=== PATIENT | female | born 1960 | race Caucasian/White ===

== ENCOUNTER 2017-10-24 17:43 | Emergency (ER) | payer SELFPAY ==
--- NOTE | 2017-10-24 18:22 | EDPHYS ---
Physician Documentation [facility] Name: Maryjane Jameson Age: 57 yrs Sex: Female : 1960 Arrival Date: 10/24/2017 Time: 17:47 Bed 2 Private MD: ED Physician Petros Florence HPI: 10/24 19:13 This 57 yrs old Female presents to ER via EMS with complaints of Probable jr8 Seizure, Syncope. 19:13 The patient presents after having a single isolated seizure. Seizure onset: just prior jr8 to arrival. Context: the seizure(s) was witnessed, by family, occurred at home, occurred while the patient was moving furniture. EMS care: IV fluids. Current symptoms: Currently, the patient is not experiencing any symptoms, the patient feels back to baseline, no decreased level of consciousness, no confusion, no dysphasia, no headache, no paralysis, no visual changes. The patient has experienced similar episodes in the past, several times. The patient has not recently seen a physician. Patient stated that while helping son move objects started to not feel well. Stated that her hearing started to go out and heard echoing which she normally has just prior to seizure. Son stated that she was lowered to ground and had seizure that lasted about 30 seconds. Was postictal for a while. Patient now back to baseline. Stated that she does not want to have blood work or anything done. Just wants to go home and rest . Historical: - Allergies: 17:52 PENICILLINS; jl7 - Home Meds: 18:07 clonidine HCl 0.2 mg Oral tab 1 tab 2 times per day [Active]; amlodipine 10 mg tab 1 jl7 tab once daily [Active]; carvedilol 25 mg oral tab 1 tab 2 times per day [Active]; phenytoin sodium extended 100 mg oral cap 2 caps [Active]; ramipril 10 mg Oral cap 1 cap 2 times per day [Active]; atorvastatin 40 mg oral tab 1 tab once daily [Active]; clopidogrel 75 mg oral tab 1 tab once daily [Active]; levothyroxine 200 mcg tab 1 tab once daily [Active]; aspirin 325 mg oral tab [Active]; - PMHx: 17:52 CVA; Hemmorhagic; Diabetes - NIDDM; Hypertension; Seizures; jl7 - Immunization history:: Adult Immunizations up to date. - Social history:: Smoking status: Patient uses tobacco products, smokes one pack cigarettes per day. - Ebola Screening: : No symptoms or risks identified at this time. ROS: 19:13 Eyes: Negative for injury, pain, redness, and discharge, ENT: Negative for injury, jr8 pain, and discharge, Neck: Negative for injury, pain, and swelling, Cardiovascular: Negative for chest pain, palpitations, and edema, Respiratory: Negative for shortness of breath, cough, wheezing, and pleuritic chest pain, Abdomen/GI: Negative for abdominal pain, nausea, vomiting, diarrhea, and constipation, Back: Negative for injury and pain, MS/Extremity: Negative for injury and deformity, Skin: Negative for injury, rash, and discoloration. 19:13 Neuro: Positive for seizure activity. Exam: 19:13 Head/Face: Normocephalic, atraumatic. Eyes: Pupils equal round and reactive to light, jr8 extra-ocular motions intact. Lids and lashes normal. Conjunctiva and sclera are non-icteric and not injected. Cornea within normal limits. Periorbital areas with no swelling, redness, or edema. ENT: Nares patent. No nasal discharge, no septal abnormalities noted. Tympanic membranes are normal and external auditory canals are clear. Oropharynx with no redness, swelling, or masses, exudates, or evidence of obstruction, uvula midline. Mucous membranes moist. Neck: Trachea midline, no thyromegaly or masses palpated, and no cervical lymphadenopathy. Supple, full range of motion without nuchal rigidity, or vertebral point tenderness. No Meningismus. Chest/axilla: Normal chest wall appearance and motion. Nontender with no deformity. No lesions are appreciated. Cardiovascular: Regular rate and rhythm with a normal S1 and S2. No gallops, murmurs, or rubs. Normal PMI, no JVD. No pulse deficits. Respiratory: Lungs have equal breath sounds bilaterally, clear to auscultation and percussion. No rales, rhonchi or wheezes noted. No increased work of breathing, no retractions or nasal flaring. Abdomen/GI: Soft, non-tender, with normal bowel sounds. No distension or tympany. No guarding or rebound. No evidence of tenderness throughout. Back: No spinal tenderness. No costovertebral tenderness. Full range of motion. Skin: Warm, dry with normal turgor. Normal color with no rashes, no lesions, and no evidence of cellulitis. MS/ Extremity: Pulses equal, no cyanosis. Neurovascular intact. Full, normal range of motion. Neuro: Awake and alert, GCS 15, oriented to person, place, time, and situation. Cranial nerves II-XII grossly intact. Motor strength 5/5 in all extremities. Sensory grossly intact. Cerebellar exam normal. Normal gait. Vital Signs: 17:52 BP 168 / 83; Pulse 73; Resp 18 S; Pulse Ox 96% on R/A; Pain 0/10; jl7 18:00 Weight 54.43 kg (R); Height 5 ft. 5 in. (165.10 cm) (R); Pain 0/10; jl7 18:00 Body Mass Index 19.97 (54.43 kg, 165.10 cm) jl7 Dada Coma Score: 17:52 Eye Response: spontaneous(4). Verbal Response: oriented(5). Motor Response: obeys jl7 commands(6). Total: 15. MDM: 18:20 Patient medically screened. jr8 18:20 Data reviewed: vital signs, nurses notes, and as a result, I will discharge patient. jr8 Data interpreted: Pulse oximetry: on room air is 96 %. Interpretation: normal. Counseling: I had a detailed discussion with the patient and/or guardian regarding: the historical points, exam findings, and any diagnostic results supporting the discharge/admit diagnosis, the need for outpatient follow up, a family practitioner, a neurologist, to return to the emergency department if symptoms worsen or persist or if there are any questions or concerns that arise at home. 19:13 ED course: Patient hemodynamically stable and in no acute distress. Of sound mind with jr8 normal mental status. After examining patient, continues to want to go home and not to be further evaluated. Risks given to patient. She understands but wants to try and go home and rest since she has had this numerous times before. Patient has family that will be with her at all times. Will release her to sons care . Administered Medications: No medications were administered Disposition: 21:14 Co-signature as Attending Physician, Petros Florence MD. Disposition: 10/24/17 18:21 Discharged to Home. Impression: Epilepsy and recurrent seizures. - Condition is Stable. - Discharge Instructions: Seizure, Adult. - Medication Reconciliation Form, Thank You Letter, Antibiotic Education, Prescription Opioid Use form. - Follow up: Private Physician; When: 1 - 2 days; Reason: Recheck today's complaints, Continuance of care, Re-evaluation by your physician. - Problem is new. - Symptoms have improved. Signatures: Jas Aburto PA PA jr8 Tad Sutherland RN RN jl7 Petros Florence MD MD Corrections: (The following items were deleted from the chart) 18:32 18:21 10/24/2017 18:21 Discharged to Home. Impression: Epilepsy and recurrent seizures. jl7 Condition is Stable. Forms are Medication Reconciliation Form, Thank You Letter, Antibiotic Education, Prescription Opioid Use. Follow up: Private Physician; When: 1 - 2 days; Reason: Recheck today's complaints, Continuance of care, Re-evaluation by your physician. Problem is new. Symptoms have improved. jr8
--- NOTE | 2017-10-24 18:22 | ER ---
Nurse's Notes [facility] Name: Maryjane Jameson Age: 57 yrs Sex: Female : 1960 Arrival Date: 10/24/2017 Time: 17:47 Bed 2 Private MD: Diagnosis: Epilepsy and recurrent seizures Presentation: 10/24 17:48 Presenting complaint: EMS states: Pt had a seizure and syncopal episode, was postictal jl7 until about 10 minutes ago. Denies pain. Transition of care: patient was not received from another setting of care. Onset of symptoms was October 24, 2017. Risk Assessment: Do you want to hurt yourself or someone else? Patient reports no desire to harm self or others. Initial Sepsis Screen: Does the patient meet any 2 criteria? No. Patient's initial sepsis screen is negative. Does the patient have a suspected source of infection? No. Patient's initial sepsis screen is negative. Care prior to arrival: None. 17:48 Method Of Arrival: EMS: [facility] jl7 17:48 Acuity: RENETTA 3 jl7 Triage Assessment: 17:52 General: Appears in no apparent distress. uncomfortable, Behavior is calm, cooperative, jl7 appropriate for age. Pain: Denies pain. EENT: No signs and/or symptoms were reported regarding the EENT system. Neuro: Level of Consciousness is awake, alert, obeys commands, Oriented to person, place, time, situation. Cardiovascular: Patient's skin is warm and dry. Respiratory: Airway is patent Respiratory effort is even, unlabored. Derm: Skin is pink, warm \\T\\ dry. Historical: - Allergies: 17:52 PENICILLINS; jl7 - Home Meds: 18:07 clonidine HCl 0.2 mg Oral tab 1 tab 2 times per day [Active]; amlodipine 10 mg tab 1 jl7 tab once daily [Active]; carvedilol 25 mg oral tab 1 tab 2 times per day [Active]; phenytoin sodium extended 100 mg oral cap 2 caps [Active]; ramipril 10 mg Oral cap 1 cap 2 times per day [Active]; atorvastatin 40 mg oral tab 1 tab once daily [Active]; clopidogrel 75 mg oral tab 1 tab once daily [Active]; levothyroxine 200 mcg tab 1 tab once daily [Active]; aspirin 325 mg oral tab [Active]; - PMHx: 17:52 CVA; Hemmorhagic; Diabetes - NIDDM; Hypertension; Seizures; jl7 - Immunization history:: Adult Immunizations up to date. - Social history:: Smoking status: Patient uses tobacco products, smokes one pack cigarettes per day. - Ebola Screening: : No symptoms or risks identified at this time. Screenin:07 Abuse screen: Denies threats or abuse. Denies injuries from another. Nutritional jl7 screening: No deficits noted. Tuberculosis screening: No symptoms or risk factors identified. Fall Risk Fall in past 12 months (25 points). Secondary diagnosis (15 points) seizures, IV access (20 points). Total Patterson Fall Scale indicates High Risk Score (45 or more points). Fall prevention measures have been instituted. Side Rails Up X 2 Placed Close to Nursing Station Frequent Obs/Assessments Occuring Family Present and informed to notify staff if the need to leave the bedside As available patient and family educated on Fall Prevention Program and Strategies. Assessment: 18:00 General: See triage assessment. jl7 18:20 Reassessment: Provider at bedside, pt states "I'm fine, I feel great. I'm ready to go jl7 home please." Pt denies pain, dizziness, N/V/D. Vital Signs: 17:52 BP 168 / 83; Pulse 73; Resp 18 S; Pulse Ox 96% on R/A; Pain 0/10; jl7 18:00 Weight 54.43 kg (R); Height 5 ft. 5 in. (165.10 cm) (R); Pain 0/10; jl7 18:00 Body Mass Index 19.97 (54.43 kg, 165.10 cm) jl7 Dada Coma Score: 17:52 Eye Response: spontaneous(4). Verbal Response: oriented(5). Motor Response: obeys jl7 commands(6). Total: 15. ED Course: 17:47 Patient arrived in ED. jl7 17:50 Triage completed. jl7 17:52 Arm band placed on right wrist. jl7 17:59 Tad Sutherland, RN is Primary Nurse. jl7 18:00 Patient has correct armband on for positive identification. Bed in low position. Call jl7 light in reach. Side rails up X 1. Seizure precautions initiated. Pulse ox on. NIBP on. 18:07 Inserted saline lock: 18 gauge in right forearm, using aseptic technique. ,using jl7 aseptic technique. inserted by DAT [place] Blood collected. 18:15 Petros Florence MD is Attending Physician. 18:20 Jas Aburto PA is PHCP. jr8 18:31 No provider procedures requiring assistance completed. IV discontinued, intact, jl7 bleeding controlled, No redness/swelling at site. Pressure dressing applied. Administered Medications: No medications were administered Outcome: 18:21 Discharge ordered by . jr8 18:31 Discharged to home ambulatory, with family. jl7 18:31 Condition: stable 18:31 Discharge instructions given to patient, family, Instructed on discharge instructions, follow up and referral plans. Demonstrated understanding of instructions, follow-up care. 18:32 Patient left the ED. jl7 Signatures: Jas Aburto PA PA jrTad Hart RN RN jl7 Petros Florence MD MD Corrections: (The following items were deleted from the chart) 18:31 18:20 IV discontinued, intact, bleeding controlled, No redness/swelling at site. jl7 Pressure dressing applied, jl7 18:31 18:20 No provider procedures requiring assistance completed. jl7 jl7
== END 2017-10-24 18:32 | disposition home or self-care (01) ==
LOC: ER 17:43
DX: G40.802 Other epilepsy, not intractable, without status epilepticus (principal); I10 Essential (primary) hypertension; E11.9 Type 2 diabetes mellitus without complications; F17.210 Nicotine dependence, cigarettes, uncomplicated; Z88.0 Allergy status to penicillin; Z86.73 Personal history of transient ischemic attack (TIA), and cerebral infarction without residual deficits
CPT/HCPCS: 99284

== ENCOUNTER 2020-01-20 19:36 | Emergency (ER) | payer OTHER ==
--- OUTSIDE RECORDS SUMMARY | 2020-01-20 19:37 | XMS REPORT | Continuity of Care Document ---
:[address] [facility] t Address [address] [place] [address] Care Team Providers Name Role Phone Ally Jones Attending Clinician Unavailable Yoshi Jones Admitting Clinician Unavailable Problems This patient has no known problems. Allergies, Adverse Reactions, Alerts This patient has no known allergies or adverse reactions. Medications This patient has no known medications. Procedures This patient has no known procedures. Results Test Description Test Time Test Comments Results Result Comments Source Reference Lab Testing 2020-01-09 12:36:00 Test Item Value Reference Range Interpretation Comme nts Reference Lab Testing Not Detected NotDetected Negati ve (Not Detected) results (test code = KPVRL86V) do no t preclude infectionwith SARS-CoV-2 viru s, and should not be the sole bas is of apatient management deci mynor. Consider testing for oth erviruses if clinically mimi cated.The use of this assay as a n In vitro diagnostic unde r theFDA Emergency Use Authorizati on (EUA) is limited tolabor atories that are certified under the ClinicalLaborat ory Improvement Amendments of 1 988 (CLIA), 42 U.S.C.263a, to perform high complexity test s. Reason for Testing: Admission AwauspnewFfvixavsi0545-04-19 09:34:00 Test Item Value Reference Range Interpretation Comments Chemistry (test 133 mmol/L 136-145 L code = NA-T) Chemistry (test 3.6 mmol/L 3.5-5.1 N code = K-T) Chemistry (test 96 mmol/L 98-107 L code = CL) Chemistry (test 28 mmol/L 22-29 N code = CO2) Chemistry (test 13 mmol/L 10-20 N code = ANGP) Chemistry (test 6 mg/dL 9.8-20.1 L code = BUN) Chemistry (test 0.61 mg/dL 0.6-1.1 N code = CREATT) Chemistry (test Greater than 90 Referenc e Range for code = EGFRMDRD) Estimated G FR: Gre ater than 90 mL/min/ 1.73 m2NOTE:The MDRD equation has no t been validated for use with thenevaeh erly (over 70 years of age), women, patients with serious comorbi d condition or pe rsons with extremes o fbody size, muscle ma ss, or nutritional status. Chemistry (test 124 mg/dL 70-105 H code = GLU-T) Chemistry (test 8.9 mg/dL 7.8-10.44 N code = CA) Chemistry - [id number] 07:32:00 Test Item Value Reference Range Interpretation Comments Chemistry - Specials (test code 2.5692 uIU/mL 0.35-4.94 N = TSH3) [id number] 06:48:00 Test Item Value Reference Range Interpretation Comments Chemistry (test 130 mmol/L 136-145 L code = NA-T) Chemistry (test 3.4 mmol/L 3.5-5.1 L code = K-T) Chemistry (test 97 mmol/L 98-107 L code = CL) Chemistry (test 25 mmol/L 22-29 N code = CO2) Chemistry (test 11 mmol/L 10-20 N code = ANGP) Chemistry (test 7 mg/dL 9.8-20.1 L code = BUN) Chemistry (test 0.59 mg/dL 0.6-1.1 L code = CREATT) Chemistry (test Greater than 90 Referenc e Range for code = EGFRMDRD) Estimated G FR: Gre ater than 90 mL/min/ 1.73 m2NOTE:The MDRD equation has no t been validated for use with thenevaeh erly (over 70 years of age), women, patients with serious comorbi d condition or pe rsons with extremes o fbody size, muscle ma ss, or nutritional status. Chemistry (test 107 mg/dL 70-105 H code = GLU-T) Chemistry (test 8.5 mg/dL 7.8-10.44 N code = CA) Date of next dose: 01/09/2020Time of next dose: [id number] 06:48:00 Test Item Value Reference Range Interpretation Comments Chemistry (test code = 156 mg/dl < 200 Desired CHOL) Chemistry (test code = 111 mg/dL Less than 150 TRIG) Chemistry (test code = 57 mg/dL >60 Neg Risk Adult HDL levels in HDL) terms of risk f or Coronary Heart Disease > or Equal to 60 mg/dL N egative Risk < 40 mg/dL HIGH Risk Chemistry (test code = 77 mg/dL Level s in terms of LDL) risk for kuhn ry heart disease: Desirable: Less than 130 m g/dL Borderline H igh Risk: 130 - 15 9 mg/dL High Risk : Greater t oliveira 160 mg/dL Chemistry (test code = 2.7 Less than 4.5 Adul t levels in terms CRISK) of risk for Cor onary Heart Disease: Dangerous level : Greater than 8. 3 High: 5.6 - 8.3 Average: 3.7 - 5.6 Below average: 2.5 - 3.7 Prot ection probable: Less than 2.5 Date of next dose: 01/09/2020Time of next dose: [id number] 06:48:00 Test Item Value Reference Range Interpretation Comments Chemistry (test code 13.8 ug/mL 10.0-20.0 N Therape utic Range: = DIL) 10.0 - 20.0 mcg/mLToxic Ran ge: Greater than 30.0 mcg/mL Date of next dose: 01/09/2020Time of next dose: 6001Pbzhkyck3207-38-39 14:59:00 Test Item Value Reference Range Interpretation Comments Accuchek (test code = ACU) 159 mg/dL 70-110 H N otified Nurse Tjfvzquhd7924-04-62 13:19:00 Test Item Value Reference Range Interpretation Comments Chemistry (test 127 mmol/L 136-145 L code = NA-T) Chemistry (test 3.5 mmol/L 3.5-5.1 N code = K-T) Chemistry (test 97 mmol/L 98-107 L code = CL) Chemistry (test 21 mmol/L 22-29 L code = CO2) Chemistry (test 13 mmol/L 10-20 N code = ANGP) Chemistry (test 4 mg/dL 9.8-20.1 L code = BUN) Chemistry (test 0.50 mg/dL 0.6-1.1 L code = CREATT) Chemistry (test Greater than 90 Referenc e Range for code = EGFRMDRD) Estimated G FR: Gre ater than 90 mL/min/ 1.73 m2NOTE:The MDRD equation has no t been validated for use with theeld erly (over 70 years of age), women, patients with serious comorbi d condition or pe rsons with extremes o fbody size, muscle ma ss, or nutritional status. Chemistry (test 127 mg/dL 70-105 H code = GLU-T) Chemistry (test 7.7 mg/dL 7.8-10.44 L code = CA) Chemistry (test 0.4 mg/dL 0.2-1.2 N code = TBILI-T) Chemistry (test 5.9 g/dL 6.0-8.3 L code = TP) Chemistry (test 3.7 g/dL 3.5-5.0 N code = ALB) Chemistry (test 2.2 g/dL 2.4-3.5 L code = GLOB) Chemistry (test 1.7 g/dL 1.2-2.2 N code = AG) Chemistry (test 52 U/L 40-110 N code = ALP) Chemistry (test 15 U/L 5-34 N code = AST) Chemistry (test 17 U/L 8-55 N code = ALT) [id number] 12:50:00 Test Item Value Reference Range Interpretation Comments Hematology (test code = WBCT) 11.0 thou/uL 4.8-10.8 H Hematology (test code = RBCT) 3.74 mill/uL 4.20-5.40 L Hematology (test code = HGBT) 12.2 g/dL 12.0-16.0 N Hematology (test code = HCTT) 36.7 % 36.0-47.0 N Hematology (test code = MCV) 98.0 fL 78.0-98.0 N Hematology (test code = MCH) 32.6 pg 27.0-31.0 H Hematology (test code = MCHC) 33.3 g/dL 32.0-36.0 N Hematology (test code = RDW) 11.2 % 11.5-14.5 L Hematology (test code = PLTT) 214 thou/uL 130-400 N Hematology (test code = MPV) 7.3 fL 7.4-10.4 L Hematology (test code = %NEUT) 73.3 % 42.0-75.0 N Hematology (test code = %LYMPH) 18.5 % 21.0-51.0 L Hematology (test code = %MONO) 6.6 % 0.0-10.0 N Hematology (test code = %EOS) 1.4 % 0.0-10.0 N Hematology (test code = %BASO) 0.3 % 0.0-1.0 N Hematology (test code = NEUT#) 8.1 thou/uL 1.40-6.50 H Hematology (test code = LYMPH#) 2.0 thou/uL 1.20-3.40 N Hematology (test code = MONO#) 0.7 thou/uL 0.11-0.59 H Hematology (test code = EOS#) 0.1 thou/uL 0.0-0.7 N Hematology (test code = BASO#) 0.0 thou/uL 0.0-0.2 N [id number] 12:42:00 Test Item Value Reference Range Interpretation Comments Urinalysis (test code = Colorless Yellow UACLR) Urinalysis (test code = Clear Clear UACLY) Urinalysis (test code = SPGR) 1.003 1.002-1.036 N Urinalysis (test code = GIN) 7.0 5.0-9.0 N Urinalysis (test code = Negative Radha/uL Negative UALEU) Urinalysis (test code = Negative Negative UANIT) Urinalysis (test code = Negative mg/dL Neg-Trace PROUADIP) Urinalysis (test code = Normal mg/dL Negative GLUCU) Urinalysis (test code = KETU) Negative mg/dL Negative Urinalysis (test code = Normal mg/dL Less than 2 UAUROB) Urinalysis (test code = Negative Negative UABIL) Urinalysis (test code = Negative Negative UABLD) Urine Source: Urine Clean CatchMRI Brain [facility] Pt Name: EDUARDA GARCIA Rösler [employer] Phys: ALLY JONES MD KARLA Arias [phone] : 1960 Age: 59 SEX:F [phone] Exam Date: 01/09/20 Status: ADM IN Acct: [id number] Loc: 2SE Pt Unit #: [id number] Report #: [id number] CC: ALLY JONES MD MRI REPORT Order # Category/Exam [id number] MRI/MRI Brain W WO Con ([id number]): . Results MRI BRAIN WITH AND WITHOUT CONTRAST: INDICATION: Question CVA. Leg weakness. COMPARISON: Correlation is made to CT brain 01/08/2020. Comparison is made to a prior MRI of brain dated 2009. FINDINGS: Ventricles have normal size. There is ex vacuo dilatation of the posterior horn of the right ventricle as noted on CT. There is a focal area of encephalomalacia and surrounding gliosis. This is at the site of a previously described parenchymal hematoma in 2010.Postoperative changes in the left middle cranial fossa and left frontal bone with aneurysmal clip producing MRI artifact as is noted on CT. No gliosis or edema seen at this site on MRI. There is no evidence of restricted diffusion. No evidence of acute infarct or mass. Evidence of old lacunar infarct in the brainstem is seen at the level of the asha with focal volumeloss. There is susceptibility artifact in the asha to the left of midline indicating old microhemorrhage. No abnormal enhancement identified. Mild chronic ischemic white matter changes on FLAIR sequence. IMPRESSION: There are chronic changes in the brain as described above. There is no evidence of acute infarct or other acute process. POS: AH Reported By: Derrick Mendoza MD Electronically Signed Date/Time: 01/09/20 1443 Technologist: AMI Dictated Date/Time: 01/09/20 0908 Transcribed Date/Time: 01/09/20 [id number] [facility] Name: EDUARDA GARCIA Rösler [employer] Phys: Brooke Ludin KARLA Mejia [phone] : 1960 Age: 59 SEX:F [phone] Exam Date: 01/08/20 Status: ADM IN Acct: [id number] Loc: 2SE Pt Unit #: [id number] Report #: [id number] CC: ALLY JONES MD, Chance DO ULTRASOUND REPORT Order # Category/Exam [id number] ULT/US Carotid Doppler STANDARD ([id number]): . Results BILATERAL CAROTID DUPLEX ULTRASOUND: HISTORY: CVA. Left facial droop and slurred speech. TECHNIQUE: Grayscale, color-flow and spectral Doppler ultrasound imaging of the extracranial carotid artery systems was performed bilaterally. FINDINGS: Calcified atherosclerotic plaque is seen within the bilateral common carotid arteries as well as involving the proximal internal carotid arteries. There is no hemodynamically significant stenosis in the bilateral internal carotid arteries according to the peak systolic velocities and the ICA/CCA ratios. The peak systolic velocity in the right ICA measures 62.8 cm/s. The peak systolic velocity in the left ICA measures 72.4 cm/s. The right ICA/CCA ratio is 1.05, and the left ICA/CCA ratio is 1.11. Vertebral arteries: Antegrade flow is demonstrated in the vertebral arteries bilaterally. Velocity measurements are not significantly changed when compared to a study in 2013. IMPRESSION: No hemodynamically significant stenosis in the bilateral internal carotid arteries. Reported By: Fermin Moore MD Electronically Signed Date/Time:01/09/20 0750 Technologist: TRICIA Dictated Date/Time: 01/09/20 0747 Transcribed Date/Time:CT Brain WO [facility] Pt Name: EDUARDA GARCIA [employer] Phys: [place] [address] : 1960 Age: 59 SEX:F [phone] Exam Date: 01/08/20 Status: REG ER Acct: [id number] Loc: ERS Pt Unit #: [id number] Report #: [id number] CC: ED TEMP PROVIDER Ludin Cox DO CAT SCAN REPORT Order # Category/Exam [id number] CT/CT Brain WO Con ([id number]): . Results CT BRAIN WITHOUT CONTRAST HISTORY: Level 1 stroke. Weakness in the legs Comparison 05/22/2013 FINDINGS: Changes of encephalomalacia and reduces in the right frontoparietal lobe with associated ex vacuo dilatation of the occipital horn of the right lateral ventricle are stable. 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 Old infarction in the asha is redemonstrated. 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 No evidence of acute infarct, hemorrhage,midline shift or abnormal extra-axial fluid collections is noted. Ventricular size is stable and thebasilar cisterns are patent. IMPRESSION: No CT evidence of acute intracranial process. Discussed over the telephone with ER physician Dr. Ludin Cox at 12:53 PM Reported By: Mahesh Mcdonald MD Electronically Signed Date/Time: 01/08/20 1257 Technologist: KAELYN Dictated Date/Time: 01/08/20 1251 Transcribed Date/Time:CTA Angio Head [facility] Pt Name: EDUARDA GARCIA [employer] Phys: [place] [address] : 1960 Age: 59 SEX:F [phone] Exam Date: 01/08/20 Status: REG ER Acct: [id number] Loc: ERS Pt Unit #: [id number] Report #: [id number] CC: ED TEMP PROVIDER Ludin Cox DO CAT SCAN REPORT Order # Category/Exam [id number] CT/CTA Angio Head WWO Con ([id number]): . CT/CTA Angio Neck W Con ([id number]): . Results CTA HEAD: CTA NECK: 01/08/20 Multiple axial tomograms obtained through the head and neck with IV enhancement following an angio protocol with multiplanar reconstruction and 3D postprocessing.INDICATIONS: Stroke protocol. Left sided weakness. COMPARISON: Comparison made toa CTA head from 12/04/13. 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 The intracranial internal carotid arteries are patent and symmetric. Anterior cerebral arteries are patent and symmetric. Both middle cerebral arteries are patent. There is loss of detail at the genu of the left middle cerebral and the distal M1 segment in the left middle cerebral due to the postoperative change. The findings at this site appears stable from 2014. There are reduced left M2 and M3 segments when compared to the right but this is stable and appears to be on the basis of aneurysmal clipping which probably occluded proximal M2 branches. The right M1, M2 and M3 branches are unremarkable. The basilar artery is patent. The posterior cerebral arteries are patent and symmetric. IMPRESSION: Postoperative changes in the left middle cranial fossa with some narrowing of the distal left M1 segment and decreased left M2 segments are again noted. These findings are stable when compared to the CTA study of 12/04/13. CTA head otherwise unremarkable. CTA NECK: Origin of the arch vessels is not completely imaged. The common carotid arteries appear patent and symmetric with mild atherosclerotic change. Mild atherosclerotic change seen in both bulbs and proximal ICAs; however, there is no evidence of stenosis identified in either extracranial internal carotid artery. The vertebral arteries are patent and symmetric. The soft tissues are unremarkable. Chronic lung parenchymal changes are noted on images through the apices. IMPRESSION: Mild atherosclerotic changes seen in the carotid bulbs with no evidence ofstenosis. Reported By: Derrick Mendoza MD Electronically Signed Date/Time: 01/08/20 1547 Technologist: KAELYN Dictated Date/Time: 01/08/20 1329 Transcribed Date/Time: 01/08/20 9977
--- OUTSIDE RECORDS SUMMARY | 2020-01-20 19:37 | XMS REPORT | Continuity of Care Document ---
:1960 Author Organization [facility] Address [address] [place] [address] [address] Phone Care Team Providers Name Role Phone Donovan Moseley Primary Care Provider Yoshi Moseley Admit Provider Yoshi Moseley Attending Provider [facility] Provider Landon Da Silva Other Provider Allergies, Adverse Reactions, Alerts Allergen Type Severity Reaction Last Verified Status Updated Penicillins Allergy Yes Active Medications No medication information available. Problems No problem information available. Procedures Procedure Date Performed Status EKG 12 Lead in Emergency Room January 08, [address] Brain WO Con January 08, 2020 completed CTA Angio Head W WO Con January 08, 2020 completed CTA Angio Neck W WO Con January 08, 2020 completed US Carotid Doppler STANDARD January 08, 2020 active Relevant Diagnostic Tests and/or Laboratory Data Laboratory Results Test Date/Time Result Interpretation Reference Result Perfo rming Range Comment Site Bedside Glucose December 159 mg/dL 70-110 Notified *[facility] - ER Services, [address] 2019 [place] [address] 12:22pm Sodium Level December 127 mmol/L 136-145 [facility] Lab, [address] 2019 [place] [address] 12:39pm Potassium Level December 3.5 mmol/L 3.5-5.1 [facility] Lab, [address] 2019 [place] [id number] 12:39pm Chloride Level December 97 mmol/L 98-107 [facility] Lab, [address] 2019 [place] [address] 12:39pm Carbon Dioxide Anne 21 mmol/L 22-29 [facility], [address] Level 2019 [facility] [address] 12:39pm Anion Gap December 13 mmol/L 10-20 [facility] Lab, [address] 2019 [facility] [address] 12:39pm Blood Urea December 4 mg/dL 9.8-20.1 [facility], [address] Nitrogen 2019 [facility] [address] 12:39pm Creatinine December 0.50 mg/dL 0.6-1.1 [facility] Lab, [address] 2019 [facility] [address] 12:39pm Estimated GFR December Greater Reference [facility] Lab, [address] (MDRD) 2019 than 90 Range for [place] [id number] 12:39pm Estimated GFR: Greater than 90 mL/min/1.73 m2 NOTE:The MDRD equation has not been validated for use with theelderly (over 70 years of age), women, patientswith serious comorbid condition or persons with extremes ofbody size, muscle mass, or nutritional status. Glucose Level December 127 mg/dL 70-105 [facility] Lab, [address] 2019 [facility] [address] 12:39pm Calcium Level December 7.7 mg/dL 7.8-10.44 [facility] Lab, [address] 2019 [facility] [address] 12:39pm Total Bilirubin December 0.4 mg/dL 0.2-1.2 [facility] Lab, [address] 2019 [facility] [address] 12:39pm Serum Total December 5.9 g/dL 6.0-8.3 [facility] Lab, [address] Protein 2019 [facility] [address] 12:39pm Albumin December 3.7 g/dL 3.5-5.0 [facility] Lab, [address] 2019 [facility] [address] 12:39pm Globulin December 2.2 g/dL 2.4-3.5 [facility] StJo ph [facility], [address] 2019 [place] [address] 12:39pm Albumin/Globulin December 1.7 g/dL 1.2-2.2 [facility], [address] Ratio 2019 [place] [address] 12:39pm Alkaline December 52 U/L 40-110 [facility], [address] Phosphatase 2019 [place] [address] 12:39pm Aspartate Amino December 15 U/L 5-34 [facility], [address] Transf (AST/SGOT) 2019 [place] [address] 12:39pm Alanine December 17 U/L 8-55 [facility], [address] Aminotransferase 2019 [place] [address] (ALT/SGPT) 12:39pm White Blood Count December 11.0 4.8-10.8 [facility], [address] 2019 thou/[place] [address] 12:39pm Red Blood Count December 3.74 4.20-5.40 [facility], [address] 2019 mill/[place] [address] 12:39pm Hemoglobin December 12.2 g/dL 12.0-16.0 [facility], [address] 2019 [place] [address] 12:39pm Hematocrit December 36.7 % 36.0-47.0 [facility], [address] 2019 [place] [address] 12:39pm Mean Corpuscular Anne 98.0 fL 78.0-98.0 [facility], [address] Volume 2019 [place] [address] 12:39pm Mean Corpuscular Anne 32.6 pg 27.0-31.0 [facility], [address] Hemoglobin 2019 [place] [address] 12:39pm Mean Corpuscular Anne 33.3 g/dL 32.0-36.0 [facility] Lab, [address] Hemoglobin 2019 [facility] [address] Concent 12:39pm Red Cell Anne 11.2 % 11.5-14.5 [facility] Lab, [address] Distribution 2019 [facility] [address] Width 12:39pm Platelet Count December 214 130-400 [facility] Lab, [address] 2019 [facility] [address] 12:39pm Mean Platelet December 7.3 fL 7.4-10.4 [facility] Lab, [address] Volume 2019 [facility] [address] 12:39pm Neutrophils % Anne 73.3 % 42.0-75.0 [facility] Lab, [address] 2019 [facility] [address] 12:39pm Lymphocytes % Anne 18.5 % 21.0-51.0 [facility] Lab, [address] 2019 [facility] [address] 12:39pm Monocytes % Anne 6.6 % 0.0-10.0 [facility] Lab, [address] 2019 [facility] [address] 12:39pm Eosinophils % Anne 1.4 % 0.0-10.0 [facility], [address] 2019 [facility] [address] 12:39pm Basophils % Anne 0.3 % 0.0-1.0 [facility] Lab, [address] 2019 [facility] [address] 12:39pm Neutrophils # Anne 8.1 1.40-6.50 [facility] Lab, [address] 2019 [facility] [address] 12:39pm Lymphocytes # Anne 2.0 1.20-3.40 [facility], [address] 2019 [facility] [address] 12:39pm Monocytes # Anne 0.7 0.11-0.59 [facility] Lab, [address] 2019/ [place] [address] 12:39pm Eosinophils # Anne 0.1 0.0-[address] [facility], [address] 2019 [facility] [place] [address] 12:39pm Basophils # Anne 0.0 0.0-0.2 [facility], [address] 2019 [facility] [place] [address] 12:39pm Urine Color December Colorless Yellow [facility] StJo seph [facility], [address] 2019 [place] [address] 12:15pm Urine Clarity December Clear Clear [facility], [address] 2019 [place] [address] 12:15pm Urine Specific Anne 1.003 1.002-1.03 [facility] StJoseph [facility], [address] [place] 2019 6 [place] [address] 12:15pm Urine pH December 7.0 5.0-9.0 [facility], [address] 2019 [place] [address] 12:15pm Urine Leukocyte December Negative Negative [facility] StJoseph [facility], [address] Esterase 2019 [place] [address] 12:15pm Urine Nitrite December Negative Negative [facility], [address] 2019 [place] [address] 12:15pm Urine Protein December Negative Neg-Trace [facility], [address] 2019 [place] [address] 12:15pm Urine Glucose December Normal Negative [facility] Lab, [address] (UA) 2019 [place] [address] 12:15pm Urine Ketones December Negative Negative [facility], [address] 2019 [place] [address] 12:15pm Urine Anne Normal Less than [facility] StJose ph [facility] Lab, [address] Urobilinogen 2019 2 [place] [address] 12:15pm Urine Bilirubin December Negative Negative [facility], [address] [place] [address] 12:15pm Urine Blood December Negative Negative [facility], [address] 2019 [place] [address] 12:15pm Health Concerns Health Concerns may be documented in an alternate section. Chief Complaint and Reason for Visit Chief Complaint STROKE LIKE SYMPTOMS. Encounters Encounter Location(s) Arrival/Admit Date Discharge/Depart Date Provider(s) Admitted El Brazil January 07, [facility] 2:15pm , Ctr-2[facility] Assessments No Assessments Information Available Functional Status No Functional Status information available Goals Goals may be documented in an alternate section. Immunizations No Immunization Information Available Mental Status No Mental Status Information Available Medical Equipment No Medical Equipment Information available Insurance Providers Payer Policy Id Coverage Id Subscriber's Subscriber Effective Expi ration Name Id Date Date MEDICAID [id number] EDUARDA VARGAS December [facility] 2019 30, 2 020 MEDICARE [id number] EDUARDA VARGAS [id number] April [facility] 2000 Social History Assigned Sex Female Vital Signs No vital signs result information available.
--- OUTSIDE RECORDS SUMMARY | 2020-01-20 19:38 | XMS REPORT | Continuity of Care Document ---
:[address] [facility] Address [address] [place] [address] Phone Care Team Providers Name Role Phone Yoshi Moseley Primary Care Provider Carlos Barragan Emergency Provider Allergies, Adverse Reactions, Alerts Allergen Type Severity Reaction Last Updated Verified Status Penicillins Allergy March Yes Active 2012 10:38pm Medications Medication Status Dose Units Route Sig Qty Days Start End Instruct ions Date Date Carvedilol Active 25 MG PO Twice March Daily 2012 3:17am Clonidine Hcl Discontinu 0.1 MG PO Twice March deangelo ed Daily 2012 3:17am 9:00am Levothyroxine Discontinu 112 MCG PO Daily March deangelo Sodium ed , (Synthroid) 2012 2013 112 MCG Tab 3:17am 9:06am Nifedipine Discontinu 30 MG PO Twice March (Procardia) 10 ed Daily , MG Capsule 2012 2013 3:17am 9:05am Pravastatin Discontinu 40 MG PO Bedtim March ry Sodium ed e , (Pravachol) 40 2012 2014 MG Tab 3:17am 10:21am Valsartan/Hydr Discontinu 1 TABLET PO Daily March ary ochlorothiazid ed , (Diovan Hct) 2012 2013 160 MG/25 MG 3:17am 4:32pm Tablet Aspirin-Dipyri Discontinu 1 CAP PO Twice April deangelo damole ed Daily , (Aggrenox) 2013 CAP Cap 9:00am 4:37pm Amlodipine Active 10 MG PO Twice April Besylate Daily 2013 9:00am Aspirin Discontinu 325 MG PO Daily April (Ecotrin) 325 ed , , MG Tab 2013 2013 9:00am 8:53pm Atorvastatin Discontinu 40 MG PO Bedtim April ry Calcium ed e , (Lipitor) 40 2013 2014 MG Tab 9:00am 4:36pm Clonidine Hcl Active 0.2 MG PO Twice Gudelia Daily 2013 9:00am Phenytoin Active 300 MG PO Twice Gudelia Sodium Daily Extended 2013 (Dilantin) 100 9:00am MG Cap Pregabalin Active 75 MG PO Bedtim April (Lyrica) 75 MG e Cap 2013 9:00am Ramipril Active 5 MG PO Twice April (Altace) 5 MG Daily Cap 2013 9:00am Levothyroxine Active 137 MCG PO Daily April Sodium , (Levoxyl) 137 2014 MCG Tablet 10:23am Apixaban Discontinu 5 MG PO Twice April (Eliquis) 5 MG ed Daily , Tablet 2013 2013 4:31pm 8:53pm Alprazolam Active 0.5 MG PO Daily April (Xanax) 0.5 MG , Tab 2013 4:38pm Esomeprazole Active 40 MG PO Daily April Magnesium , (Nexium) 40 MG 2013 Capsule. 10:29am Aspirin-Dipyri Active 1 CAP PO Twice April damole Daily , (Aggrenox) 1 2013 CAP Cap 10:31am Atorvastatin Active 40 MG PO Bedtim April Calcium e , (Lipitor) 40 2014 MG Tab 10:31am Valsartan/Hydr Discontinu 1 EACH PO Daily April deangelo ochlorothiazid ed , , e (Diovan Hct 2013 2013 160-25 Mg 10:31am 8:53pm Tablet) 1 EACH Tablet Aspirin Active 81 MG PO Daily April Chewable 2013 8:53pm Problems No problem information available. Procedures Procedure Date Performed Status EKG 12 Lead in Emergency Room January 10, 2020 5:18am ac tive Relevant Diagnostic Tests and/or Laboratory Data No known relevant diagnostic tests and/or laboratory data. Health Concerns Health Concerns may be documented in an alternate section. Advance Directives Advance Directive Response Recorded Date/Time Advance Directives No May 22, 2013 4 :40pm Encounters Encounter Location(s) Arrival/Admit Date Discharge/Depart Date Provider(s) Departed [place] January 09, January 10, 2020 [facility] 2019 4:59am 7:10am Ctr-EMERGENCY SERVICES Assessments No Assessments Information Available Family History Relationship Condition Age at Onset Recorded Date/Ti me Unknown Family History? Cardiac Unknown May 22, 2013 Disorders, 4:40pm Hypertension, Respiratory Disorders, Diabetes, Cancer Functional Status No Functional Status information available Goals Goals may be documented in an alternate section. Immunizations No Immunization Information Available Mental Status No Mental Status Information Available Medical Equipment No Medical Equipment Information available Insurance Providers Payer Policy Id Coverage Id Subscriber's Subscriber Effective Expi ration Name Id Date Date MEDICARE [id number] EDUARDA VARGAS [id number] December [id number] [place] [id number] EDUARDA VARGAS January [facility] 2013 31st, 201 4 Social History Observation Status Observation Response Date of Response Smoking Status Current every day smoker April 24, 2013 3:23am Assigned Sex Female Vital Signs No vital signs result information available.
[2020-01-20 20:51] LABS: Absolute Lymphocytes (CBC) 2.3 K/uL (0.7-4.9); Basophils % 0.4 % (0-1.3); Hematocrit 37.5 % (36.0-45.0); Lymphocytes % 36.4 % (15.3-44.8); MPV 7.8 fL (7.6-11.3); RBC Red Blood Cell Count 4.03 M/uL (3.86-4.86)
[2020-01-20] MEDS ORDERED: LABETALOL 20 MG/4ML SYRINGE IV ONE (21:07)
[2020-01-20 21:10] LABS: ALT/SGPT 28 U/L (12-78); AST/SGOT 20 U/L (15-37); Albumin 4.1 g/dL (3.4-5.0); Alkaline Phosphatase 69 U/L (45-117); BUN Blood Urea Nitrogen 3 mg/dL (7-18); Bicarbonate 28 mmol/L (21-32); Bilirubin Direct 0.1 mg/dL (0-0.2); Bilirubin Total 0.3 mg/dL (0.2-1.0); Glucose Level 110 mg/dL (74-106); NT PRO-BNP 206 pg/mL (<125); Potassium 3.7 mmol/L (3.5-5.1); Protein, Total 7.6 g/dL (6.4-8.2); Sodium Level 132 mmol/L (136-145); Troponin (Emerg Dept Use Only) 0.02 ng/mL (0.0-0.045)
[2020-01-20 21:25] LABS: Protime INR 0.98
[2020-01-20 21:34] LABS: Urine Blood NEGATIVE (NEG); Urine Glucose NEGATIVE (NEG); Urine Protein NEGATIVE (NEG); Urine Specific Gravity 1.015 (1.005-1.030)
--- NOTE | 2020-01-20 22:30 | ER ---
Nurse's Notes [facility] Name: Maryjane Jameson Age: 59 yrs Sex: Female : 1960 Arrival Date: 01/20/2020 Time: 19:37 Bed 3 Private MD: Diagnosis: Uncontrolled hypertension Presentation: 01/19 19:44 Chief complaint: Patient states: BP higher than usual for 3 days. Takes extra clonidine ll1 at times BP 197/97 at home today. Denies DENT or CP. States she had TIA 2 weeks ago. Urinating more than usual for 3 days, takes a while to empty her bladder fully. + dizzy. Coronavirus screen: Client denies travel out of the [place] in the last 14 days. At this time, the client does not indicate any symptoms associated with coronavirus-19. The client reports previous COVID testing was negative. Ebola Screen: Patient denies travel to an Ebola-affected area in the 21 days before illness onset. Initial Sepsis Screen: Does the patient meet any 2 criteria? No. Patient's initial sepsis screen is negative. Risk Assessment: Do you want to hurt yourself or someone else? Patient reports no desire to harm self or others. Onset of symptoms was January 18, 2020. 19:44 Method Of Arrival: Wheelchair ll1 19:44 Acuity: RENETTA 2 ll1 22:41 Initial Sepsis Screen: Does the patient have a suspected source of infection? No. rv Patient's initial sepsis screen is negative. Historical: - Allergies: 19:43 PENICILLINS; ll1 - PMHx: 19:43 CVA; Hemmorhagic; Diabetes - NIDDM; Hypertension; Seizures; ll1 - PSHx: 19:43 aneurysm cliip-2010; ll1 - Immunization history:: Flu vaccine is up to date. - Social history:: Smoking status: Patient reports the use of cigarette tobacco products, smokes one-half pack cigarettes per day. Screenin:40 Abuse screen: Denies threats or abuse. Denies injuries from another. Nutritional lp1 screening: No deficits noted. Tuberculosis screening: No symptoms or risk factors identified. Fall Risk Total Patterson Fall Scale indicates High Risk Score (45 or more points). Fall prevention measures have been instituted. Side Rails Up X 2 Family Present and informed to notify staff if the need to leave the bedside As available patient and family educated on Fall Prevention Program and Strategies. Assessment: 20:00 General: Appears uncomfortable, Behavior is calm, cooperative. rv 20:00 Pain: Denies pain. Neuro: Level of Consciousness is awake, alert, obeys commands, rv Oriented to person, place, time, situation. Cardiovascular: Patient's skin is warm and dry. Rhythm is sinus rhythm. Respiratory: Airway is patent Respiratory effort is even, unlabored. Derm: Skin is intact. 22:00 Reassessment: BLOOD PRESSURE IS DECREASING AFTER TWO DOSES OF LABETALOL IV. PATIENT rv STATED THAT SHE IS STARTING TO FEEL BETTER. General: Appears comfortable, Behavior is calm, cooperative. Pain: Complains of pain in HEAD. Neuro: Level of Consciousness is awake, alert, obeys commands, Oriented to person, place, time, situation. Cardiovascular: Patient's skin is warm and dry. Rhythm is sinus rhythm. Respiratory: Airway is patent Respiratory effort is even, unlabored. Derm: Skin is intact. Vital Signs: 19:44 BP 192 / 86; Pulse 72; Resp 17; Temp 98.6; Pulse Ox 99% ; Pain 0/10; ll1 20:00 BP 171 / 83; Pulse 67; Resp 16; Pulse Ox 97% on R/A; lp1 20:45 BP 187 / 87; Pulse 73; Resp 17; Pulse Ox 97% on R/A; lp1 21:11 BP 193 / 95; Pulse 73; Resp 17; Pulse Ox 96% on R/A; Pain 0/10; lp1 21:30 BP 183 / 80; Pulse 64; Resp 14; Pulse Ox 96% on R/A; lp1 21:40 BP 151 / 97; Pulse 69; Resp 15; Pulse Ox 98% on R/A; rv 22:00 BP 153 / 74; Pulse 71; Resp 16; Pulse Ox 96% on R/A; rv ED Course: 19:37 Patient arrived in ED. cl3 19:47 Triage completed. ll1 19:47 Arm band placed on Patient placed in an exam room, on a stretcher. ll1 20:15 Patient has correct armband on for positive identification. Bed in low position. Call lp1 light in reach. traffic monitor specialist on. Pulse ox on. NIBP on. 20:27 Ezra Jennings RN is Primary Nurse. rv 20:31 Inserted saline lock: 20 gauge in right antecubital area, using aseptic technique. lp1 Blood collected. By TERESA Mar tech. 20:44 Nick Byrd MD is Attending Physician. pkl 21:11 Margaret Deleon, RN is Primary Nurse. lp1 22:29 Vahid Menard MD is Referral Physician. pkl 22:40 Ezra Jennings, DAT is Primary Nurse. rv 22:41 No provider procedures requiring assistance completed. IV discontinued, intact, rv bleeding controlled, No redness/swelling at site. Pressure dressing applied. Administered Medications: 21:00 Drug: Labetalol 10 mg Route: IVP; Infused Over: 2 mins; Site: right antecubital; lp1 21:40 Follow up: Response: No change in condition lp1 21:45 Drug: Labetalol 10 mg Route: IVP; Infused Over: 2 mins; Site: right antecubital; rv 22:06 Follow up: Response: Blood pressure is lowered rv Outcome: 22:30 Discharge ordered by . pkl 22:41 Discharged to home ambulatory, with family. rv 22:41 Condition: improved 22:41 Discharge instructions given to patient, Instructed on discharge instructions, follow up and referral plans. Demonstrated understanding of instructions, follow-up care. 22:41 Patient left the ED. rv Signatures: Nick Byrd MD MD pkl Margaret Deleon, RN RN lp1 Ezra Jennings, RN RN Chucky Manuel cl3 Jaylen Webb RN RN ll1 Corrections: (The following items were deleted from the chart) 19:48 19:44 Chief complaint: Patient states: BP higher than usual for 3 days. Takes extra ll1 clonidine at times BP 197/97 at home today. Denies DENT or CP. States she had TIA 2 weeks ago. ll1 19:54 19:44 Acuity: RENETTA 3 ll1 ll1
--- NOTE | 2020-01-20 22:31 | EDPHYS ---
Physician Documentation [facility] Name: Maryjane Jameson Age: 59 yrs Sex: Female : 1960 Arrival Date: 01/20/2020 Time: 19:37 Bed 3 Private MD: ED Physician Nick Byrd HPI: 01/19 20:54 This 59 yrs old Female presents to ER via Wheelchair with complaints of High pkl Blood Pressure. 20:54 Onset: The symptoms/episode began/occurred 3 day(s) ago. Associated signs and symptoms: pkl The patient has no apparent associated signs or symptoms. Historical: - Allergies: 19:43 PENICILLINS; ll1 - PMHx: 19:43 CVA; Hemmorhagic; Diabetes - NIDDM; Hypertension; Seizures; ll1 - PSHx: 19:43 aneurysm cliip-2010; ll1 - Immunization history:: Flu vaccine is up to date. - Social history:: Smoking status: Patient reports the use of cigarette tobacco products, smokes one-half pack cigarettes per day. ROS: 20:54 Eyes: Negative for injury, pain, redness, and discharge, ENT: Negative for injury, pkl pain, and discharge, Neck: Negative for injury, pain, and swelling, Cardiovascular: Negative for chest pain, palpitations, and edema, Respiratory: Negative for shortness of breath, cough, wheezing, and pleuritic chest pain, Abdomen/GI: Negative for abdominal pain, nausea, vomiting, diarrhea, and constipation, Back: Negative for injury and pain, : Negative for injury, bleeding, discharge, and swelling, MS/Extremity: Negative for injury and deformity, Skin: Negative for injury, rash, and discoloration, Neuro: Negative for headache, weakness, numbness, tingling, and seizure. Exam: 20:54 Head/Face: Normocephalic, atraumatic. Eyes: Pupils equal round and reactive to light, pkl extra-ocular motions intact. Lids and lashes normal. Conjunctiva and sclera are non-icteric and not injected. Cornea within normal limits. Periorbital areas with no swelling, redness, or edema. ENT: Nares patent. No nasal discharge, no septal abnormalities noted. Tympanic membranes are normal and external auditory canals are clear. Oropharynx with no redness, swelling, or masses, exudates, or evidence of obstruction, uvula midline. Mucous membranes moist. Neck: Trachea midline, no thyromegaly or masses palpated, and no cervical lymphadenopathy. Supple, full range of motion without nuchal rigidity, or vertebral point tenderness. No Meningismus. Chest/axilla: Normal chest wall appearance and motion. Nontender with no deformity. No lesions are appreciated. Cardiovascular: Regular rate and rhythm with a normal S1 and S2. No gallops, murmurs, or rubs. Normal PMI, no JVD. No pulse deficits. Respiratory: Lungs have equal breath sounds bilaterally, clear to auscultation and percussion. No rales, rhonchi or wheezes noted. No increased work of breathing, no retractions or nasal flaring. Abdomen/GI: Soft, non-tender, with normal bowel sounds. No distension or tympany. No guarding or rebound. No evidence of tenderness throughout. Back: No spinal tenderness. No costovertebral tenderness. Full range of motion. Skin: Warm, dry with normal turgor. Normal color with no rashes, no lesions, and no evidence of cellulitis. MS/ Extremity: Pulses equal, no cyanosis. Neurovascular intact. Full, normal range of motion. Neuro: Awake and alert, GCS 15, oriented to person, place, time, and situation. Cranial nerves II-XII grossly intact. Motor strength 5/5 in all extremities. Sensory grossly intact. Cerebellar exam normal. Normal gait. Vital Signs: 19:44 BP 192 / 86; Pulse 72; Resp 17; Temp 98.6; Pulse Ox 99% ; Pain 0/10; ll1 20:00 BP 171 / 83; Pulse 67; Resp 16; Pulse Ox 97% on R/A; lp1 20:45 BP 187 / 87; Pulse 73; Resp 17; Pulse Ox 97% on R/A; lp1 21:11 BP 193 / 95; Pulse 73; Resp 17; Pulse Ox 96% on R/A; Pain 0/10; lp1 21:30 BP 183 / 80; Pulse 64; Resp 14; Pulse Ox 96% on R/A; lp1 21:40 BP 151 / 97; Pulse 69; Resp 15; Pulse Ox 98% on R/A; rv 22:00 BP 153 / 74; Pulse 71; Resp 16; Pulse Ox 96% on R/A; rv MDM: 20:44 Patient medically screened. pkl 22:27 Data reviewed: vital signs, nurses notes, lab test result(s), EKG, radiologic studies, pkl plain films. ED course: Discussed lab. EKG and X' rays results with patient. Advised to follow up with [facility] in 2 to 3 days. Patient understood instructions. 01/19 20:17 Order name: Basic Metabolic Panel 01/19 20:17 Order name: CBC with Diff 01/19 20:17 Order name: LFT's 01/19 20:17 Order name: Magnesium 01/19 20:17 Order name: NT PRO-BNP 01/19 20:17 Order name: PT-INR 01/19 20:17 Order name: Troponin (emerg Dept Use Only) 01/19 20:56 Order name: CBC with Automated Diff; Complete Time: 21:21 [facility] 01/19 21:10 Order name: Basic Metabolic Panel; Complete Time: 21:21 [facility] 01/19 21:10 Order name: Liver (Hepatic) Function; Complete Time: 21:21 [facility] 01/19 21:10 Order name: Troponin (Emerg Dept Use Only); Complete Time: 21:21 [facility] 01/19 21:10 Order name: NT PRO-BNP; Complete Time: 21:21 [facility] 01/19 21:10 Order name: Magnesium; Complete Time: 21:21 [facility] 01/19 21:30 Order name: Urine Dipstick--Ancillary (enter results) [facility] 01/19 20:17 Order name: XRAY Chest (1 view) 01/19 20:17 Order name: EKG; Complete Time: 20:17 01/19 20:17 Order name: Cardiac monitoring; Complete Time: 20:32 01/19 20:17 Order name: EKG - Nurse/Tech; Complete Time: 20:32 01/19 20:17 Order name: IV Saline Lock; Complete Time: 20:32 01/19 20:17 Order name: Labs collected and sent; Complete Time: 20:32 01/19 20:17 Order name: O2 Per Protocol; Complete Time: 20:32 01/19 20:17 Order name: O2 Sat Monitoring; Complete Time: 20:32 01/19 21:32 Order name: Protime (+INR); Complete Time: 22:23 EDMS 01/19 21:34 Order name: Urine Dipstick-Ancillary; Complete Time: 22:23 EDMS Administered Medications: 21:00 Drug: Labetalol 10 mg Route: IVP; Infused Over: 2 mins; Site: right antecubital; lp1 21:40 Follow up: Response: No change in condition lp1 21:45 Drug: Labetalol 10 mg Route: IVP; Infused Over: 2 mins; Site: right antecubital; rv 22:06 Follow up: Response: Blood pressure is lowered rv Disposition: 01/20/20 22:30 Discharged to Home. Impression: Uncontrolled hypertension. - Condition is Stable. - Medication Reconciliation Form, Thank You Letter, Antibiotic Education, Prescription Opioid Use form. - Follow up: Vahid Menard MD; When: 2 - 3 days; Reason: Re-evaluation by your physician. Signatures: Dispatcher [employer] EDCA Nick Byrd MD MD pkl Trupti Kang RN RN bb Margaret Deleon RN RN lp1 Ezra Jennings RN RN rv Jaylen Webb RN RN ll1 Corrections: (The following items were deleted from the chart) 22:41 22:30 01/20/2020 22:30 Discharged to Home. Impression: Uncontrolled hypertension. rv Condition is Stable. Forms are Medication Reconciliation Form, Thank You Letter, Antibiotic Education, Prescription Opioid Use. Follow up: Vahid Menard; When: 2 - 3 days; Reason: Re-evaluation by your physician. [email or web address]
[2020-01-20 22:54] VITALS: TEMP 98.6
[2020-01-20 23:02] VITALS: BP 153/74; O2SAT 96
--- NOTE | 2020-01-21 07:27 | RAD REPORT ---
EXAM DESCRIPTION: RAD - Chest Single View - 01/20/2020 8:42 pm CLINICAL HISTORY: PAIN, hypertension COMPARISON: None TECHNIQUE: AP portable chest image was obtained 01/20/2020 8:42 pm . FINDINGS: No focal mass or consolidation. COPD changes are present with flattening of the diaphragm and scattered fibrotic change. No significant failure or volume overload. Heart and vasculature are normal. No measurable pleural effusion and no pneumothorax. No acute bony abnormality seen. No acute aortic findings suspected. IMPRESSION: COPD findings with no failure, infiltrate or mass identifiable.
== END 2020-01-20 22:41 | disposition home or self-care (01) ==
LOC: ER 19:36
DX: I10 Essential (primary) hypertension (principal); F17.210 Nicotine dependence, cigarettes, uncomplicated; Z86.73 Personal history of transient ischemic attack (TIA), and cerebral infarction without residual deficits; Z88.0 Allergy status to penicillin
CPT/HCPCS: 36415; 71045; 80048; 80076; 81003; 83735; 83880; 84484; 85025; 85610; 93005; 96374; 99284

== ENCOUNTER 2020-04-16 17:52 | Observation (INO) | payer OTHER ==
--- OUTSIDE RECORDS SUMMARY | 2020-04-16 17:54 | XMS REPORT | Continuity of Care Document ---
:[address] [facility] Address [address] [place] [address] Phone Care Team Providers Name Role Phone Ally Jones Primary Care Provider Yoshi Jones Admit Provider Yoshi Jones Attending Provider [facility] Emergency Provider Landon Da Silva Other Provider Yovany Emergency Provider Мария Warner Other Provider Mariah Raymond Other Provider Alddevang Other Provider Som Other Provider Kiara Sultana Other Provider Mariah Ly Other Provider Devonte Other Provider Bulhof Other Provider Brockway Other Provider Burdayanara Other Provider Carlos Dial Other Provider Coujon Other Provider Christa Other Provider Daftarirobbie Other Provider Enma Other Provider Sabrina Whelan Other Provider Penny Garcia Other Provider Matthew Other Provider Annalisa Oconnor Other Provider Gera Edgar Other Provider Keya Other Provider Gaby Other Provider Libertad Koo Other Provider Sepideh Other Provider Maged Other Provider Мария Gomez Other Provider Sergio Bustos Other Provider Mendez Trivedi Other Provider Desean Other Provider Terry Cornelius Other Provider Paramjit Patton Other Provider Libertad Colon Other Provider Мария Baeza Other Provider Nipps Other Provider Ntaimo Other Provider Yoshi Hook Other Provider Unavailable Penny Torres Other Provider Beavers Other Provider Aki Oscar Other Provider Pohlcha Other Provider Queenie Other Provider Roberto Moran Other Provider Tasha Other Provider Ray Other Provider Ave Stark Other Provider Penny Rodriguez Other Provider Carlos Hines Other Provider Ave Melendez Other Provider Cammie Downingn Other Provider Nani, Mackenzie Other Provider Yoshi Mondragon Other Provider Mohinder Other Provider Tammi Other Provider Мария Garcia Other Provider Varisa Other Provider Vitek Other Provider Jose Tai Other Provider Casie Other Provider Juliette Other Provider Jia Montiel Other Provider Libertad Peterson Other Provider Nicholas Other Provider Allergies, Adverse Reactions, Alerts Allergen Type Severity Reaction Last Updated Verified Status Penicillins Allergy December Active 2019 4:51pm Medications Medication Status Dose Units Route Sig Qty Days Start End Instruct ions Date Date Alendronate Active 70 MG PO Every Septembe Sodium Week r 15, (Fosamax) 70 2020 MG Tab 4:58pm Alprazolam Active 0.5 MG PO As Septembe (Xanax) 0.5 MG Needed r 15, Tab 2019 4:58pm Amlodipine Active 10 MG PO Twice Septembe (Norvasc) 10 Daily r 15th, MG Tab 2019 4:58pm Carvedilol Active 12.5 MG PO Twice Septembe Daily r 2019 4:58pm Clonidine Discontinu 0.2 MG PO Twice Septembe Septemb (Catapres) 0.2 ed Daily r 15, er MG Tab 2019, 4:58pm 2019 5:34pm Clopidogrel Active 75 MG PO Daily Septembe Bisulfate r 15, (Clopidogrel) 2019 75 Tablet 4:58pm Ergocalciferol Active 72563 UNIT PO Every Septembe (Vitamin D2) Week r , (Vitamin D2) 2019 50,000 UNIT 4:58pm Capsule Levothyroxine Active 125 MCG PO Every Septembe Sodium Mornin r 15th, (Levoxyl) 125 g 2020 MCG Tablet 4:58pm Ramipril Discontinu 10 MG PO Daily Septembe Septemb ed r 15th, er 2019 16, 4:58pm 2019 5:34pm Aspirin Active 325 MG PO Bedtim e (Ecotrin e r 15th, Regular 2020 Strength) 325 5:04pm MG Tab Atorvastatin Active 40 MG PO Daily Septembe Calcium r 15th, (Lipitor) 40 2020 MG Tablet 5:04pm Phenytoin Active 100 MG PO Twice Septembe Sodium Daily r 15th, Extended 2019 (Dilantin) 100 5:04pm MG Cap Clonidine Active 0.3 MG PO Three Septembe (Catapres) 0.3 Times r 16, MG Tab Daily 2019 5:33pm Ramipril Active 10 MG PO Twice Septembe (Altace) 5 MG Daily r 16, Cap 2019 5:33pm Hydralazine Active 50 MG PO Three January Hcl Times , Daily 2019 3:50am Problems Active Problems Medical Problem Onset Date Status TIA (transient ischemic attack) Active Procedures Procedure Date Performed Status CT Brain WO Con February 01, 2020 10:13pm completed XR Chest 1 View Portable February 01, 2020 10:13pm completed EKG 12 Lead in Emergency Room February 01, 2020 11:44pm acti ve CR Pharm Cardiolite Stress February 02, 2020 9:22am complet ed XR Chest Pa & Lat STANDARD February 02, 2020 10:02am comple mathieu NM Cardiac Stress W EF & WF February 03, 2020 12:00am compl eted MRI Thoracic Spine WO Con February 04, 2020 7:57am active MRI Brain W WO Con February 04, 2020 7:58am active MRA Angio Abd W WO Con February 04, 2020 12:00am active EKG 12 Lead in Emergency Room January 08, 2020 12:27pm c ompleted CT Brain WO Con January 08, 2020 12:00am completed CTA Angio Head W WO Con January 08, 2020 12:00am complet ed CTA Angio Neck W WO Con January 08, 2020 12:00am complet ed US Carotid Doppler STANDARD January 08, 2020 11:45pm com pleted MRI Brain W WO Con January 09, 2020 7:48am completed Relevant Diagnostic Tests and/or Laboratory Data Laboratory Results Test Date/Time Result Interpretation Reference Result Comment Performing Range Site Bedside December 159 mg/dL 70-110 Notified Nurse *[facility], [address] Glucose 2019 [facility] [address] 12:22pm Sodium Level January 133 mmol/L 136-145 [facility], [address] 2019 [facility] [address] 4:27am Sodium Level December 133 mmol/L 136-145 [facility], [address] 2019 [facility] [address] 8:45am Potassium October 3.5 mmol/L 3.5-5.[address] [facility], [address] Level 2019 [facility] [address] 4:27am Potassium December 3.6 mmol/L 3.5-5.[address] [facility], [address] Level 2019 [facility] [address] 8:45am Chloride December 96 mmol/L 98-107 [facility], [address] Level 2019 [facility] [address] 8:45am Chloride January 96 mmol/L 98-107 [facility], [address] Level 2019 [facility] [address] 4:27am Carbon December 28 mmol/L 22-29 [facility], [address] Dioxide 2019 [facility] [address] Level 8:45am Carbon January 29 mmol/L 22-29 [facility], [address] Dioxide 2019 [facility] [address] Level 4:27am Anion Gap January 12 mmol/L 10-20 [facility], [address] 2019 [facility] [address] 4:27am Anion Gap December 13 mmol/L 10-20 [facility], [address] 2019 [facility] [address] 8:45am Blood Urea January 9 mg/dL 9.8-20.[address] [facility], [address] Nitrogen 2019 [place] [address] 4:27am Blood Urea December 6 mg/dL 9.8-20.1 [facility], [address] Nitrogen 2019 [place] [address] 8:45am Creatinine January 0.63 mg/dL 0.6-1.1 [facility], [address] [facility] [address] 4:27am Creatinine December 0.61 mg/dL 0.6-1.1 [facility], [address] [facility] [address] 8:45am Estimated December Greater Reference Range [facility], [address] GFR (MDRD) 2019 than 90 [place] [address] 8:45am GFR: Greater than 90 mL/min/1.73 m2 NOTE:The MDRD equation has not been validated for use with [facility] (over 70 years of age), women, patientswith serious comorbid condition or persons with extremes ofbody size, muscle mass, or nutritional status. Estimated January Greater Reference Range [facility], [address] GFR (MDRD) 2019 than 90 [place] [address] 4:27am GFR: Greater than 90 mL/min/1.73 m2 NOTE:The MDRD equation has not been validated for use with [facility] (over 70 years of age), women, patientswith serious comorbid condition or persons with extremes ofbody size, muscle mass, or nutritional status. Glucose January 117 mg/dL 70-105 [facility], [address] Level 2019 [facility] [address] 4:27am Glucose December 124 mg/dL 70-[address] [facility] [address] [facility], [address] Level 2019 [facility] [address] 8:45am Calcium January 8.6 mg/dL 7.8-10.44 [facility], [address] Level [address] [facility] [address] 4:27am Calcium December 8.9 mg/dL 7.8-10.44 [facility]Jose [facility], [address] Level [address] [facility] [address] 8:45am Total Anne 0.4 mg/dL 0.2-1.2 [facility]Jose [facility], [address] Bilirubin [address] [facility] [address] 12:39pm Total October 0.2 mg/dL 0.2-1.2 [facility], [address] Bilirubin [address] [facility] [address] 9:57pm Serum Total Anne 5.9 g/dL 6.0-8.3 [facility], [address] Protein 2019 [facility] [address] 12:39pm Serum Total October 7.0 g/dL 6.0-8.3 [facility], [address] Protein 2019 [facility] 7 [address] 9:57pm Albumin Anne 3.7 g/dL 3.5-5.0 [facility], [address] [facility] [address] 12:39pm Albumin October 4.3 g/dL 3.5-5.[address], [address] [facility] [address] 9:57pm Globulin Anne 2.2 g/dL 2.4-3.5 [facility]Jose [facility], [address] [facility] [address] 12:39pm Globulin October 2.7 g/dL 2.4-3.5 [facility], [address] [facility] 7 [address] 9:57pm Albumin/Glob Anne 1.7 g/dL 1.2-2.2 [facility], [address] Ratio 2019 [place] [address] 12:39pm Albumin/Glob October 1.6 g/dL 1.2-2.2 [facility], [address] Ratio 2019 [facility] [address] 9:57pm Cholesterol January 138 mg/dl <199 [facility], [address] Level 2019 [place] [address] 4:27am Cholesterol December 156 mg/dl <199 [facility], [address] Level 2019 [place] [address] 3:30am Alkaline January 75 U/L 40-110 [facility], [address] Phosphatase 2019 [facility] [address] 9:57pm Alkaline December 52 U/L 40-110 [facility], [address] Phosphatase 2019 [facility] [place] [address] 12:39pm Aspartate January 21 U/L 5-34 [facility], [address] Amino Transf 2019 [facility] x [address] (AST/SGOT) 9:57pm Aspartate December 15 U/L 5-34 [facility], [address] Amino Transf 2019 [place] [address] (AST/SGOT) 12:39pm Creatine January 1.6 ng/mL 0-6.6 [facility], [address] Kinase MB 2019 [place] [address] 9:57pm Troponin I January 0.128 <0.028 [facility], [address] 2019 ng/mL [facility] [address] 4:40am Reference Range 0.00 - 0.028 ng/mL Negative 0.029 - 0.29 ng/mL Indeterminate Greater or Equal to 0.3 ng/mL Strongly suggests [place] Alanine December 17 U/L 55 [facility], [address] Aminotransfe 2019 [place] [address] rase 12:39pm (ALT/SGPT) Alanine January 24 U/L [facility], [address] Aminotransfe 2019 [place] [address] rase 9:57pm (ALT/SGPT) Triglyceride January 60 mg/dL Less than [facility] Lab, [address] Level 2019 [address] [place] [address] 4:27am Triglyceride December 111 mg/dL Less than [facility] Lab, [address] Level 2019 [address] [place] [address] 3:30am HDL January 63 mg/dL Adult HDL [facility], [address] Cholesterol 2019 [place] [address] 4:27am of risk for Coronary Heart Disease > or Equal to 60 mg/dL Negative Risk < 40 mg/dL HIGH Risk HDL December 57 mg/dL Adult HDL [facility], [address] Cholesterol 2019 [place] [address] 3:30am of risk for Coronary Heart Disease > or Equal to 60 mg/dL Negative Risk < 40 mg/dL HIGH Risk LDL December 77 mg/dL Levels in terms [facility] Lab, [address] Cholesterol, 2019 [place] [address] Calculated 3:30am coronary heart disease: Desirable: Less than 130 mg/dL Borderline High Risk: 130 - 159 mg/dL High Risk: Greater than 160 mg/dL LDL January 63 mg/dL Levels in terms [facility], [address] Cholesterol, [place] [address] Calculated 4:27am coronary heart disease: Desirable: Less than 130 mg/dL Borderline High Risk: 130 - 159 mg/dL High Risk: Greater than 160 mg/dL Coronary January 2.2 Less than Adult levels in [facility] Lab, [address] Heart 2019 4.5 [place] [address] Disease Risk 4:27am for Coronary Ratio Heart Disease: Dangerous level: Greater than 8.3 High: 5.6 - 8.3 Average: 3.7 - 5.6 Below average: 2.5 - 3.7 Protection probable: Less than 2.5 Coronary Anne 2.7 Less than Adult [facility], [address] Heart 2019 4.5 [place] [address] Disease Risk 3:30am for Coronary Ratio Heart Disease: Dangerous level: Greater than 8.3 High: 5.6 - 8.3 Average: 3.7 - 5.6 Below average: 2.5 - 3.7 Protection probable: Less than 2.5 Phenytoin December 13.8 ug/mL 10.0-20.0 [facility], [address] (Pancho) 2019 Range: 10.0 [place] [address] Level 3:30am 20.0 mcg/mLToxic Range: Greater than 30.0 mcg/mL Phenytoin January 17.3 ug/mL 10.0-20.0 [facility], [address] (Pancho) 2019 Range: 10.0 [place] [address] Level 4:36am 20.0 mcg/mLToxic Range: Greater than 30.0 mcg/mL TSH 26 December 2.5692 0.35-4.94 [facility] StJose ph [facility], [address] Generation 2019 uIU/[place] [address] 3:30am TSH 25 January 2.2521 0.35-4.[address], [address] Generation 2019 uIU/[place] [address] 4:27am B-Type January 27.3 pg/mL 0-100 [facility], [address] Natriuretic 2019 [place] x [address] Peptide 4:27am White Blood Anne 11.0 4.8-10.8 [facility] StJo seph [facility], [address] Count 2019 thou/[place] [address] 12:39pm White Blood October 10.7 4.8-10.8 [facility], [address] Count 2019 thou/[place] [address] 4:27am Red Blood Anne 3.74 4.20-5.40 [facility], [address] Count 2019 mill/[place] [address] 12:39pm Red Blood October 3.95 4.20-5.[address] [facility], [address] Count 2019 mill/[place] [address] 4:27am Hemoglobin December 12.2 g/dL 12.0-16.0 [facility], [address] 2019 [place] [address] 12:39pm Hemoglobin January 13.1 g/dL 12.0-16.0 [facility] StJos [facility], [address] 2019 [place] [address] 4:27am Hematocrit December 36.7 % 36.0-47.0 [facility], [address] 2019 [place] [address] 12:39pm Hematocrit January 38.9 % 36.0-47.0 [facility], [address] 2019 [place] [address] 4:27am Mean December 98.0 fL 78.0-98.0 [facility], [address] Corpuscular 2019 [facility] [place] [address] Volume 12:39pm Mean January 98.5 fL 78.0-98.0 [facility]Jose [facility], [address] Corpuscular 2019 [facility] x [address] Volume 4:27am Mean December 32.6 pg 27.0-31.0 [facility] StJose ph [facility], [address] Corpuscular 2019 [facility] x [address] Hemoglobin 12:39pm Mean January 33.2 pg 27.0-31.0 [facility] StJose [facility], [address] Corpuscular 2019 [facility] x [address] Hemoglobin 4:27am Mean October 33.7 g/dL 32.0-36.0 [facility] StJose [facility], [address] Corpuscular 2019 [facility] x [address] Hemoglobin 4:27am Concent Mean December 33.3 g/dL 32.0-36.0 [facility], [address] Corpuscular 2019 [place] [address] Hemoglobin 12:39pm Concent Red Cell January 11.7 % 11.5-14.5 [facility], [address] Distribution 2019 [place] [address] Width 4:27am Red Cell December 11.2 % 11.5-14.5 [facility], [address] Distribution 2019 [place] [address] Width 12:39pm Platelet January 220 130-400 [facility], [address] Count 2019ou/[place] [address] 4:27am Platelet December 214 130-400 [facility], [address] Count 2019 ou/[place] [address] 12:39pm Mean October 7.6 fL 7.4-10.4 [facility] Stse [facility], [address] Platelet 2019 [place] [address] Volume 4:27am Mean Anne 7.3 fL 7.4-10.4 [facility]Jose [facility], [address] Platelet 2019 [place] [address] Volume 12:39pm Neutrophils December 73.3 % 42.0-75.0 [facility], [address] % 2019 [place] [address] 12:39pm Neutrophils January 65.6 % 42.0-75.0 [facility], [address] % 2019 [place] [address] 4:27am Lymphocytes October 19.7 % 21.0-51.0 [facility], [address] % 2019 [place] [address] 4:27am Lymphocytes Anne 18.5 % 21.0-51.0 [facility], [address] % 2019 [place] [address] 12:39pm Monocytes % Anne 6.6 % 0.0-10.0 [facility], [address] 2019 [place] [address] 12:39pm Monocytes % October 13.5 % 0.0-10.0 [facility], [address] [facility] [address] 4:27am Eosinophils October 0.7 % 0.0-10.0 [facility], [address] % 2019 [place] [address] 4:27am Eosinophils Anne 1.4 % 0.0-10.0 [facility], [address] % 2019 [place] [address] 12:39pm Basophils % Anne 0.3 % 0.0-1.0 [facility], [address] 2019 [place] [address] 12:39pm Basophils % October 0.5 % 0.0-1.0 [facility], [address] [place] [address] 4:27am Neutrophils December 8.1 1.40-6.50 [facility], [address] # [id number] [facility] [place] [address] 12:39pm Neutrophils January 7.0 1.40-6.50 [facility], [address] # [id number] [facility] [place] [address] 4:27am Lymphocytes January 2.1 1.20-3.40 [facility], [address] # [id number] ou/[facility] [place] [address] 4:27am Lymphocytes Anne 2.0 1.20-3.40 [facility], [address] # 2019 [facility] [place] [address] 12:39pm Monocytes # January 1.4 0.11-0.59 [facility], [address] 2019 [facility] [place] [address] 4:27am Monocytes # December 0.7 0.11-0.59 [facility], [address] 2019 [place] [address] 12:39pm Eosinophils October 0.1 0.0-0.7 [facility], [address] # 2019 [place] [address] 4:27am Eosinophils Anne 0.1 0.0-0.7 [facility], [address] # 2019 [place] [address] 12:39pm Basophils # October 0.0 0.0-0.2 [facility], [address] 2019 [place] [address] 4:27am Basophils # Anne 0.0 0.0-0.2 [facility], [address] 2019 [facility] [address] 12:39pm Prothrombin January 13.1 sec 12.0-14.7 [facility], [address] Time 2019 [place] [address] 9:57pm INR January 1.0 [facility], [address] Internationa 2019 ATTENTION: [place] [address] l Normalized 9:57pm READ Ratio CAREFULLY-- Th e recommended therapeutic ranges for oral anticoagulanttr eatments are: ---- Low Intensity: 1.5 - 2.0 Moderate Intensity: 2.0 - 3.0 High Intensity (1): 2.5 - 3.5 High Intensity (2): 3.0 - 4.0 CRITICAL: > 4.0 Activated January 33.8 sec 22.9-36.1 [facility], [address] Partial 2019 [place] [address] Thromboplast 9:57pm Time Urine Color December Colorless Yellow [facility], [address] 2019 [place] [address] 12:15pm Urine Color January Colorless Yellow [facility], [address] 2019 [place] [address] 10:55pm Urine October Clear Clear [facility], [address] Clarity 2019 [place] [address] 10:55pm Urine December Clear Clear [facility], [address] Clarity 2019 [place] [address] 12:15pm Urine Anne 1.003 1.002-1.036 [facility], [address] Specific 2019 [place] [address] [place] 12:15pm Urine October 1.004 1.002-1.036 [facility], [address] Specific 2019 [place] [address] [place] 10:55pm Urine pH December 7.0 5.0-9.0 [facility], [address] 2019 [place] [address] 12:15pm Urine pH January 7.5 5.0-9.0 [facility], [address] 2019 [place] [address] 10:55pm Urine December Negative Negative [facility], [address] Leukocyte 2019 Radha/[place] [address] Esterase 12:15pm Urine January 75 Radha/uL Negative [facility], [address] Leukocyte 2019 [place] [address] Esterase 10:55pm Urine January Negative Negative [facility], [address] Nitrite 2019 [place] [address] 10:55pm Urine December Negative Negative [facility], [address] Nitrite 2019 [place] [address] 12:15pm Urine January Negative Neg-Trace [facility], [address] Protein 2019 mg/dL [place] [address] 10:55pm Urine December Negative Neg-Trace [facility], [address] Protein 2019 mg/[place] [address] 12:15pm Urine January Normal Negative [facility], [address] Glucose (UA) 2019 mg/[place] [address] 10:55pm Urine December Normal Negative [facility], [address] Glucose (UA) 2019 mg/[place] [address] 12:15pm Urine January Negative Negative [facility], [address] Ketones 2019 mg/[place] [id number] 10:55pm Urine December Negative Negative [facility], [address] Ketones 2019 mg/[place] [id number] 12:15pm Urine December Normal Less than 2 [facility], [address] Urobilinogen 2019 mg/[place] [address] 12:15pm Urine January Normal Less than 2 [facility], [address] Urobilinogen 2019 mg[place] [address] 10:55pm Urine December Negative Negative [facility], [address] Bilirubin 2019 [place] [id number] 12:15pm Urine January Negative Negative [facility], [address] Bilirubin 2019 [place] [address] 10:55pm Urine Blood January Negative Negative [facility], [address] 2019 [place] [address] 10:55pm Urine Blood December Negative Negative [facility], [address] 2019 [place] [address] 12:15pm Urine RBC January 0-3 HPF [facility], [address] 2019 [place] [address] 10:55pm Urine WBC January 0-3 HPF [facility], [address] 2019 [place] [address] 10:55pm Urine January 0-3 HPF [facility], [address] Squamous 2019 [place] [address] Epithelial 10:55pm Cells Urine January Rare-Few None Seen [facility], [address] Bacteria 2019 HPF [place] [address] 10:55pm Coronavirus January Not NotDetected Negative (Not [facility], [address] (COVID-19)(P 2019 Detected Detected) [place] [id number] CR) 2:04am results do not preclude infection with SARS-CoV-2 virus, and should not be the sole basis of a patient management decision. Consider testing for other viruses if clinically indicated.The use of this assay as an In vitro diagnostic under the [facility] Emergency Use Authorization (EUA) is limited to laboratories that are certified under the Clinical Laboratory Improvement Amendments of 1988 (CLIA), 42 U.S.C. 263a, to perform high complexity tests. Coronavirus December Not NotDetected Negative (Not [facility], [address] (COVID-19)(P 2019 Detected Detected) [place] [address] CR) 3:50pm results do not preclude infection with SARS-CoV-2 virus, and should not be the sole basis of a patient management decision. Consider testing for other viruses if clinically indicated.The use of this assay as an In vitro diagnostic under the FDA Emergency Use Authorization (EUA) is limited to laboratories that are certified under the Clinical Laboratory Improvement Amendments of 1988 (CLIA), 42 U.S.C. 263a, to perform high complexity tests. Health Concerns Health Concerns may be documented in an alternate section. Chief Complaint and Reason for Visit Chief Complaint STROKE LIKE SYMPTOMS. bilateral leg weakness, para esthesias, elevated tr Reason for Visit Transient ischemic attack Encounters Encounter Location(s) Arrival/Admit Date Discharge/Depart Date Provider(s) Discharged [place] January 07, January 09, 2020 DEWAYNE JONES [facility] 2019 2:15pm 6:08pm , MD Ctr-[facility] STRO[facility] February 02, 2020 ALLY JONES [facility] 10:11am MD [facility] STROKE UN[facility] Recent Diagnosis Onset Date Transient ischemic attack Assessments Diagnosis Onset Date Resolution Status Transient ischemic acute attack Family History Relationship Condition Age at Onset Recorded Date/Ti me Father Family Myocardial Unknown February 02, 2020 Infarction? Yes 2:50am Family Myocardial Unknown December Infarction? Yes 4:47pm Mother Family Diabetes? Yes Unknown January 2:50am Family Diabetes? Yes Unknown December 242019 4:47pm Functional Status Observation Response Date Recorded Activity Ability Standby Assistance February 04, 2020 8 :45am Goals Acute Goals AFTER HOSPITAL CARE PLAN and EDUCATION TRANSIENT ISCHEMIC ATTACK (TIA) You have experienced a Transient Ischemi c attack or TIA which is a temporary stroke caused by a clot or blockage in the brain. The clot may dissolve on its own or get dislodged so that is stops causing the symptoms. A TIA can be an ea rly warning that a stroke is coming. It causes no lasting damage. But the effects of a stroke, if it happens, can be very serious and lasting. If you think you are having symptoms of a TIA or stro ke even if they don t last get medical help right away. Risk Factors for Stroke and TIA *Modifiable risk factors: [ ] High blood pressure: The most impor tant risk factor for stroke. This can be controlled with medications, a healthier diet and mainta ining proper body weight. Your Blood Pressure: [ ] Heart disease: Persons with heart di sease are twice as likely to suffer a stroke than people with normal hearts. [ ] Cigarette smoking: Stopping smoking reduces the risk of stroke, even in long-time smokers. [ ] High red blood count: Increased red blood cells thicken the blood and make clots more likely. "Blood thinners" may be a necessary denny tment. [ ] Transient Ischemic Attacks (TIAs): T hese are strong predictors of stroke. [ ] High blood cholesterol: Your LDL: [ ] Diabetes: Your Blood Sugar: [ ] Drug/Alcohol abuse [ ] Physical Inactivity [ ] Obesity [ ] Oral contraceptive use [ ] High levels of stress *Non-Modifiable risk factors: Age: Older people are at greater risk th an younger people. Gender: Men are at greater risk than wom en. Race: -Americans have a much grea ter risk of and disability. Prior Stroke Family History Take your Medications as Prescribed! Follow Up: It is critical that you follo w up with your physician after discharge. Talk to them about risk factors, medications, diet an d exercise. If you must cancel your appointment, it is very important to reschedule. Warning Signs of Stroke: -Sudden weakness/paralysis or numbness/d ecreased sensation of the face, arm or leg on one side of the body. -Sudden dimness or loss of vision, parti cularly in one eye. -Loss of speech, or trouble talking or u nderstanding speech. -Impaired judgment and thought processes . -Impaired swallowing. -Sudden severe headaches with no apparen t cause, often described as "the worst headache I've ever had." -Unexplained dizziness, unsteadiness or sudden falls, especially along with any of the previous symptoms. Any one of these signs could mean a stro ke, so act F.A.S.T.: F stands for Face (Look for uneven smile). A stands for Arm (Check if one arm is weak). S stands for Speech (Listen for slurred speech). T stands for Time (Call 911 right away). Stroke is an emergency!! If you experience any of these symptoms, call 911 immediately. Treatment is more effective if started early on. Every minute counts!! TIME IS BRAIN! Immunizations Immunization Event Date Not Given Dose [employer] Manager Lot Vac cine Reason Number Number Informatio n Statement (VIS) Deta il Influenza Virus January [id number] 2019 Pneumococcal January [id number] 2019 Mental Status Observation Response Date Recorded Memory Description Intact February 04, 2020 1 2:30pm Medical Equipment No Medical Equipment Information available Insurance Providers Payer Policy Id Coverage Id Subscriber's Subscriber Effective Expi ration Name Id Date Date MEDICAID [id number] EDUARDA VARGAS [id number] December er TRADITIONAL JOSE 2019 30, 2 020 MEDICARE [id number] EDUARDA VARGAS [id number] AprilE 2000 Plan of Treatment Future Tests Future scheduled test information is unavailable Pending Tests Pending diagnostic test information is unavailable Future Visits Future appointment information is unavailable Referrals to Other Providers Reason for Referral Start Provider Provider Contact Provider Address Referral Date Information Tuesday01/11/20 Ally Belle Pradip Work Phone: [phone] at 1130am [place] [phone] Future Procedures Future procedure information is unavailable Future Medications Future medication information is unavailable Patient Instructions Transient Ischemic Attack, [id number] Social History Observation Status Observation Response Date of Response Smoking Status Current every day smoker January 08, 2020 5:17pm Smoking Status Current every day smoker January 08, 2020 5:17pm Assigned Sex Female Vital Signs Vital Reading Result Reference Range Collection Date/ Time Height 165.1 cm January 09, 2020 12:38pm Weight 45.90 kg January 09, 2020 12:38pm Body Temperature 96.9 [degF] 97.6-99.6 January 09, 2020 3:40pm Heart Rate 66 /min 60-100 January 09, 2020 3:40pm Respiratory rate 18 /min -January 09, 2020 3:40pm Oxygen saturation by 98 % 95-100 December 242019 Pulse oximetry 3:40pm BP Systolic 122 mm[Hg] 90-140 January 09, 2020 3:40pm BP Diastolic 64 mm[Hg] 60-90 January 09, 2020 3:40pm BMI (Body Mass Index) 16.8 kg/m2 January 09, 2020 12:38pm Height 165.1 cm February 03 2:13pm Weight 45.85 kg February 03 2:13pm Body Temperature 98.1 [degF] 97.6-99.6 February 03 020 12:00pm Heart Rate 85 /min 60-100 February 03 12:00pm Respiratory rate 20 /min -February 03 020 12:00pm Oxygen saturation by 94 % 95-100 January Pulse oximetry 12:00pm BP Systolic 178 mm[Hg] 90-140 February 03 12:00pm BP Diastolic 104 mm[Hg] 60-90 February 03 12:00pm BMI (Body Mass Index) 16.8 kg/m2 February [id number] 2:13pm
--- OUTSIDE RECORDS SUMMARY | 2020-04-16 17:54 | XMS REPORT | Continuity of Care Document ---
:1960 Author Organization [facility] t Address [address] [place] [address] Care Team Providers Name Role Phone Ally [...] Results Result Comments Source Reference Lab Testing 2020-02-09 15:39:00 Test Item Value Reference Range Interpretation Comme nts Reference Lab Testing (test 36 ng/mL . Reference Range:All Ages: Target levels 30 code = VITDH) - 100 Reference Lab Testing (test 32 ng/mL . This test was developed and its performance code = VITD2) characteristic sdetermined by [facility]. It has not been cl eared or approvedby the Food and Drug Admini stration. Reference Lab Testing (test 3.7 ng/mL . This test was developed and its performance code = VITD3) characteristic sdetermined by [facility]. It has not been cl eared or approvedby the Food and Drug Admini stration.Performed at: [facility] [place] [id number] Director: Heladio Bunch MD, P mariusz: [phone] Uobnoqeop0029-87-87 05:21:00 Test Item Value Reference Range Interpretation Comments Chemistry (test 132 mmol/L 136-145 L code = NA-T) Chemistry (test 3.7 mmol/L 3.5-5.1 N code = K-T) Chemistry (test 97 mmol/L 98-107 L code = CL) Chemistry (test 28 mmol/L 22-29 N code = CO2) Chemistry (test 11 mmol/L 10-20 N code = ANGP) Chemistry (test 8 mg/dL 9.8-20.1 L code = BUN) Chemistry (test 0.56 mg/dL 0.6-1.1 L code = CREATT) Chemistry [...] ma ss, or nutritional status. Chemistry (test 76 mg/dL 70-105 N code = GLU-T) Chemistry (test 8.1 mg/dL 7.8-10.44 N code = CA) Zoccyxelsm7166-83-42 04:55:00 Test Item Value Reference Range Interpretation Comments Hematology (test code = WBCT) 10.0 thou/uL 4.8-10.8 N Hematology (test code = RBCT) 3.75 mill/uL 4.20-5.40 L Hematology (test code = HGBT) 12.0 g/dL 12.0-16.0 N Hematology (test code = HCTT) 37.1 % 36.0-47.0 N Hematology (test code = MCV) 98.8 fL 78.0-98.0 H Hematology (test code = MCH) 31.9 pg 27.0-31.0 H Hematology (test code = MCHC) 32.3 g/dL 32.0-36.0 N Hematology (test code = RDW) 11.4 % 11.5-14.5 L Hematology (test code = PLTT) 190 thou/uL 130-400 N Hematology (test code = MPV) 7.7 fL 7.4-10.4 N Hematology (test code = %NEUT) 66.1 % 42.0-75.0 N Hematology (test code = %LYMPH) 21.3 % 21.0-51.0 N Hematology (test code = %MONO) 11.2 % 0.0-10.0 H Hematology (test code = %EOS) 0.9 % 0.0-10.0 N Hematology (test code = %BASO) 0.5 % 0.0-1.0 N Hematology (test code = NEUT#) 6.6 thou/uL 1.40-6.50 H Hematology (test code = LYMPH#) 2.1 thou/uL 1.20-3.40 N Hematology (test code = MONO#) 1.1 thou/uL 0.11-0.59 H Hematology (test code = EOS#) 0.1 thou/uL 0.0-0.7 N Hematology (test code = BASO#) 0.0 thou/uL 0.0-0.2 N Smezxqtac6139-36-14 05:12:00 Test Item Value Reference Range Interpretation Comments Chemistry (test code 17.3 ug/mL 10.0-20.0 N Therape utic Range: = DIL) 10.0 - 20.0 mcg/mLToxic Ran ge: Greater than 30.0 mcg/mL Date of next dose: 02/04/2020Time of next dose: 09Chemistry - Specials 2020-02-03 05:38:00 Test Item Value Reference Range Interpretation Comments Chemistry - Specials (test code 2.2521 uIU/mL 0.35-4.94 N = TSH3) Chemistry - BNP, HgbA1c, FOIb4466-71-79 05:24:00 Test Item Value Reference Range Interpretation Comments Chemistry - BNP, HgbA1c, PTHi 27.3 pg/mL 0-100 N (test code = BNP) Xeqaruxon5550-15-94 05:24:00 Test Item Value Reference Range Interpretation Comments Chemistry (test 133 mmol/L 136-145 L code = NA-T) Chemistry (test 3.5 mmol/L 3.5-5.1 N code = K-T) Chemistry (test 96 mmol/L 98-107 L code = CL) Chemistry (test 29 mmol/L 22-29 N code = CO2) Chemistry (test 12 mmol/L 10-20 N code = ANGP) Chemistry (test 9 mg/dL 9.8-20.1 L code = BUN) Chemistry (test 0.63 mg/dL 0.6-1.1 N code = CREATT) Chemistry [...] ma ss, or nutritional status. Chemistry (test 117 mg/dL 70-105 H code = GLU-T) Chemistry (test 8.6 mg/dL 7.8-10.44 N code = CA) Vqsjulgva7213-95-55 05:24:00 Test Item Value Reference Range Interpretation Comments Chemistry (test code = 138 mg/dl < 200 Desired CHOL) Chemistry (test code = 60 mg/dL Less than 150 TRIG) Chemistry (test code = 63 mg/dL >60 Neg Risk Adult HDL levels in HDL) terms of risk f or Coronary Heart Disease > or Equal to 60 mg/dL N egative Risk < 40 mg/dL HIGH Risk Chemistry (test code = 63 mg/dL Level s in terms of LDL) risk for kuhn ry heart disease: Desirable: Less than 130 m g/dL Borderline H igh Risk: 130 - 15 9 mg/dL High Risk : Greater t oliveira 160 mg/dL Chemistry (test code = 2.2 Less than 4.5 Adul t levels in terms CRISK) of risk for Cor onary Heart Disease: Dangerous level : Greater than 8. 3 High: 5.6 - 8.3 Average: 3.7 - 5.6 Below average: 2.5 - 3.7 Prot ection probable: Less than 2.5 Mkldcyiqm4943-24-17 05:16:00 Test Item Value Reference Range Interpretation Comments Chemistry (test code 24.4 ug/mL 10.0-20.0 H Therape utic Range: = DIL) 10.0 - 20.0 mcg/mLToxic Ran ge: Greater than 30.0 mcg/mL Date of next dose: 02/03/2020Time of next dose: 9256Xbzjprrvdc4416-89-34 05:05:00 Test Item Value Reference Range Interpretation Comments Hematology (test code = WBCT) 10.7 thou/uL 4.8-10.8 N Hematology (test code = RBCT) 3.95 mill/uL 4.20-5.40 L Hematology (test code = HGBT) 13.1 g/dL 12.0-16.0 N Hematology (test code = HCTT) 38.9 % 36.0-47.0 N Hematology (test code = MCV) 98.5 fL 78.0-98.0 H Hematology (test code = MCH) 33.2 pg 27.0-31.0 H Hematology (test code = MCHC) 33.7 g/dL 32.0-36.0 N Hematology (test code = RDW) 11.7 % 11.5-14.5 N Hematology (test code = PLTT) 220 thou/uL 130-400 N Hematology (test code = MPV) 7.6 fL 7.4-10.4 N Hematology (test code = %NEUT) 65.6 % 42.0-75.0 N Hematology (test code = %LYMPH) 19.7 % 21.0-51.0 L Hematology (test code = %MONO) 13.5 % 0.0-10.0 H Hematology (test code = %EOS) 0.7 % 0.0-10.0 N Hematology (test code = %BASO) 0.5 % 0.0-1.0 N Hematology (test code = NEUT#) 7.0 thou/uL 1.40-6.50 H Hematology (test code = LYMPH#) 2.1 thou/uL 1.20-3.40 N Hematology (test code = MONO#) 1.4 thou/uL 0.11-0.59 H Hematology (test code = EOS#) 0.1 thou/uL 0.0-0.7 N Hematology (test code = BASO#) 0.0 thou/uL 0.0-0.2 N Reference Lab Nbooeqe7984-94-87 15:26:00 Test Item Value Reference Range Interpretation Comments Reference Lab Not Detected NotDetected Negative (Not Detected) Testing (test results do not preclude code = EPVRO38P) infectionwi th SARS-CoV-2 virus, and shou ld not be the sole basis of apatient manage ment decision. Consi alberto testing for oth erviruses if clinically indicated.The u se of this assay as an In vitro diagnostic unde r theFDA Emergency Use Authorization ( EUA) is limited tolabor atories that are certif ied under the ClinicalLab oratory Improvement Carolyn ndments of 1988 (CLIA), 42 U.S.C.263a, to perform high complexity tests. Reason for Testing: Admission KyweiuymgTqkvpolrm4536-70-10 05:40:00 Test Item Value Reference Range Interpretation Comments Chemistry (test 0.128 ng/mL < 0.028 H code = TROPI-T) Reference Ra nge 0.0 0 - 0.028 ng/mL Negative 0.0 29 - 0.29 ng/mL Indeterminate Greater or Equal to 0.3 ng/mL Strongly sugge sts [place] Stzkdleic2230-30-25 02:27:00 Test Item Value Reference Range Interpretation Comments Chemistry (test 0.124 ng/mL < 0.028 H code = TROPI-T) Reference Ra nge 0.0 0 - 0.028 ng/mL Negative 0.0 29 - 0.29 ng/mL Indeterminate Greater or Equal to 0.3 ng/mL Strongly sugge sts [place] Ekhkjvwjtb3041-76-11 23:05:00 Test Item Value Reference Range Interpretation Comments Urinalysis (test code = UACLR) Colorless Yellow Urinalysis (test code = UACLY) Clear Clear Urinalysis (test code = SPGR) 1.004 1.002-1.036 N Urinalysis (test code = GIN) 7.5 5.0-9.0 N Urinalysis (test code = UALEU) 75 Radha/uL Negative A Urinalysis (test code = UANIT) Negative Negative Urinalysis (test code = Negative mg/dL Neg-Trace PROUADIP) Urinalysis (test code = GLUCU) Normal mg/dL Negative Urinalysis (test code = KETU) Negative mg/dL Negative Urinalysis (test code = Normal mg/dL Less than 2 UAUROB) Urinalysis (test code = UABIL) Negative Negative Urinalysis (test code = UABLD) Negative Negative Urinalysis (test code = UARBC) 0-3 HPF 0-3 Urinalysis (test code = UAWBC) 0-3 HPF 0-3 Urinalysis (test code = 0-3 HPF 0-3 UASQUAM) Urinalysis (test code = UABAC) Rare-Few HPF None Seen Urine Source: Urine SdwfkwXmjgjoddh6391-72-32 23:04:00 Test Item Value Reference Range Interpretation Comments Chemistry (test 0.125 ng/mL < 0.028 H code = TROPI-R) Reference Ra nge 0.0 0 - 0.028 ng/mL Negative 0.0 29 - 0.29 ng/mL Indeterminate Greater or Equal to 0.3 ng/mL Strongly sugge [facility] Chemistry (test 0.125 ng/mL < 0.028 H code = TROPI-R) Reference Ra nge 0.0 0 - 0.028 ng/mL Negative 0.0 29 - 0.29 ng/mL Indeterminate Greater or Equal to 0.3 ng/mL Strongly sugge [facility] [place] Kcojteuwe6445-39-72 23:04:00 Test Item Value Reference Range Interpretation Comments Chemistry (test code = CKMBM-T) 1.6 ng/mL 0-6.6 N Dzbflchky7253-99-11 22:31:00 Test Item Value Reference Range Interpretation Comments Chemistry (test code 133 mmol/L 136-145 L = NA-T) Chemistry (test code 4.0 mmol/L 3.5-5.1 N = K-T) Chemistry (test code 94 mmol/L 98-107 L = CL) Chemistry (test code 28 mmol/L 22-29 N = CO2) Chemistry (test code 15 mmol/L 10-20 N = ANGP) Chemistry (test code 8 mg/dL 9.8-20.1 L = BUN) Chemistry (test code 0.67 mg/dL 0.6-1.1 N = CREATT) Chemistry (test code 90 Referen ce Range for = EGFRMDRD) Estimated GFR: Great er than 90 mL/min/1.73 m2NOTE:The MDRD equation has no t been validated for u se with theelderly (ove r 70 years of age), women, patientswith se rious comorbid condit ion or persons with ex tremes ofbody size, mu scle mass, or nutrit ional status. Chemistry (test code 117 mg/dL 70-105 H = GLU-T) Chemistry (test code 9.1 mg/dL 7.8-10.44 N = CA) Chemistry (test code 0.2 mg/dL 0.2-1.2 N = TBILI-T) Chemistry (test code 7.0 g/dL 6.0-8.3 N = TP) Chemistry (test code 4.3 g/dL 3.5-5.0 N = ALB) Chemistry (test code 2.7 g/dL 2.4-3.5 N = GLOB) Chemistry (test code 1.6 g/dL 1.2-2.2 N = AG) Chemistry (test code 75 U/L 40-110 N = ALP) Chemistry (test code 21 U/L 5-34 N = AST) Chemistry (test code 24 U/L 8-55 N = ALT) Hzswyyenpzt6649-94-62 22:30:00 Test Item Value Reference Range Interpretation Comments Coagulation (test 13.1 sec 12.0-14.7 N code = PT-T) Coagulation (test 1.0 ATTENTION: code = INR) READ CAREFULLY-- The recommended the rapeutic ranges for oral anticoagulanttr eatments are: ------ Low Intensity: 1.5 - 2.0 Moderate In tensity: 2.0 - 3.0 High Intensity (1): 2.5 - 3.5 High In tensity (2): 3.0 - 4. 0 CRITICAL: > 4.0 Coagulation (test 33.8 sec 22.9-36.1 N code = PTT) Anticoagulant? NONEMedical Necessity: SUSPECT UBGJPHIBRUHNLvrdgmcmwr9764-03-62 22:08:00 Test Item Value Reference Range Interpretation Comments Hematology (test code = WBCT) 16.3 thou/uL 4.8-10.8 H Hematology (test code = RBCT) 4.24 mill/uL 4.20-5.40 N Hematology (test code = HGBT) 14.1 g/dL 12.0-16.0 N Hematology (test code = HCTT) 41.6 % 36.0-47.0 N Hematology (test code = MCV) 98.2 fL 78.0-98.0 H Hematology (test code = MCH) 33.4 pg 27.0-31.0 H Hematology (test code = MCHC) 34.0 g/dL 32.0-36.0 N Hematology (test code = RDW) 11.6 % 11.5-14.5 N Hematology (test code = PLTT) 266 thou/uL 130-400 N Hematology (test code = MPV) 6.8 fL 7.4-10.4 L Hematology (test code = %NEUT) 64.7 % 42.0-75.0 N Hematology (test code = %LYMPH) 23.8 % 21.0-51.0 N Hematology (test code = %MONO) 9.5 % 0.0-10.0 N Hematology (test code = %EOS) 1.4 % 0.0-10.0 N Hematology (test code = %BASO) 0.6 % 0.0-1.0 N Hematology (test code = NEUT#) 10.5 thou/uL 1.40-6.50 H Hematology (test code = LYMPH#) 3.9 thou/uL 1.20-3.40 H Hematology (test code = MONO#) 1.6 thou/uL 0.11-0.59 H Hematology (test code = EOS#) 0.2 thou/uL 0.0-0.7 N Hematology (test code = BASO#) 0.1 thou/uL 0.0-0.2 N Reference Lab Mldghru8742-46-40 12:36:00 Test Item Value Reference Range Interpretation Comments Reference Lab Not Detected NotDetected Negative (Not Detected) Testing (test results do not preclude code = MGROT93U) infectionwi th SARS-CoV-2 virus, and shou ld not be the sole basis of apatient manage ment decision. Consi alberto testing for oth erviruses if clinically indicated.The u se of this assay as an In vitro diagnostic unde r theFDA Emergency Use Authorization ( EUA) is limited tolabor atories that are certif ied under the ClinicalLab oratory Improvement Carolyn ndments of 1988 (CLIA), 42 U.S.C.263a, to perform high complexity tests. Reason for Testing: Admission GnwueglzbUlhdleggm1108-57-97 09:34:00 Test Item Value Reference Range Interpretation [...] 7.8-10.44 N code = CA) Chemistry - Mcnvuqno8710-25-66 07:32:00 Test Item Value Reference Range Interpretation Comments Chemistry - Specials (test code 2.5692 uIU/mL 0.35-4.94 N = TSH3) Lelwjqwrd4690-40-27 06:48:00 Test Item Value Reference Range Interpretation [...] of next dose: 01/09/2020Time of next dose: 1655Ohpvrykfn6810-89-31 06:48:00 Test Item Value Reference Range Interpretation [...] of next dose: 01/09/2020Time of next dose: 3281Qrfhnexym1386-46-09 06:48:00 Test Item Value Reference Range Interpretation Comments Chemistry (test code 13.8 ug/mL 10.0-20.0 N Therape utic Range: = DIL) 10.0 - 20.0 mcg/mLToxic Ran ge: Greater than 30.0 mcg/mL Date of next dose: 01/09/2020Time of next dose: 5350Copnqtjt6673-27-33 14:59:00 Test Item Value Reference Range Interpretation Comments Accuchek (test code = ACU) 159 mg/dL 70-110 H N otified Nurse Wvnnfuuqc1125-86-15 13:19:00 Test Item Value Reference Range Interpretation [...] 17 U/L 8-55 N code = ALT) Ilkyyswscg3159-95-41 12:50:00 Test Item Value Reference Range Interpretation [...] code = BASO#) 0.0 thou/uL 0.0-0.2 N Eozlhkkwvu4265-03-30 12:42:00 Test Item Value Reference Range Interpretation [...] Urine Source: Urine Clean CatchMRI Brain W WO [facility] Pt Name: EDUARDA GARCIA Equigerminal Phys: [place] [address] : 1960 Age: 59 SEX:F [phone] Exam Date: 02/04/20 Status: ADM IN Acct: [id number] Loc: 2SE Pt Unit #: [id number] Report #: [id number] CC: ALLY JONES MD MRI REPORT Order # Category/Exam [id number] MRI/MRI Brain W WO Con ([id number]): . Results MRI OF BRAIN WITH AND WITHOUT CONTRAST: INDICATION: Question stroke. Lower extremity weakness. COMPARISON: Comparison is made to recent MRI of brain from 01/09/2020.FINDINGS: Area of encephalomalacia and volume loss in the right parietal lobe with surrounding gli osis again seen as previously described. 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 There is no evidence of restricted diffusion. No evidence of acute infarct or mass. No abnormal enhancement. No interval change. IMPRESSION: No acute infarct. Stable MRI brain findings when compared to the recent exam of 01/09/2020. POS: OFF Reported By: Derrick Mendoza MD Electronically Signed Date/Time: 02/04/20 1642 Technologist: [email or web address] Dictated Date/Time: 02/04/20 1522 Transcribed D ate/Time: 02/04/20 1544MRI Thoracic Spine WO [facility] Pt Name: EDUARDA GARCIA Equigerminal Phys: [place] [address] : 1960 Age: 59 SEX:F [phone] Exam Date: 02/04/20 Status: ADM IN Acct: [id number] Loc: 2SE Pt Unit #: [id number] Report #: [id number] CC: ALLY JONES MD MRI REPORT Order # Category/Exam [id number] MRI/MRI Thoracic Spine WO Con ([id number]):. Results MRI THORACIC SPINE WITHOUT CONTRAST: INDICATION: Bilateral lower extremity numbness. FINDINGS: Thoracic vertebrae maintain height and alignment. The tqv8kyfbpk body signal is normal. Mild disk bulge at T3-T4 mildly flattens the thecal sac but does not impinge on the cord. Minimal disk bulge at T4-5. There is no evidence of disk protrusion. No central canal stenosis. Review of the cord reveals evidence of a syrinx in the lower cervical cord whichis incompletely imaged. When comparison is made to an MRI of the cervical spine from 01/01/2014, the syrinx in the lower cervical cord was present at that time and the visualized portion of this syrinx appears similar to that syrinx seen at the C7-T1 level. There is also a syrinx seen in the mid thoracic cord at T5-T6 level which measures approximately 2 cm length craniocaudal. The syrinx diameter is approximately 3 mm. Another small syrinx in the mid cord at T7-T8 disk space which extends inferiorly to the T9-T11 disk space. There is no central canal or foraminal stenosis identified. IMPRESSION: 1. 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 2. The cervical cord wasevaluated with pre- and post-contrast imaging in 2014 and no abnormal enhancement was present. Recommend repeat MRI of cervical spine to confirm stability of the cervical cord syrinx noted previously. Consider further evaluation of thoracic cord with MRI thoracic spine with contrast to rule out intrinsic cord lesion. POS: OFF Reported By: Derrick Mendoza MD Electronically Signed Date/Time: 02/04/20 1642 Technologist: [email or web address] Dictated Date/Time: 02/04/20 1516 Transcribed Date/Time: 02/04/20 1530MRA Angio Abd W WO [facility] Pt Name: EDUARDA GARCIA Equigerminal Phys: [place] [address] : 1960 Age: 59 SEX:F [phone] Exam Date: 02/04/20 Status: ADM IN Acct: [id number] Loc: 2SE Pt Unit #: [id number] Report #: [id number] CC: ALLY JONES MD MRI REPORT Order # Category/Exam [id number] MRI/MRA Angio Abd W WO Con ([id number]): . Results MR ANGIO OF ABDOMEN WITH AND WITHOUT IV CONTRAST: Date: 02/04/2020 HISTORY: Renovascular hypertension. FINDINGS: There is atherosclerotic irregularity of the abdominal aorta and iliac arteries without evidence ofaneurysmal dilatation of the abdominal aorta. There is good flow in the right and left renal arteries without significant stenosis. A single renal artery is seen on either side. IMPRESSION: No evidence of significant renal artery stenosis. POS: MZA Reported By: Mahesh Mcdonald MD Electronically Signed Date/Time: 02/04/20 1610 Technologist: [email or web address] Dictated Date/Time: 02/04/20 1528 Transcribed Date/Time: 02/04/20 1545NM Cardiac Stress W EF WF [facility] Pt Name: EDUARDA GARCIA Equigerminal Phys: [place] [address] : 1960 Age: 59 SEX:F [phone] Exam Date: 02/03/20 Status: ADM IN Acct: [id number] Loc: 2SE Pt Unit #: [id number] Report #: [id number] CC: ALLY JONES MD NUCLEAR MEDICINE REPORT Order # Category/Exam [id number] NM/NM Cardiac Stress W EF WF ([id number]): . Results NUCLEAR MEDICINE CARDIAC MYOCARDIAL PERFUSION SPECT EJECTION FRACTIONSTUDY WALL MOTION CINE: DATE: 02/03/2020 HISTORY: 59 year old female smoker with hypertension and dyslipidemia presents with elevated troponin TECHNIQUE: Number of days: 1 Reststudy: Technetium 99m- sestamibi (Cardiolite) dose: 10.1 mCi Pharmacologic stress: Lexiscan dose: 0.4 mg Stress study: Technetium 99m-sestamibi (Cardiolite) dose: 28.5 mCi FINDINGS: CARDIAC (MYOCARDIAL PERFUSION) SPECT There are no reversible myocardial perfusion defects. EJECTION FRACTION STUDY Left ventricular EF = 86 % WALL MOTION CINE Normal IMPRESSION: No evidence of reversible ischemia. Reported By: Gordon Hawkins MD Electronically Signed Date/Time: 02/03/20 1312 Technologist: Dictated Date/Time: 02/03/20 1307 T ranscribed Date/Time:XR [facility] Name: EDUARDA GARCIA Equigerminal Phys: [place] [address] : 1960 Age: 59 SEX:F [phone] Exam Date: 02/02/20 Status: ADM IN Acct: [id number] Loc: 2SE Pt Unit #: [id number] Report #: [id number] CC: ALLY JONES MD IMAGING SERVICES REPORT Order # Category/Exam [id number] RAD/XR Chest Pa Lat STANDARD ([id number]): . Results RADIOGRAPH CHEST 2 VIEW: DATE: 02/02/2020 HISTORY: 59-year-old female with stroke. Concern for aspiration. FINDINGS: There is hyperinflation of the lungs, and hyperlucency of the upper lobes, consistent with COPD. There is no evidence of airspace density, pulmonary edema, cardiomegaly, pleural effusion, or pneumothorax. IMPRESSION: 1) No acute cardiopulmonary findings. 2) centrilobular emphysema. Reported By: Gordon Hawkins ElectronicallySigned: 02/02/2020 11:53 AM Reported By: Gordon Hawkins MD Electronically Signed Date/Time: 02/02/201152 Technologist: Dictated Date/Time: 02/02/201150 Transcribed Date/Time:[facility]: EDUARDA GARCIA Equigerminal Phys: [place] [address] :1960 Age: 59 SEX:F [phone] Exam Date: 02/01/20 Status: REG ER Acct: [id number] Loc: ERS Pt Unit #: [id number] Report #: [id number] CC: HUGO SERRA MD CAT SCAN REPORT Order # Category/Exam [id number] CT/CT Brain WO Con ([id number]): . Results CT Brain WO Con History: Leg weakness Comparison: CT brain January 08, 2020. 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 Large focus of right p old leftcaudate head infarct. Old right parietal/occipital encephalomalacia. Left frontal craniotomy change with vascular clip. No acute hemorrhage or territorial infarction. No midline shift or mass effect. Impression: Chronic findings. No acute intracranial abnormality. No significant change from last month. Reported By: ALLY MORRISSEY Electronically Signed Date/Time: 02/01/202235 Technologist: CHING Dictated Date/Time: 02/01/202230 Transcribed Date/Time:XR [facility] Name: EDUARDA GARCIA Equigerminal Phys: [place] [address] :1960 Age: 59 SEX:F [phone] Exam Date: 02/01/20 Status: REG ER Acct: [id number] Loc: ERS Pt Unit #: [id number] Report #: [id number] CC: HUGO SERRA MDIMAGING SERVICES REPORT Order # Category/Exam [id number] RAD/XR Chest 1 View Portable ([id number]): . Results XR Chest 1 View Portable History: Weakness Comparison: Radiograph 2014 Findings: Background lung hyperinflation. Scarring both lung bases. Heart size upper limits ofnormal. No confluent airspace consolidation, pneumothorax or effusion. No acute osseous abnormality. Impression: Obstructive pulmonary disease otherwise no acute intrathoracic abnormality. Reported By: ALLY MORRISSEY Electronically Signed Date/Time: 02/01/202257 Technologist: UMAIR Dictated Date/Time: 02/01/202257 Transcribed Date/Time:MRI Brain W WO [facility] Pt Name: EDUARDA GARCIA Equigerminal Phys: [place] [address] : 1960 Age: 59 SEX:F [phone] Exam Date: 01/09/20 Status: ADM IN Acct: [id number] Loc: 2SE Pt Unit #: [id number] Report #: [id number] CC: ALLY JONES MD MRI REPORT Order # Category/Exam [id number] MRI/MRI Brain W WO Con ([id number]): . Results MRI BRAIN WITH AND WITHOUT [...] 0908 Transcribed Date/Time: 01/09/20 1016US Carotid Doppler [facility] Pt Name: EDUARDA GARCIA [employer] [place]: [place] [address] : 1960 Age: 59 SEX:F [phone] Exam Date: 01/08/20 Status: ADM IN Acct: [id number] Loc: 2SE Pt Unit #: [id number] Report #: [id number] CC: ALLY JONES MDLudin ULTRASOUND REPORT Order # Category/Exam [id number] ULT/US Carotid Doppler STANDARD ([id number]): . Results BILATERAL CAROTID DUPLEX ULTRASOUND: HISTORY: [...] Date/Time: 01/09/20 0747 Transcribed Date/Time:CT Brain WO [facility] Pt Name: EDUARDA GARCIA Equigerminal Phys: [place] [address] : 1960 Age: 59 SEX:F [phone] Exam Date: 01/08/20 Status: REG ER Acct: [id number] Loc: ERS Pt Unit #: [id number] Report #: [id number] CC: ED TEMP PROVIDER [place] DO CAT SCAN REPORT Order # Category/Exam [id number] CT/CT Brain WO Con ([id number]): . Results CT BRAIN WITHOUT CONTRAST HISTORY: [...] 01/08/20 1251 Transcribed Date/Time:CTA Angio Head W WO [facility] Pt Name: EDUARDA GARCIA Equigerminal Phys: [place] [address] : 1960 Age: 59 SEX:F [phone] Exam Date: 01/08/20 Status: REG ER Acct: [id number] Loc: ERS Pt Unit #: [id number] Report #: [id number] CC: ED TEMP PROVIDER Ludin Cox DO CAT SCAN REPORT Order # Category/Exam CT/CTA Angio Head WWO Con ([id number]): . CT/CTA Angio Neck W WO Con ([id number]): . Results CTA HEAD: CTA NECK: 01/08/20 [...] findings at this site appears stable from 2013. There are reduced left M2 and M3 [...] Derrick Mendoza MD Electronically Signed Date/Time: 01/08/20 1549 Technologist: [email or web address] Dictated Date/Time: 01/08/20 1329 Transcribed Date/Time: 01/08/20 4915
--- OUTSIDE RECORDS SUMMARY | 2020-04-16 17:56 | XMS REPORT | Continuity of Care Document ---
:[address] [facility] Address [address] [place] [address] Phone Care Team Providers Name Role Phone Donovan Jones Primary Care Provider Yoshi Jones Admit Provider Yoshi Jones Attending Provider [facility] Emergency Provider Landon Da Silva Other Provider Yovany Emergency Provider Мария Warner Other Provider Mariah Raymond Other Provider Alddevang Other Provider Som Other Provider Kiara Sultana Other Provider Mariah Ly Other Provider Devonte Other Provider Bulhof Other Provider [place] Other Provider Burdayanara Other Provider Carlos Dial Other Provider Coujon Other Provider Christa Other Provider Daftarirobbie Other Provider Enma Other Provider Sabrina Whelan Other Provider Penny Garcia Other Provider Matthew Other Provider Annalisa Oconnor Other Provider Grea Edgar Other Provider Keya Other Provider Gaby Other Provider Libertad Koo Other Provider Sepideh Other Provider Maged Other Provider Мария Gomez Other Provider Sergio Bustos Other Provider Mendez Trivedi Other Provider Desean Other Provider Terry Corneluis Other Provider Paramjit Patton Other Provider Libertad [...] Melendez Other Provider Cammie Downingn Other Provider NaniMackenzie Other Provider Yoshi Mondragon Other Provider Mohinder Other Provider Tammi Other Provider Мария Garcia Other Provider Varisa Other Provider Vitinna Other Provider Jose Tai Other Provider Casie [...] Septembe Septemb (Catapres) 0.2 ed Daily r 15th, er MG Tab 2019, 4:58pm 2019 5:34pm Clopidogrel Discontinu 75 MG PO Daily Septembe Octobe r Bisulfate ed r 15th, 14, (Clopidogrel) 2019 2019 75 Tablet 4:58pm 10:23am Ergocalciferol Active 52303 UNIT PO Every Septembe (Vitamin D2) Week r 15, (Vitamin D2) 2019 50,000 UNIT 4:58pm Capsule Levothyroxine Active 125 MCG PO Every Sodium Mornin r 15, (Levoxyl) 125 g 2020 MCG Tablet 4:58pm Ramipril Discontinu 10 MG PO Daily Sept Septemb ed r 15th, er 2020 16th, 4:58pm 2020 5:34pm Aspirin Active 325 MG PO Bedtim (Ecotrin e r 15, Regular 2020 Strength) 325 5:04pm MG Tab Atorvastatin Active 40 MG PO Daily Calcium r 15, (Lipitor) 40 2020 MG Tablet 5:04pm Phenytoin Active 100 MG PO Twice e Sodium Daily r 15, Extended 2019 (Dilantin) 100 5:04pm MG Cap Clonidine Active 0.3 MG PO Three (Catapres) 0.3 Times r 16, MG Tab Daily 2019 5:33pm Ramipril Active 10 MG PO Twice (Altace) 5 MG Daily r 16, Cap 2019 5:33pm Hydralazine Discontinu 50 MG PO Three January Hcl ed Times 10th, 14, Daily 2020 2019 3:50am 10:23am Aspirin-Dipyri Active 1 CAP PO Twice January damole Daily , (Aggrenox) 25 2019 MG/200 MG Cap 10:22am Alprazolam Active 0.5 MG PO Q4H January (Xanax) 0.5 MG , Tab 2019 10:22am Alprazolam Active 0.5 MG PO Twice January (Xanax) 0.5 MG Daily , Tab 2019 10:22am Aspirin Active 325 MG PO Daily January (Ecotrin 14, Regular 2020 Strength) 325 10:22am MG Tab Atorvastatin Active 40 MG PO Bedtim January Calcium e 14, (Lipitor) 40 2020 MG Tab 10:22am Carvedilol Active 25 MG PO Twice January (Coreg) 25 MG Daily , Tab 2019 10:22am Clonidine Active 0.3 MG PO Three January (Catapres) 0.3 Times 14, MG Tab Daily 2019 10:22am Nicotine Active 21 MG TOP Every January (Nicoderm Cq) 24 14, 21 MG Patch Hours 2019 10:22am Ramipril Active 10 MG PO Twice January (Altace) 5 MG Daily 2019 10:22am Acetaminophen Active 1 TAB PO Q4H January/ Codeine , (Acetaminophen 2019 /Codeine #3) 10:22am 300 MG/30 MG Tab Problems Active Problems Medical Problem Onset Date Status TIA (transient ischemic attack) Active Procedures Procedure Date Performed Status CT Brain WO Con February 01, 2020 10:13pm completed XR Chest 1 View Portable February 01, 2020 10:13pm completed EKG 12 Lead in Emergency Room February 01, 2020 11:44pm comp leted CR Pharm Cardiolite Stress February 02, 2020 9:22am complet ed XR Chest Pa & Lat STANDARD February 02, 2020 10:02am comple mathieu NM Cardiac Stress W EF & WF February 03, 2020 12:00am compl eted MRI Thoracic Spine WO Con February 04, 2020 7:57am complete d MRI Brain W WO Con February 04, 2020 7:58am completed MRA Angio Abd W WO Con February 04, 2020 12:00am completed EKG 12 Lead in Emergency Room January [...] Bedside December 159 mg/dL 70-110 Notified Nurse *[facility], [address] Glucose 2019 [place] [address] 12:22pm Sodium Level January 132 mmol/L 136-145 [facility], [address] 2019 [place] [address] 4:39am Sodium Level December 133 mmol/L 136-145 [facility], [address] 2019 [place] [address] 8:45am Potassium January 3.7 mmol/L 3.5-5.1 [facility], [address] Level 2019 [place] [address] 4:39am Potassium December 3.6 mmol/L 3.5-5.1 [facility], [address] Level 2019 [facility] [address] 8:45am Chloride January 97 mmol/L 98-107 [facility], [address] Level 2019 [facility] [address] 4:39am Chloride December 96 mmol/L 98-107 [facility], [address] Level 2019 [facility] [address] 8:45am Carbon January 28 mmol/L 22-29 [facility], [address] Dioxide 2019 [facility] [address] Level 4:39am Carbon Anne 28 mmol/L -29 [facility]Jose [facility] Lab, [address] Dioxide 2019 [facility] [address] Level 8:45am Anion Gap December 13 mmol/L 10-20 [facility] Lab, [address] 2019 [facility] [address] 8:45am Anion Gap January 11 mmol/L 10-20 [facility], [address] 2019 [facility] [address] 4:39am Blood Urea December 6 mg/dL 9.8-20.1 [facility] Lab, [address] Nitrogen 2019 [facility] [address] 8:45am Blood Urea January 8 mg/dL 9.8-20.1 [facility], [address] Nitrogen 2019 [facility] [address] 4:39am Creatinine December 0.61 mg/dL 0.6-1.1 [facility] StJo [facility] Lab, [address] 2019 [facility] [address] 8:45am Creatinine January 0.56 mg/dL 0.6-1.1 [facility]Jo [facility] Lab, [address] 2019 [facility] [address] 4:39am Estimated Anne Greater Reference Range [facility], [address] GFR (MDRD) 2019 than 90 [place] [address] 8:45am GFR: Greater than 90 mL/min/1.73 m2 NOTE:The MDRD equation has not been validated for use with thenevaeherpatricio (over 70 years of age), women, patientswith serious comorbid condition or persons with extremes ofbody size, muscle mass, or nutritional status. Estimated January Greater Reference Range [facility], [address] GFR (MDRD) 2019 than 90 [place] [address] 4:39am GFR: Greater than 90 mL/min/1.73 m2 NOTE:The MDRD equation has not been validated for use with thenevaeherpatricio (over 70 years of age), women, patientswith serious comorbid condition or persons with extremes ofbody size, muscle mass, or nutritional status. Glucose January 76 mg/dL 70-105 [facility]Jose [facility], [address] Level 2019 [facility] [address] 4:39am Glucose December 124 mg/dL 70-105 [facility], [address] Level 2019 [facility] [address] 8:45am Calcium December 8.9 mg/dL 7.8-10.44 [facility], [address] Level 2019 [facility] [address] 8:45am Calcium January 8.1 mg/dL 7.8-10.44 [facility], [address] Level 2019 [facility] [address] 4:39am Total Anne 0.4 mg/dL 0.2-1.2 [facility] StJose ph [facility] Lab, [address] Bilirubin 2019 [facility] [address] 12:39pm Total October 0.2 mg/dL 0.2-1.2 [facility]Jose [facility], [address] Bilirubin 2019 [facility] 7 [address] 9:57pm Serum Total Anne 5.9 g/dL 6.0-8.3 [facility] StJo seph [facility] Lab, [address] Protein 2019 [facility] [address] 12:39pm Serum Total October 7.0 g/dL 6.0-8.3 [facility]Jo seph [facility] Lab, [address] Protein 2019 [place] [address] 9:57pm Albumin October 4.3 g/dL 3.5-5.[address] [facility], [address] 2019 [place] [address] 9:57pm Albumin Anne 3.7 g/dL 3.5-5.0 [facility], [address] 2019 [place] [address] 12:39pm Globulin Anne 2.2 g/dL 2.4-3.[address] [facility], [address] 2019 [place] [address] 12:39pm Globulin October 2.7 g/dL 2.4-3.5 [facility], [address] 2019 [place] [address] 9:57pm Albumin/Glob Anne 1.7 g/dL 1.2-2.2 [facility], [address] Ratio 2019 [place] [address] 12:39pm Albumin/Glob October 1.6 g/dL 1.2-2.2 [facility], [address] Ratio 2019 [place] [address] 9:57pm Cholesterol December 156 mg/dl <199 [facility], [address] Level 2019 [place] [address] 3:30am Cholesterol January 138 mg/dl <199 [facility], [address] Level 2019 [place] [address] 4:27am Alkaline December 52 U/L 40-[address] [facility], [address] Phosphatase 2019 [place] [address] 12:39pm Alkaline October 75 U/L 40-[address] [facility], [address] Phosphatase 2019 [place] [address] 9:57pm Aspartate Anne 15 U/L 5-[address] [facility], [address] Amino Transf 2019 [place] [address] (AST/SGOT) 12:39pm Aspartate January 21 U/L 5-34 [facility] Lab, [address] Amino Transf 2019 [place] [address] (AST/SGOT) 9:57pm Creatine January 1.6 ng/mL 0-6.6 [facility] Lab, [address] Kinase MB 2019 [place] [address] 9:57pm Troponin I January 0.128 <0.028 [facility] Lab, [address] 2019 ng/[place] [address] 4:40am Reference Range 0.00 - 0.028 ng/mL Negative 0.029 - 0.29 ng/mL Indeterminate Greater or Equal to 0.3 ng/mL Strongly suggests [place] Alanine January 24 U/L - [facility] Lab, [address] Aminotransfe 2019 [facility] x [address] rase 9:57pm (ALT/SGPT) Alanine December 17 U/L [facility] Lab, [address] Aminotransfe 2019 [place] [address] rase 12:39pm (ALT/SGPT) Triglyceride January 60 mg/dL Less than [facility] Lab, [address] s Level 2019 150 [place] [address] 4:27am Triglyceride December 111 mg/dL Less than [facility] Lab, [address] s Level 2019 150 [place] [address] 3:30am HDL December 57 mg/dL Adult HDL [facility] Lab, [address] Cholesterol 2019 [place] [address] 3:30am of risk for Coronary Heart Disease > or Equal to 60 mg/dL Negative Risk < 40 mg/dL HIGH Risk HDL January 63 mg/dL Adult HDL [facility] Lab, [address] Cholesterol 2019 [place] [address] 4:27am of risk for Coronary Heart Disease > or Equal to 60 mg/dL Negative Risk < 40 mg/dL HIGH Risk LDL December 77 mg/dL Levels in terms [facility] Lab, [address] Cholesterol, 2019 [place] [address] Calculated 3:30am coronary heart disease: Desirable: Less than 130 mg/dL Borderline High Risk: 130 - 159 mg/dL High Risk: Greater than 160 mg/dL LDL January 63 mg/dL Levels in terms [facility] Lab, [address] Cholesterol, [place] [address] Calculated 4:27am coronary heart disease: Desirable: Less than 130 mg/dL Borderline High Risk: 130 - 159 mg/dL High Risk: Greater than 160 mg/dL Coronary January 2.2 Less than Adult levels in [facility] Lab, [address] Heart 2019 4.5 [place] [address] Disease Risk 4:27am for Coronary Ratio Heart Disease: Dangerous level: Greater than 8.3 High: 5.6 - 8.3 Average: 3.7 - 5.6 Below average: 2.5 - 3.7 Protection probable: Less than 2.5 Coronary December 2.7 Less than Adult levels in [facility] Lab, [address] Heart 2019 4.5 [place] [address] Disease Risk 3:30am for Coronary Ratio Heart Disease: Dangerous level: Greater than 8.3 High: 5.6 - 8.3 Average: 3.7 - 5.6 Below average: 2.5 - 3.7 Protection probable: Less than 2.5 Phenytoin January 17.3 ug/mL 10.0-20.0 Therapeutic [facility] Lab, [address] (Dilantin) 2019 Range: 10.0 [place] [address] Level 4:36am 20.0 mcg/mLToxic Range: Greater than 30.0 mcg/mL Phenytoin December 13.8 ug/mL 10.0-20.0 Therapeutic [facility] Lab, [address] (Daveantiyi) 2019 Range: 10.0 [place] [address] Level 3:30am 20.0 mcg/mLToxic Range: Greater than 30.0 mcg/mL TSH 26 December 2.5692 0.35-4.94 [facility] Lab, [address] Generation 2019 uIU/[place] [address] 3:30am TSH 25 January 2.2521 0.35-4.94 [facility] Lab, [address] Generation 2019 uIU/[place] [address] 4:27am B-Type January 27.3 pg/mL 0-100 [facility] Lab, [address] Natriuretic 2019 [place] [address] Peptide 4:27am White Blood December 11.0 4.8-10.8 [facility] Lab, [address] Count 2019 thou/[place] [address] 12:39pm White Blood January 10.0 4.8-10.8 [facility], [address] Count 2019 thou/[place] [address] 4:39am Red Blood January 3.75 4.20-5.40 [facility] Lab, [address] Count 2019 mill/[place] [address] 4:39am Red Blood December 3.74 4.20-5.40 [facility] Lab, [address] Count 2019 mill/[place] [address] 12:39pm Hemoglobin December 12.2 g/dL 12.0-16.0 [facility] Lab, [address] 2019 [place] [address] 12:39pm Hemoglobin January 12.0 g/dL 12.0-16.0 [facility] Lab, [address] 2019 [place] [address] 4:39am Hematocrit January 37.1 % 36.0-47.0 [facility] Lab, [address] 2019 [place] [address] 4:39am Hematocrit Anne 36.7 % 36.0-47.0 [facility] eph [facility] Lab, [address] 2019 [facility] [address] 12:39pm Mean January 98.8 fL 78.0-98.0 [facility], [address] Corpuscular 2019 [facility] x [address] Volume 4:39am Mean December 98.0 fL 78.0-98.0 [facility], [address] Corpuscular 2019 [facility] x [address] Volume 12:39pm Mean December 32.6 pg 27.0-31.0 [facility], [address] Corpuscular 2019 [facility] x [address] Hemoglobin 12:39pm Mean January 31.9 pg 27.0-31.0 [facility], [address] Corpuscular 2019 [facility] x [address] Hemoglobin 4:39am Mean January 32.3 g/dL 32.0-36.0 [facility], [address] Corpuscular 2019 [facility] x [address] Hemoglobin 4:39am Concent Mean December 33.3 g/dL 32.0-36.0 [facility], [address] Corpuscular 2019 [facility] x [address] Hemoglobin 12:39pm Concent Red Cell January 11.4 % 11.5-14.5 [facility], [address] Distribution 2019 [place] [address] Width 4:39am Red Cell December 11.2 % 11.5-14.5 [facility], [address] Distribution 2019 [place] [address] Width 12:39pm Platelet December 214 130-400 [facility], [address] Count 2019 thou/[place] [address] 12:39pm Platelet October 190 130-[address] [facility], [address] Count 2019 thou/[place] [address] 4:39am Mean Anne 7.3 fL 7.4-10.[address] [facility], [address] Platelet 2019 [place] [address] Volume 12:39pm Mean October 7.7 fL 7.4-10.[address] [facility], [address] Platelet 2019 [place] [address] Volume 4:39am Neutrophils October 66.1 % 42.0-75.[address] [facility], [address] % 2019 [place] [address] 4:39am Neutrophils Anne 73.3 % 42.0-75.[address] [facility], [address] % 2019 [place] [address] 12:39pm Lymphocytes October 21.3 % 21.0-51.[address] [facility], [address] % 2019 [place] [address] 4:39am Lymphocytes Anne 18.5 % 21.0-51.[address] [facility], [address] % 2019 [place] [address] 12:39pm Monocytes % Anne 6.6 % 0.0-10.[address] [facility], [address] 2019 [place] [address] 12:39pm Monocytes % October 11.2 % 0.0-10.[address] [facility], [address] 2019 [place] [address] 4:39am Eosinophils Anne 1.4 % 0.0-10.[address] [facility], [address] % 2019 [place] [address] 12:39pm Eosinophils October 0.9 % 0.0-10.[address] [facility], [address] % 2019 [place] [address] 4:39am Basophils % Anne 0.3 % 0.0-1.[address] [facility], [address] [address] [facility] [address] 12:39pm Basophils % October 0.5 % 0.0-1.0 [facility] Lab, [address] [address] [facility] [address] 4:39am Neutrophils October 6.6 1.40-6.50 [facility], [address] # 13, 2019 [facility] [address] 4:39am Neutrophils December 8.1 1.40-6.50 [facility] Lab, [address] # 15, 2019 [facility] [address] 12:39pm Lymphocytes Anne 2.0 1.20-3.40 [facility], [address] # 15, 2019 [facility] [address] 12:39pm Lymphocytes October 2.1 1.20-3.40 [facility] Lab, [address] # 13, 2019 [facility] [address] 4:39am Monocytes # December 0.7 0.11-0.59 [facility] Lab, [address] [address] [facility] [address] 12:39pm Monocytes # October 1.1 0.11-0.59 [facility] Lab, [address] [address] [facility] [address] 4:39am Eosinophils Anne 0.1 0.0-0.7 [facility] Lab, [address] 15, 2019 [facility] [address] 12:39pm Eosinophils October 0.1 0.0-0.7 [facility], [address] # 13, 2019 [facility] [address] 4:39am Basophils # December 0.0 0.0-0.2 [facility] Lab, [address] [address] [facility] [address] 12:39pm Basophils # January 0.0 0.0-0.2 [facility], [address] 2019 thou/uL [place] [address] 4:39am Prothrombin January 13.1 sec 12.0-14.[address] [facility], [address] 2019 [place] [address] 9:57pm INR January 1.[address] [facility], [address] Internationa 2019 ATTENTION: [place] [address] l Normalized 9:57pm READ Ratio CAREFULLY-- Th e recommended therapeutic ranges for oral anticoagulanttr eatments are: ---- Low Intensity: 1.5 - 2.0 Moderate Intensity: 2.0 - 3.0 High Intensity (1): 2.5 - 3.5 High Intensity (2): 3.0 - 4.0 CRITICAL: > 4.0 Activated January 33.8 sec 22.9-36.[address] [facility], [address] Partial 2019 [place] [address] Thromboplast 9:57pm Time Urine Color January Colorless Yellow [facility], [address] 2019 [place] [address] 10:55pm Urine Color December Colorless Yellow [facility], [address] 2019 [place] [address] 12:15pm Urine December Clear Clear [facility], [address] 2019 [place] [address] 12:15pm Urine January Clear Clear [facility], [address] 2019 [place] [address] 10:55pm Urine Anne 1.003 1.002-1.[address] [facility], [address] Specific 2019 [place] [address] [place] 12:15pm Urine January 1.004 1.002-1.[address] [facility], [address] Specific 2019 [place] [address] [place] 10:55pm Urine pH December 7.0 5.0-9.[address] [facility], [address] 2019 [place] [address] 12:15pm Urine pH January 7.5 5.0-9.[address] [facility], [address] 2019 [place] [address] 10:55pm Urine January 75 Radha/uL Negative [facility], [address] Leukocyte 2019 [place] [address] Esterase 10:55pm Urine December Negative Negative [facility], [address] Leukocyte 2019 Radha/[place] [address] Esterase 12:15pm Urine January Negative Negative [facility], [address] Nitrite 2019 [place] [address] 10:55pm Urine December Negative Negative [facility], [address] Nitrite 2019 [place] [address] 12:15pm Urine December Negative Neg-Trace [facility], [address] Protein 2019 mg/[place] [address] 12:15pm Urine January Negative Neg-Trace [facility], [address] Protein 2019 mg/dL [place] [address] 10:55pm Urine January Normal Negative [facility], [address] Glucose (UA) 2019 mg/[place] [address] 10:55pm Urine December Normal Negative [facility], [address] Glucose (UA) 2019 mg/[place] [address] 12:15pm Urine December Negative Negative [facility], [address] Ketones 2019 mg/[place] [address] 12:15pm Urine January Negative Negative [facility], [address] Ketones 2019 mg/dL [place] [address] 10:55pm Urine December Normal Less than [address] [facility] [facility] [address] Urobilinogen 2019 mg/[place] [id number] 12:15pm Urine January Normal Less than [address] [address] [facility], [address] Urobilinogen 2019 mg/[place] [id number] 10:55pm Urine January Negative Negative [facility], [address] Bilirubin 2019 [place] [id number] 10:55pm Urine December Negative Negative [facility], [address] Bilirubin 2019 [place] [id number] 12:15pm Urine Blood January Negative Negative [facility], [address] 2019 [place] [id number] 10:55pm Urine Blood December Negative Negative [facility], [address] 2019 [place] [id number] 12:15pm Urine RBC January 0-[address] [facility], [address] 2019 [place] [id number] 10:55pm Urine WBC January 0-[address] [facility], [address] 2019 [place] [address] 10:55pm Urine October 0-[address] [facility], [address] Squamous 2019 [place] [id number] Epithelial 10:55pm Cells Urine January Rare-Few None Seen [facility], [address] Bacteria 2019 HPF [place] [address] 10:55pm Coronavirus January Not NotDetected Negative (Not [facility], [address] (COVID-19)(P 2019 Detected Detected) [place] [id number] CR) 2:04am results do not preclude infection with SARS-CoV-2 virus, and should not be the sole basis of a patient management decision. Consider testing for other viruses if clinically indicated.The use of this assay as an In vitro diagnostic under the [facility] Emergency Use Authorization (EUA) is limited to laboratories that are certified under the Clinical Laboratory Improvement Amendments of 1988 (CLIA), 42 U.S.C. 263a, to perform high complexity tests. Coronavirus December Not NotDetected Negative (Not [place] [facility], [address] (COVID-19)(P 2019 Detected Detected) [facility] [address] CR) 3:50pm results do not preclude infection [...] Location(s) Arrival/Admit Date Discharge/Depart Date Provider(s) Discharged [place] January 07, January 09, [address] [facility] 2019 2:15pm 6:08pm MD [facility] Discharged [place] February 02, 2020 February 06, [address] [facility] 10:11am 10:55am MD [facility]ang-2[facility] STROKE UNIT Recent Diagnosis Onset [...] Date Recorded Activity Ability Standby Assistance February 05, 2020 8 :55pm Goals Acute Goals AFTER HOSPITAL CARE PLAN [...] on. Every minute counts!! TIME IS BRAIN! AFTER HOSPITAL CARE PLAN and EDUCATION TRANSIENT [...] Stroke and TIA *Modifiable risk factors: [ x] High blood pressure: The most impo rtant risk factor for stroke. This can be [...] thinners" may be a necessary denny tment. [x ] Transient Ischemic Attacks (TIAs): These are strong predictors of stroke. [ ] [...] Immunizations Immunization Event Date Not Given Dose Cdl [employer] Lot Vac cine Reason Number Number Informatio n Statement (VIS) Deta il Influenza Virus January [id number] 2019 Pneumococcal January [id number] 2019 Mental Status Observation Response Date Recorded Memory Description Intact February 05, 2020 8 :55pm Medical Equipment No Medical Equipment Information available Insurance Providers Payer Policy Id Coverage Id Subscriber's Subscriber Effective Expi ration Name Id Date Date MEDICAID [id number] EDUARDA VARGAS [id number] [facility] MEDICARE [id number] EDUARDA VARGAS [id number] AprilE 2000 Plan of Treatment Future Tests Future scheduled test information is unavailable Pending Tests Pending diagnostic test information is unavailable Future Visits Future appointment information is unavailable Referrals to Other Providers Reason for Referral Start Provider Provider Contact Provider Address Referral Date Information Tuesday01/11/20 Donovan Jones Work Phone: [phone] at 1130am [place] [phone] Future Procedures Future procedure information is unavailable Future Medications Future medication information is unavailable Patient Instructions Transient Ischemic Attack, [id number] Transient Ischemic Attack, Rwcr-mv-Mnen Earache, Adult Social History Observation Status Observation Response Date [...] 2:13pm Body Temperature 98.1 [degF] 97.6-99.6 February 05, 2 020 7:48am Heart Rate 77 /min 60-100 February 05 7:48am Respiratory rate 18 /min -February 05, 2 020 7:48am Oxygen saturation by 96 % 95-100 January Pulse oximetry 7:48am BP Systolic 197 mm[Hg] 90-140 February 05 7:48am BP Diastolic 88 mm[Hg] 60-90 February 05 7:48am BMI (Body Mass Index) 16.8 kg/m2 February [id number] 2:13pm
--- NOTE | 2020-04-16 18:51 | RAD REPORT ---
EXAM DESCRIPTION: CT - Head Brain Wo Cont - 04/16/2020 6:39 pm CLINICAL HISTORY: Numbness COMPARISON: None TECHNIQUE: Computed axial tomography of the head was obtained. IV contrast was not requested. All CT scans are performed using dose optimization technique as appropriate and may include automated exposure control or mA/KV adjustment according to patient size. 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 A 5 centimeter low-density area right parietal lobe. No hydrocephalus. No acute intracranial bleed. No extra-axial fluid collection. Fluid within the sinuses/ mastoids is not seen. 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 Aneurysm clip is present within the left cerebrum. No acute intracranial abnormality noted
[2020-04-16] MEDS ORDERED: ASPIRIN 81 MG CHEWABLE TABLET ONE ×2 (19:53→20:03)
[2020-04-16] MEDS ORDERED: FOLIC ACID 5 MG/ML VIAL ONE ×2 (19:53→20:04)
[2020-04-16 20:04] LABS: Protime INR 1.06
[2020-04-16] MEDS ORDERED: NA CHLORIDE 0.9% 100 ML ONE (20:04)
[2020-04-16 20:05] LABS: Basophils % 0.5 % (0-1.3); Hematocrit 36.2 % (36.0-45.0); Lymphocytes % 26.1 % (15.3-44.8); MPV 8.2 fL (7.6-11.3); RBC Red Blood Cell Count 3.78 M/uL (3.86-4.86)
[2020-04-16 20:13] LABS: ALT/SGPT 27 U/L (12-78); AST/SGOT 18 U/L (15-37); Alkaline Phosphatase 68 U/L (45-117); BUN Blood Urea Nitrogen 6 mg/dL (7-18); Bicarbonate 29 mmol/L (21-32); Bilirubin Direct < 0.1 mg/dL (0-0.2); Bilirubin Total 0.2 mg/dL (0.2-1.0); Glucose Level 131 mg/dL (74-106); Magnesium 2.3 mg/dL (1.8-2.4); NT PRO-BNP 124 pg/mL (<125); Potassium 3.8 mmol/L (3.5-5.1); Protein, Total 7.5 g/dL (6.4-8.2); Sodium Level 135 mmol/L (136-145); Troponin (Emerg Dept Use Only) < 0.02 ng/mL (0.0-0.045)
[2020-04-16 20:17] LABS: Urine Blood NEGATIVE (NEG); Urine Glucose NEGATIVE (NEG); Urine Protein NEGATIVE (NEG); Urine Specific Gravity 1.015 (1.005-1.030); Urine pH 5.5 (5.0-7.0)
--- NOTE | 2020-04-16 20:56 | RAD REPORT ---
EXAM DESCRIPTION: [place] Single View04/16/2020 7:40 pm CLINICAL HISTORY: Shortness of breath/weakness COMPARISON: December 2019 FINDINGS: The lungs appear clear of acute infiltrate. The heart is normal size IMPRESSION: No acute abnormalities displayed
--- NOTE | 2020-04-16 21:29 | RAD REPORT ---
EXAM DESCRIPTION: CTHead angio04/16/2020 9:12 pm CLINICAL HISTORY: Left leg numbness COMPARISON: None TECHNIQUE: CT angiogram of the head was obtained. 3D MIPS reconstruction performed. All CT scans are performed using dose optimization technique as appropriate and may include automated exposure control or mA/KV adjustment according to patient size. FINDINGS: An aneurysm clip has been placed into a branch of the left middle cerebral artery. Diminished vascularity involving a branch of the left middle cerebral artery is chronic. 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 An aneurysm is not seen. A significant stenosis is not noted. Mild atherosclerotic disease IMPRESSION: Aneurysm clip within a branch the left middle cerebral artery No acute abnormality is displayed
--- NOTE | 2020-04-16 21:34 | EDPHYS ---
Physician Documentation [facility] Name: Maryjane Jameson Age: 59 yrs Sex: Female : 1960 Arrival Date: 04/16/2020 Time: 17:55 Bed 3 Private MD: ED Physician Derrick Serna HPI: 04/16 19:00 This 59 yrs old Female presents to ER via Ambulatory with complaints of cp Numbness, Headache, S/S of Possible Stroke. 19:00 The patient's problem is reported as paresthesias, in left upper extremity, in left cp lower extremity, in left side of face, weakness, in the left upper extremity, in the left lower extremity, in the left side of face. Onset: The symptoms/episode began/occurred today, at 12:00. Duration: This was a single incident, resolved, but having tingling of lip. 19:00 Associated signs and symptoms: Pertinent positives: headache, Pertinent negatives: cp abdominal pain, chest pain. Patient's baseline: Neuro: alert and fully oriented, Motor: left-sided weakness, Ambulation: walks without assistance, Speech: normal, The patient has a previous history of CVA. Historical: - Allergies: 18:01 PENICILLINS; sv - PMHx: 18:01 CVA; Hemmorhagic; Hypertension; Seizures; sv - PSHx: 18:01 aneurysm cliip-2010; sv - Immunization history:: Adult Immunizations unknown. - Social history:: Smoking status: unknown. ROS: 19:05 Constitutional: Negative for body aches, chills, fever, poor PO intake. cp 19:05 Eyes: Negative for injury, pain, redness, and discharge. cp 19:05 ENT: Negative for ear pain, sore throat, difficulty swallowing, difficulty handling secretions. 19:05 Cardiovascular: Negative for chest pain, edema, palpitations. 19:05 Respiratory: Negative for cough, shortness of breath, wheezing. Exam: 19:05 Radiologist reports: no acute findings cp 19:05 Head/Face: Normocephalic, atraumatic. cp 19:05 Constitutional: The patient appears in no acute distress, alert, awake, non-diaphoretic, non-toxic, well developed, well nourished. 19:05 Eyes: Periorbital structures: appear normal, Pupils: equal, round, and reactive to light and accomodation, Extraocular movements: intact throughout, Conjunctiva: normal, no exudate, no injection, Sclera: no appreciated abnormality, Lids and lashes: appear normal, bilaterally. 19:05 ENT: External ear(s): are unremarkable, Nose: is normal, Mouth: Lips: moist, Oral mucosa: moist, Posterior pharynx: Airway: no evidence of obstruction, patent. 19:05 Neck: ROM/movement: is normal, is supple, without pain, no range of motions limitations. 19:05 Chest/axilla: Inspection: normal, Palpation: is normal, no crepitus, no tenderness. 19:05 Cardiovascular: Rate: normal, Rhythm: regular, Edema: is not appreciated, JVD: is not appreciated. 19:05 Respiratory: the patient does not display signs of respiratory distress, Respirations: normal, no use of accessory muscles, no retractions, labored breathing, is not present, Breath sounds: are clear throughout, no decreased breath sounds, no stridor, no wheezing. 19:05 Abdomen/GI: Inspection: abdomen appears normal, Palpation: abdomen is soft and non-tender, in all quadrants. 19:45 ECG was reviewed by the Attending Physician. cp Vital Signs: 18:01 BP 160 / 71; Pulse 76; Resp 16; Temp 97.7; Pulse Ox 99% ; Weight 46.72 kg; Height 5 ft. sv 10 in. (177.80 cm); 18:15 BP 144 / 81; Pulse 62; Resp 16; Temp 97.6; Pulse Ox 100% on R/A; vg1 20:24 BP 174 / 86; Pulse 66; Resp 16; Pulse Ox 100% on R/A; rv 18:01 Body Mass Index 14.78 (46.72 kg, 177.80 cm) sv NIH Stroke Scale Scores: 19:05 NIHSS Score: 0 cp 20:22 NIHSS Score: 0 rv MDM: 19:02 ED course: Patient is not a candidate for tpa as onset of symptoms occurred at 1200. cp 19:27 Patient medically screened. cp 20:21 Physician consultation: Ashu Modi MD was called at 20:22, was contacted at 20:22, cp regarding consult, patient's condition, would like further tests performed, CT head angiogram. 21:33 Data reviewed: vital signs, nurses notes, lab test result(s), EKG, radiologic studies, cp CT scan, plain films, and as a result, I will admit patient. 21:33 Test interpretation: by ED physician or midlevel provider: ECG. Counseling: I had a cp detailed discussion with the patient and/or guardian regarding: the historical points, exam findings, and any diagnostic results supporting the discharge/admit diagnosis, lab results, radiology results. Physician consultation: Oscar HURST was contacted at 20:30, regarding admission, to the telemetry unit. and will see patient in ED, shortly. 04/16 18:59 Order name: Basic Metabolic Panel; Complete Time: 20:16 cp 04/16 20:16 Interpretation: Normal except: NA 135; GLUC 131; BUN 6; CA 8.4. cp 04/16 18:59 Order name: CBC with Diff; Complete Time: 20:48 cp 04/16 18:59 Order name: LFT's; Complete Time: 20:16 cp 04/16 18:59 Order name: Magnesium; Complete Time: 20:16 cp 04/16 18:59 Order name: NT PRO-BNP; Complete Time: 20:16 cp 04/16 18:59 Order name: PT-INR; Complete Time: 20:48 cp 04/16 18:59 Order name: Troponin (emerg Dept Use Only); Complete Time: 20:16 cp 04/16 19:50 Order name: Urine Dipstick--Ancillary (enter results); Complete Time: 20:48 mw2 04/16 22:34 Order name: SARS-COV-2 RT PCR EDCA 04/17 05:01 Order name: CBC with Automated Diff EDCA 04/17 05:20 Order name: Basic Metabolic Panel EDCA 04/17 05:20 Order name: Lipid Profile EDCA 04/17 05:20 Order name: T4 Free EDCA 04/16 18:06 Order name: CT Head Brain wo Cont; Complete Time: 18:57 sv 04/16 18:59 Order name: XRAY Chest (1 view); Complete Time: 21:31 cp 04/16 18:59 Order name: EKG; Complete Time: 19:00 cp 04/16 18:59 Order name: Cardiac monitoring; Complete Time: 19:14 cp 04/16 18:59 Order name: EKG - Nurse/Tech; Complete Time: 19:58 cp 04/16 18:59 Order name: IV Saline Lock; Complete Time: 19:14 cp 04/16 18:59 Order name: Labs collected and sent; Complete Time: 19:14 cp 04/16 18:59 Order name: O2 Per Protocol; Complete Time: 19:15 cp 04/16 18:59 Order name: O2 Sat Monitoring; Complete Time: 19:15 cp 04/16 19:44 Order name: Swallow Screen; Complete Time: 19:47 la1 04/16 19:45 Order name: Misc. Order: Complete NIH score; Complete Time: 19:48 la1 04/16 20:21 Order name: CT Head Angio; Complete Time: 21:31 cp 04/17 05:20 Order name: Magnesium EDMS 04/17 05:20 Order name: Thyroid Stimulating Hormone EDMS EC:45 Rate is 51 beats/min. Rhythm is regular. MS interval is prolonged at 204 msec. QRS cp interval is normal. QT interval is normal. Interpreted by me. Reviewed by me. Administered Medications: 19:47 Drug: foLIC Acid 1 mg Route: IVPB; Site: right antecubital; rv 21:02 Follow up: Response: No adverse reaction; IV Status: Completed infusion mg2 19:48 Drug: Aspirin Chewable Tablet 324 mg Route: PO; rv 21:02 Follow up: Response: No adverse reaction mg2 Disposition: 04/17 07:58 Co-signature as Attending Physician, Derrick Serna MD I agree with the assessment and kdr plan of care. Disposition: 04/16/20 21:33 Hospitalization ordered by Aston Day for Observation. Preliminary diagnosis are Paresthesia of skin - Left arm and left leg and left side of face, Weakness - left arm and left leg. - Bed requested for Telemetry/MedSurg (observation). - Status is Observation. jl7 - Condition is Stable. - Problem is new. - Symptoms have improved. NIH Stroke Scale - NIH Stroke Score Date: 04/16/2020 Time: 19:05 Total Score = 0 1a. Level of Consciousness (LOC) - 0(Alert) 1b. Level of Consciousness (LOC) (Year \T\ Age) - 0(Both) 1c. LOC Commands (Open \T\ Closes Eyes/Planning Manager) - 0(Both) 2. Best Gaze (Lateral Gaze Paresis) - 0(Normal) 3. Visual Field Loss - 0(No visual loss) 4. Facial Palsy - 0(Normal) 5a. Left Arm: Motor (10-second hold) - 0(No drift) 5b. Right Arm: Motor (10-second hold) - 0(No drift) 6a. Left Leg: Motor (5-second hold - always test supine) - 0(No drift) 6b. Right Leg: Motor (5-second hold - always test supine) - 0(No drift) 7. Limb Ataxia (finger/nose \T\ heel/hurtado - test with eyes open) - 0(Absent) 8. Sensory Loss (pinprick arms/legs/face) - 0(Normal) 9. Best Language: Aphasia (description/naming/reading) - 0(No aphasia) 10. Dysarthria (speech clarity - read or repeat words) - 0(Normal) 11. Extinction and Inattention (visual/tactile/auditory/spatial/personal) - 0(No abnormality) Initials: cp NIH Stroke Scale - NIH Stroke Score Date: 04/16/2020 Time: 20:22 Total Score = 0 1a. Level of Consciousness (LOC) - 0(Alert) 1b. Level of Consciousness (LOC) (Year \T\ Age) - 0(Both) 1c. LOC Commands (Open \T\ Closes Eyes/Planning Manager) - 0(Both) 2. Best Gaze (Lateral Gaze Paresis) - 0(Normal) 3. Visual Field Loss - 0(No visual loss) 4. Facial Palsy - 0(Normal) 5a. Left Arm: Motor (10-second hold) - 0(No drift) 5b. Right Arm: Motor (10-second hold) - 0(No drift) 6a. Left Leg: Motor (5-second hold - always test supine) - 0(No drift) 6b. Right Leg: Motor (5-second hold - always test supine) - 0(No drift) 7. Limb Ataxia (finger/nose \T\ heel/hurtado - test with eyes open) - 0(Absent) 8. Sensory Loss (pinprick arms/legs/face) - 0(Normal) 9. Best Language: Aphasia (description/naming/reading) - 0(No aphasia) 10. Dysarthria (speech clarity - read or repeat words) - 0(Normal) 11. Extinction and Inattention (visual/tactile/auditory/spatial/personal) - 0(No abnormality) Initials: rv Signatures: Dispatcher [employer] EDCA Merna Medrano, RN Brianna Ann RN DAT dw Derrick Serna MD MD kdr Attema, Lee, TAXI DANCER-C TAXI DANCER-Cla1 Hunter Munguia, PA PA cp Tad Sutherland, RN RN jl7 Carlos Guerrero RN DAT ja1 Ezra Jennings RN RN rv Gardose, Michele RN mg2 Corrections: (The following items were deleted from the chart) 04/16 20:16 20:16 Normal except: NA 135; GLUC 131; BUN 6. cp cp 21:21 20:47 CORONAVIRUS+MR.LAB.BRZ ordered. EDCA EDCA 21:59 21:33 Hospitalization Ordered by Aston Day DO for Observation. Preliminary dw diagnosis is Transient cerebral ischemic attack, unspecified. Bed requested for Telemetry/MedSurg (observation). Status is Observation. Condition is Stable. Problem is new. Symptoms have improved. cp 04/17 01:05 04/16 21:59 04/16/2020 21:33 Hospitalization Ordered by Aston Day DO for cp Observation. Preliminary diagnosis is Transient cerebral ischemic attack, unspecified. Bed requested for [facility] ER HOLD. Status is Observation. Condition is Stable. Problem is new. Symptoms have improved. dw 04/17 07:11 01:05 04/16/2020 21:33 Hospitalization Ordered by Aston Day DO for ja1 Observation. Preliminary diagnosis is Paresthesia of skin - Left arm and left leg and left side of face; Weakness - left arm and left leg. Bed requested for [facility] ER HOLD. Status is Observation. Condition is Stable. Problem is new. Symptoms have improved. cp 07:52 07:11 04/16/2020 21:33 Hospitalization Ordered by Aston Day DO for jl7 Observation. Preliminary diagnosis is Paresthesia of skin - Left arm and left leg and left side of face; Weakness - left arm and left leg. Bed requested for Telemetry/MedSurg (observation). Status is Observation. Condition is Stable. Problem is new. Symptoms have improved. ja1
--- NOTE | 2020-04-16 21:34 | ER ---
Nurse's Notes [facility] Name: Maryjane Jameson Age: 59 yrs Sex: Female : 1960 Arrival Date: 04/16/2020 Time: 17:55 Bed 3 Private MD: Diagnosis: Paresthesia of skin-Left arm and left leg and left side of face;Weakness-left arm and left leg Presentation: 04/16 17:57 Chief complaint: Patient states: numbness to the left leg, face, arm, and tongue, sv frontal headache started around 1200. Had EMS come out and she refused to be brought to the ER. c/o SOB and increased urinary frequency. Coronavirus screen: Client denies travel out of the [place] in the last 14 days. At this time, the client does not indicate any symptoms associated with coronavirus-19. Ebola Screen: No symptoms or risks identified at this time. Risk Assessment: Do you want to hurt yourself or someone else? Patient reports no desire to harm self or others. Onset of symptoms was April 16, 2020 at 12:00. 17:57 Method Of Arrival: Ambulatory 17:57 Acuity: RENETTA 2 sv 18:01 Initial Sepsis Screen: Does the patient meet any 2 criteria? No. Patient's initial sv sepsis screen is negative. Does the patient have a suspected source of infection? No. Patient's initial sepsis screen is negative. Triage Assessment: 17:57 Headache History: The patient has had previous headaches. General: Appears in no sv apparent distress. uncomfortable, Behavior is calm, cooperative, appropriate for age. Neuro: Level of Consciousness is awake, alert, obeys commands, Oriented to person, place, time, situation, Moves all extremities. Full function Gait is steady, Speech is normal, Reports numbness in left zygomatic area, left cheek and left leg. Respiratory: Respiratory effort is even, unlabored. Derm: Skin is normal. 20:23 Pain: Pain Pain began suddenly, Also complains of no other associated symptoms. rv Historical: - Allergies: 18:01 PENICILLINS; sv - PMHx: 18:01 CVA; Hemmorhagic; Hypertension; Seizures; sv - PSHx: 18:01 aneurysm cliip-2010; sv - Immunization history:: Adult Immunizations unknown. - Social history:: Smoking status: unknown. Screenin:22 Abuse screen: Denies threats or abuse. Denies injuries from another. Nutritional rv screening: No deficits noted. Tuberculosis screening: No symptoms or risk factors identified. Fall Risk None identified. Assessment: 18:07 Reassessment: VO received from Elvia NG to input a CT head. sv 18:15 General: Appears in no apparent distress. comfortable, Behavior is calm, cooperative. vg1 Pain: Denies pain. Neuro: Level of Consciousness is awake, alert, obeys commands, Oriented to person, place, time, situation, Market Research Worker are equal bilaterally Moves all extremities. Speech is normal, Facial symmetry appears normal. Cardiovascular: Patient's skin is warm and dry. Respiratory: Airway is patent Respiratory effort is even, unlabored, Respiratory pattern is regular, symmetrical. GI: No signs and/or symptoms were reported involving the gastrointestinal system. : Reports urinary frequency, fowl smell during urination. Denies burning with urination. 18:15 EENT: No signs and/or symptoms were reported regarding the EENT system. Derm: Skin is vg1 intact, is healthy with good turgor. Musculoskeletal: Circulation, motion, and sensation intact. 20:22 General: Appears comfortable, Behavior is calm, cooperative. Pain: Denies pain. Neuro: rv Level of Consciousness is awake, alert, obeys commands, Oriented to person, place, time, situation, Market Research Worker are equal bilaterally Moves all extremities. Speech is normal, Facial symmetry appears normal. Cardiovascular: Patient's skin is warm and dry. Respiratory: Airway is patent Respiratory effort is even, unlabored, Respiratory pattern is regular, symmetrical. Vital Signs: 18:01 BP 160 / 71; Pulse 76; Resp 16; Temp 97.7; Pulse Ox 99% ; Weight 46.72 kg; Height 5 ft. sv 10 in. (177.80 cm); 18:15 BP 144 / 81; Pulse 62; Resp 16; Temp 97.6; Pulse Ox 100% on R/A; vg1 20:24 BP 174 / 86; Pulse 66; Resp 16; Pulse Ox 100% on R/A; rv 18:01 Body Mass Index 14.78 (46.72 kg, 177.80 cm) sv NIH Stroke Scale Scores: 19:05 NIHSS Score: 0 cp 20:22 NIHSS Score: 0 rv ED Course: 17:55 Patient arrived in ED. rg4 17:57 Arm band placed on. sv 18:00 Triage completed. sv 18:07 Abigail Morse, RN is Primary Nurse. vg1 18:39 CT Head Brain wo Cont In Process Unspecified. EDMS 18:50 Hutner Munguia PA is PHCP. cp 18:50 Derrick Serna MD is Attending Physician. cp 19:00 No provider procedures requiring assistance completed. rv 19:30 Inserted saline lock: 20 gauge in right forearm, using aseptic technique. Blood mg2 collected. 19:40 XRAY Chest (1 view) In Process Unspecified. EDMS 20:04 Primary Nurse role handed off by Abigail Morse, RN mw2 20:21 Ezra Jennings, DAT is Primary Nurse. rv 20:23 Patient has correct armband on for positive identification. Bed in low position. Call rv light in reach. Side rails up X 1. glass scullion on. Pulse ox on. NIBP on. 21:12 CT Head Angio In Process Unspecified. EDMS 21:33 Aston Day DO is Hospitalizing Provider. cp 23:59 IV is patent, with fluids infusing freely, Patient admitted, IV remains in place. rv Administered Medications: 19:47 Drug: foLIC Acid 1 mg Route: IVPB; Site: right antecubital; rv 21:02 Follow up: Response: No adverse reaction; IV Status: Completed infusion mg2 19:48 Drug: Aspirin Chewable Tablet 324 mg Route: PO; rv 21:02 Follow up: Response: No adverse reaction mg2 Outcome: 21:33 Decision to Hospitalize by Provider. cp 23:59 Admitted to ER Hold. Please see [facility] for further documentation. rv 23:59 Condition: good 23:59 Instructed on the need for admit. 04/17 07:52 Patient left the ED. jl7 NIH Stroke Scale - NIH Stroke Score Date: 04/16/2020 Time: 19:05 Total Score = 0 1a. Level of Consciousness (LOC) - 0(Alert) 1b. Level of Consciousness (LOC) (Year \T\ Age) - 0(Both) 1c. LOC Commands (Open \T\ Closes Eyes/Pharmacy Technologist) - 0(Both) 2. Best Gaze (Lateral Gaze Paresis) - 0(Normal) 3. Visual Field Loss - 0(No visual loss) 4. Facial Palsy - 0(Normal) 5a. Left Arm: Motor (10-second hold) - 0(No drift) 5b. Right Arm: Motor (10-second hold) - 0(No drift) 6a. Left Leg: Motor (5-second hold - always test supine) - 0(No drift) 6b. Right Leg: Motor (5-second hold - always test supine) - 0(No drift) 7. Limb Ataxia (finger/nose \T\ heel/hurtado - test with eyes open) - 0(Absent) 8. Sensory Loss (pinprick arms/legs/face) - 0(Normal) 9. Best Language: Aphasia (description/naming/reading) - 0(No aphasia) 10. Dysarthria (speech clarity - read or repeat words) - 0(Normal) 11. Extinction and Inattention (visual/tactile/auditory/spatial/personal) - 0(No abnormality) Initials: cp NIH Stroke Scale - NIH Stroke Score Date: 04/16/2020 Time: 20:22 Total Score = 0 1a. Level of Consciousness (LOC) - 0(Alert) 1b. Level of Consciousness (LOC) (Year \T\ Age) - 0(Both) 1c. LOC Commands (Open \T\ Closes Eyes/Pharmacy Technologist) - 0(Both) 2. Best Gaze (Lateral Gaze Paresis) - 0(Normal) 3. Visual Field Loss - 0(No visual loss) 4. Facial Palsy - 0(Normal) 5a. Left Arm: Motor (10-second hold) - 0(No drift) 5b. Right Arm: Motor (10-second hold) - 0(No drift) 6a. Left Leg: Motor (5-second hold - always test supine) - 0(No drift) 6b. Right Leg: Motor (5-second hold - always test supine) - 0(No drift) 7. Limb Ataxia (finger/nose \T\ heel/hurtado - test with eyes open) - 0(Absent) 8. Sensory Loss (pinprick arms/legs/face) - 0(Normal) 9. Best Language: Aphasia (description/naming/reading) - 0(No aphasia) 10. Dysarthria (speech clarity - read or repeat words) - 0(Normal) 11. Extinction and Inattention (visual/tactile/auditory/spatial/personal) - 0(No abnormality) Initials: rv Signatures: Dispatcher [employer] EDMS Marceal, Merna, RN RN sv Hunter Munguia PA PA cp Garcia, Rubi rg4 Tad Sutherland RN RN jl7 Leticia Cramer mw2 Tarik Ruiz, RN RN mg2 Ezra Jennings RN RN rv Abigail Morse, RN RN vg1 Corrections: (The following items were deleted from the chart) 04/16 18:03 17:57 Chief complaint: Patient states: numbness to the left leg, face, arm, and sv tongue started around 1200. Had EMS come out and she refused to be brought to the ER. c/o SOB and increased urinary frequency. sv 18:03 17:57 Acuity: RENETTA 3 sv sv 20:40 19:00 Inserted saline lock: 20 gauge am shift rv mg2
--- NOTE | 2020-04-16 22:54 | P.HP ---
Certification for Inpatient Patient admitted to: Observation With expected LOS: <2 Midnights Patient will require the following post-hospital care: None Practitioner: I am a practitioner with admitting privileges, knowledge of patient current condition, hospital course, and medical plan of care. Services: Services provided to patient in accordance with Admission requirements found in Title 42 Section 412.3 of the Code of Federal Regulations Patient History Date of Service: 04/16/20 Primary Care Provider: none Reason for admission: TIA History of Present Illness: 59-year-old female with history of hemorrhagic stroke, hypertension, seizure disorder presents emergency department for left-sided numbness. 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 Patient presented to the emergency department for evaluation, numbness has since resolved, workup in the emergency department reveals 5 cm low density area right parietal lobe suggestive of old infarction alkalosis and aneurysmal clip present in the left cerebrum CTA performed with no acute abnormality, chest x-ray unremarkable, labs unremarkable. Case was discussed with neurology who recommended observation admit and will see patient tomorrow. Patient with some mild homonymous hemianopia on exam but otherwise neurological intact. Sensation is equal bilaterally at this time. Garage Attendant equal and strong. 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 moist/pink Neck: Supple, 2+ carotid pulse no bruit, No LAD Respiratory: Clear to auscultation bilaterally, Normal air movement Cardiovascular: Regular rate/rhythm, Normal S1 S2 Gastrointestinal: Normal bowel sounds, No tenderness Musculoskeletal: No tenderness Integumentary: No rashes Neurological: Normal speech, Normal strength at 5/5 x4 extr, Normal tone, Normal affect, Other (Left-sided homonymous hemianopia) Lymphatics: No axilla or inguinal lymphadenopathy - Studies Laboratory Data (last 24 hrs) 04/16/20 19:40: PT 12.5, INR 1.06 04/16/20 19:40: WBC 7.7, Hgb 12.3, Hct 36.2, Plt Count 222 04/16/20 19:40: Sodium 135 L, Potassium 3.8, BUN 6 L, Creatinine 0.63, Glucose 131 H, Magnesium 2.3, Total Bilirubin 0.2, AST 18, ALT 27, Alkaline Phosphatase 68 Assessment and Plan - Plan Assessment TIA Hypertension Seizure disorder Plan TIA: Echocardiogram, carotid ultrasound, MRI ordered for morning. Neurology consult in place. Continue with aspirin, obtain and continue home medications. Neuro checks q. shift. Hypertension: Obtain and continue home medications. Seizure disorder: Continue phenytoin, obtain phenytoin level. Discharge Plan: Home Plan to discharge in: 24 Hours - Advance Directives Does patient have a Living Will: No Does patient have a Durable POA for Healthcare: No - Code Status/Comfort Care Code Status Assessed: Yes (Full code) Critical Care: No Time Spent Managing Pts Care (In Minutes): 55
[2020-04-16 23:54] VITALS: O2SAT 95; BMI 16.9
[2020-04-16] MEDS ORDERED: ACETAMINOPHEN 500 MG TAB PO PRN (23:56)
[2020-04-16] MEDS ORDERED: NA CHLORIDE 0.9% 1,000 ML IV SCH (23:56)
[2020-04-16] MEDS ORDERED: ONDANSETRON 4 MG/2 ML VIAL IV PRN (23:56)
[2020-04-17 04:59] LABS: Basophils % 0.6 % (0-1.3); Hematocrit 32.8 % (36.0-45.0); Lymphocytes % 36.2 % (15.3-44.8); MPV 8.5 fL (7.6-11.3)
[2020-04-17] MEDS ORDERED: NA CHLORIDE 0.9% 1,000 ML ONE (05:04)
[2020-04-17 05:17] LABS: Magnesium 2.4 mg/dL (1.8-2.4); Potassium 3.9 mmol/L (3.5-5.1)
[2020-04-17] MEDS ORDERED: POTASSIUM CL SA 10 MEQ TAB PO ONE (09:00)
[2020-04-17] MEDS ORDERED: ENOXAPARIN 40 MG/0.4 ML SQ SCH (09:00)
[2020-04-17] MEDS ORDERED: ASPIRIN EC 81 MG TAB PO SCH (09:00)
[2020-04-17] MEDS ORDERED: FOLIC ACID 1 MG TABLET PO SCH (09:00)
--- NOTE | 2020-04-17 11:26 | P.DS ---
Admission Date: 04/16/20 (Hospitalist) Discharge Date: 04/17/20 Primary Care Provider: none Disposition: ROUTINE DISCHARGE Discharge Condition: FAIR Reason for Admission: TIA Brief History of Present Illness: Patient is 59 years of age admitted with transient ischemic attack involving some weakness on the left side which resolved as currently ambulating doing well Hospital Course: Patient was admitted with transient hemiparesis that resolved the scan of the arteries did not show any evidence of significant stenosis patient also has a history of COPD quit smoking 2-1/2 months ago patient is a former resident of [place] according to the patient she had an extensive workup done there does not have a primary care physician here discuss with Neurology the liver will evaluate possible discharge today patient is hypothyroid increase levothyroxine to 2 tablets once a day follow up with primary care physician evidence of old infarction in an aneurysmal clip seen by neurology stable to be discharged Vital Signs/Physical Exam: Temp Pulse Resp BP Pulse Ox 97.7 F 75 15 151/82 H 96 04/17/20 08:15 04/17/20 08:15 04/17/20 08:15 04/17/20 08:15 04/17/20 08:15 General: Alert, In no apparent distress, Oriented x3 HEENT: Atraumatic Neck: Supple Respiratory: Clear to auscultation bilaterally Cardiovascular: No edema, Regular rate/rhythm Neurological: Normal gait, Normal speech, Normal strength at 5/5 x4 extr, Cranial nerves 3-12 intact Laboratory Data at Discharge: WBC 5.5 K/uL (4.3-10.9) D 04/17/20 04:32 Hgb 10.9 g/dL (12.0-15.0) L 04/17/20 04:32 Hct 32.8 % (36.0-45.0) L 04/17/20 04:32 Plt Count 205 K/uL (152-406) 04/17/20 04:32 PT 12.5 SECONDS (9.5-12.5) 04/16/20 19:40 INR 1.06 04/16/20 19:40 Sodium 139 mmol/L (136-145) 04/17/20 04:32 Potassium 3.9 mmol/L (3.5-5.1) 04/17/20 04:32 BUN 9 mg/dL (7-18) 04/17/20 04:32 Creatinine 0.70 mg/dL (0.55-1.3) 04/17/20 04:32 Glucose 120 mg/dL (74-106) H 04/17/20 04:32 Magnesium 2.4 mg/dL (1.8-2.4) 04/17/20 04:32 Total Bilirubin 0.2 mg/dL (0.2-1.0) 04/16/20 19:40 AST 18 U/L (15-37) 04/16/20 19:40 ALT 27 U/L (12-78) 04/16/20 19:40 Alkaline Phosphatase 68 U/L (45-117) 04/16/20 19:40 Triglycerides 39 mg/dL (<150) 04/17/20 04:32 Cholesterol 182 mg/dL (<200) 04/17/20 04:32 HDL Cholesterol 82 mg/dL (40-60) H 04/17/20 04:32 Cholesterol/HDL Ratio 2.22 04/17/20 04:32 Home Medications: Alendronate Sodium [Fosamax] 1 tab PO EVERY 7TH DAY 04/17/20 Alprazolam [Xanax] 1 tab PO DAILY PRN 04/17/20 Amlodipine [Norvasc*] 1 tab PO BID 04/17/20 Aspirin 1 tab PO DAILY 04/17/20 Atorvastatin Calcium 1 tab PO BEDTIME 04/17/20 Carvedilol [Coreg] 1 tab PO BID 04/17/20 Clonidine HCl [Catapres] 1 tab PO TID 04/17/20 Dipyridamole/Aspirin [Aggrenox 25 mg-200 mg Cap*] 1 tab PO BID 04/17/20 Ergocalciferol (Vitamin D2) [Vitamin D2] 1 tab PO EVERY 7TH DAY 04/17/20 Levothyroxine Sodium [Levothyroxine] 150 mcg PO 30 MIN BEFORE HS #30 capsule 04/17/20 PHENYTOIN ER Cap [Dilantin ER Cap*] 1 cap PO BID 04/17/20 Ramipril [Altace] 1 cap PO BID 04/17/20 New Medications: Levothyroxine Sodium [Levothyroxine] 150 mcg PO 30 MIN BEFORE HS #30 capsule Followup: Gopal Guerra MD [ACTIVE - CAN ADMIT] - NONE,NONE [Primary Care Provider] - Ashu Modi MD [ASSOCIATE-ACTIVE - CAN ADMIT] -
[2020-04-17 12:42] VITALS: BP 156/78; TEMP 99.3
--- NOTE | 2020-04-17 15:02 | CON ---
Reason For Consultation: Consultation called because of possible stroke versus transient ischemic at [facility]. History Of Present Illness: Ms. 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 Her stroke was hemorrhagic in 2009. She w as reportedly at baseline level of functioning when she developed additional left-sided symptoms of m ore weakness, this occurred yesterday and she came to [facility] in the emergency room, arriving at 1937 hours. Symptom onset was actually 3 days prior to her arrival in the emergency [facility] and was therefore out of any possible window for tPA or intra-arterial thrombolysis. Further, a CT angiogram was done after a CT scan showed no acute ischemic hemorrhagic change and the CT angiogram of the head showed an aneurysm clip in the left middle cerebral artery branch with diminished vascula rity involving the branch, which was identified as chronic. 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 Otherwise, the basal artery, carotid and other anterior cerebral a rtery, middle cerebral artery, and posterior cerebral arteries were otherwise normal and without aneu rysms. There was mild arthrosclerotic disease. She had no large vessel occlusion and at the time of her evaluation in the emergency room, her symptoms were mild in terms of her deficits, which was sen ran on the left. She was not felt to be a candidate for transfer to [place] for intra-arterial thro mbolysis. Her complete blood count with differential was essentially unremarkable except for hemoglo bin of 10.9 showing mild anemia. Coagulation panel was normal. However, her thyroid-stimulating hor cindy level was elevated at 16. Glucose is slightly elevated at 120. Liver function study was normal and electrolyte panel otherwise unremarkable. Urinalysis was negative. She has a chest x-ray showi ng no acute abnormalities. She was on aspirin along with Lipitor, folic acid, and that was continued along with deep vein thromb osis prophylaxis with Lovenox. Past Medical History: As indicated along with diabetes, non-insulin dependent, and seizures with hyp ertension. Past Surgical History: Aneurysm clip, 2010. Allergies: PENICILLIN. Social History: She smokes 1/2 pack cigarettes daily. Occasional alcohol use. No intravenous drug abuse. Family History: Noncontributory. Review of Systems: No recent fevers, chills, nausea, vomiting, arthralgias, myalgias, rash, headaches, weight change, or any psychiatric issues. Physical Examination: Vital Signs: Blood pressure 156/78, pulse 70, respiratory rate 16, temperature 99.3, oxygen saturati on 97%. General: Ms. Jameson is resting comfortably in bed. She is in no distress. HEENT: She is normocephalic, atraumatic. Sclerae anicteric. Oropharynx is moist and pink. Neck: Supple. Chest: Clear. Heart: Regular. Extremities: No edema, cyanosis, or clubbing. Neurologic: Alert, oriented to person, place, time, and situation. She has no expressive or recepti ve aphasias. She has a left homonymous hemianopsia. Mild numbness in the left upper and lower extre mity compared to the right side. Otherwise, intact in motor and sensory coordination and gait examin ation. Assessment: Ms. Jameson is a 59-year-old patient with significantly elevated TSH suggestive of possible hypothyroidism, which should be addressed per primary team. She also has history of hemorrhagic str okes and 2 seizures. She has been on Dilantin in the past for that and that should continue. She worrell s not had a recent seizure. CT scan of the head shows no acute ischemic or hemorrhagic change. Plan: 1.Continue with aspirin 81 mg, folic acid 1 mg, high-dose statin, and Lipitor 40 mg at bedtime. She had slightly low potassium and that should be recheck within a week to 2 weeks of discharge. 2.Plan as indicated with medications for stroke risk reduction. 3.Follow up in Dr. Modi's clinic in 1 month. 4.Address the elevated TSH with full workup for thyroid function panel. LEBRON/YESY Voice ID: [id number] Report ID: [id number]
[2020-04-17] MEDS ORDERED: ENSURE ENLIVE 237 ML CAN PO SCH (21:00)
[2020-04-17] MEDS ORDERED: ATORVASTATIN 40 MG TAB PO SCH (21:00)
--- NOTE | 2020-04-18 13:03 | ECHO ---
HEIGHT: 5 ft 5 in WEIGHT: 102 lb 0 oz DATE OF STUDY: 04/17/[address]: Oscar Harris NP 2-DIMENSIONAL: YES M.MODE: YES DOPPLER: YES COLOR FLOW: YES TDS: PORTABLE: DEFINITY: BUBBLE STUDY: DIAGNOSIS: TRANSIENT ISCHEMIC ATTACK CARDIAC HISTORY: CATHERIZATION: SURGERY: PROSTHETIC VALVE: PACEMAKER: MEASUREMENTS (cm) DIASTOLIC (NORMALS) SYSTOLIC (NORMALS) IVSd 1.0 (0.6-1.2) LA Diam 4.6 (1.9-4.0) LVEF 55-60% LVIDd 3.5 (3.5-5.7) LVIDs 2.0 (2.0-3.5) %FS 44% LVPWd 1.1 (0.6-1.2) Ao Diam 2.3 (2.0-3.7) 2 DIMENSIONAL ASSESSMENT: RIGHT ATRIUM: NORMAL LEFT ATRIUM: NORMAL RIGHT VENTRICLE: NORMAL LEFT VENTRICLE: NORMAL TRICUSPID VALVE: MILD TRICUSPID REGURGITATION MITRAL VALVE: MILD MITRAL REGURGITATION PULMONIC VALVE: NORMAL AORTIC VALVE: NORMAL PERICARDIAL EFFUSION: NONE AORTIC ROOT: NORMAL LEFT VENTRICULAR WALL MOTION: NORMAL DOPPLER/COLOR FLOW: SEE BELOW COMMENTS: NORMAL LEFT VENTRICULAR EJECTION FRACTION 55-60% WITH NORMAL WALL MOTION. MILD MITRAL REGURGITATION. MILD TRICUSPID REGURGITATION. TECHNOLOGIST: ZULEMA FARRIS
== END 2020-04-17 12:45 | disposition home or self-care (01) ==
LOC: ER 17:52 → ERHOLD 22:25 → 2ND 04-17 07:29
PROVIDERS: ADMIT Family Medicine; ATTEND Internal Medicine Sleep Medicine
DX: G45.9 Transient cerebral ischemic attack, unspecified (principal); J44.9 Chronic obstructive pulmonary disease, unspecified; Z87.891 Personal history of nicotine dependence; Z20.828 Contact with and (suspected) exposure to other viral communicable diseases; R94.31 Abnormal electrocardiogram [ECG] [EKG]; I69.354 Hemiplegia and hemiparesis following cerebral infarction affecting left non-dominant side; E03.9 Hypothyroidism, unspecified; I10 Essential (primary) hypertension; G40.909 Epilepsy, unspecified, not intractable, without status epilepticus; E11.9 Type 2 diabetes mellitus without complications
CPT/HCPCS: 96365; 93005; 93306; 85025 ×2; 80048 ×2; 36415; 83735 ×2; 85610; 80061; 80076; 84443; 81003; 84484; 84439; 83880; 70450; 70496; 71045; 97116; 97161; 99285; U0003; Q9967; J1650; J7030; G0378

== ENCOUNTER 2020-08-24 17:51 | Emergency (ER) | payer OTHER ==
--- OUTSIDE RECORDS SUMMARY | 2020-08-24 17:54 | XMS REPORT | Continuity of Care Document ---
:1960 Author Organization [facility] t Address [facility]3 Renny Baum [address] [place] [address] Care Team Providers Name Role Phone Ally [...] the Food and Drug Admini stration.Performed at: [facility] [address] [place] [id number] Director: Heladio Bunch MD, P mariusz: [id number] [id number] 05:21:00 Test Item Value Reference Range Interpretation [...] 8.1 mg/dL 7.8-10.44 N code = CA) Xqbeosaqet5647-68-63 04:55:00 Test Item Value Reference Range Interpretation [...] code = BASO#) 0.0 thou/uL 0.0-0.2 N Lbsiudkjt5732-70-65 05:12:00 Test Item Value Reference Range Interpretation Comments Chemistry (test code 17.3 ug/mL 10.0-20.0 N Therape utic Range: = DIL) 10.0 - 20.0 mcg/mLToxic Ran ge: Greater than 30.0 mcg/mL Date of next dose: 02/04/2020Time of next dose: 0900Chemistry - Specials 2020-02-03 05:38:00 Test Item Value Reference Range Interpretation Comments Chemistry - Specials (test code 2.2521 uIU/mL 0.35-4.94 N = TSH3) Chemistry - BNP, HgbA1c, AVCf9225-11-17 05:24:00 Test Item Value Reference Range Interpretation Comments Chemistry - BNP, HgbA1c, PTHi 27.3 pg/mL 0-100 N (test code = BNP) Eizpdzoij0663-81-30 05:24:00 Test Item Value Reference Range Interpretation [...] 8.6 mg/dL 7.8-10.44 N code = CA) Vtsvpyehb8065-86-94 05:24:00 Test Item Value Reference Range Interpretation [...] 3.7 Prot ection probable: Less than 2.5 Eettxtanb2313-99-46 05:16:00 Test Item Value Reference Range Interpretation Comments Chemistry (test code 24.4 ug/mL 10.0-20.0 H Therape utic Range: = DIL) 10.0 - 20.0 mcg/mLToxic Ran ge: Greater than 30.0 mcg/mL Date of next dose: 02/03/2020Time of next dose: 5456Suuvnsltjy8765-53-39 05:05:00 Test Item Value Reference Range Interpretation [...] BASO#) 0.0 thou/uL 0.0-0.2 N Reference Lab Cwakomm7152-94-12 15:26:00 Test Item Value Reference Range Interpretation Comments Reference Lab Not Detected NotDetected Negative (Not Detected) Testing (test results do not preclude code = ZELUK99A) infectionwi th SARS-CoV-2 virus, and shou ld [...] high complexity tests. Reason for Testing: Admission DpepvhscwWdsfhthrz7228-85-81 05:40:00 Test Item Value Reference Range Interpretation Comments Chemistry (test 0.128 ng/mL < 0.028 H code = TROPI-T) Reference Ra nge 0.0 0 - 0.028 ng/mL Negative 0.0 29 - 0.29 ng/mL Indeterminate Greater or Equal to 0.3 ng/mL Strongly sugge [facility] Jcueuwwpo3342-84-68 02:27:00 Test Item Value Reference Range Interpretation Comments Chemistry (test 0.124 ng/mL < 0.028 H code = TROPI-T) Reference Ra nge 0.0 0 - 0.028 ng/mL Negative 0.0 29 - 0.29 ng/mL Indeterminate Greater or Equal to 0.3 ng/mL Strongly sugge sts [place] Wisgphvkqy5105-43-37 23:05:00 Test Item Value Reference Range Interpretation [...] Rare-Few HPF None Seen Urine Source: Urine RxfnshAonflxybs2381-95-16 23:04:00 Test Item Value Reference Range Interpretation Comments Chemistry (test 0.125 ng/mL < 0.028 H code = TROPI-R) Reference Ra nge 0.0 0 - 0.028 ng/mL Negative 0.0 29 - 0.29 ng/mL Indeterminate Greater or Equal to 0.3 ng/mL Strongly sugge [facility] Chemistry (test 0.125 ng/mL < 0.028 H code = TROPI-R) Reference Ra nge 0.0 0 - 0.028 ng/mL Negative 0.0 29 - 0.29 ng/mL Indeterminate Greater or Equal to 0.3 ng/mL Strongly sugge [facility] [place] Phjewpmrd2723-79-78 23:04:00 Test Item Value Reference Range Interpretation Comments Chemistry (test code = CKMBM-T) 1.6 ng/mL 0-6.6 N Imyxnrjuj8957-08-55 22:31:00 Test Item Value Reference Range Interpretation [...] code 24 U/L 8-55 N = ALT) Kuhxirbkxhi7562-07-74 22:30:00 Test Item Value Reference Range Interpretation [...] code = PTT) Anticoagulant? NONEMedical Necessity: SUSPECT EHBDSVIUTRRIKofqlwkgkg3818-61-60 22:08:00 Test Item Value Reference Range Interpretation [...] BASO#) 0.1 thou/uL 0.0-0.2 N Reference Lab Njjphvj9337-02-20 12:36:00 Test Item Value Reference Range Interpretation Comments Reference Lab Not Detected NotDetected Negative (Not Detected) Testing (test results do not preclude code = DKJWA56J) infectionwi th SARS-CoV-2 virus, and shou ld [...] high complexity tests. Reason for Testing: Admission AhtwblzcvQsvodnztf9621-58-26 09:34:00 Test Item Value Reference Range Interpretation [...] 7.8-10.44 N code = CA) Chemistry - Qnxensyo0522-56-85 07:32:00 Test Item Value Reference Range Interpretation Comments Chemistry - Specials (test code 2.5692 uIU/mL 0.35-4.94 N = TSH3) Xjzsfbyeo5185-83-58 06:48:00 Test Item Value Reference Range Interpretation [...] of next dose: 01/09/2020Time of next dose: 0407Jgferbcwv5442-32-60 06:48:00 Test Item Value Reference Range Interpretation [...] of next dose: 01/09/2020Time of next dose: 4591Knndewoiw2891-00-76 06:48:00 Test Item Value Reference Range Interpretation Comments Chemistry (test code 13.8 ug/mL 10.0-20.0 N Therape utic Range: = DIL) 10.0 - 20.0 mcg/mLToxic Ran ge: Greater than 30.0 mcg/mL Date of next dose: 01/09/2020Time of next dose: 7139Vucgutgv6837-89-88 14:59:00 Test Item Value Reference Range Interpretation Comments Accuchek (test code = ACU) 159 mg/dL 70-110 H N otified Nurse Vvyjvodzv6221-55-74 13:19:00 Test Item Value Reference Range Interpretation [...] 17 U/L 8-55 N code = ALT) Mwjoqisvrn3348-61-68 12:50:00 Test Item Value Reference Range Interpretation [...] code = BASO#) 0.0 thou/uL 0.0-0.2 N Dkqhdsrogj2326-29-07 12:42:00 Test Item Value Reference Range Interpretation [...] Source: Urine Clean CatchMRI Brain W WO [facility] Pt Name: EDUARDA GARCIA Kiosked Phys: [place] [address] : 1960 Age: 59 SEX:F [phone] Exam Date: 02/04/20 Status: ADM IN Acct: [id number] Loc: 2SE Pt Unit #: [id number] Report #: [id number] CC: ALLY JONES MD MRI REPORT Order # Category/Exam [id number] MRI/MRI Brain W WO Con ([id number]): . Results MRI OF BRAIN WITH AND [...] D ate/Time: 02/04/20 1544MRI Thoracic Spine WO [facility] Pt Name: EDUARDA GARCIA Kiosked Phys: [place] [address] : 1960 Age: 59 SEX:F [phone] Exam Date: 02/04/20 Status: ADM IN Acct: [id number] Loc: 2SE Pt Unit #: [id number] Report #: [id number] CC: ALLY JONES MD MRI REPORT Order # Category/Exam [id number] MRI/MRI Thoracic Spine WO Con ([id number]):. Results MRI THORACIC SPINE WITHOUT CONTRAST: INDICATION: Bilateral lower extremity numbness. FINDINGS: Thoracic vertebrae maintain height and alignment. The fvt6mmfyhu body signal is normal. Mild disk bulge [...] wasevaluated with pre- and post-contrast imaging in 2013 and no abnormal enhancement was present. Recommend [...] Date/Time: 02/04/20 1530MRA Angio Abd W WO [facility] Pt Name: EDUARDA GARCIA Kiosked Phys: [place] [address] : 1960 Age: 59 SEX:F [phone] Exam Date: 02/04/20 Status: ADM IN Acct: [id number] Loc: 2SE Pt Unit #: [id number] Report #: [id number] CC: ALLY JONES MD MRI REPORT Order # Category/Exam [id number] MRI/MRA Angio Abd W WO Con ([id number]): . Results MR ANGIO OF ABDOMEN WITH [...] 1545NM Cardiac Stress W EF WF [facility] Pt Name: EDUARDA GARCIA Kiosked Phys: [place] [address] : 1960 Age: 59 SEX:F [phone] Exam Date: 02/03/20 Status: ADM IN Acct: [id number] Loc: 2SE Pt Unit #: [id number] Report #: [id number] CC: ALLY JONES MD NUCLEAR MEDICINE REPORT Order # Category/Exam [id number] NM/NM Cardiac Stress W EF WF ([id number]): . Results NUCLEAR MEDICINE CARDIAC MYOCARDIAL PERFUSION [...] 1307 T ranscribed Date/Time:XR [facility]: EDUARDA GARCIA Kiosked Phys: [place] [address] : 1960 Age: 59 SEX:F [phone] Exam Date: 02/02/20 Status: ADM IN Acct: [id number] Loc: 2SE Pt Unit #: [id number] Report #: [id number] CC: ALLY JONES MD IMAGING SERVICES REPORT Order # Category/Exam [id number] RAD/XR Chest Pa Lat STANDARD ([id number]): . Results RADIOGRAPH CHEST 2 VIEW: DATE: [...] Dictated Date/Time: 02/02/201150 Transcribed Date/Time:[facility] Name: EDUARDA GARCIA TopLog Phys: [place] [address] :1960 Age: 59 SEX:F [phone] Exam Date: 02/01/20 Status: REG ER Acct: [id number] Loc: ERS Pt Unit #: [id number] Report #: [id number] CC: HUGO SERRA MD CAT SCAN REPORT Order # Category/Exam [id number] CT/CT Brain WO Con ([id number]): . Results CT Brain WO Con History: [...] Date/Time: 02/01/202230 Transcribed Date/Time:XR Chest 1 [facility] Pt Name: EDUARDA GARCIA Kiosked Phys: [place] [address] :1960 Age: 59 SEX:F [phone] Exam Date: 02/01/20 Status: REG ER Acct: [id number] Loc: ERS Pt Unit #: [id number] Report #: [id number] CC: HUGO SERRA MDIMAGING SERVICES REPORT Order # Category/Exam [id number] RAD/XR Chest 1 View Portable ([id number]): . Results XR Chest 1 View Portable History: Weakness Comparison: Radiograph 2014 Findings: Background lung hyperinflation. Scarring both lung bases. Heart size upper limits ofnormal. No confluent airspace consolidation, pneumothorax or effusion. No acute osseous abnormality. Impression: Obstructive pulmonary disease otherwise no acute intrathoracic abnormality. Reported By: ALLY MORRISSEY Electronically Signed Date/Time: 02/01/202257 Technologist: UMAIR Dictated Date/Time: 02/01/202257 Transcribed Date/Time:MRI Brain W WO [facility] Pt Name: EDUARDA GARCIA Kiosked Phys: [place] [address] : 1960 Age: 59 SEX:F [phone] Exam Date: 01/09/20 Status: ADM IN Acct: [id number] Loc: 2SE Pt Unit #: [id number] Report #: [id number] CC: ALLY JONES MD MRI REPORT Order # Category/Exam [id number] MRI/MRI Brain W WO Con ([id number]): . Results MRI BRAIN WITH AND WITHOUT [...] 0908 Transcribed Date/Time: 01/09/20 1016US Carotid Doppler [facility] Pt Name: EDUARDA GARCIA TopLog Phys: [place] [address] : 1960 Age: 59 SEX:F [phone] Exam Date: 01/08/20 Status: ADM IN Acct: [id number] Loc: 2SE Pt Unit #: [id number] Report #: [id number] CC: ALLY JONES MDLudin ULTRASOUND REPORT Order # Category/Exam [id number] ULT/US Carotid Doppler STANDARD ([id number]): . Results BILATERAL CAROTID DUPLEX ULTRASOUND: HISTORY: [...] Date/Time: 01/09/20 0747 Transcribed Date/Time:CT Brain WO [facility] Pt Name: EDUARDA GARCIA Kiosked Phys: [place] [address] : 1960 Age: 59 SEX:F [phone] Exam Date: 01/08/20 Status: REG ER Acct: [id number] Loc: ERS Pt Unit #: [id number] Report #: [id number] CC: ED TEMP PROVIDER Ludin Cox DO CAT SCAN REPORT Order # Category/Exam [id number] CT/CT Brain WO Con ([id number]): . Results CT BRAIN WITHOUT CONTRAST HISTORY: [...] 1251 Transcribed Date/Time:CTA Angio Head W WO [facility] Pt Name: EDUARDA GARCIA Kiosked Phys: [place] DO KARLA Arias [address] : 1960 Age: 59 SEX:F [phone] Exam Date: 01/08/20 Status: REG ER Acct: [id number] Loc: ERS Pt Unit #: [id number] Report #: [id number] CC: ED TEMP PROVIDER Ludin Cox DO CAT SCAN REPORT Order # Category/Exam [id number] CT/CTA Angio Head WWO Con ([id number]): . CT/CTA Angio Neck W WO Con ([id number]): . Results CTA HEAD: CTA NECK: 01/08/20 [...] Derrick Mendoza MD Electronically Signed Date/Time: 01/08/20 1546 Technologist: DAYANARA.KARINA Dictated Date/Time: 01/08/20 1329 Transcribed Date/Time: 01/08/20 8822
[2020-08-24 18:48] LABS: Absolute Lymphocytes (CBC) 2.5 K/uL (0.7-4.9); Basophils % 0.7 % (0-1.3); Lymphocytes % 27.4 % (15.3-44.8); MPV 8.6 fL (7.6-11.3); RBC Red Blood Cell Count 4.32 M/uL (3.86-4.86)
[2020-08-24 18:50] LABS: Protime INR 1.07
[2020-08-24 18:58] LABS: BUN Blood Urea Nitrogen 6 mg/dL (7-18); Bicarbonate 27 mmol/L (21-32); Glucose Level 118 mg/dL (74-106); Magnesium 1.5 mg/dL (1.8-2.4); Potassium 3.5 mmol/L (3.5-5.1); Sodium Level 133 mmol/L (136-145); Troponin (Emerg Dept Use Only) < 0.02 ng/mL (0.0-0.045)
[2020-08-24 19:02] LABS: Urine Blood Negative (Negative); Urine Glucose Negative (Negative); Urine Protein Negative (Negative); Urine Specific Gravity 1.015 (1.005-1.030)
--- NOTE | 2020-08-24 19:08 | RAD REPORT ---
EXAM DESCRIPTION: CT - Ct Stroke Brain Wo Cont - 08/24/2020 6:15 pm CLINICAL HISTORY: facial drrop Headache, drowsiness COMPARISON: Head angio dated 04/16/2020; Head Brain Wo Cont dated 04/16/2020 TECHNIQUE: All CT scans are performed using dose optimization technique as appropriate and may inclu de automated exposure control or mA/KV adjustment according to patient size. FINDINGS: No intracranial hemorrhage, hydrocephalus or extra-axial fluid collection.Left-sided aneur ysm clips again seen.Gliosis is seen in the right posterior parietal lobe, compatible with old infarc tion. The paranasal sinuses and mastoids are clear. The calvarium is intact. IMPRESSION: No acute intracranial abnormality. ER personnel notified 08/24/20 1845.
--- NOTE | 2020-08-24 19:11 | RAD REPORT ---
EXAM DESCRIPTION: RAD - Chest Single View - 08/24/2020 6:49 pm CLINICAL HISTORY: CONGESTION Chest pain. COMPARISON: Chest Single View dated 04/16/2020; Chest Single View dated 01/20/2020 FINDINGS: Portable technique limits examination quality. The lungs are emphysematous but grossly clear. The heart is normal in size. No displaced fractures. IMPRESSION: Mild diffuse COPD.
[2020-08-24 19:16] LABS: Barbiturates NEGATIVE (NEGATIVE); Benzodiazepines POSITIVE (NEGATIVE); Cocaine NEGATIVE (NEGATIVE); METHAMPHETAM NEGATIVE (NEGATIVE); Methadone NEGATIVE (NEGATIVE); Opiates NEGATIVE (NEGATIVE); Phencyclidine NEGATIVE (NEGATIVE); THC Cannibis NEGATIVE (NEGATIVE)
[2020-08-24] MEDS ORDERED: FOLIC ACID 5 MG/ML VIAL ONE (19:44)
[2020-08-24 19:57] LABS: Phenytoin (Dilantin) Level 12.4 ug/mL (10.0-20.0); Thyroid Stimulating Hormone 0.476 uIU/mL (0.360-3.740)
--- NOTE | 2020-08-24 20:37 | RAD REPORT ---
EXAM DESCRIPTION: CT - Head angio - 08/24/2020 8:27 pm CLINICAL HISTORY: NUMBNESS Headache, drowsiness COMPARISON: Ct Stroke Brain Wo Cont dated 08/24/2020; Head angio dated 04/16/2020; Chest Single View d ated 08/24/2020 TECHNIQUE: CT angiography of the head was performed with MIPs. All CT scans are performed using dose optimization technique as appropriate and may include automated exposure control or mA/KV adjustment according to patient size. FINDINGS: No evidence of aneurysm is detected. No flow-limiting stenosis or vascular malformation id entified. Left middle cerebral artery aneurysm clip noted. Antegrade flow is seen in the vertebral arteries. The vertebral arteries are codominant. The visualized dural venous sinuses are patent. IMPRESSION: No significant flow abnormality is detected. Left MCA aneurysm clip noted.
--- NOTE | 2020-08-24 20:57 | ER ---
Nurse's Notes [facility] Name: Maryjane Jameson Age: 60 yrs Sex: Female : 1960 Arrival Date: 08/24/2020 Time: 17:54 Bed 7 Private MD: Diagnosis: Other chronic obstructive pulmonary disease;Paresthesia of skin;Other visual disturbances-blurred vision Presentation: 08/24 17:59 Chief complaint: Patient states: I started feeling bad at home around 1630 today, ca1 blurring of vision, lips getting tingly, william legs numbness below the knee, SOB. HX of stroke. VAN negative. Negative slurring. Droop on L side of face noted and reports No residual droop on L side of face from previous stroke. 17:59 Method Of Arrival: Ambulatory ca1 18:04 Onset of symptoms was August 24, 2020 at 16:30. ca1 18:04 Acuity: RENETTA 2 ca1 18:06 Chief complaint: Patient states: Pt states, "my L side is weaker than the L after I had ca1 the stroke". 18:06 Coronavirus screen: Client denies travel out of the [place] in the last 14 days. shortness ca1 of breath, Client presents with at least one sign or symptom that may indicate coronavirus-19. Standard/surgical mask placed on the client. Provider contacted for isolation considerations. Ebola Screen: Patient negative for fever greater than or equal to 101.5 degrees Fahrenheit, and additional compatible Ebola Virus Disease symptoms Patient denies exposure to infectious person. Patient denies travel to an Ebola-affected area in the 21 days before illness onset. No symptoms or risks identified at this time. Initial Sepsis Screen: Does the patient meet any 2 criteria? No. Patient's initial sepsis screen is negative. Does the patient have a suspected source of infection? No. Patient's initial sepsis screen is negative. Risk Assessment: Do you want to hurt yourself or someone else? Patient reports no desire to harm self or others. Historical: - Allergies: 18:09 PENICILLINS; ca1 - Home Meds: 18:15 Aggrenox Oral [Active]; ca1 - PMHx: 18:09 CVA; Hemmorhagic; Diabetes - NIDDM; Hypertension; Seizures; ca1 - PSHx: 18:09 aneurysm cliip-2010; ca1 - Immunization history:: Adult Immunizations up to date, Client reports receiving the 2nd dose of the Covid vaccine, Client reports receiving the 1st dose of the Covid vaccine, Pneumococcal vaccine is up to date, Flu vaccine is up to date. - Social history:: Smoking status: Patient reports the use of cigarette tobacco products, smokes one-half pack cigarettes per day. Screenin:37 Abuse screen: Denies threats or abuse. Denies injuries from another. Nutritional hb screening: No deficits noted. Tuberculosis screening: No symptoms or risk factors identified. Fall Risk None identified. Assessment: 18:04 Reassessment: Wheeled to CT. ca1 18:37 General: Appears in no apparent distress. Behavior is calm, cooperative. Pain: Denies hb pain. Neuro: Level of Consciousness is awake, alert, obeys commands, Oriented to person, place, time, situation. Cardiovascular: Capillary refill < 3 seconds Patient's skin is warm and dry. Rhythm is regular. Respiratory: Respiratory effort is even, unlabored, Respiratory pattern is regular, symmetrical. GI: No signs and/or symptoms were reported involving the gastrointestinal system. : No signs and/or symptoms were reported regarding the genitourinary system. EENT: Reports blurred vision. Derm: Skin is pink, warm \\T\\ dry. Musculoskeletal: Reports numbness and tingling in bilateral lower legs, tingling around mouth. 19:00 General: Appears in no apparent distress. Behavior is calm, cooperative, appropriate ea for age. Pain: Denies pain. Neuro: Level of Consciousness is awake, alert, obeys commands, Oriented to person, place, time, situation. Cardiovascular: Patient's skin is warm and dry. Respiratory: Airway is patent Respiratory effort is even, unlabored, Respiratory pattern is regular, symmetrical. Derm: Skin is pink, warm \\T\\ dry. 20:47 Reassessment: Patient and/or family updated on plan of care and expected duration. Pain ea level reassessed. Patient is alert, oriented x 3, equal unlabored respirations, skin warm/dry/pink. 21:02 Reassessment: Patient and/or family updated on plan of care and expected duration. Pain ea level reassessed. Patient is alert, oriented x 3, equal unlabored respirations, skin warm/dry/pink. Discharge instruction given to patient verbalized the understanding of instruction. pt left ED ambulatory tolerating well. Vital Signs: 18:04 BP 197 / 96; Pulse 88; Resp 18 S; Temp 97.9(TE); Pulse Ox 98% on R/A; Weight 44.91 kg ca1 (R); Height 5 ft. 5 in. (165.10 cm) (R); Pain 0/10; 18:57 BP 133 / 81; Pulse 68; Resp 15; Pulse Ox 100% on R/A; hb 20:40 BP 128 / 78; Pulse 68; Resp 18; Pulse Ox 98% on R/A; ea 18:04 Body Mass Index 16.47 (44.91 kg, 165.10 cm) ca1 NIH Stroke Scale Scores: 18:52 NIHSS Score: 1 pm1 ED Course: 17:54 Patient arrived in ED. as 18:04 Triage completed. ca1 18:09 Arm band placed on right wrist. ca1 18:14 CT Stroke Brain w/o Contrast In Process Unspecified. EDMS 18:20 Missed attempt(s): 20 gauge in right antecubital area. Bleeding controlled, band aid hb applied, catheter tip intact. 18:26 Inserted saline lock: 22 gauge in right forearm, using aseptic technique. Blood hb collected. 18:37 Patient has correct armband on for positive identification. Bed in low position. Call hb light in reach. 18:39 Jodee Brown, DAT is Primary Nurse. hb 18:45 Alin Yates, HERNANDEZ is PHCP. pm1 18:45 Joanna Boo MD is Attending Physician. pm1 18:49 Stroke CXR 1 View In Process Unspecified. EDMS 20:27 CT Head Angio In Process Unspecified. EDMS 20:54 No provider procedures requiring assistance completed. IV discontinued, intact, ea bleeding controlled, No redness/swelling at site. Pressure dressing applied. 20:57 Ashu Modi MD is Referral Physician. pm1 Administered Medications: 19:28 Drug: foLIC Acid 1 mg Route: IVPB; Site: right forearm; ea Point of Care Testing: Blood Glucose: 18:27 Blood Glucose: 126 mg/dL; hb Ranges: Outcome: 20:57 Discharge ordered by . pm1 21:03 Discharged to home ambulatory, with family. ea 21:03 Condition: stable 21:03 Discharge instructions given to patient, Instructed on discharge instructions, follow up and referral plans. Demonstrated understanding of instructions, follow-up care. 21:04 Patient left the ED. jan NIH Stroke Scale - NIH Stroke Score Date: 08/24/2020 Time: 18:52 Total Score = 1 1a. Level of Consciousness (LOC) - 0(Alert) 1b. Level of Consciousness (LOC) (Year \\T\\ Age) - 0(Both) 1c. LOC Commands (Open \\T\\ Closes Eyes/[employer]) - 0(Both) 2. Best Gaze (Lateral Gaze Paresis) - 0(Normal) 3. Visual Field Loss - 1(Partial hemianopia) 4. Facial Palsy - 0(Normal) 5a. Left Arm: Motor (10-second hold) - 0(No drift) 5b. Right Arm: Motor (10-second hold) - 0(No drift) 6a. Left Leg: Motor (5-second hold - always test supine) - 0(No drift) 6b. Right Leg: Motor (5-second hold - always test supine) - 0(No drift) 7. Limb Ataxia (finger/nose \\T\\ heel/hurtado - test with eyes open) - 0(Absent) 8. Sensory Loss (pinprick arms/legs/face) - 0(Normal) 9. Best Language: Aphasia (description/naming/reading) - 0(No aphasia) 10. Dysarthria (speech clarity - read or repeat words) - 0(Normal) 11. Extinction and Inattention (visual/tactile/auditory/spatial/personal) - 0(No abnormality) Initials: pm1 Signatures: Dispatcher [employer] EDJerilyn Mcdaniel Patrick, LOOM MECHANIC LOOM MECHANIC pm1 Jodee Brown RN RN hb Antunez, Elena, RN RN ea Acob, Cheryl RN RN ca1 Corrections: (The following items were deleted from the chart) 21:04 21:03 BP 128 / 78; Pulse 68bpm; Resp 18bpm; Pulse Ox 98% RA; jan montoya
--- NOTE | 2020-08-24 20:58 | EDPHYS ---
Physician Documentation [facility] Name: Maryjane Jameson Age: 60 yrs Sex: Female : 1960 Arrival Date: 08/24/2020 Time: 17:54 Bed 7 Private MD: ED Physician Joanna Boo HPI: 08/24 18:48 This 60 yrs old Female presents to ER via Ambulatory with complaints of pm1 Shortness Of Breath, Numbness, Blurred Vision. 18:48 The patient presents to the emergency department with paresthesias of the right hurtado pm1 and left hurtado, a vision problem, blurred vision, numbness around her lips. Onset: The symptoms/episode began/occurred today, at 16:30. Context: occurred at home. Associated signs and symptoms: Pertinent positives: shortness of breath, Pertinent negatives: fever, chest pain, palpitations . Severity of symptoms: in the emergency department the symptoms have improved numbness around her mouth resolved. Patient's baseline: Motor: no deficits, Ambulation: walks without assistance, The patient has a previous history of CVA, left eye lateral vision deficit and seizures. Historical: - Allergies: 18:09 PENICILLINS; ca1 - Home Meds: 18:15 Aggrenox Oral [Active]; ca1 - PMHx: 18:09 CVA; Hemmorhagic; Diabetes - NIDDM; Hypertension; Seizures; ca1 - PSHx: 18:09 aneurysm cliip-2010; ca1 - Immunization history:: Adult Immunizations up to date, Client reports receiving the 2nd dose of the Covid vaccine, Client reports receiving the 1st dose of the Covid vaccine, Pneumococcal vaccine is up to date, Flu vaccine is up to date. - Social history:: Smoking status: Patient reports the use of cigarette tobacco products, smokes one-half pack cigarettes per day. ROS: 18:48 Constitutional: Negative for fever, chills, and weight loss. pm1 18:48 ENT: Negative for injury, pain, and discharge, Neck: Negative for injury, pain, and swelling, Cardiovascular: Negative for chest pain, palpitations, and edema. 18:48 Abdomen/GI: Negative for abdominal pain, nausea, vomiting, diarrhea, and constipation, Back: Negative for injury and pain, MS/Extremity: Negative for injury and deformity. 18:48 Skin: Negative for injury, rash, and discoloration. 18:48 Eyes: Positive for blurry vision, Negative for vision loss. 18:48 Respiratory: Positive for shortness of breath, started smoking again. 18:48 Neuro: Positive for numbness, of the right hurtado and left hurtado, Negative for altered mental status, dizziness, gait disturbance. Exam: 18:52 Constitutional: This is a well developed, well nourished patient who is awake, alert, pm1 and in no acute distress. Head/Face: Normocephalic, atraumatic. Chest/axilla: Normal chest wall appearance and motion. Nontender with no deformity. No lesions are appreciated. Cardiovascular: Regular rate and rhythm with a normal S1 and S2. No gallops, murmurs, or rubs. Normal PMI, no JVD. No pulse deficits. Respiratory: Lungs have equal breath sounds bilaterally, clear to auscultation and percussion. No rales, rhonchi or wheezes noted. No increased work of breathing, no retractions or nasal flaring. 18:52 Back: No spinal tenderness. No costovertebral tenderness. Full range of motion. Skin: Warm, dry with normal turgor. Normal color with no rashes, no lesions, and no evidence of cellulitis. MS/ Extremity: Pulses equal, no cyanosis. Neurovascular intact. Full, normal range of motion. 18:52 Abdomen/GI: Inspection: abdomen appears normal, Palpation: abdomen is soft and non-tender, in all quadrants. 18:52 Neuro: Orientation: is normal, Mentation: is normal, Cerebellar function: normal finger to nose testing, able to perform alternating rapid hand movements, Motor: is normal, moves all fours, strength is normal, strength is 5/5 in all extremities, Sensation: is normal, no obvious gross deficits. 18:53 Neuro: Patient unable to see with lateral aspect of left eye from prior stroke. Reason pm1 for her NIHSS score 1. Vital Signs: 18:04 BP 197 / 96; Pulse 88; Resp 18 S; Temp 97.9(TE); Pulse Ox 98% on R/A; Weight 44.91 kg ca1 (R); Height 5 ft. 5 in. (165.10 cm) (R); Pain 0/10; 18:57 BP 133 / 81; Pulse 68; Resp 15; Pulse Ox 100% on R/A; hb 20:40 BP 128 / 78; Pulse 68; Resp 18; Pulse Ox 98% on R/A; ea 18:04 Body Mass Index 16.47 (44.91 kg, 165.10 cm) ca1 NIH Stroke Scale Scores: 18:52 NIHSS Score: 1 pm1 MDM: 18:41 ED course: Patient evaluated by Dr Boo. No facial droop present on examination. pm1 18:45 Patient medically screened. pm1 18:47 ED course: Patient is not a TPA candidate. Absolute exclusion criteria: Patient with pm1 history of previous intracranial hemorrhage. 18:50 Data reviewed: vital signs. pm1 19:06 ED course: CT head negative for acute changes. pm1 19:36 Physician consultation: Ashu Modi MD was called at 19:08, was contacted at 19:36, pm1 regarding consult, patient's condition, Wants CT Angio and dilantin level tested. Treated Dilantin level if it is low. If CT angio is normal the patient can call his office in the morning to setup an appointment so she can have outpatient EEG and MRI. 20:55 Counseling: I had a detailed discussion with the patient and/or guardian regarding: the pm1 historical points, exam findings, and any diagnostic results supporting the discharge/admit diagnosis, lab results, radiology results, the need for outpatient follow up, a neurologist, EEG and MRI, to return to the emergency department if symptoms worsen or persist or if there are any questions or concerns that arise at home. 08/24 18:07 Order name: Troponin (emerg Dept Use Only) [facility] 08/24 18:07 Order name: UDS [facility] 08/24 18:07 Order name: Magnesium [facility] 08/24 18:07 Order name: Basic Metabolic Panel [facility] 08/24 18:07 Order name: CBC with Diff [facility] 08/24 18:07 Order name: Protime (+inr) [facility] 08/24 18:07 Order name: Ptt, Activated [facility] 08/24 18:07 Order name: Troponin (Emerg Dept Use Only); Complete Time: 19:09 EDMS 08/24 18:08 Order name: Urine Drug Screen; Complete Time: 19:21 EDMS 08/24 18:08 Order name: Magnesium; Complete Time: 19:09 EDMS 08/24 18:08 Order name: Basic Metabolic Panel; Complete Time: 19:09 EDMS 08/24 18:08 Order name: CBC with Automated Diff; Complete Time: 19:09 EDMS 08/24 18:08 Order name: Protime (+INR); Complete Time: 19:09 EDMS 08/24 18:08 Order name: PTT, Activated Partial Thromb; Complete Time: 19:09 EDMS 08/24 18:07 Order name: CT Stroke Brain w/o Contrast; Complete Time: 19:09 ma2 08/24 18:07 Order name: Stroke CXR 1 View; Complete Time: 19:21 ma2 08/24 18:07 Order name: EKG; Complete Time: 18:11 ma2 08/24 18:07 Order name: Accucheck; Complete Time: 18:29 ma2 08/24 18:07 Order name: Cardiac monitoring; Complete Time: 18:29 or2 08/24 18:34 Order name: Glucose, Ancillary Testing; Complete Time: 18:46 EDMS 08/24 18:47 Order name: COVID-19 : Document "Date of Symptom Onset" if Symptomatic. pm1 08/24 19:02 Order name: Urine Dipstick-Ancillary; Complete Time: 19:09 EDMS 08/24 19:28 Order name: CT Head Angio; Complete Time: 20:45 pm1 08/24 19:33 Order name: Dilantin pm08/24 19:33 Order name: TSH pm08/24 19:33 Order name: Phenytoin (Dilantin) Level; Complete Time: 20:04 EDMS 08/24 19:34 Order name: Thyroid Stimulating Hormone; Complete Time: 20:04 EDMS 08/24 20:47 Order name: SARS-COV-2 RT PCR; Complete Time: 01:05 EDMS 08/24 18:07 Order name: EKG - Nurse/Tech; Complete Time: 18:29 ma2 08/24 18:07 Order name: IV Saline Lock; Complete Time: 18:29 ma2 08/24 18:07 Order name: Labs collected and sent; Complete Time: 18:29 or2 08/24 18:07 Order name: NPO; Complete Time: 18:29 or2 08/24 18:07 Order name: O2 Per Protocol; Complete Time: 18:30 ma2 08/24 18:07 Order name: O2 Sat Monitoring; Complete Time: 18:29 ma2 08/24 18:07 Order name: Stroke Swallow Screen ma2 Administered Medications: 19:28 Drug: foLIC Acid 1 mg Route: IVPB; Site: right forearm; ea Point of Care Testing: Blood Glucose: 18:27 Blood Glucose: 126 mg/dL; hb Ranges: Critical Glucose Levels:Adult <50 mg/dl or >400 mg/dl <40 mg/dl or >180 mg/dl Disposition: 08/24/20 20:57 Discharged to Home. Impression: Paresthesia of skin, Other chronic obstructive pulmonary disease, Other visual disturbances - blurred vision. - Condition is Stable. - Discharge Instructions: Blurred Vision, Adult, Paresthesia, Steps to Quit Smoking, Chronic Obstructive Pulmonary Disease Exacerbation. - Medication Reconciliation Form, Thank You Letter, Antibiotic Education, Prescription Opioid Use form. - Follow up: Ashu Modi MD; When: 1 - 2 days; Reason: Recheck today's complaints, Continuance of care, Re-evaluation by your physician. - Problem is new. - Symptoms have improved. NIH Stroke Scale - NIH Stroke Score Date: 08/24/2020 Time: 18:52 Total Score = 1 1a. Level of Consciousness (LOC) - 0(Alert) 1b. Level of Consciousness (LOC) (Year \\T\\ Age) - 0(Both) 1c. LOC Commands (Open \\T\\ Closes Eyes/Family Resource Management Specialist) - 0(Both) 2. Best Gaze (Lateral Gaze Paresis) - 0(Normal) 3. Visual Field Loss - 1(Partial hemianopia) 4. Facial Palsy - 0(Normal) 5a. Left Arm: Motor (10-second hold) - 0(No drift) 5b. Right Arm: Motor (10-second hold) - 0(No drift) 6a. Left Leg: Motor (5-second hold - always test supine) - 0(No drift) 6b. Right Leg: Motor (5-second hold - always test supine) - 0(No drift) 7. Limb Ataxia (finger/nose \\T\\ heel/hurtado - test with eyes open) - 0(Absent) 8. Sensory Loss (pinprick arms/legs/face) - 0(Normal) 9. Best Language: Aphasia (description/naming/reading) - 0(No aphasia) 10. Dysarthria (speech clarity - read or repeat words) - 0(Normal) 11. Extinction and Inattention (visual/tactile/auditory/spatial/personal) - 0(No abnormality) Initials: pm1 Addendum: 08/27/2020 20:24 Co-signature as Attending Physician, Joanna Boo MD. ma2 Signatures: Dispatcher [employer] EDWI Alin Yates, SENIOR INFORMATION SYSTEMS ARCHITECT SENIOR INFORMATION SYSTEMS ARCHITECT pm1 Brenda Selby RN Joanna Sands ea, MD MD ma2 Tamra Carr RN RN ca1 Corrections: (The following items were deleted from the chart) 08/24 19:48 18:48 CORONAVIRUS ordered. EDWI EDMS 20:57 20:57 08/24/2020 20:57 Discharged to Home. Impression: Paresthesia of skinOther pm1 chronic obstructive pulmonary disease; Other visual disturbances - blurred vision. Condition is Stable. Forms are Medication Reconciliation Form, Thank You Letter, Antibiotic Education, Prescription Opioid Use. pm1 21:04 20:57 08/24/2020 20:57 Discharged to Home. Impression: Paresthesia of skinOther ea chronic obstructive pulmonary disease; Other visual disturbances - blurred vision. Condition is Stable. Forms are Medication Reconciliation Form, Thank You Letter, Antibiotic Education, Prescription Opioid Use. Follow up: Ashu Modi; When: 1 - 2 days; Reason: Recheck today's complaints, Continuance of care, Re-evaluation by your physician. Problem is new. Symptoms have improved. pm1
[2020-08-24 21:18] VITALS: TEMP 97.9
[2020-08-24 21:21] VITALS: BP 128/78; O2SAT 98
--- NOTE | 2020-08-25 09:19 | EKG ---
Test Date: 2020-08-24 Test Time: 18:19:36 Entry Level Recruiter: RICHARD Ro MEASUREMENT RESULTS: Intervals: Rate: 75 [place]: 176 QRSD: 76 QT: 392 QTc: 437 [place]: P: 68 [place]: 176 QRS: 79 T: 39 INTERPRETIVE STATEMENTS: Normal sinus rhythm Septal infarct, age undetermined Abnormal ECG Compared to ECG 04/16/2020 19:38:54 Sinus bradycardia no longer present Myocardial infarct finding still present Electronically Signed On 08-25-20 09:17:15 CDT by Vahid Menard
== END 2020-08-24 21:04 | disposition home or self-care (01) ==
LOC: ER 17:51
DX: R20.2 Paresthesia of skin (principal); H53.8 Other visual disturbances; J44.9 Chronic obstructive pulmonary disease, unspecified; F17.210 Nicotine dependence, cigarettes, uncomplicated; Z86.73 Personal history of transient ischemic attack (TIA), and cerebral infarction without residual deficits; E11.9 Type 2 diabetes mellitus without complications; Z20.822 Contact with and (suspected) exposure to COVID-19; I10 Essential (primary) hypertension
CPT/HCPCS: 93005; 85025; 80048; 36415; 83735; 85610; 82947; 80307 ×8; 85730; 80185; 84443; 81003; 84484; 70496; 70450; 71045; U0003; Q9967; 96374; 99284

== ENCOUNTER 2020-10-27 12:03 | Emergency (ER) | payer OTHER ==
--- OUTSIDE RECORDS SUMMARY | 2020-10-27 12:33 | XMS REPORT | Continuity of Care Document ---
:1960 Author Organization [facility] t Address Formerly [facility], later [facility]3 Renny Baum 135 [id number] Care Team Providers Name Role Phone Yoshi Jones Attending Clinician Unavailable Yoshi Jones Admitting [...] the Food and Drug Admini stration.Performed at: [facility] [address] [place] [address]Kyn Director: Heladio Bunch MD, P mariusz: [phone] Mbkypzkdt9043-42-92 05:21:00 Test Item Value Reference Range Interpretation [...] 8.1 mg/dL 7.8-10.44 N code = CA) Jfpqnvkoou1880-82-10 04:55:00 Test Item Value Reference Range Interpretation [...] code = BASO#) 0.0 thou/uL 0.0-0.2 N Mphrvhnzs3769-76-30 05:12:00 Test Item Value Reference Range Interpretation [...] N = TSH3) Chemistry - BNP, HgbA1c, AHYj0112-19-77 05:24:00 Test Item Value Reference Range Interpretation Comments Chemistry - BNP, HgbA1c, PTHi 27.3 pg/mL 0-100 N (test code = BNP) Pcmgxmczf9775-33-68 05:24:00 Test Item Value Reference Range Interpretation [...] 8.6 mg/dL 7.8-10.44 N code = CA) Iqmhpzzhg0114-03-87 05:24:00 Test Item Value Reference Range Interpretation [...] 3.7 Prot ection probable: Less than 2.5 Hwzlhgbky4978-77-71 05:16:00 Test Item Value Reference Range Interpretation Comments Chemistry (test code 24.4 ug/mL 10.0-20.0 H Therape utic Range: = DIL) 10.0 - 20.0 mcg/mLToxic Ran ge: Greater than 30.0 mcg/mL Date of next dose: 02/03/2020Time of next dose: 9646Ykgspsgcji2349-74-49 05:05:00 Test Item Value Reference Range Interpretation [...] BASO#) 0.0 thou/uL 0.0-0.2 N Reference Lab Birhkni5423-87-12 15:26:00 Test Item Value Reference Range Interpretation Comments Reference Lab Not Detected NotDetected Negative (Not Detected) Testing (test results do not preclude code = EIZJD78O) infectionwi th SARS-CoV-2 virus, and shou ld [...] high complexity tests. Reason for Testing: Admission LotlabnluEpqdgrjqe2956-13-49 05:40:00 Test Item Value Reference Range Interpretation Comments Chemistry (test 0.128 ng/mL < 0.028 H code = TROPI-T) Reference Ra nge 0.0 0 - 0.028 ng/mL Negative 0.0 29 - 0.29 ng/mL Indeterminate Greater or Equal to 0.3 ng/mL Strongly sugge sts OR Ebojjsswk3542-16-45 02:27:00 Test Item Value Reference Range Interpretation Comments Chemistry (test 0.124 ng/mL < 0.028 H code = TROPI-T) Reference Ra nge 0.0 0 - 0.028 ng/mL Negative 0.0 29 - 0.29 ng/mL Indeterminate Greater or Equal to 0.3 ng/mL Strongly sugge sts OR Cnrvpibskt0342-24-04 23:05:00 Test Item Value Reference Range Interpretation [...] Rare-Few HPF None Seen Urine Source: Urine XlqxafQqbzacqqt4706-06-97 23:04:00 Test Item Value Reference Range Interpretation Comments Chemistry (test 0.125 ng/mL < 0.028 H code = TROPI-R) Reference Ra nge 0.0 0 - 0.028 ng/mL Negative 0.0 29 - 0.29 ng/mL Indeterminate Greater or Equal to 0.3 ng/mL Strongly [facility] Chemistry (test 0.125 ng/mL < 0.028 H code = TROPI-R) Reference Ra nge 0.0 0 - 0.028 ng/mL Negative 0.0 29 - 0.29 ng/mL Indeterminate Greater or Equal to 0.3 ng/mL Strongly [facility] Dnbuiysjn6266-11-44 23:04:00 Test Item Value Reference Range Interpretation Comments Chemistry (test code = CKMBM-T) 1.6 ng/mL 0-6.6 N Vjntmvgku8077-95-87 22:31:00 Test Item Value Reference Range Interpretation [...] code 24 U/L 8-55 N = ALT) Pbeoyzmnrgi5582-57-22 22:30:00 Test Item Value Reference Range Interpretation [...] code = PTT) Anticoagulant? NONEMedical Necessity: SUSPECT WPEKUAXIBIPTDskxwsufbo8816-75-32 22:08:00 Test Item Value Reference Range Interpretation [...] BASO#) 0.1 thou/uL 0.0-0.2 N Reference Lab Hqdkoza8912-14-88 12:36:00 Test Item Value Reference Range Interpretation Comments Reference Lab Not Detected NotDetected Negative (Not Detected) Testing (test results do not preclude code = TBVIB55J) infectionwi th SARS-CoV-2 virus, and shou ld [...] high complexity tests. Reason for Testing: Admission SdaibwsetNfgyqmeuq1688-07-09 09:34:00 Test Item Value Reference Range Interpretation [...] 7.8-10.44 N code = CA) Chemistry - Vxdtyyww8173-56-27 07:32:00 Test Item Value Reference Range Interpretation Comments Chemistry - Specials (test code 2.5692 uIU/mL 0.35-4.94 N = TSH3) Xjzllexnn7231-84-97 06:48:00 Test Item Value Reference Range Interpretation [...] of next dose: 01/09/2020Time of next dose: 6413Lutnmkfwt5166-10-89 06:48:00 Test Item Value Reference Range Interpretation [...] of next dose: 01/09/2020Time of next dose: 4908Qgkggozen5105-93-06 06:48:00 Test Item Value Reference Range Interpretation Comments Chemistry (test code 13.8 ug/mL 10.0-20.0 N Therape utic Range: = DIL) 10.0 - 20.0 mcg/mLToxic Ran ge: Greater than 30.0 mcg/mL Date of next dose: 01/09/2020Time of next dose: 7425Sbjdwjam0736-76-12 14:59:00 Test Item Value Reference Range Interpretation Comments Accuchek (test code = ACU) 159 mg/dL 70-110 H N otified Nurse Tbpmawdqo3330-64-21 13:19:00 Test Item Value Reference Range Interpretation [...] 17 U/L 8-55 N code = ALT) Jdxifpcuig5517-26-58 12:50:00 Test Item Value Reference Range Interpretation [...] code = BASO#) 0.0 thou/uL 0.0-0.2 N Ipksteurhs5314-67-83 12:42:00 Test Item Value Reference Range Interpretation [...] Negative Negative UABLD) Urine Source: Urine Clean CatchCT [facility]domen Pelvis [facility] : 1960 Sex: F Pt Name: EDUARDA GARCIA [address] Phys: [place] [address] : 1960 Age: 60 SEX:F [phone] Exam Date: 10/10/20 Status: REG CLI Acct: [id number] Loc: BICCT Pt Unit #: [id number] Report #: [id number] CC: ALLY JONES MD CAT SCAN REPORT Order # Category/Exam [id number] CT/CT Abdomen Pelvis WO Con ([id number]): . Results CT Abdomen Pelvis WO Con History: Elevated CEA. Smoker. W eight loss Comparison: None. Findings: Lung bases are relatively clear. Trace pericardial effusion. Dense aortic calcifications. Evaluation of the solid organs is limited without intravenous contrast. Mild posterior right renal pelvis. No renal calculi are appreciated. Noncontrast evaluation of the liver, gallbladder, pancreas, spleen are all unremarkable. Collateral veins are distended. Old superior endplate compression deformity and superimposed Schmorl's node of L2. Minimal retropulsion of the posterior superior endplate approximately 2-3 mm. Impression: Within the limits of this examination no acute inflammatory process within the abdomen or pelvis. No findings toexplain patient's lab levels although solid organ evaluation is limited without intravenous contrast. Reported By: ALLY CRUZ Electronically Signed Date/Time: 10/10/20 1036 Technologist: JALEN Dictated Date/Time: 10/10/20 1032 Transcribed Date/Time:US Abdominal [facility] : 1960 Sex: F Pt Name: EDUARDA GARCIA [address] Phys: [place] [address] : 1960 Age: 60 SEX:F [phone] Exam Date: 09/24/20 Status: REG CLI Acct: [id number] Loc: BICULT Pt Unit #: [id number] Report #: [id number] CC: ALLY JONES MD ULTRASOUND REPORT Order # Category/Exam ULT/US Abdominal ([id number]): . Results EXAM: Abdominal ultrasound complete: HISTORY: Abnormal LFTs COMPARISON: None FINDINGS: The liver appears unremarkable. The gallbladder demonstrates no evidence for gallstones, wall thickening, or pericholecystic fluid. May sign: Negative The common bile duct is Within normal limits. Visualized pancreas: Unremarkable. Visualized abdominal aorta: Unremarkable. Visualized IVC: Unremarkable. Visualized spleen: Unremarkable. Visualized kidneys: 0.9 cm left renal cyst. Questionable trace fluid between the left hemidiaphragm and heart, possibly trace pericardial fluidor pleural fluid. No mass, abscess, adenopathy, or abnormal fluid collection or other acute process. IMPRESSION: Tiny left renal cyst. Questionable trace fluid between the left hemidiaphragm and heart, possible trace pericardial or pleural fluid. Reported By: Adria De MD Electronically Signed Date/Time: 09/24/20828 Technologist: HENOK Dictated Date/Time: 09/24/20823 Transcribed Date/Ti me:US Pelvic Complete [facility] : 1960 Sex: F Pt Name: EDUARDA GARCIA [address] Phys: [place], [place] [address] : 1960 Age: 60 SEX:F [phone] Exam Date: 09/24/20 Status: REG CLI Acct: [id number] Loc: BICJAYDEN Pt Unit #: [id number] Report #: [id number] CC: ALLY JONES MD ULTRASOUND REPORT Order # Category/Exam [id number] ULT/US Pelvic Complete ([id number]): . Results Pelvic ultrasound: Transabdominal and endovaginal ultrasound of pelvis performed. INDICATIONS: Pelvic pain COMPARISON: None FINDINGS: Uterus:Uterus has normal size and appearance by ultrasound. Endometrial stripe:Endometrial stripe is withinnormal range Ovaries:Both ovaries have a normal sonographic appearance. Doppler:Color Doppler and spectral analysis demonstrates normal blood flow to both ovaries. No evidence of free fluid in the pelvis. No evidence of pelvic mass. IMPRESSION: Unremarkable pelvic ultrasound ReportedBy: Derrick Mendoza Electronically Signed: 09/24/2020 10:37 AM Reported By: Derrick Mendoza MD Electronically Signed Date/Time: 09/24/20 1037 Technologist: HENOK Dictated Date/Time: 09/24/20 1037 Transcribed Date/Time:MRI Brain W [facility] Pt Name: EDUARDA GARCIA [employer] Phys: [place] [address] : 1960 Age: 59 SEX:F [phone] Exam Date: 02/04/20 Status: ADM IN Acct: [id number] Loc: 2SE Pt Unit #: [id number] Report #: [id number] CC: ALLY JONES MD MRI REPORT Order # Category/Exam [id number] MRI/MRI Brain W WO Con ([id number]): . Results MRI OF BRAIN WITH AND [...] 02/04/20 1642 Technologist: IMAG.NPR Dictated Date/Time: 02/04/20 1522 Transcribed D ate/Time: 02/04/20 1544MRI Thoracic Spine WO [facility] Pt Name: EDUARDA GARCIA [employer] Phys: [place] [address] : 1960 Age: 59 SEX:F [phone] Exam Date: 02/04/20 Status: ADM IN Acct: [id number] Loc: 2SE Pt Unit #: [id number] Report #: [id number] CC: ALLY JONES MD MRI REPORT Order # Category/Exam [id number] MRI/MRI Thoracic Spine WO [facility] ([id number]):. Results MRI THORACIC SPINE WITHOUT CONTRAST: INDICATION: Bilateral lower extremity numbness. FINDINGS: Thoracic vertebrae maintain height and alignment. The swu4oqlrcd body signal is normal. Mild disk bulge [...] 02/04/20 1530MRA Angio Abd W WO [facility] Pt Name: EDUARDA GARCIA [employer] Phys: [place] [address] : 1960 Age: 59 SEX:F [phone] Exam Date: 02/04/20 Status: ADM IN Acct: [id number] Loc: 2SE Pt Unit #: [id number] Report #: [id number] CC: ALLY JONES MD MRI REPORT Order # Category/Exam [id number] MRI/MRA Angio Abd W WO Con ([id number]): . Results MR ANGIO OF ABDOMEN WITH [...] MD Electronically Signed Date/Time: 02/04/20 1610 Technologist: [email or web address].[email or web address] Dictated Date/Time: 02/04/20 1528 Transcribed Date/Time: 02/04/20 1545NM Cardiac Stress W EF WF [facility] Pt Name: EDUARDA GARCIA [employer] Phys: [place] [address] : 1960 Age: 59 SEX:F [phone] Exam Date: 02/03/20 Status: ADM IN Acct: [id number] Loc: 2SE Pt Unit #: [id number] Report #: [id number] CC: ALLY JONES MD NUCLEAR MEDICINE REPORT Order # Category/Exam [id number] NM/NM Cardiac Stress W EF WF ([id number]): . Results NUCLEAR MEDICINE CARDIAC MYOCARDIAL PERFUSION [...] 1307 T ranscribed Date/Time:XR Chest [facility] Name: EDUARDA GARCIA [employer] Phys: [place] [address] : 1960 Age: 59 SEX:F [phone] Exam Date: 02/02/20 Status: ADM IN Acct: [id number] Loc: E Pt Unit #: [id number] Report #: [id number] CC: ALLY JONES MD IMAGING SERVICES REPORT Order # Category/Exam [id number] RAD/XR Chest Pa Lat STANDARD ([id number]): . Results RADIOGRAPH CHEST 2 VIEW: DATE: [...] By: Gordon Hawkins MD Electronically Signed Date/Time: 02/02/20 1153 Technologist: Dictated Date/Time: 02/02/20 1151 Transcribed Date/Time:CT [facility] Pt Name: EDUARDA GARCIA [employer] Phys: [place] [address] :1960 Age: 59 SEX:F [phone] Exam Date: 02/01/20 Status: REG ER Acct: [id number] Loc: ERS Pt Unit #: [id number] Report #: [id number] CC: HUGO SERRA MD CAT SCAN REPORT Order # Category/Exam [id number] CT/CT Brain WO Con ([id number]): . Results CT Brain WO Con History: [...] change from last month. Reported By: ALLY CRUZ Electronically Signed Date/Time: 02/01/202235 Technologist: CHING Dictated Date/Time: 02/01/202230 Transcribed Date/Time:XR [facility] Pt Name: EDUARDA GARCIA [employer] Phys: [place] [address] :1960 Age: 59 SEX:F [phone] Exam Date: 02/01/20 Status: REG ER Acct: [id number] Loc: ERS Pt Unit #: [id number] Report #: [id number] CC: HUGO SERRA MDIMAGING SERVICES REPORT Order # Category/Exam [id number] RAD/XR Chest 1 View Portable ([id number]): . Results XR Chest 1 View Portable History: Weakness Comparison: Radiograph 2013 Findings: Background lung hyperinflation. Scarring both lung bases. Heart size upper limits ofnormal. No confluent airspace consolidation, pneumothorax or effusion. No acute osseous abnormality. Impression: Obstructive pulmonary disease otherwise no acute intrathoracic abnormality. Reported By: ALLY CRUZ Electronically Signed Date/Time: 02/01/202257 Technologist: UMAIR Dictated Date/Time: 02/01/202257 Transcribed Date/Time:MRI Brain W WO [facility] Pt Name: EDUARDA GARCIA [employer] Phys: [place] [address] : 1960 Age: 59 SEX:F [phone] Exam Date: 01/09/20 Status: ADM IN Acct: [id number] Loc: 2SE Pt Unit #: [id number] Report #: [id number] CC: ALLY JONES MD MRI REPORT Order # Category/Exam [id number] MRI/MRI Brain W WO Con ([id number]): . Results MRI BRAIN WITH AND WITHOUT [...] 0908 Transcribed Date/Time: 01/09/20 1016US Carotid [facility] Name: EDUARDA GARCIA [employer] Phys: [place] [address] : 1960 Age: 59 SEX:F [phone] Exam Date: 01/08/20 Status: ADM IN Acct: [id number] Loc: 2SE Pt Unit #: [id number] Report #: [id number] CC: ALLY JONES MDLudin dewitt ULTRASOUND REPORT Order # Category/Exam [id number] ULT/US Carotid Doppler STANDARD ([id number]): . Results BILATERAL CAROTID DUPLEX ULTRASOUND: HISTORY: [...] 01/09/20 0747 Transcribed Date/Time:CT Brain WO [facility] Pt Name: EDUARDA GARCIA [employer] Phys: [place] [address] : 1960 Age: 59 SEX:F [phone] Exam Date: 01/08/20 Status: REG ER Acct: [id number] Loc: ERS Pt Unit #: [id number] Report #: [id number] CC: ED TEMP PROVIDER Lud[place] Cox DO CAT SCAN REPORT Order # Category/Exam [id number] CT/CT Brain WO Con ([id number]): . Results CT BRAIN WITHOUT CONTRAST HISTORY: [...] Transcribed Date/Time:CTA Angio Head W WO [facility] Pt Name: EDUARDA GARCIA [employer] Phys: [place] [address] : 1960 Age: 59 SEX:F [phone] Exam Date: 01/08/20 Status: REG ER Acct: [id number] Loc: ERS Pt Unit #: [id number] Report #: [id number] CC: ED TEMP PROVIDER Ludin Cox DO CAT SCAN REPORT Order # Category/Exam [id number] CT/CTA Angio Head WWO Con ([id number]): . CT/CTA Angio Neck W WO Con ([id number]): . Results CTA HEAD: CTA NECK: 01/08/20 [...] Dictated Date/Time: 01/08/20 1329 Transcribed Date/Time: 01/08/20 6348
--- NOTE | 2020-10-27 13:07 | ER ---
Nurse's Notes [facility] Name: Maryjane Jameson Age: 60 yrs Sex: Female : 1960 Arrival Date: 10/27/2020 Time: 12:07 Bed Waiting Private MD: Diagnosis: Historical: Administered Medications: No medications were administered Outcome: 10/27 13:06 Patient left the ED. [facility] Signatures: Melanie Morse4 Tad Sutherland RN RN jl7 Corrections: (The following items were deleted from the chart) 12 12:53 Chief complaint: Patient states: Rug slipped out from under feet, fell back back jl7 and hit back of head on tile floor, denies LOC does not take blood thinners. Denies pain [facility] 12:53 Coronavirus screen: Client denies travel out of the [place] in the last 14 days. At [facility] this time, the client does not indicate any symptoms associated with coronavirus-19. [facility] 12:53 Ebola Screen: No symptoms or risks identified at this time. [place] [address] 12:53 Initial Sepsis Screen: Does the patient meet any 2 criteria? No. Patient's [facility] initial sepsis screen is negative. Does the patient have a suspected source of infection? No. Patient's initial sepsis screen is negative. [facility] 13: 12:53 Risk Assessment: Do you want to hurt yourself or someone else? Patient reports no [facility] desire to harm self or others. [facility] 12:53 Onset of symptoms was October 27, 2020 [place] [address] 12:53 Care prior to arrival: None. [facility] 13: 12:53 Method Of Arrival: Ambulatory [place] [address] : 12:53 BP 146 / 64; Pulse 62bpm; Resp 17bpm; Pulse Ox 99% RA; Temp 98.7F; 53.52 kg; Pain 7 0/10; [facility] 13: 12:53 Acuity: RENETTA 4 [place] [address] : 12:55 Immunization history: Adult Immunizations up to date, Client reports receiving [facility] the 2nd dose of the Covid vaccine, [facility] 12:55 Social history: Smoking status: Patient denies any tobacco usage or history of. [facility] 13: 12:55 Arm band placed on right wrist. jl7 jl 13:04 12:55 Allergies: PENICILLINS; jl7 jl 13:04 12:55 Home Meds: aspirin 81 mg oral TbEC; jl7 13:04 12:55 Home Meds: Furosemide Oral; jl7 jl 13:04 12:55 Home Meds: levothyroxine 75 mcg oral tab; jl7 jl 13:04 12:55 Home Meds: metoprolol tartrate 25 mg Oral tab; jl7 jl 13:04 12:55 Home Meds: simvastatin 20 mg Oral tab; jl7 13:04 12:55 Home Meds: Vitamin B-12 Oral; jl7 13:04 12:55 Home Meds: Aggrenox Oral [Inactive]; jl7 13:04 12:55 Home Meds: clonidine HCl 0.2 mg Oral tab 1 tab 2 times per day [Inactive]; kaila[facility] 13: 12:55 Home Meds: amlodipine 10 mg tab 1 tab once daily [Inactive]; jl7 13:04 12:55 Home Meds: carvedilol 25 mg Oral tab 1 tab 2 times per day [Inactive]; jl7 13:04 12:55 Home Meds: phenytoin sodium extended 100 mg Oral cap 2 caps; bid [Inactive]; jl7 13:04 12:55 Home Meds: ramipril 10 mg Oral cap 1 cap 2 times per day [Inactive]; jl7 13: 12:55 Home Meds: atorvastatin 40 mg Oral tab 1 tab once daily [Inactive]; jl7 13:04 12:55 Home Meds: clopidogrel 75 mg Oral tab 1 tab once daily [Inactive]; jl7 13: 12:55 PMHx: CVA; Hemmorhagic; jl7 13: 12:55 PMHx: Diabetes - NIDDM; jl7 13: 12:55 PMHx: Hypertension; kaila7 13:04 12:55 PMHx: Seizures; kaila7 13:05 12:07 Patient arrived in ED. ibrahima white 13: 12:55 Triage completed. christopher white
== END 2020-10-27 13:06 | disposition left against medical advice (07) ==
LOC: ER 12:03
DX: Z02.9 Encounter for administrative examinations, unspecified (principal)

== ENCOUNTER 2023-08-13 13:22 | Emergency (ER) | payer OTHER ==
--- OUTSIDE RECORDS SUMMARY | 2023-08-13 13:29 | XMS REPORT | Continuity of Care Document ---
Author Name Unknown Address [address] [facility] [address] [place] [address] [facility] thconnect Address [address] [facility] [address] [place] [address] Care Team Providers Care Corporate Planner Name Role Phone Ramakrishna Patel Attending Clinician Unavailable Reji Fernandez Attending Clinician Unavailable Iris Pham Attending Clinician Unavailable Ally Jones Attending Clinician Unavailable Provider, Yovana Odonnell Attending Clinician Khadra Ramirez Attending Clinician Unavailab Ally Domínguez Admitting Clinician Unavailable Payers Payer Name Policy Type Policy Number Effective Date Expirati on Date Source Problems Condition Name Condition Details Condition Category Status Onset Date Resolution Date Last Treatment Date Treating Clinician Comments Source Problem Condition [facility] [place] Transient ischemic attack Problem Active [facility] ([place] Allergies, Adverse Reactions, Alerts Allergy Name Allergy Type Status Severity Reaction(s) Onset Date Inactive Date Treating Clinician Comments Source Penicill ins Allergy to substanc e Active 11-20 10:41: 18 [facility] predniso ne Allergy to substanc e Active 11-20 10:41: 18 [facility] Penicill ins DA Active U 11-20 00:00: 00 [facility] [place] predniso ne DA Active U balance issues 11-20 00:00: 00 [facility] [place] Penicill ins Allergy to substanc e Active 01-07 16:51: 47 ZAHIDA [facility] ([place] Penicill ins DA Active U 01-07 00:00: 00 [facility]AHIDA [facility] [place] Penicill ins Allergy to substanc e Active 2012-04 22:38: 24 ZAHIDA [facility] ([place] Penicill ins DA Active U 2012-04 00:00: 00 [facility] [place] Family History Family Member Diagnosis Comments Start Date Stop Date Sourc e Father Family Myocardial Infarction? Yes ZAHIDA [facility] [place] Mother Family Diabetes? Yes ZAHIDA [facility] [place] Unknown Family History?Cardi ac Disorders, Hypertension, Respiratory Disorders, Diabetes, Cancer [facility] Social History Social Habit Start Date Stop Date Quantity Comments Source History of tobacco use [facility] Sex Assigned At 1960 00:00:00 1960 00:00:00 Female ZAHIDA [facility] ([place] Smoking Status Start Date Stop Date Source Unknown if ever smoked ZAHIDA [facility] ([place]) Smokes tobacco daily (finding) 2013-04-24 02:23:00 [facility] Medications Ordered Medication Name Filled Medication Name Start Date Stop Date Current Medication? Ordering Clinician Indication Dosage Frequency Signature (SIG) Comments Components Source Alendronate Sodium (Fosamax) 70 MG Tab 11-20 00:00: 00 No 70MG Q7D [facility] Phenytoin Sodium Extended 11-20 00:00: 00 No 100MG Bedtime [facility] Umeclidinsofiau m/Brijesho l (Anoro Ellipta 62.5-25 Mcg Inh) 1 BOX Box 11-20 00:00: 00 No 1PUFF Every Morning [facility] Metformin (Glucophage ) 500 MG Tab 11-20 00:00: 00 No 500MG Every Morning With Breakfast [facility] Aspirin-Dip yridamole (Aggrenox) 25 MG/200 MG Cap 2019-04 10:22: 12 No 1CAP Twice Daily [facility]) Alprazolam (Xanax) 0.5 MG Tab 2019-04 10:22: 12 No .5MG Q4H [facility]) Aspirin (Ecotrin Regular Strength) 325 MG Tab 2019-04 10:22: 12 No 325MG Daily [facility]) Atorvastati n Calcium (Lipitor) 40 MG Tab 2019-04 10:22: 12 No 40MG Bedtime [facility]) Carvedilol (Coreg) 25 MG Tab 2019-04 10:22: 12 No 25MG Twice Daily [facility]) Clonidine (Catapres) 0.3 MG Tab 2019-04 10:22: 12 No .3MG Three Times Daily [facility] ([place]) Nicotine (Nicoderm Cq) 21 MG Patch 2019-04 10:22: 12 No 21MG Every 24 Hours [facility]) Ramipril (Altace) 5 MG Cap 2019-04 10:22: 12 No 10MG Twice Daily [facility]) Acetaminoph en W/ Codeine (Acetaminop hen/Codeine #3) 300 MG/30 MG Tab 2019-04 10:22: 12 No 1TAB Q4H [facility] [place] Hydralazine Hcl 2019-04 03:50: 41 No 50MG Three Times Daily [facility]) Hydralazine Hcl 2019-04 03:50: 41 02-05 10:23 :47 No 50MG Three Times Daily [facility]) Clonidine (Catapres) 0.3 MG Tab 16 17:33: 05 No .3MG [facility] Times [facility] Ramipril (Altace) 5 MG Cap 01-08 17:33: 05 No 10MG Twice Daily [facility] ([place] Clonidine (Catapres) 0.3 MG Tab 01-08 17:33: 05 No .3MG Three Times Daily [facility] ([place]) Ramipril (Altace) 5 MG Cap 01-08 17:33: 05 No 10MG Twice Daily [facility] ([place]) Aspirin (Ecotrin Regular Strength) 325 MG Tab 01-07 17:04: 07 No 325MG Bedtime [facility] Atorvastati n Calcium (Lipitor) 40 MG Tablet 01-07 17:04: 07 No 40MG Daily [facility] ([place] Phenytoin Sodium Extended (Dilantin) 100 MG Cap 01-07 17:04: 07 No 100MG Twice Daily [facility] ([place] Aspirin (Ecotrin Regular Strength) 325 MG Tab 01-07 17:04: 07 No 325MG Bedtime [facility] Atorvastati n Calcium (Lipitor) 40 MG Tablet 01-07 17:04: 07 No 40MG Daily [facility] ([place] Phenytoin Sodium Extended (Dilantin) 100 MG Cap 01-07 17:04: 07 No 100MG Twice Daily [facility] ([place] Alendronate Sodium (Fosamax) 70 MG Tab 01-07 16:58: 14 No 70MG Every Week [facility] ([place]) Alprazolam (Xanax) 0.5 MG Tab 01-07 16:58: 14 No .5MG As Needed [facility] Amlodipine (Norvasc) 10 MG Tab 01-07 16:58: 14 No 10MG Twice Daily [facility] Carvedilol 01-07 16:58: 14 No 12.5MG Twice Daily [facility]) Ergocalcife rol (Vitamin D2) (Vitamin D2) 50,000 UNIT Capsule 01-07 16:58: 14 No [id number] Every Week [facility]) Levothyroxi ne Sodium (Levoxyl) 125 MCG Tablet 01-07 16:58: 14 No 125MCG Every Morning [facility]) Alendronate Sodium (Fosamax) 70 MG Tab 01-07 16:58: 14 No 70MG Every Week [facility]) Alprazolam (Xanax) 0.5 MG Tab 01-07 16:58: 14 No .5MG As Needed [facility]) Amlodipine (Norvasc) 10 MG Tab 01-07 16:58: 14 No 10MG Twice Daily [facility] [place] Carvedilol 01-07 16:58: 14 No 12.5MG Twice Daily [facility]) Clopidogrel Bisulfate (Clopidogre l) 75 Tablet 01-07 16:58: 14 No 75MG Daily [facility] Ergocalcife rol (Vitamin D2) (Vitamin D2) 50,000 UNIT Capsule 01-07 16:58: 14 No [id number] Every Week [facility]) Levothyroxi ne Sodium (Levoxyl) 125 MCG Tablet 01-07 16:58: 14 No 125MCG Every Morning [facility]) Clopidogrel Bisulfate (Clopidogre l) 75 Tablet 01-07 16:58: 14 02-05 10:23 :34 No 75MG Daily [facility]) Clonidine (Catapres) 0.2 MG Tab 01-07 16:58: 14 01-08 17:34 :31 No .2MG Twice Daily [facility] Ramipril 01-07 16:58: 14 01-08 17:34 :54 No 10MG Daily [facility] [place] Clonidine (Catapres) 0.2 MG Tab 01-07 16:58: 14 01-08 17:34 :31 No .2MG Twice Daily [facility] [place] Ramipril 01-07 16:58: 14 01-08 17:34 :54 No 10MG Daily [facility] [place] Aspirin Chewable 05-23 20:53: 01 No 81MG Daily [facility] [place] Aspirin-Dip yridamole (Aggrenox) 1 CAP Cap 05-23 10:31: 24 No 1CAP Twice Daily [facility] ([place] Atorvastati n Calcium (Lipitor) 40 MG Tab 05-23 10:31: 24 No 40MG Bedtime [facility] [place] Valsartan/H ydrochlorot hiazide (Diovan Hct 160-25 Mg Tablet) 1 EACH Tablet 05-23 10:31: 24 05-23 20:53 :23 No 1EACH Daily [facility] ([place] Esomeprazol e Magnesium (Nexium) 40 MG Capsule. 05-23 10:29: 35 No 40MG Daily [facility] [place] Esomeprazol e Magnesium (Nexium) 40 MG Capsule. 05-23 01:00: 00 No 40MG Every Morning [facility] Aspirin-Dip yridamole (Aggrenox) 1 CAP Cap 05-23 01:00: 00 No 1CAP Twice Daily [facility] Atorvastati n Calcium (Lipitor) 40 MG Tab 05-23 01:00: 00 No [facility]ir[facility] Chewable 05-23 01:00: 00 No 325[facility] Valsartan/H ydrochlorot hiazide (Diovan Hct 160-25 Mg Tablet) 1 EACH Tablet 05-23 01:00: 00 05-23 20:53 :23 No 1EACH Daily [facility] Alprazolam (Xanax) 0.5 MG Tab 05-22 16:38: 00 No .5MG Daily [facility]) Apixaban (Eliquis) 5 MG Tablet 05-22 16:31: 50 05-23 20:53 :23 No 5MG Twice Daily [facility]) Alprazolam (Xanax) 0.5 MG Tab 05-22 01:00: 00 No .5MG As Directed [facility] Apixaban (Eliquis) 5 MG Tablet 05-22 01:00: 00 05-23 20:53 :23 No 5MG Twice Daily [facility] Levothyroxi ne Sodium (Levoxyl) 137 MCG Tablet 04-26 10:23: 27 No 137MCG Daily [facility] Phenytoin Sodium Extended (Dilantin) 100 MG Cap 04-26 09:00: 09 No 300MG Twice Daily [facility] [place] Pregabalin (Lyrica) 75 MG Cap 04-26 09:00: 09 No 75MG Bedtime [facility] [place] Ramipril (Altace) 5 MG Cap 04-26 09:00: 09 No 5MG Twice Daily [facility] Amlodipine Besylate 04-26 09:00: 09 No 10MG Twice Daily [facility] Clonidine Hcl 04-26 09:00: 09 No .2MG Twice Daily [facility] [place] Aspirin (Ecotrin) 325 MG Tab 04-26 09:00: 09 05-23 20:53 :23 No 325MG Daily [facility] Aspirin-Dip yridamole (Aggrenox) 1 CAP Cap 04-26 09:00: 09 05-22 16:37 :15 No 1CAP Twice Daily [facility] Atorvastati n Calcium (Lipitor) 40 MG Tab 04-26 09:00: 09 05-22 16:36 :30 No 40MG Bedtime [facility] Amlodipine Besylate 04-26 01:00: 00 No 10MG Twice Daily [facility] Clonidine Hcl 04-26 01:00: 00 No .3MG Three Times Daily [facility] Phenytoin Extended Release (Dilantin) 100 MG Cap 04-26 01:00: 00 No 200MG Every Morning [facility] Ramipril (Altace) 5 MG Cap 04-26 01:00: 00 No 10MG Twice Daily [facility] Levothyroxi ne Sodium (Levoxyl) 137 MCG Tablet 04-26 01:00: 00 No 137MCG Every Morning [facility] Pregabalin (Lyrica) 75 MG Cap 04-26 01:00: 00 11-20 10:42 :37 No 75MG Bedtime [facility] Aspirin (Ecotrin) 325 MG Tab 04-26 01:00: 00 05-23 20:53 :23 No 325MG Daily [facility] Aspirin-Dip yridamole (Aggrenox) 1 CAP Cap 04-26 01:00: 00 05-22 16:37 :15 No 1CAP Twice Daily [facility] Atorvastati n Calcium (Lipitor) 40 MG Tab 04-26 01:00: 00 05-22 16:36 :30 No 40MG Bedtime [facility] Carvedilol 2012-04 03:17: 23 No 25MG Twice Daily [facility] [place] Valsartan/H ydrochlorot hiazide (Diovan Hct) 160 MG/25 MG Tablet 2012-04 03:17: 23 05-22 16:32 :01 No 1TABLET Daily [facility]) Clonidine Hcl 2012-04 03:17: 23 04-26 09:00 :46 No .1MG Twice Daily [facility] Levothyroxi ne Sodium (Synthroid) 112 MCG Tab 2012-04 03:17: 23 04-26 09:06 :44 No 112MCG Daily [facility] ([place] Nifedipine (Procardia) 10 MG Capsule 2012-04 03:17: 23 04-26 09:05 :51 No 30MG Twice Daily [facility]) Pravastatin Sodium (Pravachol) 40 MG Tab 2012-04 03:17: 23 04-26 10:21 :36 No 40MG Bedtime [facility]) Carvedilol 2012-04 01:00: 00 No 25MG Twice Daily [facility] Valsartan/H ydrochlorot hiazide (Diovan Hct) 160 MG/25 MG Tablet 2012-04 01:00: 00 05-22 16:32 :01 No 1TABLET Daily [facility] Clonidine Hcl 2012-04 01:00: 00 04-26 09:00 :46 No .1MG Twice Daily [facility] Levothyroxi ne Sodium (Synthroid) 112 MCG Tab 2012-04 01:00: 00 04-26 09:06 :44 No 112MCG Daily [facility] Nifedipine (Procardia) 10 MG Capsule 2012-04 01:00: 00 04-26 09:05 :51 No 30MG Twice Daily [facility] Pravastatin Sodium (Pravachol) 40 MG Tab 2012-04 01:00: 00 04-26 10:21 :36 No 40MG Bedtime [facility] Vital Signs Vital Name Observation Time Observation Value Comments S ource WEIGHT 2021-09-15 09:52:00 44.551938 kg HEIGHT 2021-09-15 09:52:00 165.1 cm WEIGHT 2020-11-20 10:40:00 43.953390 kg HEIGHT 2020-11-20 10:40:00 165.1 cm WEIGHT 2020-02-02 02:52:00 45.029611 kg HEIGHT 2020-02-02 02:52:00 165.1 cm WEIGHT 2021-02-27 21:21:18 45.963708 kg HEIGHT 2021-02-27 21:21:18 165.1 cm WEIGHT 2020-01-08 17:14:00 45.942008 kg HEIGHT 2020-01-08 17:14:00 165.1 cm Body Temperature 2020-02-06 07:48:00 98.1 [degF] [facility] Heart Rate 2020-02-06 07:48:00 77 /min [facility] Respiratory rate 2020-02-06 07:48:00 18 /min [facility] Oxygen saturation by Pulse oximetry 2020-02-06 07:48:00 96 /min [facility] BP Systolic 2020-02-06 07:48:00 197 mm[Hg] [facility] BP Diastolic 2020-02-06 07:48:00 88 mm[Hg] [facility] Height 2020-02-04 14:13:00 165.1 cm [facility] Weight 2020-02-04 14:13:00 45.85 kg [facility] BMI (Body Mass Index) 2020-02-04 14:13:00 16.8 kg/m2 [facility] Body Temperature 2020-02-04 12:00:00 98.1 [degF] [facility] Heart Rate 2020-02-04 12:00:00 85 /min [facility] Respiratory rate 2020-02-04 12:00:00 20 /min [facility] [place] Oxygen saturation by Pulse oximetry 2020-02-04 12:00:00 94 /min [facility] [place] BP Systolic 2020-02-04 12:00:00 178 mm[Hg] [facility] ([place] BP Diastolic 2020-02-04 12:00:00 104 mm[Hg] [facility] [place] Body Temperature 2020-01-09 15:40:00 96.9 [degF] [facility] ([place]) Heart Rate 2020-01-09 15:40:00 66 /min [facility] ([place]) Respiratory rate 2020-01-09 15:40:00 18 /min [facility] ([place] Oxygen saturation by Pulse oximetry 2020-01-09 15:40:00 98 /min Counts include 234 beds at the [facility]. [place] BP Systolic 2020-01-09 15:40:00 122 mm[Hg] [facility] [place] ([place] BP Diastolic 2020-01-09 15:40:00 64 mm[Hg] [facility] ([place] Height 2020-01-09 12:38:00 165.1 cm [facility] ([place]) Weight 2020-01-09 12:38:00 45.90 kg [facility] ([place]) BMI (Body Mass Index) 2020-01-09 12:38:00 16.8 kg/m2 [facility] ([place] Procedures Procedure Date / Time Performed Performing Clinicia n Source MRI Brain W WO Con 2020-02-04 07:58:00 [facility] ([place] MRI Thoracic Spine WO Con 2020-02-04 07:57:00 [facility] [place] MRA Angio Abd W WO Con 2020-02-04 00:00:00 [facility] ([place] NM Cardiac Stress W EF & WF 2020-02-03 00:00:[address] [facility] ([place] XR Chest Pa & Lat STANDARD 2020-02-02 10:02:[address] [facility] ([place] CR Pharm Cardiolite Stress 2020-02-02 09:22:[address] [facility] ([place] EKG 12 Lead in Emergency Room 2020-02-01 23:44:[address] [facility] CT Brain WO Con 2020-02-01 22:13:00 [facility] XR Chest 1 View Portable 2020-02-01 22:13:[address] [facility] ([place] EKG 12 Lead in Emergency Room 2020-01-10 05:18:[address] [facility] [place] MRI Brain W WO Con 2020-01-09 07:48:[address] [facility] US Carotid Doppler STANDARD 2020-01-08 23:45:[address] [facility] ([place] EKG 12 Lead in Emergency Room 2020-01-08 12:27:[address] [facility] ([place] EKG 12 Lead in Emergency Room 2020-01-08 00:00:[address] [facility] [place] Brain WO Con 2020-01-08 00:00:00 [facility] CTA Angio Head W WO Con 2020-01-08 00:00:[address] [facility] [place] CTA Angio Neck W WO Con 2020-01-08 00:00:[address] [facility] ([place] US Carotid Doppler STANDARD 2020-01-08 00:00:[address] [facility] ([place] Encounters Start Date/Time End Date/Time Encounter Type Admission Type Attending [facility] Care Facility Care Department Encounter ID Source 2023-01-10 08:10:00 2023-01-10 08:11:00 Outpatient Ramakrishna Ko [facility] [id number] [facility] 2023-01-10 08:10:00 2023-01-10 08:11:00 Departed Clinical [facility] [id number] [facility] 2022-12-21 13:00:00 2022-12-21 13:00:00 Inpatient Jia JorgeRamakrishna [facility] [id number] [facility] 2022-07-13 15:00:00 2022-07-13 15:00:00 Outpatient Jia JorgeRamakrishna [facility] [id number] [facility] 2022-06-16 14:00:00 2022-06-22 23:59:00 Outpatient Jia JorgeRamakrishna [facility] [id number] [facility] 2022-06-01 15:00:00 2022-06-01 15:00:00 Outpatient Jia JorgeRamakrishna [facility] [id number] [facility] 2022-05-27 13:59:00 2022-05-27 13:59:00 Outpatient Jia JorgeRamakrishna [facility] [id number] [facility] 2022-05-18 13:00:00 2022-05-25 23:59:00 Outpatient Jia JorgeRamakrishna [facility] [id number] [facility] 2022-05-12 15:13:00 2022-05-12 15:13:00 Outpatient Jia PatelRamakrishna [facility] [id number] [facility] 2022-03-12 10:15:00 2022-03-12 10:16:00 Outpatient Jia PatelRamakrishna [facility] [id number] [facility] 2022-01-28 00:00:00 2022-01-28 00:00:00 Outpatient Ramakrishna Patel [facility] [id number] [facility] 2022-01-13 00:00:00 2022-01-13 00:00:00 Outpatient Ramakrishna Ko [facility] [id number] [facility] 2021-12-15 14:46:00 2021-12-23 23:59:00 Outpatient Ramakrishna Ko [facility] [id number] [facility] 2021-12-14 12:52:00 2021-12-14 12:52:00 Outpatient Jia OquendoJorge, Jamie [facility] [id number] [facility] 2021-12-13 00:00:00 2021-12-13 00:00:00 Outpatient Ramakrishna Ko [facility] [id number] [facility] 2021-12-11 13:12:00 2021-12-11 13:12:00 Outpatient Ramakrishna Ko [facility] [id number] [facility] 2021-12-10 14:45:00 2021-12-10 14:45:00 Outpatient Ramakrishna Ko [facility] [id number] [facility] 2021-12-09 14:43:00 2021-12-09 14:43:00 Outpatient Jia SchmitzJorge, Jamie [facility] [id number] [facility] 2021-12-08 14:29:00 2021-12-08 14:29:00 Outpatient Jia JorgeRamakrishna [facility] [id number] [facility] 2021-12-07 10:13:00 2021-12-07 10:13:00 Outpatient Ramakrishna Ko [facility] [id number] [facility] 2021-12-04 15:51:00 2021-12-04 15:51:00 Outpatient Ramakrishna Ko [facility] [id number] [facility] 2021-12-03 10:55:00 2021-12-03 10:55:00 Outpatient Ramakrishna Ko [facility] [id number] [facility] 2021-12-02 15:18:00 2021-12-02 15:18:00 Outpatient Ramakrishna Ko [facility] [id number] [facility] 2021-12-01 14:54:00 2021-12-01 14:54:00 Outpatient Ramakrishna Ko [facility] [id number] [facility] 2021-11-30 15:01:00 2021-11-30 15:01:00 Outpatient Ramakrishna Ko [facility] [id number] [facility] 2021-11-26 13:59:00 2021-11-26 13:59:00 Outpatient Ramakrishna Ko [facility] [id number] [facility] 2021-11-25 13:46:00 2021-11-25 13:46:00 Outpatient Jia JorgeRamakrishna dye [facility] [id number] [facility] 2021-11-24 10:31:00 2021-11-24 10:31:00 Outpatient Jia Jorge, Jamie [facility] [id number] [facility] 2021-11-23 09:40:00 2021-11-23 09:40:00 Outpatient Ramakrishna Ko [facility] [id number] [facility] 2021-11-20 12:59:00 2021-11-22 23:59:00 Outpatient Ramakrishna Ko [facility] [id number] [facility] 2021-11-19 13:07:00 2021-11-19 13:07:00 Outpatient Ramakrishna Ko [facility] [id number] [facility] 2021-11-18 12:58:00 2021-11-18 12:58:00 Outpatient Jia JorgeRamakrishna [facility] [id number] [facility] 2021-11-17 13:46:00 2021-11-17 13:46:00 Outpatient Jia Ramakrishna Patel [facility] [id number] [facility] 2021-11-16 13:34:00 2021-11-16 13:34:00 Outpatient Jia Ramakrishna Patel [facility] [id number] [facility] 2021-11-13 14:50:00 2021-11-13 14:50:00 Outpatient Jia Jorge, Jamie [facility] [id number] [facility] 2021-11-12 13:49:00 2021-11-12 13:49:00 Outpatient Jia JorgeRamakrishna [facility] [id number] [facility] 2021-11-10 16:52:00 2021-11-10 16:52:00 Outpatient Jia Jorge, Jamie [facility] [id number] [facility] 2021-11-09 11:12:00 2021-11-09 11:12:00 Outpatient Ramakrishna Ko [facility] [id number] [facility] 2021-11-06 09:22:00 2021-11-06 09:22:00 Outpatient Ramakrishna Ko [facility] [id number] [facility] 2021-11-05 10:05:00 2021-11-05 10:05:00 Outpatient Ramakrishna Ko [facility] [id number] [facility] 2021-11-04 13:47:00 2021-11-04 13:47:00 Outpatient Ramakrishna Ko [facility] [id number] [facility] 2021-11-03 12:49:00 2021-11-03 12:49:00 Outpatient Ramakrishna Ko [facility] [id number] [facility] 2021-11-02 09:25:00 2021-11-02 09:25:00 Outpatient Ramakrishna Ko [facility] [id number] [facility] 2021-10-30 10:03:00 2021-10-30 10:03:00 Outpatient Jia Ramakrishna Patel [facility] [id number] [facility] 2021-10-29 11:23:00 2021-10-29 11:23:00 Outpatient Jia JorgeRamakrishna dye [facility] [id number] [facility] 2021-10-28 13:45:00 2021-10-28 13:45:00 Outpatient Ramakrishna Ko [facility] [id number] [facility] 2021-10-27 10:15:00 2021-10-27 10:15:00 Outpatient Ramakrishna Ko [facility] [id number] [facility] 2021-10-23 10:05:00 2021-10-23 10:05:00 Outpatient Ramakrishna Ko [facility] [id number] [facility] 2021-10-22 10:02:00 2021-10-22 23:59:00 Outpatient Ramakrishna Ko [facility] [id number] [facility] 2021-10-21 13:14:00 2021-10-21 13:14:00 Outpatient Ramakrishna Ko [facility] [id number] [facility] 2021-10-12 10:29:00 2021-10-12 10:29:00 Outpatient Ramakrishna Ko [facility] [id number] [facility] 2021-10-01 10:15:00 2021-10-01 10:16:00 Outpatient Jia Reji Fernandez [facility] [id number] [facility] 2021-09-16 08:02:00 2021-09-16 13:56:00 Outpatient Jia Reji Fernandez [facility] [id number] [facility] 2021-09-14 11:47:00 2021-09-14 11:48:00 Outpatient Jia Reji Fernandez [facility] [id number] [facility] 2020-11-21 06:09:00 2020-11-21 09:10:00 Outpatient Iris Wise [facility] [id number] [facility] [address] [facility] 2020-10-10 08:56:00 2020-10-10 08:57:00 Outpatient Ally Galan [facility] [id number] [facility] [address] [facility] 2020-09-24 06:53:00 2020-09-24 06:54:00 Outpatient Ally Galan [facility] [id number] [facility] [address] [facility] 2020-02-02 10:11:00 2020-02-06 10:55:00 Discharged Inpatient ER lAly Jones [facility] [address] [id number] [facility] [address] [facility]. Joseph ([place]) 2020-02-02 10:11:00 2020-02-06 10:55:00 Inpatient ER Al[facility] [id number] [facility] 2020-02-01 21:31:00 2020-02-01 21:31:00 Emergency ER ProviderYovana [facility] [id number] [facility] [place] 2020-01-10 04:59:00 2020-01-10 07:10:[address] [facility] [id number] [facility] [address] [facility] [place] ([place]) 2020-01-10 04:59:00 2020-01-10 07:10:00 Emergency ER Khadra Barragan [facility] [id number] [facility] 2020-01-08 14:15:00 2020-01-09 18:08:00 Discharged Inpatient ER Ally Jones [facility] [address] [id number] [facility] [address] [facility]. [place] ([place]) 2020-01-08 14:15:00 2020-01-09 18:08:00 Inpatient ER Ally Jones [facility] [id number] [facility] Results Test Description Test Time Test Comments Results Resul t Comments Source [id number] SURGICAL PATHOLOGY, LEVEL IV 2021-09-17 14:00:[address] [address] Laboratory Printed: 09/17/[address] [place] [address] DAEMPathology Page: 1 Patient: MARYJANE JAMESON Birthdate: 1960 Age/Sex: 61/F Spec#: [id number]: Reji Fernandez MD Specimen Date: 09/16/21 Received Date: 09/16/21 Specimen: VOCAL CORD BIOPSY PATHOLOGIC DIAGNOSIS Vocal cord, left, biopsy: - INVASIVE SQUAMOUS CELL CARCINOMA, WELL DIFFERENTIATED. - Background of high grade squamous dysplasia. COMMENT: This case was reviewed in intradepartmental consultation. Pathologist:Ilda Avila MD Entered by:09/17/21 - 1359 JACOB ----- PROCEDURES: [id number] GROSS DESCRIPTION A. VOCAL CORD BIOPSY LEFT The specimen is received in 10% formalin, and is labeled with the patient's information and"left vocal cord biopsy". The specimen consists of multiple cobos sot tissue fragments inaggregate measuring 0.2 cm. The entire specimen is filtered and submitted in one cassette. Dictated by: LA AMATO Entered by: 09/16/21 - 1245 RUDOLPH.YGP Patient: MARYJANE JAMESON Re09/16/21Lo: [facility] MR#: [id number] CONTINUED ON NEXT PAGE Dis: Sta: [facility] [address] [address] Laboratory Printed: 09/17/21 [facility]: 2 Patient: MARYJANE JAMESON [id number] (Continued) MICROSCOPIC DESCRIPTION A microscopic examination was performed to arrive at the diagnostic conclusion reported. Signed (Electronically Signed) Ilda Avila MD 09/17/21 Patient: MARYJANE JAMESON Re09/16/21Loc: [facility] MR#: [id number] END OF REPORT Dis: Sta: DEP [facility] Resident in Congregate Care Setting: NoEmployed in Healthcare: NoFirst Test: NoHospitalized: NoICU:No: NoReason for Testing: Pre-Procedure ScreeningSource: Nasopharyngeal SwabSymptomatic as defined by CDC: NoChemistry 2021-09-14 13:23:00* Test Item Value Reference Range Interpretation Comme nts Chemistry (test code = NA-T) 129 mmol/L 136-145 L Chemistry (test code = K-T) 4.1 mmol/L 3.5-5.1 N Chemistry (test code = CL) 92 mmol/L 98-107 L Chemistry (test code = CO2) 25 mmol/L 23-31 N Chemistry (test code = ANGP) 16 mmol/L 10-20 N Chemistry (test code = BUN) 15 mg/dL 9.8-20.1 N Chemistry (test code = CREATT) 0.61 mg/dL 0.6-1.1 N Chemistry (test code = EGFRMDRD) Greater than 90 Reference Range for Estimated GFR: Greater than 90 mL/min/1.73 m2NOTE:The MDRD equation has not been validated for use with theelderly (over 70 years of age), women, patientswith serious comorbid condition or persons with extremes ofbody size, muscle mass, or nutritional status. Chemistry (test code = GLU-T) 126 mg/dL 80-115 H Chemistry (test code = CA) 8.7 mg/dL 7.8-10.44 N [id number] 12:57:00* Test Item Value Reference Range Interpretation Comme nts Hematology (test code = WBCT) 9.5 10x3/uL 3.5-10.5 N Hematology (test code = RBCT) 3.72 10x6/uL 3.90-5.03 L Hematology (test code = HGBT) 12.3 g/dL 12.0-15.5 N Hematology (test code = HCTT) 35.2 % 34.9-44.5 N Hematology (test code = MCV) 94.6 fl 81.6-98.3 N Hematology (test code = MCH) 33.1 pg 27.0-33.0 H Hematology (test code = MCHC) 34.9 g/dL 32.0-36.0 N Hematology (test code = RDW) 11.9 % 11.5-14.5 N Hematology (test code = PLTT) 187 10x3/uL 150-450 N Hematology (test code = MPV) 9.4 fl 7.4-10.4 N [id number] SURGICAL PATHOLOGY, LEVEL [id number] 09:46:00 [place] [address] Laboratory Printed: 11/24/20 0946 BKG DAEMPathology Page: 1 Patient: MARYJANE JAMESON Birthdate: 1960 Age/Sex: 60/F Spec#: [id number]: Iris Pham MD Specimen Date: 11/21/20 Received Date: 11/21/20 Specimen: GASTRIC BIOPSY PATHOLOGIC DIAGNOSIS A. Stomach, antrum and body, endoscopic biopsy: - Mild reactive gastropathy. B. Esophagus, lower, endoscopic biopsy: - Mildactive esophagitis, consistent with gastroesophageal reflux. - No Jeter's specialized columnar epithelium identified. C. Large intestine, rectum, "polyp," endoscopic polypectomy: - Hyperplastic polyp. Pathologist:Jose Villa MD Entered by:11/24/20 0945 SUJATA PROCEDURES: 62356/3 GROSS DESCRIPTION A. GASTRIC BIOPSY The specimen is received in 10% formalin, and is labeled with the patient's information and"gastric body and antrum biopsy." The specimen consists of multiple pink-cobos soft tissuefragments measuring 0.8 cm in aggregate. The specimen is entirely submitted in cassette A. Patient: MARYJANE JAMESON Re11/21/20Loc: [facility] MR#: [id number] CONTINUED ON NEXT PAGE Dis: Sta: [facility] [address] [address] Laboratory Printed: 11/24/20 0946 [facility] DAEMPathology Page: 2 Patient: MARYJANE JAMESON [id number] (Continued) GROSS DESCRIPTION (Continued) B. LOWER ESOPHAGEAL BIOPSY The specimen is received in 10% formalin, and is labeled with the patient's information and"lower esophagus biopsy." The specimen consists of multiple pink- cobos soft tissue fragmentsmeasuring 0.8 cm in aggregate. The specimen is entirely submitted in cassette B. C. POLYP, RECTUM The specimen is received in 10% formalin, and is labeled with the patient's information and"rectal polyp." The specimen consists of a portion of pink-cobos soft tissue measuring 0.3cm. The specimen is entirely submitted in cassette C. Dictated by: Meli Napoles Entered by: 11/21/20 - 1215 LAB.LUCINDA MICROSCOPIC DESCRIPTION A microscopic examination was performed to arrive at the diagnostic conclusion reported. Signed (Electronically Signed) Jose Villa MD 11/24/20 Patient: MARYJANE JAMESON Re11/21/20Loc: [facility] MR#: [id number] END OF REPORT Dis: Sta: DEP [facility] Reference Lab [id number] 15:39:00* Test Item Value Reference Range Interpretation Comme nts Reference Lab Testing (test code = VITDH) 36 ng/mL . Reference Range: All Ages: Target levels 30 - 100 Reference Lab Testing (test code = VITD2) 32 ng/mL . This test was de veloped and its performance characteristicsdetermined by [facility]. It has not been cleared or approvedby the Food and Drug Administration. Reference Lab Testing (test code = VITD3) 3.7 ng/mL . This test was de veloped and its performance characteristicsdetermined by [facility]. It has not been cleared or approvedby the Food and Drug Administration.Performed at: [facility] [address], [place] [id number] Director: Heladio Bunch MD, Phone: [phone] [id number] 05:21:00* Test Item Value Reference Range Interpretation Comme nts Chemistry (test code = NA-T) 132 mmol/L 136-145 L Chemistry (test code = K-T) 3.7 mmol/L 3.5-5.1 N Chemistry (test code = CL) 97 mmol/L 98-107 L Chemistry (test code = CO2) 28 mmol/L 22-29 N Chemistry (test code = ANGP) 11 mmol/L 10-20 N Chemistry (test code = BUN) 8 mg/dL 9.8-20.1 L Chemistry (test code = CREATT) 0.56 mg/dL 0.6-1.1 L Chemistry (test code = EGFRMDRD) Greater than 90 Reference Range for Estimated GFR: Greater than 90 mL/min/1.73 m2NOTE:The MDRD equation has not been validated for use with theelderly (over 70 years of age), women, patientswith serious comorbid condition or persons with extremes ofbody size, muscle mass, or nutritional status. Chemistry (test code = GLU-T) 76 mg/dL 70-105 N Chemistry (test code = CA) 8.1 mg/dL 7.8-10.44 N Iiwvonhaiq7203-73-03 04:55:00* Test Item Value Reference Range Interpretation Comme nts Hematology (test code = WBCT) 10.0 thou/uL [...] code = BASO#) 0.0 thou/uL 0.0-0.2 N Serum or plasma sodium measurement (moles/volume)2020-02-05 04:39:00* Test Item Value Reference Range Interpretation Comme [facility] Sodium Level (test code = 2951-2) 132 mmol/L 136-145 [facility])Serum or plasma potassium measurement (moles/volume)2020-02-05 04:39:00* Test Item Value Reference Range Interpretation Comme [facility] Potassium Level (test code = 2823-3) 3.7 mmol/L 3.5-5.1 [facility])Serum or plasma chloride measurement (moles/volume)2020-02-05 04:39:00* Test Item Value Reference Range Interpretation Comme [facility] Chloride Level (test code = 2075-0) 97 mmol/L 98-107 [facility])Serum or plasma carbon dioxide, total measurement (moles/volume)2020-02-05 04:39:00* Test Item Value Reference Range Interpretation Comme [facility] Carbon Dioxide Level (test c ode = 2027-9) 28 mmol/L 22-29 [facility])Serum or plasma anion [id number] 04:39:00* Test Item Value Reference Range Interpretation Comme [facility] Anion Gap (test code = 18438-7) 11 mmol/L 10-20 [facility])Serum or plasma urea nitrogen measurement (mass/volume)2020-02-05 04:39:00* Test Item Value Reference Range Interpretation Comme [facility] Blood Urea Nitrogen (test co de = 3094-0) 8 mg/dL 9.8-20.1 [facility])Serum or plasma creatinine measurement (mass/volume)2020-02-05 04:39:00* Test Item Value Reference Range Interpretation Comme [facility] Creatinine (test code = 2160-0) 0.56 mg/dL 0.6-1.1 [facility])Estimated glomerular filtration rate (GFR) by Modification of Diet in Renal Disease (2020-02-05 04:39:00* Test Item Value Reference Range Interpretation Comme [facility] Estimated GFR (MDRD) (test code = 64747-2) Greater than 90 [facility])Glucose [Mass/volume] in Serum or Plasma 2020-02-05 04:39:00* Test Item Value Reference Range Interpretation Comme [facility] Glucose Level (test code = 2345-7) 76 mg/dL 70-105 [facility])Serum or plasma calcium measurement (mass/volume)2020-02-05 04:39:00* Test Item Value Reference Range Interpretation Comme [facility] Calcium Level (test code = 26595-9) 8.1 mg/dL 7.8-10.44 [facility])Leukocytes [#/volume] in Blood by Automated [id number] 04:39:00* Test Item Value Reference Range Interpretation Comme [facility] White Blood Count (test code = 6690-2) 10.0 thou/uL 4.8-10.8 [facility])Blood erythrocytes automated count (number/volume)2020-02-05 04:39:00* Test Item Value Reference Range Interpretation Comme nts Red Blood Count (test code = 789-8) 3.75 mill/uL 4.20-5.40 [facility])Blood hemoglobin measurement (mass/volume) 2020-02-05 04:39:00* Test Item Value Reference Range Interpretation Comme nts Hemoglobin (test code = 718-7) 12.0 g/dL 12.0-16.0 [facility])Automated erythrocyte mean corpuscular volume 2020-02-05 04:39:00* Test Item Value Reference Range Interpretation Comme nts Mean Corpuscular Volume (ebenezer t code = 787-2) 98.8 fL 78.0-98.0 [facility])Automated erythrocyte mean corpuscular hemoglobin (mass per erythrocyte)2020-02-05 04:39:00* Test Item Value Reference Range Interpretation Comme nts Mean Corpuscular Hemoglobin (test code = 785-6) 31.9 pg 27.0-31.0 [facility])Automated erythrocyte mean corpuscular hemoglobin concentration measurement (mass/lay3459-50-25 04:39:00* Test Item Value Reference Range Interpretation Comme nts Mean Corpuscular Hemoglobin Concent (test code = 786-4) 32.3 g/dL 32.0-36.0 [facility])Automated erythrocyte distribution width ratio 2020-02-05 04:39:00* Test Item Value Reference Range Interpretation Comme nts Red Cell Distribution Width (test code = 788-0) 11.4 % 11.5-14.5 [facility])Automated blood platelet count (count/volume) 2020-02-05 04:39:00* Test Item Value Reference Range Interpretation Comme nts Platelet Count (test code = 777-3) 190 thou/uL 130-400 [facility])Automated blood platelet mean lspghh0875-12-96 04:39:00* Test Item Value Reference Range Interpretation Comme nts Mean Platelet Volume (test c ode = 82635-4) 7.7 fL 7.4-10.4 [facility])Automated blood neutrophils/100 leukocytes 2020-02-05 04:39:00* Test Item Value Reference Range Interpretation Comme nts Neutrophils % (test code = 770-8) 66.1 % 42.0-75.0 [facility])Lymphocytes/100 leukocytes in Blood by Automated [id number] 04:39:00* Test Item Value Reference Range Interpretation Comme nts Lymphocytes % (test code = 736-9) 21.3 % 21.0-51.0 [facility])Automated blood monocytes/100 leukocytes 2020-02-05 04:39:00* Test Item Value Reference Range Interpretation Comme nts Monocytes % (test code = 5905-5) 11.2 % 0.0-10.0 [facility])Automated blood eosinophils/100 leukocytes 2020-02-05 04:39:00* Test Item Value Reference Range Interpretation Comme nts Eosinophils % (test code = 713-8) 0.9 % 0.0-10.0 [facility])Automated blood basophils/100 leukocytes 2020-02-05 04:39:00* Test Item Value Reference Range Interpretation Comme nts Basophils % (test code = 706-2) 0.5 % 0.0-1.0 [facility])Blood neutrophils automated count (number/volume)2020-02-05 04:39:00* Test Item Value Reference Range Interpretation Comme nts Neutrophils # (test code = 751-8) 6.6 thou/uL 1.40-6.50 [facility])Lymphocytes [#/volume] in Blood by Automated [id number] 04:39:00* Test Item Value Reference Range Interpretation Comme nts Lymphocytes # (test code = 731-0) 2.1 thou/uL 1.20-3.40 [facility])Blood monocytes automated count (number/volume)2020-02-05 04:39:00* Test Item Value Reference Range Interpretation Comme [facility] Monocytes # (test code = 742-7) 1.1 thou/uL 0.11-0.59 [facility])Blood eosinophils automated count (count/volume)2020-02-05 04:39:00* Test Item Value Reference Range Interpretation Comme [facility] Eosinophils # (test code = 711-2) 0.1 thou/uL 0.0-0.7 [facility])Automated blood basophil count (count/volume) 2020-02-05 04:39:00* Test Item Value Reference Range Interpretation Comme [facility] Basophils # (test code = 704-7) 0.0 thou/uL 0.0-0.2 [facility])Queqtsusc9242-92-47 05:12:00* Test Item Value Reference Range Interpretation Comme [facility] Chemistry (test code = DIL) 17.3 ug/mL 10.0-20.0 N Therapeutic Rang e: 10.0 - 20.0 mcg/mLToxic Range: Greater than 30.0 mcg/mL Date of next dose: 02/04/2020Time of next dose: 0900Serum or plasma phenytoin measurement (mass/volume)2020-02-04 04:36:00* Test Item Value Reference Range Interpretation Comme [facility] Phenytoin (Dilantin) Level ( test code = 3968-5) 17.3 ug/mL 10.0-20.0 [facility])Serum or plasma phenytoin measurement (mass/volume)2020-02-04 04:36:00* Test Item Value Reference Range Interpretation Comme [facility] Phenytoin (Dilantin) Level ( test code = 3968-5) 17.3 ug/mL 10.0-20.0 [facility])Chemistry - Irvulayk9524-87-31 05:38:00* Test Item Value Reference Range Interpretation Comme [facility] Chemistry - Specials (test c ode = TSH3) 2.2521 uIU/mL 0.35-4.94 N Chemistry - BNP, HgbA1c, DOBn3842-12-88 05:24:00* Test Item Value Reference Range Interpretation Comme [facility] Chemistry - BNP, HgbA1c, PTH i (test code = BNP) 27.3 pg/mL 0-100 N Blhnjulgy9257-42-50 05:24:00* Test Item Value Reference Range Interpretation Comme [facility] Chemistry (test code = NA-T) 133 mmol/L 136-145 L Chemistry (test code = K-T) 3.5 mmol/L 3.5-5.1 N Chemistry (test code = CL) 96 mmol/L 98-107 L Chemistry (test code = CO2) 29 mmol/L 22-29 N Chemistry (test code = ANGP) 12 mmol/L 10-20 N Chemistry (test code = BUN) 9 mg/dL 9.8-20.1 L Chemistry (test code = CREATT) 0.63 mg/dL 0.6-1.1 N Chemistry (test code = EGFRMDRD) Greater than 90 Reference Range for Estimated GFR: Greater than 90 mL/min/1.73 m2NOTE:The MDRD equation has not been validated for use with theelderly (over 70 years of age), women, patientswith serious comorbid condition or persons with extremes ofbody size, muscle mass, or nutritional status. Chemistry (test code = GLU-T) 117 mg/dL 70-105 H Chemistry (test code = CA) 8.6 mg/dL 7.8-10.44 N Egzksenkh0477-89-40 05:24:00* Test Item Value Reference Range Interpretation Comme [facility] Chemistry (test code = CHOL) 138 mg/dl < 200 Desired Chemistry (test code = TRIG) 60 mg/dL Less than 150 Chemistry (test code = HDL) 63 mg/dL >60 Neg Risk Adult HDL levels in terms of risk for Coronary Heart Disease > or Equal to 60 mg/dL Negative Risk < 40 mg/dL HIGH Risk Chemistry (test code = LDL) 63 mg/dL Levels in terms of risk for coronary heart disease: Desirable: Less than 130 mg/dL Borderline High Risk: 130 - 159 mg/dL High Risk: Greater than 160 mg/dL Chemistry (test code = CRISK) 2.2 Less than 4.5 Adult levels in terms of risk for Coronary Heart Disease: Dangerous level: Greater than 8.3 High: 5.6 - 8.3 Average: 3.7 - 5.6 Below average: 2.5 - 3.7 Protection probable: Less than 2.5 Wmnchyese2143-48-01 05:16:00* Test Item Value Reference Range Interpretation Comme nts Chemistry (test code = DIL) 24.4 ug/mL 10.0-20.0 H Therapeutic Rang e: 10.0 - 20.0 mcg/mLToxic Range: Greater than 30.0 mcg/mL Date of next dose: 02/03/2020Time of next dose: 5986Ghrekvajzu2367-47-83 05:05:00* Test Item Value Reference Range Interpretation Comme nts Hematology (test code = WBCT) 10.7 thou/uL [...] code = BASO#) 0.0 thou/uL 0.0-0.2 N Serum or plasma cholesterol measurement (mass/volume)2020-02-03 04:27:00* Test Item Value Reference Range Interpretation Comme [facility] Cholesterol Level (test code = 2093-3) 138 mg/dl <199 [facility])Serum or plasma triglyceride measurement (mass/volume)2020-02-03 04:27:00* Test Item Value Reference Range Interpretation Comme [facility] Triglycerides Level (test co de = 2571-8) 60 mg/dL Less than 150 [facility])Serum or plasma cholesterol in HDL measurement (mass/volume)2020-02-03 04:27:00* Test Item Value Reference Range Interpretation Comme [facility] HDL Cholesterol (test code = 2085-9) 63 mg/dL [facility])Cholesterol in LDL [Mass/volume] in Serum or Plasma by aqwyhovnvoh6446-38-65 04:27:00* Test Item Value Reference Range Interpretation Comme [facility] LDL Cholesterol, Calculated (test code = 61713-9) 63 mg/dL [facility])Serum or plasma cardiac heart disease risk xttci1090-75-09 04:27:00* Test Item Value Reference Range Interpretation Comme [facility] Coronary Heart Disease Risk Ratio (test code = 68130-6) 2.2 Less than 4.5 [facility])Serum or plasma thyrotropin measurement by detection limit <= 0.005 miu/l (units/k0328-44-14 04:27:00* Test Item Value Reference Range Interpretation Comme [facility] TSH 3rd Generation (test cod e = 37023-2) 2.2521 uIU/mL 0.35-4.94 [facility])Leukocytes [#/volume] in Blood by Automated umllj3104-97-45 04:27:00* Test Item Value Reference Range Interpretation Comme [facility] White Blood Count (test code = 6690-2) 10.7 thou/uL 4.8-10.8 [facility])Blood erythrocytes automated count (number/volume)2020-02-03 04:27:00* Test Item Value Reference Range Interpretation Comme nts Red Blood Count (test code = 789-8) 3.95 mill/uL 4.20-5.40 [facility])Blood hemoglobin measurement (mass/volume) 2020-02-03 04:27:00* Test Item Value Reference Range Interpretation Comme nts Hemoglobin (test code = 718-7) 13.1 g/dL 12.0-16.0 [facility])Automated erythrocyte mean corpuscular volume 2020-02-03 04:27:00* Test Item Value Reference Range Interpretation Comme nts Mean Corpuscular Volume (ebenezer t code = 787-2) 98.5 fL 78.0-98.0 [facility])Automated erythrocyte mean corpuscular hemoglobin (mass per erythrocyte)2020-02-03 04:27:00* Test Item Value Reference Range Interpretation Comme nts Mean Corpuscular Hemoglobin (test code = 785-6) 33.2 pg 27.0-31.0 [facility])Automated erythrocyte mean corpuscular hemoglobin concentration measurement (mass/[id number] 04:27:00* Test Item Value Reference Range Interpretation Comme nts Mean Corpuscular Hemoglobin Concent (test code = 786-4) 33.7 g/dL 32.0-36.0 [facility])Automated erythrocyte distribution width ratio 2020-02-03 04:27:00* Test Item Value Reference Range Interpretation Comme nts Red Cell Distribution Width (test code = 788-0) 11.7 % 11.5-14.5 [facility])Automated blood platelet count (count/volume) 2020-02-03 04:27:00* Test Item Value Reference Range Interpretation Comme nts Platelet Count (test code = 777-3) 220 thou/uL 130-400 [facility])Automated blood platelet mean [id number] 04:27:00* Test Item Value Reference Range Interpretation Comme nts Mean Platelet Volume (test c ode = 28699-3) 7.6 fL 7.4-10.4 [facility])Automated blood neutrophils/100 leukocytes 2020-02-03 04:27:00* Test Item Value Reference Range Interpretation Comme nts Neutrophils % (test code = 770-8) 65.6 % 42.0-75.0 [facility])Lymphocytes/100 leukocytes in Blood by Automated ojoal7703-32-41 04:27:00* Test Item Value Reference Range Interpretation Comme nts Lymphocytes % (test code = 736-9) 19.7 % 21.0-51.0 [facility])Automated blood monocytes/100 leukocytes 2020-02-03 04:27:00* Test Item Value Reference Range Interpretation Comme nts Monocytes % (test code = 5905-5) 13.5 % 0.0-10.0 [facility])Automated blood eosinophils/100 leukocytes 2020-02-03 04:27:00* Test Item Value Reference Range Interpretation Comme nts Eosinophils % (test code = 713-8) 0.7 % 0.0-10.0 [facility])Automated blood basophils/100 leukocytes 2020-02-03 04:27:00* Test Item Value Reference Range Interpretation Comme nts Basophils % (test code = 706-2) 0.5 % 0.0-1.0 [facility])Blood neutrophils automated count (number/volume)2020-02-03 04:27:00* Test Item Value Reference Range Interpretation Comme nts Neutrophils # (test code = 751-8) 7.0 thou/uL 1.40-6.50 [facility])Lymphocytes [#/volume] in Blood by Automated puzsg4085-94-82 04:27:00* Test Item Value Reference Range Interpretation Comme nts Lymphocytes # (test code = 731-0) 2.1 thou/uL 1.20-3.40 [facility])Blood monocytes automated count (number/volume)2020-02-03 04:27:00* Test Item Value Reference Range Interpretation Comme [facility] Monocytes # (test code = 742-7) 1.4 thou/uL 0.11-0.59 [facility])Blood eosinophils automated count (count/volume)2020-02-03 04:27:00* Test Item Value Reference Range Interpretation Comme [facility] Eosinophils # (test code = 711-2) 0.1 thou/uL 0.0-0.7 [facility]Automated blood basophil count (count/volume) 2020-02-03 04:27:00* Test Item Value Reference Range Interpretation Comme [facility] Basophils # (test code = 704-7) 0.0 thou/uL 0.0-0.2 [facility])Serum or plasma cholesterol measurement (mass/volume)2020-02-03 04:27:00* Test Item Value Reference Range Interpretation Comme [facility] Cholesterol Level (test code = 2093-3) 138 mg/dl <199 [facility])Serum or plasma triglyceride measurement (mass/volume)2020-02-03 04:27:00* Test Item Value Reference Range Interpretation Comme [facility] Triglycerides Level (test co de = 2571-8) 60 mg/dL Less than 150 [facility])Serum or plasma cholesterol in HDL measurement (mass/volume)2020-02-03 04:27:00* Test Item Value Reference Range Interpretation Comme [facility] HDL Cholesterol (test code = 2085-9) 63 mg/dL [facility])Cholesterol in LDL [Mass/volume] in Serum or Plasma by xialklmpbxh2083-95-38 04:27:00* Test Item Value Reference Range Interpretation Comme [facility] LDL Cholesterol, Calculated (test code = 46888-4) 63 mg/dL [facility])Serum or plasma cardiac heart disease risk [id number] 04:27:00* Test Item Value Reference Range Interpretation Comme [facility] Coronary Heart Disease Risk Ratio (test code = 92640-4) 2.2 Less than 4.5 [facility])Serum or plasma thyrotropin measurement by detection limit <= 0.005 miu/l (units/j5476-12-36 04:27:00* Test Item Value Reference Range Interpretation Comme [facility] TSH 3rd Generation (test cod e = 28113-9) 2.2521 uIU/mL 0.35-4.94 [facility])Serum or plasma sodium measurement (moles/volume)2020-02-03 04:27:00* Test Item Value Reference Range Interpretation Comme [facility] Sodium Level (test code = 2951-2) 133 mmol/L 136-145 [facility])Serum or plasma potassium measurement (moles/volume)2020-02-03 04:27:00* Test Item Value Reference Range Interpretation Comme [facility] Potassium Level (test code = 2823-3) 3.5 mmol/L 3.5-5.1 [facility])Serum or plasma chloride measurement (moles/volume)2020-02-03 04:27:00* Test Item Value Reference Range Interpretation Comme [facility] Chloride Level (test code = 2075-0) 96 mmol/L 98-107 [facility])Serum or plasma carbon dioxide, total measurement (moles/volume)2020-02-03 04:27:00* Test Item Value Reference Range Interpretation Comme [facility] Carbon Dioxide Level (test c ode = 2027-) 29 mmol/L 22-29 [facility])Serum or plasma anion [id number] 04:27:00* Test Item Value Reference Range Interpretation Comme [facility] Anion Gap (test code = 24832-7) 12 mmol/L 10-20 [facility])Serum or plasma urea nitrogen measurement (mass/volume)2020-02-03 04:27:00* Test Item Value Reference Range Interpretation Comme [facility] Blood Urea Nitrogen (test co de = 3094-0) 9 mg/dL 9.8-20.1 [facility])Serum or plasma creatinine measurement (mass/volume)2020-02-03 04:27:00* Test Item Value Reference Range Interpretation Comme [facility] Creatinine (test code = 2160-0) 0.63 mg/dL 0.6-1.1 [facility])Estimated glomerular filtration rate (GFR) by Modification of Diet in Renal Disease (2020-02-03 04:27:00* Test Item Value Reference Range Interpretation Comme [facility] Estimated GFR (MDRD) (test code = 90273-4) Greater than 90 [facility])Glucose [Mass/volume] in Serum or Plasma 2020-02-03 04:27:00* Test Item Value Reference Range Interpretation Comme [facility] Glucose Level (test code = 2345-7) 117 mg/dL 70-105 [facility])Serum or plasma calcium measurement (mass/volume)2020-02-03 04:27:00* Test Item Value Reference Range Interpretation Comme [facility] Calcium Level (test code = 22131-5) 8.6 mg/dL 7.8-10.44 [facility]Reference Lab Lfmgefz3984-07-75 15:26:00* Test Item Value Reference Range Interpretation Comme [facility] Reference Lab Testing (test code = [id number]) Not Detected NotDetected Negative (Not D etected) results do not preclude infectionwith SARS-CoV-2 virus, and should not be the sole basis of apatient management decision. Consider testing for otherviruses if clinically indicated.The use of this assay as an In vitro diagnostic under theA Emergency Use Authorization (EUA) is limited tolaboratories that are certified under the ClinicalLaboratory Improvement Amendments of 1988 (CLIA), 42 U.S.C.263a, to perform high complexity tests. Reason for Testing: Admission GbxchbghpUhqfibecr5944-47-16 05:40:00* Test Item Value Reference Range Interpretation Comme [facility] Chemistry (test code = TROPI-T) 0.128 ng/mL < 0.028 H Reference Range 0.00 - 0.028 ng/mL Negative 0.029 - 0.29 ng/mL Indeterminate Greater or Equal to 0.3 ng/mL Strongly suggests [facility] Serum or plasma troponin i.cardiac measurement by detection limit <= 0.01 NG/ml ([id number] 04:40:00* Test Item Value Reference Range Interpretation Comme nts Troponin I (test code = 88638-3) 0.128 ng/mL <0.028 [facility])Serum or plasma troponin i.cardiac measurement by detection limit <= 0.01 NG/ml ([id number] 04:40:00* Test Item Value Reference Range Interpretation Comme nts Troponin I (test code = 77103-4) 0.128 ng/mL <0.028 [facility] Test Item Value Reference Range Interpretation Comme nts Chemistry (test code = TROPI-T) 0.124 ng/mL < 0.028 H Reference Range 0.00 - 0.028 ng/mL Negative 0.029 - 0.29 ng/mL Indeterminate Greater or Equal to 0.3 [place] [id number] 02:04:00* Test Item Value Reference Range Interpretation Comme nts Coronavirus (COVID-19)(PCR) (test code = 59836-1) Not Detected NotDetected [facility]86219-02305-11-79 02:04:00* Test Item Value Reference Range Interpretation Comme nts Coronavirus (COVID-19)(PCR) (test code = 79370-5) Not Detected NotDetected [facility])Uipznqkmid2309-58-74 23:05:00* Test Item Value Reference Range Interpretation Comme nts Urinalysis (test code = UACLR) Colorless Yellow Urinalysis (test code = UACLY) Clear Clear Urinalysis (test code = SPGR) 1.004 1.002-1.036 N Urinalysis (test code = GIN) 7.5 5.0-9.0 N Urinalysis (test code = UALEU) 75 Radha/uL Negative A Urinalysis (test code = UANIT) Negative Negative Urinalysis (test code = PROUADIP) Negative mg/dL Neg-Trace Urinalysis (test code = GLUCU) Normal mg/dL Negative Urinalysis (test code = KETU) Negative mg/dL Negative Urinalysis (test code = UAUROB) Normal mg/dL Less than 2 Urinalysis (test code = UABIL) Negative Negative Urinalysis (test code = UABLD) Negative Negative Urinalysis (test code = UARBC) 0-3 HPF 0-3 Urinalysis (test code = UAWBC) 0-3 HPF 0-3 Urinalysis (test code = UASQUAM) 0-3 HPF 0-3 Urinalysis (test code = UABAC) Rare-Few HPF None Seen Urine Source: Urine JcsyesBngjzehax7190-01-34 23:04:00* Test Item Value Reference Range Interpretation Comme nts Chemistry (test code = TROPI-R) 0.125 ng/mL < 0.028 H Reference Range 0.00 - 0.028 ng/mL Negative 0.029 - 0.29 ng/mL Indeterminate Greater or Equal to 0.3 ng/mL [facility] Chemistry (test code = TROPI-R) 0.125 ng/mL < 0.028 H Reference Range 0.00 - 0.028 ng/mL Negative 0.029 - 0.29 ng/mL Indeterminate Greater or Equal to 0.3 ng/mL Strongly suggests [facility] Gijuozybb1441-01-58 23:04:00* Test Item Value Reference Range Interpretation Comme nts Chemistry (test code = CKMBM-T) 1.6 ng/mL 0-6.6 N Color of Urine by [id number] 22:55:00* Test Item Value Reference Range Interpretation Comme nts Urine Color (test code = 85763-7) Colorless Yellow [facility]Urine clarity by refractometry automated 2020-02-01 22:55:00* Test Item Value Reference Range Interpretation Comme nts Urine Clarity (test code = 16129-2) Clear Clear [facility]Specific gravity of Urine by Test strip 2020-02-01 22:55:00* Test Item Value Reference Range Interpretation Comme nts Urine Specific [place] (test code = 5811-5) 1.004 1.002-1.036 [facility]Urine pH measurement by automated test strip 2020-02-01 22:55:00* Test Item Value Reference Range Interpretation Comme nts Urine pH (test code = 98296-8) 7.5 5.0-9.0 [facility])Urine leukocyte esterase detection by automated test evctx6760-89-58 22:55:00* Test Item Value Reference Range Interpretation Comme nts Urine Leukocyte Esterase (te st code = 25000-4) 75 Radha/uL Negative [facility]Nitrite [Presence] in Urine by Test strip 2020-02-01 22:55:00* Test Item Value Reference Range Interpretation Comme nts Urine Nitrite (test code = 5802-4) Negative Negative [facility]Urine protein measurement by automated test strip (mass/volume)2020-02-01 22:55:00* Test Item Value Reference Range Interpretation Comme nts Urine Protein (test code = 06488-5) Negative mg/dL Neg-Trace [facility]Glucose [Moles/volume] in Urine by Test strip 2020-02-01 22:55:00* Test Item Value Reference Range Interpretation Comme nts Urine Glucose (UA) (test cod e = 62868-0) Normal mg/dL Negative [facility]Urine ketones measurement by automated test strip (mass/volume)2020-02-01 22:55:00* Test Item Value Reference Range Interpretation Comme nts Urine Ketones (test code = 94117-8) Negative mg/dL Negative [facility])Urine urobilinogen measurement (units/volume) by test [id number] 22:55:00* Test Item Value Reference Range Interpretation Comme nts Urine Urobilinogen (test cod e = 06182-5) Normal mg/dL Less than 2 [facility]Urine total bilirubin detection by automated test ymktf6632-75-02 22:55:00* Test Item Value Reference Range Interpretation Comme nts Urine Bilirubin (test code = 60564-0) Negative Negative [facility])Urine hemoglobin detection by automated test rxljg1045-16-37 22:55:00* Test Item Value Reference Range Interpretation Comme nts Urine Blood (test code = 50575-8) Negative Negative [facility])Urine erythrocytes detection by automated [id number] 22:55:00* Test Item Value Reference Range Interpretation Comme nts Urine RBC (test code = 86107-7) 0-3 HPF [facility]Urine leukocytes detection by automated method 2020-02-01 22:55:00* Test Item Value Reference Range Interpretation Comme nts Urine WBC (test code = 15576-9) 0-3 HPF [facility])Epithelial cells.squamous [#/area] in Urine sediment by Automated accoq2771-78-51 22:55:00* Test Item Value Reference Range Interpretation Comme nts Urine Squamous Epithelial Ce lls (test code = 39658-9) 0-3 HPF [facility]Bacteria detection in urine sediment by light mhkzkofqki9047-62-01 22:55:00* Test Item Value Reference Range Interpretation Comme nts Urine Bacteria (test code = 25114-1) Rare-Few HPF None Seen [facility])Color of Urine by Vlnh0715-03-87 22:55:00* Test Item Value Reference Range Interpretation Comme nts Urine Color (test code = 45613-8) Colorless Yellow [facility])Urine clarity by refractometry automated 2020-02-01 22:55:00* Test Item Value Reference Range Interpretation Comme nts Urine Clarity (test code = 18472-5) Clear Clear [facility]Specific gravity of Urine by Test strip 2020-02-01 22:55:00* Test Item Value Reference Range Interpretation Comme nts Urine Specific [place] (test code = 5811-5) 1.004 1.002-1.036 [facility]Urine pH measurement by automated test strip 2020-02-01 22:55:00* Test Item Value Reference Range Interpretation Comme nts Urine pH (test code = 11911-7) 7.5 5.0-9.0 [facility]Urine leukocyte esterase detection by automated test [id number] 22:55:00* Test Item Value Reference Range Interpretation Comme nts Urine Leukocyte Esterase (te st code = 26521-1) 75 Radha/uL Negative [facility]Nitrite [Presence] in Urine by Test strip 2020-02-01 22:55:00* Test Item Value Reference Range Interpretation Comme nts Urine Nitrite (test code = 5802-4) Negative Negative [facility])Urine protein measurement by automated test strip (mass/volume)2020-02-01 22:55:00* Test Item Value Reference Range Interpretation Comme nts Urine Protein (test code = 35470-5) Negative mg/dL Neg-Trace [facility])Glucose [Moles/volume] in Urine by Test strip 2020-02-01 22:55:00* Test Item Value Reference Range Interpretation Comme nts Urine Glucose (UA) (test cod e = 15682-5) Normal mg/dL Negative [facility]Urine ketones measurement by automated test strip (mass/volume)2020-02-01 22:55:00* Test Item Value Reference Range Interpretation Comme nts Urine Ketones (test code = 63851-6) Negative mg/dL Negative [facility]Urine urobilinogen measurement (units/volume) by test [id number] 22:55:00* Test Item Value Reference Range Interpretation Comme nts Urine Urobilinogen (test cod e = 02938-3) Normal mg/dL Less than 2 [facility])Urine total bilirubin detection by automated test iefzh1292-82-12 22:55:00* Test Item Value Reference Range Interpretation Comme nts Urine Bilirubin (test code = 65053-8) Negative Negative [facility])Urine hemoglobin detection by automated test dzhgu9719-29-34 22:55:00* Test Item Value Reference Range Interpretation Comme nts Urine Blood (test code = 43429-2) Negative Negative [facility]Urine erythrocytes detection by automated shnpft8877-77-13 22:55:00* Test Item Value Reference Range Interpretation Comme nts Urine RBC (test code = 34032-5) 0-3 HPF [facility])Urine leukocytes detection by automated method 2020-02-01 22:55:00* Test Item Value Reference Range Interpretation Comme nts Urine WBC (test code = 15430-4) 0-3 HPF [facility])Epithelial cells.squamous [#/area] in Urine sediment by Automated jqsec1210-76-03 22:55:00* Test Item Value Reference Range Interpretation Comme nts Urine Squamous Epithelial Ce lls (test code = 92575-1) 0-3 HPF [facility])Bacteria detection in urine sediment by light xalhxkjcqk5439-67-65 22:55:00* Test Item Value Reference Range Interpretation Comme nts Urine Bacteria (test code = 48033-0) Rare-Few HPF None Seen [facility])Fhfojlpnf5908-21-21 22:31:00* Test Item Value Reference Range Interpretation Comme nts Chemistry (test code = NA-T) 133 mmol/L 136-145 L Chemistry (test code = K-T) 4.0 mmol/L 3.5-5.1 N Chemistry (test code = CL) 94 mmol/L 98-107 L Chemistry (test code = CO2) 28 mmol/L 22-29 N Chemistry (test code = ANGP) 15 mmol/L 10-20 N Chemistry (test code = BUN) 8 mg/dL 9.8-20.1 L Chemistry (test code = CREATT) 0.67 mg/dL 0.6-1.1 N Chemistry (test code = EGFRMDRD) 90 Reference Range for Estimated GFR: Greater than 90 mL/min/1.73 m2NOTE:The MDRD equation has not been validated for use with theelderly (over 70 years of age), women, patientswith serious comorbid condition or persons with extremes ofbody size, muscle mass, or nutritional status. Chemistry (test code = GLU-T) 117 mg/dL 70-105 H Chemistry (test code = CA) 9.1 mg/dL 7.8-10.44 N Chemistry (test code = TBILI-T) 0.2 mg/dL 0.2-1.2 N Chemistry (test code = TP) 7.0 g/dL 6.0-8.3 N Chemistry (test code = ALB) 4.3 g/dL 3.5-5.0 N Chemistry (test code = GLOB) 2.7 g/dL 2.4-3.5 N Chemistry (test code = AG) 1.6 g/dL 1.2-2.2 N Chemistry (test code = ALP) 75 U/L 40-110 N Chemistry (test code = AST) 21 U/L 5-34 N Chemistry (test code = ALT) 24 U/L 8-55 N Iqlwmiymdcy7756-47-10 22:30:00* Test Item Value Reference Range Interpretation Comme nts Coagulation (test code = PT-T) 13.1 sec 12.0-14.7 N Coagulation (test code = INR) 1.0 ATTENTION: READ CAREFULLY The recommended therapeutic ranges for oral anticoagulanttreatments are: ------ Low Intensity: 1.5 - 2.0 Moderate Intensity: 2.0 - 3.0 High Intensity (1): 2.5 - 3.5 High Intensity (2): 3.0 - 4.0 CRITICAL: > 4.0 Coagulation (test code = PTT) 33.8 sec 22.9-36.1 N Anticoagulant? NONEMedical Necessity: SUSPECT ZLMIDZJWQLLXIaeeysbgex7252-23-73 22:08:00* Test Item Value Reference Range Interpretation Comme nts Hematology (test code = WBCT) 16.3 thou/uL [...] code = BASO#) 0.1 thou/uL 0.0-0.2 N Serum or plasma total bilirubin measurement (mass/volume)2020-02-01 21:57:00* Test Item Value Reference Range Interpretation Comme nts Total Bilirubin (test code = 1975-2) 0.2 mg/dL 0.2-1.2 [facility])Serum or plasma protein measurement (mass/volume)2020-02-01 21:57:00* Test Item Value Reference Range Interpretation Comme [facility] Serum Total Protein (test co de = 2885-2) 7.0 g/dL 6.0-8.3 [facility])Serum or plasma albumin measurement by bromocresol green (BCG) dye binding method ([id number] 21:57:00* Test Item Value Reference Range Interpretation Comme [facility] Albumin (test code = 37221-5) 4.3 g/dL 3.5-5.0 [facility])Globulin [Mass/volume] in Serum by calculation 2020-02-01 21:57:00* Test Item Value Reference Range Interpretation Comme nts Globulin (test code = 03939-8) 2.7 g/dL 2.4-3.5 [facility])Albumin/Globulin [Mass Ratio] in Serum or Bwrgvt1830-14-26 21:57:00* Test Item Value Reference Range Interpretation Comme [facility] Albumin/Globulin Ratio (test code = 1759-0) 1.6 g/dL 1.2-2.2 [facility]Alkaline phosphatase [Enzymatic activity/volume] in Serum or [id number] 21:57:00* Test Item Value Reference Range Interpretation Comme nts Alkaline Phosphatase (test c ode = 6768-6) 75 U/L 40-110 [facility])Serum or plasma aspartate aminotransferase measurement (enzymatic activity/volume)2020-02-01 21:57:00* Test Item Value Reference Range Interpretation Comme nts Aspartate Amino Transf (AST/ SGOT) (test code = 1920-8) 21 U/L 5-34 [facility]Serum or plasma creatine kinase MB measurement (mass/volume)2020-02-01 21:57:00* Test Item Value Reference Range Interpretation Comme [facility] Creatine Kinase MB (test cod e = 10817-5) 1.6 ng/mL 0-6.6 [facility])Serum or plasma alanine aminotransferase measurement without P-5'-P (enzymatic [id number] 21:57:00* Test Item Value Reference Range Interpretation Comme [facility] Alanine Aminotransferase (AL T/SGPT) (test code = 1744-2) 24 U/L 8-55 [facility])Prothrombin time (PT) in platelet poor plasma by coagulation yygei4452-53-80 21:57:00* Test Item Value Reference Range Interpretation Comme [facility] Prothrombin Time (test code = 5902-2) 13.1 sec 12.0-14.7 [facility])INR in Platelet poor plasma by Coagulation jewsk0291-10-22 21:57:00* Test Item Value Reference Range Interpretation Comme [facility] INR International Normalized Ratio (test code = 6301-6) 1.0 [facility])Activated partial thromboplastin time (aPTT) in platelet poor plasma by coagulation [id number] 21:57:00* Test Item Value Reference Range Interpretation Comme [facility] Activated Partial Thrombopla st Time (test code = 85320-6) 33.8 sec 22.9-36.1 [facility]Serum or plasma total bilirubin measurement (mass/volume)2020-02-01 21:57:00* Test Item Value Reference Range Interpretation Comme [facility] Total Bilirubin (test code = 1975-2) 0.2 mg/dL 0.2-1.2 [facility] ([place])Serum or plasma protein measurement (mass/volume)2020-02-01 21:57:00* Test Item Value Reference Range Interpretation Comme [facility] Serum Total Protein (test co de = 2885-2) 7.0 g/dL 6.0-8.3 [facility])Serum or plasma albumin measurement by bromocresol green (BCG) dye binding method ([id number] 21:57:00* Test Item Value Reference Range Interpretation Comme nts Albumin (test code = 44902-2) 4.3 g/dL 3.5-5.0 [facility])Globulin [Mass/volume] in Serum by calculation 2020-02-01 21:57:00* Test Item Value Reference Range Interpretation Comme nts Globulin (test code = 97544-0) 2.7 g/dL 2.4-3.5 [facility])Albumin/Globulin [Mass Ratio] in Serum or [id number] 21:57:00* Test Item Value Reference Range Interpretation Comme nts Albumin/Globulin Ratio (test code = 1759-0) 1.6 g/dL 1.2-2.2 [facility])Alkaline phosphatase [Enzymatic activity/volume] in Serum or [id number] 21:57:00* Test Item Value Reference Range Interpretation Comme nts Alkaline Phosphatase (test c ode = 6768-6) 75 U/L 40-110 [facility])Serum or plasma aspartate aminotransferase measurement (enzymatic activity/volume)2020-02-01 21:57:00* Test Item Value Reference Range Interpretation Comme nts Aspartate Amino Transf (AST/ SGOT) (test code = 1920-8) 21 U/L 5-34 [facility])Serum or plasma creatine kinase MB measurement (mass/volume)2020-02-01 21:57:00* Test Item Value Reference Range Interpretation Comme nts Creatine Kinase MB (test cod e = 25854-3) 1.6 ng/mL 0-6.6 [facility])Serum or plasma alanine aminotransferase measurement without P-5'-P (enzymatic jotfov0710-76-14 21:57:00* Test Item Value Reference Range Interpretation Comme nts Alanine Aminotransferase (AL T/SGPT) (test code = 1744-2) 24 U/L 8-55 [facility])Prothrombin time (PT) in platelet poor plasma by coagulation [id number] 21:57:00* Test Item Value Reference Range Interpretation Comme [facility] Prothrombin Time (test code = 5902-2) 13.1 sec 12.0-14.7 [facility] ([place])INR in Platelet poor plasma by Coagulation [id number] 21:57:00* Test Item Value Reference Range Interpretation Comme [facility] INR International Normalized Ratio (test code = 6301-6) 1.0 [facility] ([place])Activated partial thromboplastin time (aPTT) in platelet poor plasma by coagulation [id number] 21:57:00* Test Item Value [facility] Activated Partial Thrombopla st Time (test code = 28710-2) 33.8 sec 22.9-36.1 [facility] ([place])Reference Lab [id number] 12:36:00* Test Item Value Reference [facility] Interpretation [facility] Reference Lab Testing (test code = XZHYE16N) Not Detected NotDetected Negative (Not D etected) results do not preclude infectionwith SARS-CoV-2 virus, and should not be the sole basis of apatient management decision. Consider testing for otherviruses if clinically indicated.The use of this assay as an In vitro diagnostic under theA Emergency Use Authorization (EUA) is limited tolaboratories that are certified under the ClinicalLaboratory Improvement Amendments of 1988 (CLIA), 42 U.S.C.263a, to perform high complexity tests. Reason for Testing: Admission RxnhwsaqeXhtkyvpvm1621-18-55 09:34:00* Test Item Value Reference Range Interpretation Comme [facility] Chemistry (test code = NA-T) 133 mmol/L 136-145 L Chemistry (test code = K-T) 3.6 mmol/L 3.5-5.1 N Chemistry (test code = CL) 96 mmol/L 98-107 L Chemistry (test code = CO2) 28 mmol/L 22-29 N Chemistry (test code = ANGP) 13 mmol/L 10-20 N Chemistry (test code = BUN) 6 mg/dL 9.8-20.1 L Chemistry (test code = CREATT) 0.61 mg/dL 0.6-1.1 N Chemistry (test code = EGFRMDRD) Greater than 90 Reference Range for Estimated GFR: Greater than 90 mL/min/1.73 m2NOTE:The MDRD equation has not been validated for use with theelderly (over 70 years of age), women, patientswith serious comorbid condition or persons with extremes ofbody size, muscle mass, or nutritional status. Chemistry (test code = GLU-T) 124 mg/dL 70-105 H Chemistry (test code = CA) 8.9 mg/dL 7.8-10.44 N Serum or plasma calcium measurement (mass/volume)2020-01-09 08:45:00* Test Item Value Reference Range Interpretation Comme [facility] Calcium Level (test code = 90439-4) 8.9 mg/dL 7.8-10.44 [facility])Serum or plasma sodium measurement (moles/volume)2020-01-09 08:45:00* Test Item Value Reference Range Interpretation Comme [facility] Sodium Level (test code = 2951-2) 133 mmol/L 136-145 [facility])Serum or plasma potassium measurement (moles/volume)2020-01-09 08:45:00* Test Item Value Reference Range Interpretation Comme [facility] Potassium Level (test code = 2823-3) 3.6 mmol/L 3.5-5.1 [facility])Serum or plasma chloride measurement (moles/volume)2020-01-09 08:45:00* Test Item Value Reference Range Interpretation Comme [facility] Chloride Level (test code = 2075-0) 96 mmol/L 98-107 [facility])Serum or plasma carbon dioxide, total measurement (moles/volume)2020-01-09 08:45:00* Test Item Value Reference Range Interpretation Comme [facility] Carbon Dioxide Level (test c ode = 2027-9) 28 mmol/L 22-29 [facility])Serum or plasma anion [id number] 08:45:00* Test Item Value Reference Range Interpretation Comme [facility] Anion Gap (test code = 87324-8) 13 mmol/L 10-20 [facility])Serum or plasma urea nitrogen measurement (mass/volume)2020-01-09 08:45:00* Test Item Value Reference Range Interpretation Comme [facility] Blood Urea Nitrogen (test co de = 3094-0) 6 mg/dL 9.8-20.1 [facility])Serum or plasma creatinine measurement (mass/volume)2020-01-09 08:45:00* Test Item Value Reference Range Interpretation Comme [facility] Creatinine (test code = 2160-0) 0.61 mg/dL 0.6-1.1 [facility])Estimated glomerular filtration rate (GFR) by Modification of Diet in Renal Disease (2020-01-09 08:45:00* Test Item Value Reference Range Interpretation Comme [facility] Estimated GFR (MDRD) (test code = 78978-3) Greater than 90 [facility])Glucose [Mass/volume] in Serum or Plasma 2020-01-09 08:45:00* Test Item Value Reference Range Interpretation Comme [facility] Glucose Level (test code = 2345-7) 124 mg/dL 70-105 [facility] ([place])Serum or plasma calcium measurement (mass/volume)2020-01-09 08:45:00* Test Item Value Reference Range Interpretation Comme [facility] Calcium Level (test code = 56118-6) 8.9 mg/dL 7.8-10.44 [facility] ([place])Serum or plasma sodium measurement (moles/volume)2020-01-09 08:45:00* Test Item Value Reference Range Interpretation Comme [facility] Sodium Level (test code = 2951-2) 133 mmol/L 136-145 [facility] ([place])Serum or plasma potassium measurement (moles/volume)2020-01-09 08:45:00* Test Item Value Reference Range Interpretation Comme [facility] Potassium Level (test code = 2823-3) 3.6 mmol/L 3.5-5.1 [facility] ([place])Serum or plasma chloride measurement (moles/volume)2020-01-09 08:45:00* Test Item Value Reference Range Interpretation Comme [facility] Chloride Level (test code = 2075-0) 96 mmol/L 98-107 [facility])Serum or plasma carbon dioxide, total measurement (moles/volume)2020-01-09 08:45:00* Test Item Value Reference Range Interpretation Comme [facility] Carbon Dioxide Level (test c ode = 2028-9) 28 mmol/L 22-29 [facility])Serum or plasma anion [id number] 08:45:00* Test Item Value Reference Range Interpretation Comme [facility] Anion Gap (test code = 85955-4) 13 mmol/L 10-20 [facility])Serum or plasma urea nitrogen measurement (mass/volume)2020-01-09 08:45:00* Test Item Value Reference Range Interpretation Comme [facility] Blood Urea Nitrogen (test co de = 3094-0) 6 mg/dL 9.8-20.1 [facility])Serum or plasma creatinine measurement (mass/volume)2020-01-09 08:45:00* Test Item Value Reference Range Interpretation Comme [facility] Creatinine (test code = 2160-0) 0.61 mg/dL 0.6-1.1 [facility] ([place])Estimated glomerular filtration rate (GFR) by Modification of Diet in Renal Disease (2020-01-09 08:45:00* Test Item Value Reference Range Interpretation Comme [facility] Estimated GFR (MDRD) (test code = 18134-5) Greater than 90 [facility])Glucose [Mass/volume] in Serum or Plasma 2020-01-09 08:45:00* Test Item Value Reference Range Interpretation Comme [facility] Glucose Level (test code = 2345-7) 124 mg/dL 70-105 [facility] ([place])Chemistry - Zsrtrboo5981-59-14 07:32:00* Test Item Value Reference Range Interpretation Comme [facility] Chemistry - Specials (test c ode = TSH3) 2.5692 uIU/mL 0.35-4.94 N Zncwacrto0199-67-18 06:48:00* Test Item Value Reference Range Interpretation Comme [facility] Chemistry (test code = NA-T) 130 mmol/L 136-145 L Chemistry (test code = K-T) 3.4 mmol/L 3.5-5.1 L Chemistry (test code = CL) 97 mmol/L 98-107 L Chemistry (test code = CO2) 25 mmol/L 22-29 N Chemistry (test code = ANGP) 11 mmol/L 10-20 N Chemistry (test code = BUN) 7 mg/dL 9.8-20.1 L Chemistry (test code = CREATT) 0.59 mg/dL 0.6-1.1 L Chemistry (test code = EGFRMDRD) Greater than 90 Reference Range for Estimated GFR: Greater than 90 mL/min/1.73 m2NOTE:The MDRD equation has not been validated for use with theelderly (over 70 years of age), women, patientswith serious comorbid condition or persons with extremes ofbody size, muscle mass, or nutritional status. Chemistry (test code = GLU-T) 107 mg/dL 70-105 H Chemistry (test code = CA) 8.5 mg/dL 7.8-10.44 N Date of next dose: 01/09/2020Time of next dose: 7501Ciofyyqcu7497-52-09 06:48:00 * Test Item Value Reference Range Interpretation Comme nts Chemistry (test code = CHOL) 156 mg/dl < 200 Desired Chemistry (test code = TRIG) 111 mg/dL Less than 150 Chemistry (test code = HDL) 57 mg/dL >60 Neg Risk Adult HDL levels in terms of risk for Coronary Heart Disease > or Equal to 60 mg/dL Negative Risk < 40 mg/dL HIGH Risk Chemistry (test code = LDL) 77 mg/dL Levels in terms of risk for coronary heart disease: Desirable: Less than 130 mg/dL Borderline High Risk: 130 - 159 mg/dL High Risk: Greater than 160 mg/dL Chemistry (test code = CRISK) 2.7 Less than 4.5 Adult levels in terms of risk for Coronary Heart Disease: Dangerous level: Greater than 8.3 High: 5.6 - 8.3 Average: 3.7 - 5.6 Below average: 2.5 - 3.7 Protection probable: Less than 2.5 Date of next dose: 01/09/2020Time of next dose: 1842Dwsaznxbv1516-54-12 06:48:00 * Test Item Value Reference Range Interpretation Comme nts Chemistry (test code = DIL) 13.8 ug/mL 10.0-20.0 N Therapeutic Rang e: 10.0 - 20.0 mcg/mLToxic Range: Greater than 30.0 mcg/mL Date of next dose: 01/09/2020Time of next dose: 899Serum or plasma cholesterol measurement (mass/volume)2020-01-09 03:30:00* Test Item Value Reference Range Interpretation Comme nts Cholesterol Level (test code = 2093-3) 156 mg/dl <199 [facility])Serum or plasma triglyceride measurement (mass/volume)2020-01-09 03:30:00* Test Item Value Reference Range Interpretation Comme [facility] Triglycerides Level (test co de = 2571-8) 111 mg/dL Less than 150 [facility])Serum or plasma cholesterol in HDL measurement (mass/volume)2020-01-09 03:30:00* Test Item Value Reference Range Interpretation Comme [facility] HDL Cholesterol (test code = 2085-9) 57 mg/dL [facility])Cholesterol in LDL [Mass/volume] in Serum or Plasma by rvzqpgrosfv3632-46-89 03:30:00* Test Item Value Reference Range Interpretation Comme [facility] LDL Cholesterol, Calculated (test code = 77874-3) 77 mg/dL [facility])Serum or plasma cardiac heart disease risk lduut2414-18-65 03:30:00* Test Item Value Reference Range Interpretation Comme [facility] Coronary Heart Disease Risk Ratio (test code = 05621-8) 2.7 Less than 4.5 [facility])Serum or plasma phenytoin measurement (mass/volume)2020-01-09 03:30:00* Test Item Value Reference Range Interpretation Comme [facility] Phenytoin (Dilantin) Level ( test code = 3968-5) 13.8 ug/mL 10.0-20.0 [facility] ([place])Serum or plasma thyrotropin measurement by detection limit <= 0.005 miu/l (units/[id number] 03:30:00* Test Item Value Reference Range Interpretation Comme [facility] TSH 3rd Generation (test cod e = 40087-5) 2.5692 uIU/mL 0.35-4.94 [facility] ([place])Serum or plasma cholesterol measurement (mass/volume)2020-01-09 03:30:00* Test Item Value Reference Range Interpretation Comme [facility] Cholesterol Level (test code = 2093-3) 156 mg/dl <199 [facility])Serum or plasma triglyceride measurement (mass/volume)2020-01-09 03:30:00* Test Item Value Reference Range Interpretation Comme [facility] Triglycerides Level (test co de = 2571-8) 111 mg/dL Less than 150 [facility])Serum or plasma cholesterol in HDL measurement (mass/volume)2020-01-09 03:30:00* Test Item Value Reference Range Interpretation Comme [facility] HDL Cholesterol (test code = 2085-9) 57 mg/dL [facility])Cholesterol in LDL [Mass/volume] in Serum or Plasma by afiwbusxzit6723-26-17 03:30:00* Test Item Value Reference Range Interpretation Comme [facility] LDL Cholesterol, Calculated (test code = 21049-2) 77 mg/dL [facility])Serum or plasma cardiac heart disease risk utqqb2733-88-49 03:30:00* Test Item Value Reference Range Interpretation Comme [facility] Coronary Heart Disease Risk Ratio (test code = 65598-0) 2.7 Less than 4.5 [facility])Serum or plasma phenytoin measurement (mass/volume)2020-01-09 03:30:00* Test Item Value Reference Range Interpretation Comme [facility] Phenytoin (Dilantin) Level ( test code = 3968-5) 13.8 ug/mL 10.0-20.0 [facility])Serum or plasma thyrotropin measurement by detection limit <= 0.005 miu/l (units/z3975-70-32 03:30:00* Test Item Value Reference Range Interpretation Comme [facility] TSH 3rd Generation (test cod e = 30122-8) 2.5692 uIU/mL 0.35-4.94 [facility])[id number] 15:50:00* Test Item Value Reference Range Interpretation Comme nts Coronavirus (COVID-19)(PCR) (test code = 76515-4) Not Detected NotDetected [facility] ([place])[id number] 15:50:00* Test Item Value Reference Range Interpretation Comme nts Coronavirus (COVID-19)(PCR) (test code = 77489-1) Not Detected NotDetected [facility] ([place])Vnivlfap5200-57-34 14:59:00* Test Item Value Reference Range Interpretation Comme nts Accuchek (test code = ACU) 159 mg/dL 70-110 H Notified Nurse Xldfykdow8309-97-31 13:19:00* Test Item Value Reference Range Interpretation Comme nts Chemistry (test code = NA-T) 127 mmol/L 136-145 L Chemistry (test code = K-T) 3.5 mmol/L 3.5-5.1 N Chemistry (test code = CL) 97 mmol/L 98-107 L Chemistry (test code = CO2) 21 mmol/L 22-29 L Chemistry (test code = ANGP) 13 mmol/L 10-20 N Chemistry (test code = BUN) 4 mg/dL 9.8-20.1 L Chemistry (test code = CREATT) 0.50 mg/dL 0.6-1.1 L Chemistry (test code = EGFRMDRD) Greater than 90 Reference Range for Estimated GFR: Greater than 90 mL/min/1.73 m2NOTE:The MDRD equation has not been validated for use with theelderly (over 70 years of age), women, patientswith serious comorbid condition or persons with extremes ofbody size, muscle mass, or nutritional status. Chemistry (test code = GLU-T) 127 mg/dL 70-105 H Chemistry (test code = CA) 7.7 mg/dL 7.8-10.44 L Chemistry (test code = TBILI-T) 0.4 mg/dL 0.2-1.2 N Chemistry (test code = TP) 5.9 g/dL 6.0-8.3 L Chemistry (test code = ALB) 3.7 g/dL 3.5-5.0 N Chemistry (test code = GLOB) 2.2 g/dL 2.4-3.5 L Chemistry (test code = AG) 1.7 g/dL 1.2-2.2 N Chemistry (test code = ALP) 52 U/L 40-110 N Chemistry (test code = AST) 15 U/L 5-34 N Chemistry (test code = ALT) 17 U/L 8-55 N Jdcxggzbgw3630-93-10 12:50:00* Test Item Value Reference Range Interpretation Comme nts Hematology (test code = WBCT) 11.0 thou/uL [...] code = BASO#) 0.0 thou/uL 0.0-0.2 N Nzpcddeoff8587-22-56 12:42:00* Test Item Value Reference Range Interpretation Comme nts Urinalysis (test code = UACLR) Colorless Yellow Urinalysis (test code = UACLY) Clear Clear Urinalysis (test code = SPGR) 1.003 1.002-1.036 N Urinalysis (test code = GIN) 7.0 5.0-9.0 N Urinalysis (test code = UALEU) Negative Radha/uL Negative Urinalysis (test code = UANIT) Negative Negative Urinalysis (test code = PROUADIP) Negative mg/dL Neg-Trace Urinalysis (test code = GLUCU) Normal mg/dL Negative Urinalysis (test code = KETU) Negative mg/dL Negative Urinalysis (test code = UAUROB) Normal mg/dL Less than 2 Urinalysis (test code = UABIL) Negative Negative Urinalysis (test code = UABLD) Negative Negative Urine Source: Urine Clean CatchSerum or plasma urea nitrogen measurement (mass/volume)2020-01-08 12:39:00* Test Item Value Reference Range Interpretation Comme [facility] Blood Urea Nitrogen (test co de = 3094-0) 4 mg/dL 9.8-20.1 [facility])Serum or plasma total bilirubin measurement (mass/volume)2020-01-08 12:39:00* Test Item Value Reference Range Interpretation Comme [facility] Total Bilirubin (test code = 1975-2) 0.4 mg/dL 0.2-1.2 [facility])Serum or plasma protein measurement (mass/volume)2020-01-08 12:39:00* Test Item Value Reference Range Interpretation Comme [facility] Serum Total Protein (test co de = 2885-2) 5.9 g/dL 6.0-8.3 [facility])Serum or plasma albumin measurement by bromocresol green (BCG) dye binding method ([id number] 12:39:00* Test Item Value Reference Range Interpretation Comme [facility] Albumin (test code = 29566-7) 3.7 g/dL 3.5-5.0 [facility])Globulin [Mass/volume] in Serum by calculation 2020-01-08 12:39:00* Test Item Value Reference Range Interpretation Comme nts Globulin (test code = 95620-7) 2.2 g/dL 2.4-3.5 [facility])Albumin/Globulin [Mass Ratio] in Serum or [id number] 12:39:00* Test Item Value Reference Range Interpretation Comme nts Albumin/Globulin Ratio (test code = 1759-0) 1.7 g/dL 1.2-2.2 [facility])Serum or plasma creatinine measurement (mass/volume)2020-01-08 12:39:00* Test Item Value Reference Range Interpretation Comme nts Creatinine (test code = 2160-0) 0.50 mg/dL 0.6-1.1 [facility])Alkaline phosphatase [Enzymatic activity/volume] in Serum or Qfzdao6881-47-94 12:39:00* Test Item Value Reference Range Interpretation Comme nts Alkaline Phosphatase (test c ode = 6768-6) 52 U/L 40-110 [facility])Serum or plasma aspartate aminotransferase measurement (enzymatic activity/volume)2020-01-08 12:39:00* Test Item Value Reference Range Interpretation Comme nts Aspartate Amino Transf (AST/ SGOT) (test code = 1920-8) 15 U/L 5-34 [facility])Serum or plasma alanine aminotransferase measurement without P-5'-P (enzymatic uptpsz7351-90-83 12:39:00* Test Item Value Reference Range Interpretation Comme nts Alanine Aminotransferase (AL T/SGPT) (test code = 1744-2) 17 U/L 8-55 [facility])Estimated glomerular filtration rate (GFR) by Modification of Diet in Renal Disease (2020-01-08 12:39:00* Test Item Value Reference Range Interpretation Comme nts Estimated GFR (MDRD) (test code = 51798-8) Greater than 90 [facility])Glucose [Mass/volume] in Serum or Plasma 2020-01-08 12:39:00* Test Item Value Reference Range Interpretation Comme [facility] Glucose Level (test code = 2345-7) 127 mg/dL 70-105 [facility])Leukocytes [#/volume] in Blood by Automated izeed0920-61-37 12:39:00* Test Item Value Reference Range Interpretation Comme [facility] White Blood Count (test code = 6690-2) 11.0 thou/uL 4.8-10.8 [facility])Blood erythrocytes automated count (number/volume)2020-01-08 12:39:00* Test Item Value Reference Range Interpretation Comme [facility] Red Blood Count (test code = 789-8) 3.74 mill/uL 4.20-5.40 [facility])Blood hemoglobin measurement (mass/volume) 2020-01-08 12:39:00* Test Item Value Reference Range Interpretation Comme [facility] Hemoglobin (test code = 718-7) 12.2 g/dL 12.0-16.0 [facility])Automated erythrocyte mean corpuscular volume 2020-01-08 12:39:00* Test Item Value Reference Range Interpretation Comme [facility] Mean Corpuscular Volume (ebenezer t code = 787-2) 98.0 fL 78.0-98.0 [facility])Serum or plasma calcium measurement (mass/volume)2020-01-08 12:39:00* Test Item Value Reference Range Interpretation Comme [facility] Calcium Level (test code = 80400-4) 7.7 mg/dL 7.8-10.44 [facility])Automated erythrocyte mean corpuscular hemoglobin (mass per erythrocyte)2020-01-08 12:39:00* Test Item Value Reference Range Interpretation Comme [facility] Mean Corpuscular Hemoglobin (test code = 785-6) 32.6 pg 27.0-31.0 [facility])Automated erythrocyte mean corpuscular hemoglobin concentration measurement (mass/wsi6885-59-09 12:39:00* Test Item Value Reference Range Interpretation Comme nts Mean Corpuscular Hemoglobin Concent (test code = 786-4) 33.3 g/dL 32.0-36.0 [facility])Automated erythrocyte distribution width ratio 2020-01-08 12:39:00* Test Item Value Reference Range Interpretation Comme nts Red Cell Distribution Width (test code = 788-0) 11.2 % 11.5-14.5 [facility])Automated blood platelet count (count/volume) 2020-01-08 12:39:00* Test Item Value Reference Range Interpretation Comme nts Platelet Count (test code = 777-3) 214 thou/uL 130-400 [facility])Serum or plasma total bilirubin measurement (mass/volume)2020-01-08 12:39:00* Test Item Value Reference Range Interpretation Comme [facility] Total Bilirubin (test code = 1975-2) 0.4 mg/dL 0.2-1.2 [facility])Automated blood platelet mean ztmyav6523-27-58 12:39:00* Test Item Value Reference Range Interpretation Comme [facility] Mean Platelet Volume (test c ode = 05119-8) 7.3 fL 7.4-10.4 [facility])Automated blood neutrophils/100 leukocytes 2020-01-08 12:39:00* Test Item Value Reference Range Interpretation Comme [facility] Neutrophils % (test code = 770-8) 73.3 % 42.0-75.0 [facility])Lymphocytes/100 leukocytes in Blood by Automated ghqjb6347-04-61 12:39:00* Test Item Value Reference Range Interpretation Comme [facility] Lymphocytes % (test code = 736-9) 18.5 % 21.0-51.0 [facility])Automated blood monocytes/100 leukocytes 2020-01-08 12:39:00* Test Item Value Reference Range Interpretation Comme [facility] Monocytes % (test code = 5905-5) 6.6 % 0.0-10.0 [facility])Automated blood eosinophils/100 leukocytes 2020-01-08 12:39:00* Test Item Value Reference Range Interpretation Comme [facility] Eosinophils % (test code = 713-8) 1.4 % 0.0-10.0 [facility])Automated blood basophils/100 leukocytes 2020-01-08 12:39:00* Test Item Value Reference Range Interpretation Comme [facility] Basophils % (test code = 706-2) 0.3 % 0.0-1.0 [facility])Serum or plasma protein measurement (mass/volume)2020-01-08 12:39:00* Test Item Value Reference Range Interpretation Comme [facility] Serum Total Protein (test co de = 2885-2) 5.9 g/dL 6.0-8.3 [facility])Blood neutrophils automated count (number/volume)2020-01-08 12:39:00* Test Item Value Reference Range Interpretation Comme [facility] Neutrophils # (test code = 751-8) 8.1 thou/uL 1.40-6.50 [facility])Lymphocytes [#/volume] in Blood by Automated [id number] 12:39:00* Test Item Value Reference Range Interpretation Comme [facility] Lymphocytes # (test code = 731-0) 2.0 thou/uL 1.20-3.40 [facility])Blood monocytes automated count (number/volume)2020-01-08 12:39:00* Test Item Value Reference Range Interpretation Comme [facility] Monocytes # (test code = 742-7) 0.7 thou/uL 0.11-0.59 [facility])Blood eosinophils automated count (count/volume)2020-01-08 12:39:00* Test Item Value Reference Range Interpretation Comme [facility] Eosinophils # (test code = 711-2) 0.1 thou/uL 0.0-0.7 [facility])Serum or plasma albumin measurement by bromocresol green (BCG) dye binding method ([id number] 12:39:00* Test Item Value Reference Range Interpretation Comme nts Albumin (test code = 26162-2) 3.7 g/dL 3.5-5.0 [facility])Automated blood basophil count (count/volume) 2020-01-08 12:39:00* Test Item Value Reference Range Interpretation Comme nts Basophils # (test code = 704-7) 0.0 thou/uL 0.0-0.2 [facility])Globulin [Mass/volume] in Serum by calculation 2020-01-08 12:39:00* Test Item Value Reference Range Interpretation Comme nts Globulin (test code = 42014-9) 2.2 g/dL 2.4-3.5 [facility])Albumin/Globulin [Mass Ratio] in Serum or [id number] 12:39:00* Test Item Value Reference Range Interpretation Comme nts Albumin/Globulin Ratio (test code = 1759-0) 1.7 g/dL 1.2-2.2 [facility])Alkaline phosphatase [Enzymatic activity/volume] in Serum or [id number] 12:39:00* Test Item Value Reference Range Interpretation Comme nts Alkaline Phosphatase (test c ode = 6768-6) 52 U/L 40-110 [facility])Serum or plasma aspartate aminotransferase measurement (enzymatic activity/volume)2020-01-08 12:39:00* Test Item Value Reference Range Interpretation Comme nts Aspartate Amino Transf (AST/ SGOT) (test code = 1920-8) 15 U/L 5-34 [facility])Serum or plasma alanine aminotransferase measurement without P-5'-P (enzymatic [id number] 12:39:00* Test Item Value Reference Range Interpretation Comme nts Alanine Aminotransferase (AL T/SGPT) (test code = 1744-2) 17 U/L 8-55 [facility])Leukocytes [#/volume] in Blood by Automated [id number] 12:39:00* Test Item Value Reference Range Interpretation Comme nts White Blood Count (test code = 6690-2) 11.0 thou/uL 4.8-10.8 [facility])Blood erythrocytes automated count (number/volume)2020-01-08 12:39:00* Test Item Value Reference Range Interpretation Comme nts Red Blood Count (test code = 789-8) 3.74 mill/uL 4.20-5.40 [facility])Blood hemoglobin measurement (mass/volume) 2020-01-08 12:39:00* Test Item Value Reference Range Interpretation Comme nts Hemoglobin (test code = 718-7) 12.2 g/dL 12.0-16.0 [facility])Automated erythrocyte mean corpuscular volume 2020-01-08 12:39:00* Test Item Value Reference Range Interpretation Comme [facility] Mean Corpuscular Volume (ebenezer t code = 787-2) 98.0 fL 78.0-98.0 [facility])Automated erythrocyte mean corpuscular hemoglobin (mass per erythrocyte)2020-01-08 12:39:00* Test Item Value Reference Range Interpretation Comme [facility] Mean Corpuscular Hemoglobin (test code = 785-6) 32.6 pg 27.0-31.0 [facility])Automated erythrocyte mean corpuscular hemoglobin concentration measurement (mass/[id number] 12:39:00* Test Item Value Reference Range Interpretation Comme [facility] Mean Corpuscular Hemoglobin Concent (test code = 786-4) 33.3 g/dL 32.0-36.0 [facility])Serum or plasma total bilirubin measurement (mass/volume)2020-01-08 12:39:00* Test Item Value Reference Range Interpretation Comme [facility] Total Bilirubin (test code = 1975-2) 0.4 mg/dL 0.2-1.2 [facility])Serum or plasma protein measurement (mass/volume)2020-01-08 12:39:00* Test Item Value Reference Range Interpretation Comme [facility] Serum Total Protein (test co de = 2885-2) 5.9 g/dL 6.0-8.3 [facility])Serum or plasma albumin measurement by bromocresol green (BCG) dye binding method ([id number] 12:39:00* Test Item Value Reference Range Interpretation Comme [facility] Albumin (test code = 40809-9) 3.7 g/dL 3.5-5.0 [facility])Globulin [Mass/volume] in Serum by calculation 2020-01-08 12:39:00* Test Item Value Reference Range Interpretation Comme [facility] Globulin (test code = 04625-9) 2.2 g/dL 2.4-3.5 [facility])Automated erythrocyte distribution width ratio 2020-01-08 12:39:00* Test Item Value Reference Range Interpretation Comme [facility] Red Cell Distribution Width (test code = 788-0) 11.2 % 11.5-14.5 [facility])Albumin/Globulin [Mass Ratio] in Serum or [id number] 12:39:00* Test Item Value Reference Range Interpretation Comme [facility] Albumin/Globulin Ratio (test code = 1759-0) 1.7 g/dL 1.2-2.2 [facility])Alkaline phosphatase [Enzymatic activity/volume] in Serum or [id number] 12:39:00* Test Item Value Reference Range Interpretation Comme [facility] Alkaline Phosphatase (test c ode = 6768-6) 52 U/L 40-110 [facility])Serum or plasma aspartate aminotransferase measurement (enzymatic activity/volume)2020-01-08 12:39:00* Test Item Value Reference Range Interpretation Comme [facility] Aspartate Amino Transf (AST/ SGOT) (test code = 1920-8) 15 U/L 5-34 [facility])Automated blood platelet count (count/volume) 2020-01-08 12:39:00* Test Item Value Reference Range Interpretation Comme [facility] Platelet Count (test code = 777-3) 214 thou/uL 130-400 [facility])Serum or plasma alanine aminotransferase measurement without P-5'-P (enzymatic [id number] 12:39:00* Test Item Value Reference Range Interpretation Comme nts Alanine Aminotransferase (AL T/SGPT) (test code = 1744-2) 17 U/L 8-55 [facility])Automated blood platelet mean [id number] 12:39:00* Test Item Value Reference Range Interpretation Comme nts Mean Platelet Volume (test c ode = 50907-1) 7.3 fL 7.4-10.4 [facility])Leukocytes [#/volume] in Blood by Automated [id number] 12:39:00* Test Item Value Reference Range Interpretation Comme nts White Blood Count (test code = 6690-2) 11.0 thou/uL 4.8-10.8 [facility])Blood erythrocytes automated count (number/volume)2020-01-08 12:39:00* Test Item Value Reference Range Interpretation Comme nts Red Blood Count (test code = 789-8) 3.74 mill/uL 4.20-5.40 [facility])Blood hemoglobin measurement (mass/volume) 2020-01-08 12:39:00* Test Item Value Reference Range Interpretation Comme nts Hemoglobin (test code = 718-7) 12.2 g/dL 12.0-16.0 [facility])Automated blood neutrophils/100 leukocytes 2020-01-08 12:39:00* Test Item Value Reference Range Interpretation Comme nts Neutrophils % (test code = 770-8) 73.3 % 42.0-75.0 [facility])Automated erythrocyte mean corpuscular volume 2020-01-08 12:39:00* Test Item Value Reference Range Interpretation Comme nts Mean Corpuscular Volume (ebenezer t code = 787-2) 98.0 fL 78.0-98.0 [facility])Automated erythrocyte mean corpuscular hemoglobin (mass per erythrocyte)2020-01-08 12:39:00* Test Item Value Reference Range Interpretation Comme nts Mean Corpuscular Hemoglobin (test code = 785-6) 32.6 pg 27.0-31.0 [facility])Automated erythrocyte mean corpuscular hemoglobin concentration measurement (mass/[id number] 12:39:00* Test Item Value Reference Range Interpretation Comme nts Mean Corpuscular Hemoglobin Concent (test code = 786-4) 33.3 g/dL 32.0-36.0 [facility])Automated erythrocyte distribution width ratio 2020-01-08 12:39:00* Test Item Value Reference Range Interpretation Comme nts Red Cell Distribution Width (test code = 788-0) 11.2 % 11.5-14.5 [facility])Automated blood platelet count (count/volume) 2020-01-08 12:39:00* Test Item Value Reference Range Interpretation Comme [facility] Platelet Count (test code = 777-3) 214 thou/uL 130-400 [facility])Lymphocytes/100 leukocytes in Blood by Automated [id number] 12:39:00* Test Item Value Reference Range Interpretation Comme nts Lymphocytes % (test code = 736-9) 18.5 % 21.0-51.0 [facility])Automated blood platelet mean [id number] 12:39:00* Test Item Value Reference Range Interpretation Comme [facility] Mean Platelet Volume (test c ode = 28471-6) 7.3 fL 7.4-10.4 [facility])Automated blood neutrophils/100 leukocytes 2020-01-08 12:39:00* Test Item Value Reference Range Interpretation Comme nts Neutrophils % (test code = 770-8) 73.3 % 42.0-75.0 [facility])Lymphocytes/100 leukocytes in Blood by Automated [id number] 12:39:00* Test Item Value Reference Range Interpretation Comme nts Lymphocytes % (test code = 736-9) 18.5 % 21.0-51.0 [facility])Automated blood monocytes/100 leukocytes 2020-01-08 12:39:00* Test Item Value Reference Range Interpretation Comme nts Monocytes % (test code = 5905-5) 6.6 % 0.0-10.0 [facility])Automated blood eosinophils/100 leukocytes 2020-01-08 12:39:00* Test Item Value Reference Range Interpretation Comme nts Eosinophils % (test code = 713-8) 1.4 % 0.0-10.0 [facility])Automated blood monocytes/100 leukocytes 2020-01-08 12:39:00* Test Item Value Reference Range Interpretation Comme nts Monocytes % (test code = 5905-5) 6.6 % 0.0-10.0 [facility])Automated blood basophils/100 leukocytes 2020-01-08 12:39:00* Test Item Value Reference Range Interpretation Comme nts Basophils % (test code = 706-2) 0.3 % 0.0-1.0 [facility])Blood neutrophils automated count (number/volume)2020-01-08 12:39:00* Test Item Value Reference Range Interpretation Comme nts Neutrophils # (test code = 751-8) 8.1 thou/uL 1.40-6.50 [facility])Lymphocytes [#/volume] in Blood by Automated [id number] 12:39:00* Test Item Value Reference Range Interpretation Comme nts Lymphocytes # (test code = 731-0) 2.0 thou/uL 1.20-3.40 [facility])Blood monocytes automated count (number/volume)2020-01-08 12:39:00* Test Item Value Reference Range Interpretation Comme nts Monocytes # (test code = 742-7) 0.7 thou/uL 0.11-0.59 [facility])Blood eosinophils automated count (count/volume)2020-01-08 12:39:00* Test Item Value Reference Range Interpretation Comme nts Eosinophils # (test code = 711-2) 0.1 thou/uL 0.0-0.7 [facility])Automated blood eosinophils/100 leukocytes 2020-01-08 12:39:00* Test Item Value Reference Range Interpretation Comme nts Eosinophils % (test code = 713-8) 1.4 % 0.0-10.0 [facility])Automated blood basophil count (count/volume) 2020-01-08 12:39:00* Test Item Value Reference Range Interpretation Comme nts Basophils # (test code = 704-7) 0.0 thou/uL 0.0-0.2 [facility])Automated blood basophils/100 leukocytes 2020-01-08 12:39:00* Test Item Value Reference Range Interpretation Comme nts Basophils % (test code = 706-2) 0.3 % 0.0-1.0 [facility])Blood neutrophils automated count (number/volume)2020-01-08 12:39:00* Test Item Value Reference Range Interpretation Comme nts Neutrophils # (test code = 751-8) 8.1 thou/uL 1.40-6.50 [facility])Lymphocytes [#/volume] in Blood by Automated [id number] 12:39:00* Test Item Value Reference Range Interpretation Comme nts Lymphocytes # (test code = 731-0) 2.0 thou/uL 1.20-3.40 [facility])Blood monocytes automated count (number/volume)2020-01-08 12:39:00* Test Item Value Reference Range Interpretation Comme nts Monocytes # (test code = 742-7) 0.7 thou/uL 0.11-0.59 [facility])Blood eosinophils automated count (count/volume)2020-01-08 12:39:00* Test Item Value Reference Range Interpretation Comme nts Eosinophils # (test code = 711-2) 0.1 thou/uL 0.0-0.7 [facility])Automated blood basophil count (count/volume) 2020-01-08 12:39:00* Test Item Value Reference Range Interpretation Comme nts Basophils # (test code = 704-7) 0.0 thou/uL 0.0-0.2 [facility])Serum or plasma sodium measurement (moles/volume)2020-01-08 12:39:00* Test Item Value Reference Range Interpretation Comme [facility] Sodium Level (test code = 2951-2) 127 mmol/L 136-145 [facility])Serum or plasma potassium measurement (moles/volume)2020-01-08 12:39:00* Test Item Value Reference Range Interpretation Comme nts Potassium Level (test code = 2823-3) 3.5 mmol/L 3.5-5.1 [facility])Serum or plasma chloride measurement (moles/volume)2020-01-08 12:39:00* Test Item Value Reference Range Interpretation Comme nts Chloride Level (test code = 2075-0) 97 mmol/L 98-107 [facility])Serum or plasma carbon dioxide, total measurement (moles/volume)2020-01-08 12:39:00* Test Item Value Reference Range Interpretation Comme nts Carbon Dioxide Level (test c ode = 8-9) 21 mmol/L 22-29 [facility])Serum or plasma anion [id number] 12:39:00* Test Item Value Reference Range Interpretation Comme nts Anion Gap (test code = 07899-3) 13 mmol/L 10-20 [facility])Color of Urine by [id number] 12:15:00* Test Item Value Reference Range Interpretation Comme nts Urine Color (test code = 06990-2) Colorless Yellow [facility])Urine clarity by refractometry automated 2020-01-08 12:15:00* Test Item Value Reference Range Interpretation Comme nts Urine Clarity (test code = 18084-9) Clear Clear [facility])Specific gravity of Urine by Test strip 2020-01-08 12:15:00* Test Item Value Reference Range Interpretation Comme nts Urine Specific [place] (test code = 5811-5) 1.003 1.002-1.036 [facility])Urine pH measurement by automated test strip 2020-01-08 12:15:00* Test Item Value Reference Range Interpretation Comme nts Urine pH (test code = 27850-1) 7.0 5.0-9.0 [facility])Urine leukocyte esterase detection by automated test [id number] 12:15:00* Test Item Value Reference Range Interpretation Comme nts Urine Leukocyte Esterase (test code = 04932-5) Negative Radha/uL Negative [facility])Nitrite [Presence] in Urine by Test strip 2020-01-08 12:15:00* Test Item Value Reference Range Interpretation Comme nts Urine Nitrite (test code = 5802-4) Negative Negative [facility])Urine protein measurement by automated test strip (mass/volume)2020-01-08 12:15:00* Test Item Value Reference Range Interpretation Comme nts Urine Protein (test code = 11936-2) Negative mg/dL Neg-Trace [facility])Glucose [Moles/volume] in Urine by Test strip 2020-01-08 12:15:00* Test Item Value Reference Range Interpretation Comme nts Urine Glucose (UA) (test cod e = 74721-2) Normal mg/dL Negative [facility])Urine ketones measurement by automated test strip (mass/volume)2020-01-08 12:15:00* Test Item Value Reference Range Interpretation Comme nts Urine Ketones (test code = 04729-2) Negative mg/dL Negative [facility])Urine urobilinogen measurement (units/volume) by test [id number] 12:15:00* Test Item Value Reference Range Interpretation Comme nts Urine Urobilinogen (test cod e = 64770-9) Normal mg/dL Less than 2 [facility]Urine total bilirubin detection by automated test [id number] 12:15:00* Test Item Value Reference Range Interpretation Comme nts Urine Bilirubin (test code = 95862-1) Negative Negative [facility])Urine hemoglobin detection by automated test [id number] 12:15:00* Test Item Value Reference Range Interpretation Comme nts Urine Blood (test code = 96218-1) Negative Negative [facility])Color of Urine by [id number] 12:15:00* Test Item Value Reference Range Interpretation Comme nts Urine Color (test code = 78725-7) Colorless Yellow [facility])Urine clarity by refractometry automated 2020-01-08 12:15:00* Test Item Value Reference Range Interpretation Comme nts Urine Clarity (test code = 89201-2) Clear Clear [facility])Specific gravity of Urine by Test strip 2020-01-08 12:15:00* Test Item Value Reference Range Interpretation Comme nts Urine Specific [place] (test code = 5811-5) 1.003 1.002-1.036 [facility])Urine pH measurement by automated test strip 2020-01-08 12:15:00* Test Item Value Reference Range Interpretation Comme nts Urine pH (test code = 28264-6) 7.0 5.0-9.0 [facility])Urine leukocyte esterase detection by automated test [id number] 12:15:00* Test Item Value Reference Range Interpretation Comme nts Urine Leukocyte Esterase (test code = 64103-4) Negative Radha/uL Negative [facility])Nitrite [Presence] in Urine by Test strip 2020-01-08 12:15:00* Test Item Value Reference Range Interpretation Comme nts Urine Nitrite (test code = 5802-4) Negative Negative [facility])Urine protein measurement by automated test strip (mass/volume)2020-01-08 12:15:00* Test Item Value Reference Range Interpretation Comme nts Urine Protein (test code = 65195-7) Negative mg/dL Neg-Trace [facility]Glucose [Moles/volume] in Urine by Test strip 2020-01-08 12:15:00* Test Item Value Reference Range Interpretation Comme nts Urine Glucose (UA) (test cod e = 98975-6) Normal mg/dL Negative [facility])Urine ketones measurement by automated test strip (mass/volume)2020-01-08 12:15:00* Test Item Value Reference Range Interpretation Comme nts Urine Ketones (test code = 73922-6) Negative mg/dL Negative [facility])Urine urobilinogen measurement (units/volume) by test [id number] 12:15:00* Test Item Value Reference Range Interpretation Comme nts Urine Urobilinogen (test cod e = 28051-5) Normal mg/dL Less than 2 [facility]Urine total bilirubin detection by automated test [id number] 12:15:00* Test Item Value Reference Range Interpretation Comme nts Urine Bilirubin (test code = 28311-0) Negative Negative [facility])Urine hemoglobin detection by automated test [id number] 12:15:00* Test Item Value Reference Range Interpretation Comme nts Urine Blood (test code = 51453-4) Negative Negative [facility])Color of Urine by [id number] 12:15:00* Test Item Value Reference Range Interpretation Comme nts Urine Color (test code = 02613-7) Colorless Yellow [facility])Urine clarity by refractometry automated 2020-01-08 12:15:00* Test Item Value Reference Range Interpretation Comme nts Urine Clarity (test code = 73535-5) Clear Clear [facility])Specific gravity of Urine by Test strip 2020-01-08 12:15:00* Test Item Value Reference Range Interpretation Comme nts Urine Specific [place] (test code = 5811-5) 1.003 1.002-1.036 [facility])Urine pH measurement by automated test strip 2020-01-08 12:15:00* Test Item Value Reference Range Interpretation Comme nts Urine pH (test code = 96549-4) 7.0 5.0-9.0 [facility]Nitrite [Presence] in Urine by Test strip 2020-01-08 12:15:00* Test Item Value Reference Range Interpretation Comme [facility] Urine Nitrite (test code = 5802-4) Negative Negative [facility])Urine total bilirubin detection by automated test [id number] 12:15:00* Test Item Value Reference Range Interpretation Comme [facility] Urine Bilirubin (test code = 75542-9) Negative Negative [facility]Urine hemoglobin detection by automated test [id number] 12:15:00* Test Item Value Reference Range Interpretation Comme [facility] Urine Blood (test code = 89484-8) Negative Negative [facility]CT Pulmonary Lung Scan [facility] BRYANName: MARYJANE JAMESON : 1960 [facility] MARYJANE JAMES[facility] [address] Phys: [place] [address] : 1960 Age: 62 SEX:F [phone] Exam Date: 01/10/23 Status: REG CLI Acct: [id number] Loc: CT Pt Unit #: [id number] Report #: [id number] CC: Ramakrishna Patel MD : CAT SCAN REPORT Report Status: Signed Order # Category/Exam [id number] CT/CT Pulmonary LungScan ([id number]): . Results EXAM: CT chest without contrast PROVIDED CLINICAL HISTORY: Personal history of nicotine dependence COMPARISON: 04/25/2013, PET CT 03/12/2022 FINDINGS: The heart, pericardium and great vessels are suboptimally evaluated in the absence of IV contrast material. Vascular calcification including coronary calcium is demonstrated. There is no evidence for thoracic lymph node enlargement with limitations due to lack of IV contrast. The airway appears patent and of normal caliber. The lungs are free of significant opacity. Stable subpleural nodule involving the anterior aspect of the left upper lobe medially. Occasional stable sub-6 mm nodular densities. There is no pleural fluid or pneumothorax apparent. The visualized portions of the upper abdomen demonstrate no significant abnormality. The osseous structures demonstrate no concerning lytic or blastic lesions. IMPRESSION: Lung RADS category 2-benign. Continue annual screening. Reported By: Jhony Bettencourt MD Electronically Signed Date/Time: 01/10/23908 Technologist: DEBBIE Dictated Date/Time: 01/10/23902 Transcribed Date/Time:PET W CT Skull to Mid Thigh [facility] : 1960 [facility]: M[facility]ANE JAMESON [address] Phys: [place] [address] : 1960 Age: 61 SEX:F [phone] Exam Date: 03/12/22 Status: PRE CLI Acct: [id number] Loc: PET Pt Unit #: [id number] Report #: [id number] CC: Ramakrishna Patel MD PET SCAN REPORT Report Status: Signed Order # Category/Exam [id number] PET/PET W CT Skull toMid Thigh ([id number]): . Results EXAM: PET/CT HISTORY: Malignant neoplasm of the supraglottis. Laryngeal cancer Surveillance after radiation therapy. Lastsession was on 12/15/2021. TECHNIQUE: PET scanning with CT attenuation correction was performed from the vertex to the proximal thighs following the intravenous administration of 11.7 millicuries V-16-dloyhhtaeiqzzhaeaz. COMPARISON: 10/01/2021 FINDINGS: There is focally increased uptake in the posterior aspect of the supraglottic region with an SUV of3.6 (previously 5.4). No lois hypermetabolism is seen in the neck, chest, axillae, abdomen orpelvis. No hypermetabolic pulmonary nodules, liver, adrenal or skeletal lesions are seen. There is p hysiologic activity in the GI and tracts and the visualized portions of the brain. The CT scan used for attenuation correction demonstrates no evidence of pleural effusions or ascites. IMPRESSION:Interval improvement since 10/01/2021. No new lesions. Reported By: Mahesh Mcdonald MD Electronically Signed Date/Time: 03/12/22 1429 Technologist: MARTHA Dictated Date/Time: 03/12/22 1356 Transcribed Date/Time:PET W CT Skull to Mid Thigh [facility] BRYANName: MARYJANE JAMESONCARIE : 1960 Sex: FZAHIDA [facility] Pt Name: MARYJANE JAMESON [address] Phys: [place] [address] : 1960 Age: 61 SEX:F [phone] Exam Date: 10/01/21 Status: PRE CLI Acct: [id number] Loc: PET Pt Unit #: [id number] Report #: [id number] CC: Reji Fernandez MD PET SCAN REPORT Order # Category/Exam [id number] PET/PET W CT Skull to Mid Thigh ([id number]): . Results PET W CT Skull to Mid Thigh History: Malignant neoplasm of head, face and neck Comparison: CT angiogram head and neck December 2019 Findings: PET CT from the skull base as mid thigh performed after the intravenous administration of11.2 mCi F-18 FDG. Along the left vocal cord is a small FDGavid mass measuring up to 6 mm with SUV max 5.4. No cervical adenopathy. Extensive vascular calcifications in the carotid arteries. No abnormal FDG localization within the chest, abdomen or pelvis. No osseous metastatic disease. Old compression deformity of the L2 vertebral body. Extensive atherosclerotic plaque of the aorta. High-grade emphysema. No FDG avid pulmonary nodule. No bowel obstruction. No free intraperitoneal gas or fluid. Impression: Small 6 mm FDG avid mass along the left vocal cord. No regional or distant metastatic disease. Reported By: ALLY CRUZ Electronically Signed Date/Time: 10/01/21 1239Technologist: MARTHA Dictated Date/Time: 10/01/21 1124 Transcribed Date/Time:CT Abdomen Pelvis [facility]CH[facility] SAM : 1960 Sex: F Pt Name: JOSEJESUSITA BelleFLAKITO VARGAS [address] [facility]. Phys: [place] [address] : 1960Age: 60 SEX:F [phone] Exam Date: 10/10/20 Status: REG CLI Acct: [id number] Loc: BICLEANDRA Pt Unit #: [id number] Report #: [id number] CC: ALLY JONES MD CAT SCAN REPORT Order # Category/Exam [id number] CT/CT Abdomen Pelvis WO Con ([id number]): . Results CT Abdomen Pelvis WO Con History: Elevated CEA. Smoker. Weight loss Comparison: None. Findings: Lung bases are [...] within the abdomen or pelvis. No findings to explain patient's lab levels although solid organ evaluation is limited without intravenous contrast. Reported By: ALLY CRUZ Electronically Signed Date/Time: 10/10/20 1036 Technologist: JALEN Dictated Date/Time: 10/10/20 1032 Transcribed Date/Time:US Abdominal [facility] BRYANName: MARYJANE JAMESON : 1960 Sex: F Pt Name: MARYJANE JAMESONCARIE [address] Phys: [place] [address] : 1960 Age: 60 SEX:F [phone] Exam Date: 09/24/20 Status: REG CLI Acct: [id number] Loc: JACKIE Pt Unit #: [id number] Report #: [id number] CC: ALLY JONES MD ULTRASOUND REPORT Order # Category/Exam [id number] ULT/US Abdominal ([id number]): . Results EXAM: Abdominal ultrasound complete: HISTORY: [...] Signed Date/Time: 09/24/20828 Technologist: HENOK Dictated Date/Time: 09/24/20 0824 Transcribed Date/Time: US Pelvic Complete [facility] BRYANName: MARYJANE JAMESON : 1960 Sex: F Pt Name: MARYJANE JAMESON [address] Phys: [place] [address] : 1960 Age: 60 SEX:F [phone] Exam Date: 09/24/20 Status: REG CLI Acct: [id number] Loc: BICULT Pt Unit #: [id number] Report #: [id number] CC: ALLY JONES MD ULTRASOUND REPORT Order # Category/Exam [id number] ULT/US Pelvic Complete ([id number]): . Results Pelvic ultrasound: Transabdominal and en dovaginal ultrasound of pelvis performed. INDICATIONS: Pelvic pain COMPARISON: None FINDINGS: Uterus:Uterus has normal size and appearance by ultrasound. Endometrial stripe:Endometrial stripe is within normal range Ovaries:Both ovaries have a normal sonographic appearance. Doppler:Color Doppler andspectral analysis demonstrates normal blood flow to both ovaries. No evidence of free fluid in the pelvis. No evidence of pelvic mass. IMPRESSION: Unremarkable pelvic ultrasound Reported By: Derrick Mendoza MD Electronically Signed Date/Time: 09/24/20 1037 Technologist: HENOK Dictated Date/Time: 09/24/20 1037 Transcribed Da te/Time:MRI Brain W WO [facility] Pt Name: MARYJANE JAMESON [employer] Phys: [place] [address] : 1960 Age: 59 SEX:F [phone] Exam Date: 02/04/20 Status:ADM IN Acct: [id number] Loc: 2SE Pt Unit #: [id number] Report #: [id number] CC: ALLY JONES MD MRI REPORT Order # Category/Exam [id number] MRI/MRI Brain W WO Con ([id number]): . Results MRI OF BRAIN WITH AND WITHOUT CONTRAST: INDICATION: Question stroke. Lower extremity weakness. COMPARISON: Comparison is made to recent MRI of brain from 01/09/2020. FINDINGS: Area of encephalomalacia and volu me loss in the right parietal lobe with surrounding gliosis again seen as previously described. Thepostoperative changes in the left middle cranial fossa with aneurysm clip producing artifact is again noted and appears unchanged. Ischemic changes in the brainstem with evidence of an old brainstem lacunar [...] Technologist: [email or web address].NPR Dictated Date/Time: 02/04/20 1522 Transcribed Date/Time: 02/04/20 1544 MRI Thoracic Spine WO [facility] Pt Name: MARYJANE JAMESON [employer] Phys: [place] [address] : 1960 Age: 59 SEX:F [phone] Exam Date: 02/04/20 Status:ADM IN Acct: [id number] Loc: 2SE Pt Unit #: [id number] Report #: [id number] CC: ALLY JONES MD MRI REPORT Order # Category/Exam [id number] MRI/MRI Thoracic Spine WO Con ([id number]): . ResultsMRI THORACIC SPINE WITHOUT CONTRAST: INDICATION: Bilateral lower extremity numbness. FINDINGS: Thoracic vertebrae maintain height and alignment. The phc9xnnlvp body signal is normal. Mild disk bulge at T3-T4 mildly flattens the thecal sac but does not impinge on the cord. Minimal disk bulge at T4-5. There is no evidence of disk protrusion. No central canal stenosis. 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 When comparison is made to [...] as described above. 2. The cervical cord was evaluated with pre- and post-contrast imaging in 2013 and no abnormal enhancement was present. Recommend repeat MRI of cervical spine to confirm stability of the cervical cordsyrinx noted previously. Consider further evaluation of thoracic cord with MRI thoracic spine with contrast to rule out intrinsic cord lesion. POS: OFF Reported By: Derrick Mendoza MD Electronically Signed Date/Time: 02/04/20 1642 Technologist: [email or web address] Dictated Date/Time: 02/04/20 1516 Transcribed Date/Time: 02/04/20 1530MRA Angio Abd W [facility] Pt Name: MARYJANE JAMESON [address] Phys: [place] [address] : 1960 Age: 59 SEX:F [phone] Exam Date: 02/04/20 Status: ADM IN Acct: [id number] Loc: 2SE Pt Unit #: [id number] Report #: [id number] CC: ALLY JONES EMD MRI REPORT Order # Category/Exam [id number] MRI/MRA Angio Abd W WO Con ([id number]): . Results MR ANGIO OF ABDOMEN WITH AND WITHOUT IV CONTRAST: Date: 02/04/2020 HISTORY: Renovascular hypertension. FINDINGS: There is atherosclerotic irregularity of the abdominal aorta and iliac arteries without evidence ofaneurysmal dilatation of the abdominal aorta. There is good flow in the right and left renal arteries without significant stenosis. A single renal artery is seen on either side. IMPRESSION:No evidence of significant renal artery stenosis. POS: MZA Reported By: Mahesh Mcdonald MD Electronically Signed Date/Time: 02/04/20 1610 Technologist: [email or web address] Dictated Date/Time: 02/04/20 1528 Transcribed Date/Time: 02/04/20 1545NM Cardiac Stress W [facility] Pt Name: MARYJANE JAMESON [employer] Phys: [place] [address] : 1960 Age: 59 SEX:F [phone] Exam Date: 02/03/20 Status:ADM IN Acct: [id number] Loc: 2SE Pt Unit #: [id number] Report #: [id number] CC: ALLY JONES MD NUCLEAR MEDICINE REPORT Order # Category/Exam [id number] NM/NM Cardiac Stress W EF WF ([id number]): . Results NUCLEAR MEDICINE CARDIAC MYOCARDIAL PERFUSION SPECT EJECTION FRACTION STUDY WALL MOTIONCINE: DATE: 02/03/2020 HISTORY: 59 year old female smoker with hypertension and dyslipidemia presents with elevated troponin TECHNIQUE: Number of days: 1 Rest study: Technetium 99m-sestamibi (Cardiolite) dose: 10.1 mCi Pharmacologic stress: Lexiscan [...] 02/03/20 1312 Technologist: Dictated Date/Time: 02/03/20 1307 Transcribed Date/Time:XR Chest [facility] Lat [facility] Name: [facility]ARYJANE JAMESON [address] Phys: [place] [address] : 1960 Age: 59 SEX:F [phone] Exam Date: 02/02/20 Status: ADM IN Acct: [id number] Loc: 2SE Pt Unit #: [id number] Report #: [id number] CC: ALLY JONES [facility] IM[facility] SERVICES REPORT Order # Category/Exam [id number] RAD/XR Chest Pa Lat STANDARD ([id number]): . Results RADIOGRAPH CHEST 2 VIEW: DATE: 02/02/2020 HISTORY: 59-year-old female with stroke. Concern for aspiration. FINDINGS: There is hyperinflation of the lungs, and hyperlucency of the upper l obes, consistent with COPD. There is no evidence of airspace density, pulmonary edema, cardiomegaly, pleural effusion, or pneumothorax. IMPRESSION: 1) No acute cardiopulmonary findings. 2) centrilobular emphysema. Reported By: Gordon Hawkins MD Electronically Signed Date/Time: 02/02/201152 Technologist: Dictated Date/Time: 02/02/201150 Transcribed Date/Time:CT Brain WO [facility] Pt Name: MARYJANE JAMESON [employer] Phys: [place] [address] : 1960 Age: 59 SEX:F [phone] Exam Date: 02/01/20 Status: REG ER Acct: [id number] Loc: ERS Pt Unit #: [id number] Report #: [id number] CC: [place] SERRA MD CAT SCAN REPORT Order # Category/Exam [id number] CT/CT Brain WO Con ([id number]): . Results CT Brain WO Con History: Leg weakness Comparison: CT brain January 08, 2020. 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 Large focus of right p old left caudate head infarct. Old right parietal/occipital encephalomalacia. Left frontal craniotomy change with vascular clip. No acute hemorrhage or territorial infarction. No midline shift or mass effect. Impression: Chronic findings.No acute intracranial abnormality. No significant change from last month. Reported By: ALLY CRUZ Electronically Signed Date/Time: 02/01/202235 Technologist: CHING Dictated Date/Time: 02/01/202230 Transcribed Date/Time:[facility]: [facility]ANE JAMESON [employer] Phys: [place] [address] : 1960 Age: 59 SEX:F [phone] Exam Date: 02/01/20 Status: REG ER Acct: [id number] Loc: ERS Pt Unit #: [id number] Report #: [id number] CC: HUGO SERRA MD IMAGING SERVICES REPORT Order # Category/Exam [id number] RAD/XR Chest 1 View Portable ([id number]): . Results XR Chest 1 View Portable History: Weakness Comparison: Radiograph 2014 Findings: Background lung hyperinflation. Scarring both lung bases. Heart size upper limits of normal. No confluent airspace consolidation, pneumothorax or effusion. No acute osseous abnormality. Impression: Obstructive pulmonary disease otherwise no acute intrathoracic abnormality. Reported By: ALLY CRUZ Electronically Signed Date/Time: 02/01/202257 Technologist: UMAIR Dictated Date/Time: 02/01/202257 Transcribed Date/Time:MRI Brain W WO [facility] Pt Name: MARYJANE JAMESON [employer] Phys: [place] [address] : 1960 Age: 59 SEX:F [phone] Exam Date: 01/09/20 Status: ADM IN Acct: [id number] Loc: 2SE Pt Unit #: [id number] Report #: [id number] CC: ALLY JONES MD MRI REPORT Order # Category/Exam [id number] MRI/MRI Brain W WO Con ([id number]): . Results MRI BRAIN WITH AND WITHOUT [...] of a previously described parenchymal hematoma in 2010. Postoperative changes in the left middle cranial [...] POS: AH Reported By: Derrick Mendoza MD ectronically Signed Date/Time: 01/09/20 1443 Technologist: AMI Dictated Date/Time: 01/09/20 0908 Transcribed Date/Time: 01/09/20 1016US Carotid Doppler [facility] Pt Name: MARYJANE JAMESON [address] [address] Phys: [place] [address] : 1960 Age: 59 SEX:F [phone] Exam Date: 01/08/20 Status: ADMIN Acct: [id number] Loc: 2SE Pt Unit #: [id number] Report #: [id number] CC: ALLY JONES MD, Chance DO ULTRASOUND REPORT Order # Category/Exam [id number] ULT/US Carotid Doppler STANDARD ([id number]): . Results BILATERAL CAROTID DUPLEX ULTRASOUND: HISTORY: CVA. Left facial droop and slurred speech. TECHNIQUE: Grayscale, color- flow and spectral Doppler ultrasound imaging of the [...] Reported By: Fermin Moore MD Electronically Signed Date/Time: 01/09/20 0750 Technologist: TRICIA Dictated Date/Time: 01/09/20 0747 Transcribed Date/Time:CT Brain WO [facility] Pt Name: MARYJANE JAMESON [employer] Phys: [place] [address] : 1960 Age: 59 SEX:F [phone] Exam Date: 01/08/20 Status: REGER Acct: [id number] Loc: ERS Pt Unit #: [id number] Report #: [id number] CC: ED TEMP PROVIDER Ludin Cox DO CAT SCAN REPORT Order # Category/Exam CT/CT Brain WO Con ([id number]): . Results CT BRAIN WITHOUT CONTRAST HISTORY: Level 1 stroke. Weakness in the legs Comparison 05/22/2013 FINDINGS: Changes of encephalomalacia and reduces in the right frontoparietal lobe with associated ex vacuo dilatation of the occipital horn of the right lateral ventricle are stable. 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 Old infarction in the asha is redemonstrated. Old lacunar infarction in the left caudate head is againseen. No evidence of acute infarct, hemorrhage, midline shift or abnormal extra-axial fluid collections is noted. Ventricular size is stable and the basilar cisterns are patent. IMPRESSION: No CT evidence of acute intracranial process. Discussed over the telephone with ER physician Dr. Ludin Cox at 12:53 PM Reported By: Mahesh Mcdonald MD Electronically Signed Date/Time: 01/08/20 1257 Technologist: KAELYN Dictated Date/Time: 01/08/20 1251 Transcribed Date/Time:CTA Angio Head W WO [facility] Pt Name: MARYJANE JAMESON [employer] Phys: Ludin Cox [place] [address] : 1960 Age: 59 SEX:F [phone] Exam Date: 01/08/20 Status: REGER Acct: [id number] Loc: ERS Pt Unit #: [id number] Report #: [id number] CC: ED TEMP PROVIDER Ludin Cox DO CAT SCAN REPORT Order # Category/Exam CT/CTA Angio Head W WO Con ([id number]): . CT/CTA Angio Neck W LASHAE Hernandez ([id number]): . Results CTA HEAD: CTA NECK: 01/08/20 Multiple axial tomograms obtained through the head and neck with IV enhancement following an angio protocol with multiplanar reconstruction and 3D postprocessing. INDICATIONS: Stroke protocol. Left sided weakness. COMPARISON: Comparison made to a CTA head from 12/04/13. History of prior aneurysm clipping in the left middle cranial fossa. Metallic artifact from the aneurysm embolism in the [...] compared to the right but this is stableand appears to be on the basis of aneurysmal clipping which probably occluded proximal M2 branches.The right M1, M2 and M3 branches are unremarkable. The basilar artery is patent. The posterior cerebral arteries are patent and symmetric. IMPRESSION: Postoperative changes in the left middle cranialfossa with some narrowing of the distal left M1 segment and decreased left M2 segments are again noted. These findings are stable when compared to the CTA study of 12/04/13. CTA head otherwise unremark able. CTA NECK: Origin of the arch vessels is not completely imaged. The common carotid arteries appear patent and symmetric with mild atherosclerotic change. Mild atherosclerotic change seen in bothbulbs and proximal ICAs; however, there is no evidence of stenosis identified in either extracranial internal carotid artery. The vertebral arteries are patent and symmetric. The soft tissues are unremarkable. Chronic lung parenchymal changes are noted on images through the apices. IMPRESSION: Mildatherosclerotic changes seen in the carotid bulbs with no evidence of stenosis. Reported By: Derrick Mendoza MD Electronically Signed Date/Time: 01/08/20 1545 Technologist: KAELYN Dictated Date/Time: 01/08/20 1329 Transcribed Date/Time: 01/08/20 1359 Notes Date/Time Note Provider Source 2021-09-17 08:58:00 [id number] [id number]+9YkdDEC1867-94- 26T08:58:00[facility] Name: [address] : 1960, Age: 61, Sex: F [place] [address] Unit #: [id number], Status: [facility] [phone] Location: [facility] Dictated by: Reji Fernandez MD Admission Date: Report #: [id number] Discharge Date: 09/16/21 CC: Reji Fernandez MD OPERATIVE NOTE DATE OF PROCEDURE: 09/16/2021 PREOPERATIVE DIAGNOSES: 1. Vocal cord lesion. 2. Dysphonia. 3. Tobacco abuse. POSTOPERATIVE DIAGNOSES: 1. Vocal cord lesion. 2. Dysphonia. 3. Tobacco abuse. PROCEDURE: Microsuspension direct laryngoscopy with biopsies. ESTIMATED BLOOD LOSS: 0 mL. COMPLICATIONS: None. ANESTHESIA: GETA via Shanti Jet ventilation tube. DESCRIPTION OF PROCEDURE: The patient was taken to the operating room. General endotracheal anesthesia was obtained by the anesthesia staff. The Dedo laryngoscope was then used to place the Shanti Jet ventilation tube into the trachea. Adequate ventilation and oxygenation were obtained. The tube was secured in the left lower lip. The head of bed was turned 90 degrees. A shoulder roll was placed and a Dedo laryngoscope was then used to examine the oral cavity and oropharynx, submucosa was noted to be within normal limits. Following this, the laryngeal inlet and the hypopharyngeal structures were visualized. The piriform sinuses, postcricoid mucosa, and valleculae were all clear as well as the epiglottis. The patient was placed in suspension and the 400 mm lens on the operating microscope was brought into the field. 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 The anterior commissure was not involved nor was the posterior commissure. Otherwise, there was a severe erythematous and red changes throughout the laryngeal mucosa as well. Biopsies were made on this left side. The patient tolerated the procedure well. Job ID: [id number] Dictated by: Reji Fernandez MD <Electronically signed by Reji Fernandez MD> 10/05/21812 Dictated Date/Time: 09/17/21700 Transcribed Date/Time: 09/17/21725 [employer] Supervisor: YESY OPOperative reportMODMargaret RosenbaumModalUserM*Etggr9571-09-58L67:58:00OPERA TIVE [id number] for patient careWRISTWrCarmencita caballeroVmxqodUIDBDXSQYUZB9918-92-67A01:15:17 Reji Fernandez LSJH 2020-11-21 09:28:00 [id number] sFbLp0gTFPJBu+P0s3SNi9 bykjB9zC4st9+Lu8BXYRVfSYL7q/CwGgfM6523-64- 30T09:28:00[facility] Name: MARYJANE JAMESON [address] : 1960, Age: 60, Sex: [place] [address] Unit #: [id number], Status: [facility] [phone] Location: [facility] Dictated by: Iris Pham MD Admission Date: Report #: [id number] Discharge Date: 11/21/20 CC: Iris Pham MD, MICHAEL E MD OPERATIVE NOTE DATE OF PROCEDURE: 11/21/2020 TITLE OF PROCEDURE: EGD with biopsy. PREPROCEDURE DIAGNOSES: 1. Positive Cologuard. 2. Colon screening. POSTPROCEDURE DIAGNOSES: 1. Exam to cecum; good bowel preparation. 2. Diffusely redundant colon. 3. Diminutive rectal polyp, 2 mm in diameter, excised with cold forceps. 4. No other synchronous polyps identified. 5. Small internal hemorrhoids and hypertrophied anal papillae. 6. No mass, large polyp or vascular ectasia identified. PROCEDURE IN DETAIL: Written informed consent was obtained. Upon completion of the EGD, the patient was repositioned for the colonoscopy. Total intravenous anesthesia was provided by Dr. Reinaldo Moran and associates. The patient was placed in the left lateral decubitus position. A digital rectal exam revealed mild perianal rash most likely from the bowel prep bowel preparation and a few perianal skin tags. A Pentax video pediatric colonoscope was inserted through the anal canal and advanced under direct visualization to the cecum. Position in the cecum was verified by clear identification of the appendiceal orifice and the ileocecal valve. The quality of the bowel preparation was good. Each colon segment was examined carefully as the colonoscope was slowly withdrawn from the cecum. Vascular pattern and haustral folds appeared normal. Additional endoscopic findings included diffusely redundant colon. Colonic mucosa demonstrated no vascular ectasias or ulcers. In the rectum, a 2 mm benign-appearing sessile polyp was identified and excised with cold biopsy forceps. The tissue was submitted to pathology. The retroflexed exam demonstrated small internal hemorrhoids and hypertrophied anal papilla. The colon was decompressed as the colonoscope was completely removed from the patient. There were no immediate complications. She was transferred to Day Stay surgery for postprocedure monitoring. RECOMMENDATIONS: 1. Await pathology results. 2. Ask the patient to call me in 1 week for pathology results. 3. Pending polyp results, we will recommend repeating a colonoscopy in 5-10 years. 4. Consider a CT scan of the abdomen and pelvis to further evaluate the abnormal CEA level (already done by PCP). 5. Follow up in the GI clinic in one month. Job ID: [id number] Dictated by: Iris Pham MD <Electronically signed by Iris Pham MD> 11/26/2036 Dictated Date/Time: 11/21/20824 Transcribed Date/Time: 11/21/20924 [employer] Supervisor: YESY OPOperative reportMODLUPenny tenorio*ModalUserM*Wuydw0053-11-15A48:28:00OPERA TIVE [id number] for patient careCHAPHChangClintVaonrfbCMKDHRBNNSXV7521-00-23M54:37:01 Iris Pham STLSJH 2020-11-21 09:20:00 [id number] OhZ9srHU873610ZJnqSXv5 ksUwYMeZgA6f9eo9iiaj9DVLhEmX2yB5ld7502-28- 30T09:20:00[facility] Name: MARYJANE JAMESON [address] : 1960, Age: 60, Sex: KARLA Wan [address] Unit #: [id number], Status: [facility] [phone] Location: [facility] [place] Dictated by: Iris Pham MD Admission Date: Report #: [id number] Discharge Date: 11/21/20 CC: Iris Pham MD, MICHAEL E MD OPERATIVE NOTE DATE OF PROCEDURE: 11/21/2020 TITLE OF PROCEDURE: EGD with biopsy. PREPROCEDURE DIAGNOSES: 1. Positive Cologuard. 2. Elevated CEA. 3. Persistent reflux despite medical therapy. POSTPROCEDURE DIAGNOSES: 1. Exam to the 2nd portion of duodenum. 2. Small sliding hiatal hernia, 1 cm in length, biopsied. 3. No evidence of erosive esophagitis, esophageal ulcer, or gastric ulcer. 4. Mild body and antral gastritis, likely secondary to medications (aspirin). 5. Normal duodenum. 6. Otherwise normal EGD. PROCEDURE IN DETAIL: Written informed consent was obtained. The patient was brought to the endoscopy suite. Total intravenous anesthesia was administered by Dr. Reinaldo Moran and associates. The patient was placed in the left lateral decubitus position. A bite block was inserted into the mouth. A Pentax video diagnostic gastroscope was introduced into the oral cavity and the esophagus was easily intubated. The gastroscope was advanced under direct visualization to the 2nd portion of the duodenum. Endoscopic findings revealed a small sliding hiatal hernia, estimated at 1 cm in length. The Z-line was mildly irregular. Biopsies were obtained for histology. There was no evidence of erosive esophagitis or esophageal ulcer. The stomach was then entered and carefully examined. This included a retroflexed view of the cardia and fundus. Mild patchy erythema was noted in the distal body and antrum, consistent with either a mild gastritis or gastropathy due to medication. Biopsies were obtained for histology. The duodenum from the bulb to the 2nd portion was then inspected and appeared normal. No duodenal or gastric ulcer was seen. The stomach was decompressed as the endoscope was completely removed from the patient. She was then repositioned for the colonoscopy. There were no immediate complications. RECOMMENDATIONS: 1. Await pathology results. 2. Ask the patient to call me in 1 week for pathology results. 3. Consider change of medical therapy from esomeprazole to an alternative PPI like pantoprazole 40 mg daily. 4. Proceed with colonoscopy. 5. Follow up in GI clinic in 1 month. Job ID: [id number] Dictated by: Iris Pham MD <Electronically signed by Iris Pham MD> 11/26/20935 Dictated Date/Time: 11/21/20820 Transcribed Date/Time: 11/21/20916 [employer] Supervisor: YESY OPOperative reportMODLUser, Penny*ModalUserM*Mponn6038-41-67I71:20:00OPERA TIVE [id number] for patient careMeera EscalanteOljyerbABPHTKVWUKIK3877-11-89L66:37:31 Iris Pham STLSJH 2020-02-07 14:28:00 [id number] Angela+CM69FITPznyxTuDEXxQ 8nBy6P+hXd7GOmhXABSkZ7vEsKpyPGzTtm2853-94- 15T14:28:00[facility] Name: MARYJANE JAMESON [address] : 1960, Age: 59, [place]: [place] [address] Unit #: [id number], Status: DIS IN [phone] [place] [facility] [place] Dictated by: ALLY JONES MD Admission Date: 02/02/20 Report #: [id number] Discharge Date: 02/06/20 CC: ALLY JONES MD DISCHARGE SUMMARY REPORT DATE OF ADMISSION: 02/02/2020 DATE OF DISCHARGE: 02/06/2020 CHIEF COMPLAINT ON ADMISSION: Bilateral leg weakness, paresthesias, and increased troponins. The history and physical have been dictated, I will resume from there. HOSPITAL COURSE: The patient was placed in the stroke unit, where she was followed with neurological rechecks on frequent basis. Neurology consultation was sought. Blood pressure was stabilized and then she was scheduled for a Cardiolite stress test due to her elevated troponins. Also, we planned to get a repeat MRI. Over the next 24 hours, the patient had her stress test, this was read, has no evidence of reversible ischemia. Dr. Mendez Warner saw the patient in consultation and felt that she had a bizarre constellation of symptoms that have waxed and waned for a few days. He could not find anything specific on her exam and wanted a repeat MRI including her thoracic cord considering the paraplegia. She is currently on aspirin, Plavix, and statin and he felt that was adequate. Over the next 24 hours, the patient did well. She requested a change from Plavix to Aggrenox. Her vital signs remained stable. By 02/03, she continued to do well. No abnormal blood pressures. Elevated troponins, they were felt to be elevated due to blood pressure. MRI, MRA of thoracic spine were performed, these resulted in no evidence of significant renal artery stenosis. 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 The cervical cord showed no unusual enhancement, but was not fully visualized and an MRI of the C-spine was recommended. MRI of the brain showed no acute infarcts and was stable compared to previous MRI. Over the next 24 hours, the patient continued to do well, although she rested poorly due to increased blood pressure. Her blood pressure was re-evaluated with her medications to be given at the proper timing, she did not receive them at the proper time on the day that she had all of her MRIs, and by 02/06/2020, she was able to be discharged home. Her blood pressure was great and she developed sudden onset of TMJ pain on the left. This was felt in part to be due to anxiety. She will be discharged home with otic drops for the pain as well as some Tylenol No. 4. DIAGNOSES AT THE TIME OF DISCHARGE: 1. Paresthesias secondary to hypertensive urgency. 2. Hypertensive urgency. 3. Elevated troponins also due to elevated blood pressure. 4. Transient ischemic attack. 5. 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 DISCHARGE MEDICATIONS: Include, 1. Aggrenox b.i.d. 2. Carvedilol 25 b.i.d. 3. Nicoderm 21 mg patches can apply daily. 4. Xanax 0.5 mg t.i.d. 5. Otic drops. 6. As well as Tylenol No. 4 p.r.n. pain #20. FOLLOWUP: She is to follow up with in 48 hours. The time required to review the chart, examine the patient, and answer all her questions as well as her daughter's questions, reconcile her medications came to 35 minutes of face time and then 55 minutes total time to include the prescription writing and dictation. She was discharged in stable condition. Job ID: [id number] Dictated by: ALLY JONES MD <Electronically signed by ALLY JONES MD> 03/24/20800 Dictated Date/Time: 03/23/202009 Transcribed Date/Time: 03/23/202211 [employer] Supervisor: YESY Quintero summaryMODLUjona, Penny*ModalUserM*Jeatv5070-58-49P25:28:00DISCH ARGE SUMMARY [id number] for patient Darwin LauDttqhbvBPSKAQKLQJEN3954-64-13Q16:02:41 Ally Jones STJH 2020-02-02 10:32:00 [id number] Ybnd3MSFf/GpDWQoQda3zp 6bV0Vbyp//jSEit1VMutIX9ttQlDMahoyN5376-77- 10T10:32:00[facility] Name: [address] : 1960, Age: 59, Sex: [place] [address] Unit #: [id number], Status: ADM IN [phone] [place] [facility] [place] 208-P Attending Phys: Ally Jones MD Discharge Date: Report #: [id number] Consulting Phys: Mendez Warner MD CC: ALLY JONES MD, Todd A MD CONSULTATION REPORT DATE OF CONSULTATION: 02/02/2020 CONSULTING PHYSICIAN: . IMPRESSION: 1. Bizarre presentation of headache, blurred vision, and bilateral leg weakness that has come and gone over the last two days without any associated pain. 2. 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 3. Hypertension. PLAN: MRI of the brain and thoracic cord. HISTORY OF PRESENT ILLNESS: Ms. Jameson is a 59-year-old woman with a past history of a prior stroke and hypertension. She is hospitalized last month for a workup due to hypertensive spike. She had carotid Dopplers done, which were clear. Her MRI of the brain did not show any acute changes. She has prior ischemic injury in the right posterior parieto-occipital region, asha, and caudate. She came in this time with complaints of waxing and waning weakness in her lower extremities. She reports that normally she has numbness in the left foot, but now she has some numbness in the right foot. She was in the emergency room and reportedly could not lift either leg. At the same time, she was complaining of a headache, blurred vision, and a feeling that everything was distant to her. The symptoms have since resolved. It happened one time prior to admission and resolved spontaneously as well. She denies any spinal pain associated with it. She has not had any fevers, chills, or other constitutional symptoms. She had a CT of the brain in the emergency room, which showed only chronic ischemic changes. LABORATORY STUDIES: Showed elevated white count of 16.3 and hemoglobin of 14.1. Coags were in normal range. Chemistry panel was unremarkable other than elevated troponins of uncertain etiology. Urine showed some leukocytes. MEDICATIONS: List was reviewed. SOCIAL HISTORY: Unremarkable. FAMILY HISTORY: Unremarkable. ALLERGIES: PENICILLIN. REVIEW OF SYSTEMS: 10-system review of systems is otherwise negative. PHYSICAL EXAMINATION: GENERAL: She is a thin, middle-aged woman, in no acute distress. VITAL SIGNS: Blood pressure 166/89, pulse 75, respirations 16, and temperature 97.8. HEENT: Pupils are equal and reactive. Conjunctivae are clear. Oropharynx is clear. No ptosis is present. NECK: Supple. No lymphadenopathy. ABDOMEN: Soft and nontender. EXTREMITIES: No cyanosis or edema. SKIN: Clear. NEUROLOGIC: She was alert and cooperative. Her speech is fluent and clear. Cranial nerves were intact throughout other than the left visual field deficit. Motor exam showed good turf and grounds supervisor strength bilaterally. She had no fix or drift. She had good antigravity strength in both legs. Sensation was subjectively decreased in both feet. Plantar responses were downgoing. Gait was not tested. No tremor or dysmetria is present. SUMMARY: This is a middle-aged woman, who presents with a bizarre constellation of symptoms that have waxed and waned over the last few days. I do not see anything objectively abnormal on her exam that is new. She has a new MRI pending of the brain, we could include the thoracic cord considering her subjective paraplegia. She is currently on aspirin and Plavix along with a statin. I do not see any need to change her medications. Job ID: [id number] Dictated by: Mendez Warner MD <Electronically signed by Mendez Warner MD> 02/03/20 0733 Dictated Date/Time: 02/02/20 1004 Transcribed Date/Time: 02/02/20 1027 [address] Supervisor: YESY CNConsultationMODMargaret RosenbaumModalUserM*Wamch6284-05-87Z91:32:00CONSU LTATION [id number] for patient Mendez HortonJcgjVQQVCQJDQYVM5428-77-13K75:33:58 Mendez Warner STLSJH 2020-02-02 10:31:00 [id number] hYrcPutv2YyOfBHaUI3T5n ph4zKkb9XQ1abnMEkYJzjhm3WSWZR/7A0V5828-52- 10T10:31:00[facility] Name: MARYJANE JAMESON [address] : 1960, Age: 59, Sex: [place] [address] Unit #: [id number], Status: ADM IN [phone] Location: [address] [place] [address] Dictated by: ALLY JONES MD Admission Date: 02/02/20 Report #: [id number] Discharge Date: CC: ALLY JONES MD HISTORY AND PHYSICAL REPORT CHIEF COMPLAINT ON ADMISSION: Bilateral leg weakness, paresthesias, increased troponins. HISTORY OF PRESENT ILLNESS: The patient is a 59-year-old female, previously admitted in December for possible cerebrovascular accident, transient ischemic attack, who had been following up with on an outpatient basis trying to gain control of her blood pressure. On the evening of admission, she had been at a friend's house when she began to exhibit the inability to move her legs. She had numbness and tingling in her face. She had facial weakness, and at this point she had EMS called to bring her to the emergency room. There have been no vomiting, diarrhea. No syncope. She denied chest pain or any significant shortness of breath. In the emergency room, CT scans were unremarkable. It was noted that her troponins were elevated. She had a [place] Stroke Scale Score of 6. was contacted to put her into the hospital for further evaluation. PAST MEDICAL HISTORY: As mentioned above, admitted on January 08, 2020 for cerebrovascular accident/transient ischemic attacks with a discharge diagnosis of hypertensive urgency as etiology of her symptoms. 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 PAST SURGICAL HISTORY: Includes the aforementioned brain surgery by Dr. Styles, requiring the clipping of the aneurysm, as well as C-sections. PSYCHIATRIC HISTORY: Significant for anxiety disorder. SOCIAL HISTORY: She is a . Continues to smoke a pack per day, and has done so for greater than 30 years. Denies alcohol abuse. ALLERGIES: PENICILLIN. MEDICATIONS ON ADMISSION: Include hydralazine 50 mg t.i.d., ramipril 10 mg b.i.d., phenytoin 100 mg b.i.d. that had recently been elevated to 100 mg in the morning and 200 mg at bedtime, levothyroxine 125 mcg daily, Plavix 75 mg daily, carvedilol 12.5 mg b.i.d., atorvastatin 40 mg daily, alendronate 70 mg every week, alprazolam 0.5 mg p.r.n. anxiety, clonidine 0.3 mg p.o. t.i.d., vitamin D 50,000 units p.o. weekly, aspirin 325 mg at bedtime, and amlodipine 10 mg p.o. b.i.d. REVIEW OF SYSTEMS: CONSTITUTIONAL: The patient currently has resolution of the tingling on her body. She denies fever, chills, malaise. HEENT: Denies lesions or drainage from eyes, ears, nose, or throat. CHEST: Denies shortness of breath or coughing. CARDIOVASCULAR: Denies chest pain or palpitations. GASTROINTESTINAL: Has had nausea this morning requiring Zofran, but no actual vomiting or diarrhea. She reports constipation without a BM in a week. GENITOURINARY: Admits to dysuria, but no blood in urine or stool. SKIN: No new rashes or lesions. MUSCULOSKELETAL: Inability to move both legs has resolved since admission and the patient now can move her legs. NEUROLOGIC: Denies headaches, blurred vision. PSYCHIATRIC: She is very anxious. PHYSICAL EXAMINATION: VITAL SIGNS ON ADMISSION: Blood pressure 156/86, currently at 166/89. She has not had her routine medication. O2 saturation 95% on room air, respirations 16, pulse 75, temperature 97.8 with weight at 101. GENERAL: This is a cachectic, older than age appearing female, alert, oriented, cooperative. HEENT: Normocephalic, atraumatic. Pupils are equal, round, and reactive to light. Extraocular muscles are intact. TMs, nares, pharynx are clear. NECK: Supple. CHEST: With generally diminished breath sounds and occasional crackles. HEART: Regular rate and rhythm without murmur. BREASTS: Deferred. ABDOMEN: Soft, nontender. GENITOURINARY: Deferred. EXTREMITIES: Without clubbing or cyanosis. There is mild lower extremity 1+ edema. The patient able to move all extremities at this time. There is muscular wasting in upper and lower extremities. SKIN: Thin and bruised with poor turgor. NEUROLOGIC: Cranial nerves are now intact and equal. Mental status is nonfocal and intact except for anxiety. Gait and cerebral function are untested at this time. Sensory exam is grossly intact. The patient demonstrates good turf and grounds supervisor bilaterally and good mobility of upper and lower extremities from bed exam. LABORATORY DATA: Labs thus far shows WBCs 16.3, hemoglobin 14.1, hematocrit 41.6 with platelets of 266. Sodium 133, potassium 4.0, CO2 of 94, BUN 8, and creatinine 0.67 with a GFR of 90. Liver functions unremarkable. Elevated troponins at 0.125 up to 0.128 x3. TSH from last month was 2.3. Urinalysis showed 75 leukocyte esterase, but otherwise negative. Brain CT currently shows chronic findings. No acute intracranial abnormality. No significant change from the previous month. Chest x-ray shows obstructive pulmonary disease, otherwise unremarkable. ASSESSMENT: 1. Acute onset of paresthesias and paralysis that has improved since admission. 2. Elevated troponins. 3. Urinary tract infection. 4. Hypertension, poorly controlled. 5. Chronic obstructive pulmonary disease. 6. Constipation (last bowel movement approximately 1 week ago). 7. Anxiety disorder. PLAN: 1. Repeat MRI with and without contrast. 2. Cardiolite stress test for elevated troponins. 3. Control of blood pressure. 4. Antibiotics for urinary tract infection. 5. Neurology consultation has already been obtained and we will review the patient's case once MRI complete and serially re-evaluate the patient. Job ID: [id number] Dictated by: ALLY JONES MD <Electronically signed by ALLY JONES MD> 02/04/20 0728 Dictated Date/Time: 02/02/20 0952 Transcribed Date/Time: 02/02/20 1025 [employer] Supervisor: YESY HPHistory and physical examinationMODLUser, M*ModalUserM*Numbv4446-68-31H88:31:00HISTO RY AND PHYSICAL [id number] for patient careDarwin ColemanWkeyyliSWIJATGCPGMB3482-51-60H02:28:58 Ally Jones LSJH 2020-01-10 14:18:00 [id number] pkpGI6Qgl3ZcwoKEd/pny1 f1bAdareOcOFEM20hFcTcYxw9O79yzPvmy1060-73- 17T14:18:00[facility] Name: MARYJANE JAMESON [address] : 1960, Age: 59, Sex: [place] [address] Unit #: [id number], Status: DIS IN [phone] Location: [address] [place] [address] Dictated by: ALLY JONES MD Admission Date: 01/08/20 Report #: [id number] Discharge Date: 01/09/20 CC: ALLY JONES MD DISCHARGE SUMMARY REPORT DATE OF ADMISSION: 01/08/2020 DATE OF DISCHARGE: 01/09/2020 CHIEF COMPLAINT ON ADMISSION: TIA/CVA as well as hypertensive urgency and previous intracerebral bleed. The history and physical previously had been dictated, I will resume from there. HOSPITAL COURSE: She was placed in a stroke unit, where neural vital signs were taken regularly through her stay. She did have a CT with angiogram of the [place] done on the report checker of admission that showed postoperative changes where she had an aneurysmal clip before on the distal left M1 segment and decreased left M2 segments again noted and this study was compared with December 04, 2013, it was felt to be unremarkable. She underwent further evaluation. MRI was obtained as well as neurological consultation by Dr. Richelle Da Silva and the assessment was that most likely a TIA. She felt the patient should continue her aspirin, Plavix, and statin. She felt the hypertensive urgency that precipitated this and her blood pressure should be better controlled. The patient's hemoglobin A1c and diabetes status are excellent. The MRI later showed that there were chronic changes. No evidence of acute infarct or other acute process, echocardiogram 55% to 60%. The patient did well during the hospitalization, her blood pressure came down, her symptoms resolved and she was finally able to be discharged on 01/09/2020. MEDICATIONS AT THE TIME OF DISCHARGE: Included clonidine 0.2 mg b.i.d. Her phenytoin was resumed. Her thyroid was resumed. Her Plavix was resumed. Carvedilol was 12.5 mg b.i.d., atorvastatin 40 mg at bedtime, amlodipine 10 mg daily. Ramipril was increased to 10 mg p.o. b.i.d. and clonidine was increased to 0.3 mg p.o. t.i.d. She was to follow up with in 5 days for blood pressure reassessment and sooner should symptoms recur. She was discharged in stable condition. DIAGNOSES AT THE TIME OF DISCHARGE: 1. Transient ischemic attack. 2. Hypertensive urgency. 3. History of prior cranial bleed and aneurysm. 4. Hypothyroidism. PLAN: Follow up with this week. The time required to review her medication, answer all her questions and reconcile her medicines came to 35 minutes. She was discharged in stable condition. Job ID: [id number] Dictated by: ALLY JONES MD <Electronically signed by ALLY JONES MD> 02/18/20 0748 Dictated Date/Time: 02/17/202028 Transcribed Date/Time: 02/17/202123 [employer] Supervisor: YESY Quintero summaryMargaret MosesModalCarlosrM*Euwkq8264-97-18P77:18:00DISCH ARGE SUMMARY [id number] for patient Antonio LauSgfnqnyCUVWSYRWGHIV5153-78-36T68:48:45 Ally Jones STLSJH 2020-01-09 12:47:00 [id number] YMtOSNs2vi74kBjZxyQxDo PMcCX4w8vGrPbCfB0SiuB0N1QYzn/QfGxC1081-54- 16T12:47:00[facility] Name: MARYJANE JAMESON [address] : 1960, Age: 59, Sex: [place] [address] Unit #: [id number], Status: ADM IN [phone] Location: [address] [place] [address] Attending Phys: Ally Jones MD Discharge Date: Report #: [id number] Consulting Phys: Richelle Da Silva MD CC: ALLY JONES MD, Batool F., MD CONSULTATION REPORT NEUROLOGY CONSULTATION DATE OF CONSULTATION: 01/09/2020 REASON FOR CONSULTATION: TIA. HISTORY OF PRESENT ILLNESS: Ms. Maryjane Jameson is a 59-year-old female who was admitted to the hospital because of intermittent episodes of unexplained weakness, during which she has difficulty to get up from the bed without help. She did check her blood pressure during that time and her systolic was over 200, and she took extra clonidine. Per the patient, the blood pressure normalized during the day and she felt normal, but then again it became high on Tuesday and she took extra clonidine to gain control of her blood pressure. This has been going on since Tuesday and then finally yesterday when she woke up, she was unable to see and she felt weak in the left leg. She woke up and she was unable to see. She called her daughters who took her to the local [facility] and started her on IV and tried to transfer her to [place]. However, the patient's daughter and the patient signed out AMA coming to [place] for their care, and she also took extra clonidine to get her blood pressure under control. The daughters also noted left facial droop associated with left extremity weakness, which resolved and she is back to the baseline. In the emergency room, she was admitted for further evaluation. She does have history of hemorrhagic stroke in 2009 and stent was placed due to aneurysm. She does have baseline left hemiparesis, which has been improved significantly and she is able to live independently. The patient denies nausea, vomiting, headache, chest pain, abdominal pain, recent illness, recent COVID exposure, or problem with speech or swallowing. She does report left facial droop and extremity weakness, which has resolved. PAST MEDICAL HISTORY: Hemorrhagic stroke hypertension; hyperlipidemia; cerebral aneurysm, status post clip clipping; seizures; hypothyroidism; osteopenia; vitamin D deficiency; COPD. PAST SURGICAL HISTORY: Brain surgery with clip placement and section. PAST PSYCHIATRIC HISTORY: Anxiety disorder. SOCIAL HISTORY: The patient is a . She lives independently. She continues to smoke a pack a day and denies alcohol or illegal drug use. ALLERGIES: PENICILLIN. MEDICATIONS: On admission, 1. Dilantin 100 mg twice daily. 2. Ramipril 10 mg daily. 3. Clonidine 0.2 mg b.i.d. 4. Amlodipine 10 mg daily. 5. Carvedilol 12.5 mg twice a day. 6. Aspirin 325 mg daily. 7. Atorvastatin 40 mg at bedtime. 8. Plavix 75 mg daily. 9. Levothyroxine 125 mcg daily. 10. Fosamax 70 mg once a week. 11. Vitamin D 50,000 units weekly. 12. Xanax 0.5 mg p.r.n. anxiety. REVIEW OF SYSTEMS: All 14 systems were reviewed and were negative except the pertinent positive and negative mentioned in the HPI. PHYSICAL EXAMINATION: VITAL SIGNS: Blood pressure 130/60, pulse 80, respiratory rate 18. CARDIOVASCULAR SYSTEM: Regular rate and rhythm. CHEST: Clear. ABDOMEN: Soft. NECK: Supple. NEUROLOGIC: Mental status: The patient is alert and oriented to person, place, and time. Recent and remote memory, clear. Speech is clear. Cranial nerves 2 through 12 intact. Motor: Muscle tone and bulk are normal. Moving all 4 extremities equally and symmetrically. Sensory: Intact. Gait: Deferred due to the patient's safety reason. DATA REVIEWED: I reviewed the brain CT, which was negative for acute intracranial process. I also reviewed the MRI Brain which was negative. CT angiogram showed normal carotid arteries, patent and symmetric. Carotid Dopplers were negative for hemodynamically significant stenosis. ASSESSMENT AND PLAN: Ms. Maryjane Jameson is a 59-year-old female with history significant for hypertension, hyperlipidemia, prior hemorrhagic stroke, presented with acute onset weakness with left facial droop, which has resolved. MRI of the brain reviewed, which was negative for acute intracranial pathology, most likely transient ischemic attack. Continue on aspirin, Plavix, and statin for secondary stroke prevention. Symptoms most likely related to hypertensive emergency. Strict control of blood pressure and blood glucose. Check hemoglobin A1c, fasting lipid panel, TSH, and telemetry. Carotid Dopplers were negative for hemodynamically significant stenosis. CT head was also negative for significant stenosis. A 2D echo to evaluate for left ventricular ejection fraction is pending. Neuro checks every 4 hours. Continue home medications. Physical Therapy/Occupational Therapy/Speech. Deep venous thrombosis prophylaxis. Continue medical management per primary team. We will continue to follow. Thank you for the consult. Job ID: [id number] Dictated by: Richelle Da Silva MD <Electronically signed by Richelle Da Silva MD> 01/09/20 1411 Dictated Date/Time: 01/09/20 1217 Transcribed Date/Time: 01/09/20 1245 [address] Supervisor: YESY BAHENAonsMargaret LedbetterModalUserM*[id number]:47:00CONSU LTATION [id number] for patient Willian S[id number]:12:54 Richelle Da Silva [facility] 2020-01-09 06:23:00 [id number]- 16T06:23:00[facility] Name: MARYJANE JAMESON Drive : 1960, Age: 59, Sex: [place]ARLA [place] [id number] Unit #: [id number], Status: DIS IN [id number] [id number] Location: [address] [place] [address] Dictated by: ALLY JONES MD Admission Date: 01/08/20 Report #: [id number] Discharge Date: 01/09/20 CC: ALLY JONES MD HISTORY AND PHYSICAL REPORT CHIEF COMPLAINT: CVA/TIA. HISTORY OF PRESENT ILLNESS: The patient is a 59-year-old female who lives on the [facility]. She states starting about Tuesday, she was having intermittent episodes of unexplained weakness where she could not raise up out of bed, was unable to walk to the restroom without help. The patient found out that her pressure systolically was over 200 and she would take extra clonidine. She then would normalize through the rest of the day. On Tuesday did not have a particular problem. She felt like she was back to normal. Then, on Tuesday again, her pressure got up high. She had weakness in the left leg and took extra clonidine again, gaining control of her blood pressure. It was around 204 then. Finally, on the day of admission, she awoke and was completely unable to see. She called her daughters whom she lives with, they took her to a local walk-in [facility] that started an IV and proceeded to try to transfer her to [place]. The patient's daughter and the patient signed out AMA coming to [place] for their care. Along the way, the patient took many extra clonidine such that by the time she arrived in the ER, it was 177/96. Her vision had returned, however, she had drooping of the left side of her face. This developed along the way. While in the emergency room, her pressure came down to 146/69 and then finally 124/68. All her symptoms of left-sided facial droop resolved and extremity weakness resolved and she returned to baseline. The patient has continued to smoke all during this time despite multiple efforts in the past to get the patient to stop. She was evaluated in the emergency room and sent to the stroke floor for further evaluation. She does have a history of a hemorrhagic stroke in 2009 and has had a stent placed due to an aneurysm. Her left-sided weakness from that improved significantly such that she was able to live independently, but has since actually lived with her daughter. PAST MEDICAL HISTORY: As mentioned above, significant for: 1. Hemorrhagic stroke in 2009. 2. Hypertension. 3. Hyperlipidemia. 4. Vascular and cerebral aneurysm that has been clipped. 5. Hemorrhagic CVA. 6. Seizures. 7. Hypothyroidism. 8. Osteopenia. 9. Vitamin D deficiency. 10. COPD - emphysematous type. PAST SURGICAL HISTORY: Includes aforementioned brain surgery with a clip placement and C-sections. PSYCHIATRIC HISTORY: Anxiety disorder. SOCIAL HISTORY: The patient is a . Continues to smoke a pack per day and has done so for 30 years. Denies alcohol use. ALLERGIES: TO PENICILLIN. MEDICATIONS ON ADMISSION: 1. Dilantin 100 mg b.i.d. 2. Ramipril 10 mg daily. 3. Clonidine 0.2 mg b.i.d. 4. Amlodipine 10 mg daily. 5. Carvedilol 12.5 mg twice a day. 6. Aspirin 325 mg daily. 7. Atorvastatin 40 mg at bedtime. 8. Plavix 75 mg daily. 9. Levothyroxine 125 mcg daily. 10. Fosamax 70 mg once a week. 11. Vitamin D 50,000 international units weekly. 12. Xanax 0.5 mg p.r.n. anxiety. REVIEW OF SYSTEMS: GENERAL: Patient denies drainage or pain, sores or lesions in eyes, ears, nose, or throat. CHEST: Denies cough or dyspnea. CARDIOVASCULAR: Denies palpitations or chest pain. GI: Denies nausea, vomiting, or diarrhea. : Denies blood in urine or stool or dysuria. MUSCULOSKELETAL: Has had weakness in the left side on the way to this facility, which has resolved. Otherwise, no lesions or problems. SKIN: Multiple bruises and areas of ecchymosis since multiple IV starts. Otherwise, no acute rashes or lesions. NEUROLOGIC: Cranial: Has headaches. Her lack of vision has now returned to normal. Her left-sided weakness has resolved. Gait and cerebellar function are not a problem at this time. PSYCHIATRIC: She has no trouble with anxiety right now. PHYSICAL EXAMINATION: VITAL SIGNS: At the time of admission, blood pressure 124/68, pulse 71, respirations 18, temperature 98.0, pain scale 0/10, O2 saturation 99% on room air. GENERAL: Well-developed, thin, cachectic female. Alert, responsive. HEENT: Sunken eyes and wasted temporal membranes. Pupils are equal, round, and reactive to light. Extraocular muscles are intact. TMs, nares, and pharynx are clear. NECK: Supple. Trachea midline. No lois enlargement or bruits. CHEST: With generally diminished breath sounds. HEART: Regular rate and rhythm. No murmur. BREAST: Deferred. ABDOMEN: Soft without organomegaly. : Deferred. EXTREMITIES: Without clubbing, cyanosis, or edema. Muscular wasting noted in upper and lower extremities. SKIN: With very poor turgor and multiple areas of bruising and ecchymosis from attempted IVs. NEUROLOGIC: Cranial nerves are intact. Gait and cerebellar function have returned to normal. Deep tendon reflexes are /2 bilaterally. Mental status is at baseline. DIAGNOSTIC DATA: Her lab work thus far shows WBC of 11, hemoglobin 12.2, hematocrit 36.7 with platelets at 214. Sodium is 127, potassium 3.5, chloride 97, CO2 of 21, BUN 4, creatinine 0.5 with a GFR greater than 90, glucose 127. Ugevz-bx-xast glucose 159. Liver functions normal. Urine is completely unremarkable. Brain CT shows no evidence of acute intracranial process. Old infarction in the asha, old lacunar infarction in the caudate head, aneurysmal clip in the left middle cranial fossa, encephalomalacia, and vascular dilatation of the horn on the right lateral ventricle. CT angiography shows normal carotid arteries, patent and symmetric. Basilar artery patent. Both middle cerebral arteries patent. ASSESSMENT: 1. Cerebrovascular accident/transient ischemic attack with resolution. 2. Previous hemorrhagic stroke. 3. Hyponatremia. 4. Nicotine dependence. 5. Hypertension with hypertensive emergency/urgency. 6. Chronic obstructive pulmonary disease. 7. Anxiety disorder. PLAN: Plan will be to resume her hypertensive medication and increase the clonidine from 0.2 b.i.d. to 0.3 t.i.d. We will also get an echocardiogram, neurological consult, and monitor the patient's response to treatment. We will also correct her sodium level. Job ID: [id number] Dictated by: ALLY JONES MD <Electronically signed by ALLY JONES MD> 01/13/20 1037 Dictated Date/Time: 01/08/201909 Transcribed Date/Time: 01/08/20 71[address] Supervisor: YESY HPHistory and physical examinationMODPenny Rosenbaum*ModalUserM*Mtdvb2220-27-50T08:23:00HISTO RY AND PHYSICAL [id number] for patient careAntonio Co[id number]:38:16 Ally Jones STLSJH
--- NOTE | 2023-08-13 14:13 | RAD REPORT ---
EXAM DESCRIPTION: [place] [facility] Single View08/13/2023 2:01 pm CLINICAL HISTORY: CHEST PAIN COMPARISON: Chest Single View dated 08/24/2020; Chest Single View dated 04/16/2020; Chest Single View dated 01/20/2020 TECHNIQUE: Portable AP view of the chest. FINDINGS: The lungs are clear. Hyperlucency and hyperinflation suggestive of COPD. No pneumothorax o r effusion. The cardiomediastinal contours are unremarkable. IMPRESSION: No acute cardiopulmonary process.
[2023-08-13 14:29] LABS: Absolute Eosinophils 0.2 K/uL (0-0.5); Absolute Lymphocytes (CBC) 0.7 K/uL (0.7-4.9); Absolute Monocytes 0.9 K/uL (0.1-1.3); Absolute Neutrophil 7.1 K/uL (1.8-8.0); Basophils % 0.4 % (0-1.3); Eosinophils % 1.9 % (0-4.4); Hematocrit 39.8 % (36.0-45.0); Hemoglobin 13.5 g/dL (12.0-15.0); Lymphocytes % 8.3 % (15.3-44.8); MCV 91.2 fL (80-100); MPV 6.6 fL (7.6-11.3); Monocytes % 10.4 % (3.3-12.3); Platelets 365 thou/uL (152-406); RBC Red Blood Cell Count 4.37 M/uL (3.86-4.86); Red Cell Distribution Width 12.5 % (12.1-15.2)
[2023-08-13 14:45] LABS: PT Prothrombin Time 11.5 SECONDS (9.5-12.5); Protime INR 1.05
[2023-08-13 14:49] LABS: ALT/SGPT 35 U/L (13-56); AST/SGOT 20 U/L (15-37); Albumin 3.7 g/dL (3.4-5.0); Albumin/Globulin Ratio 0.8 (1.1-1.8); Alkaline Phosphatase 121 U/L (45-117); Anion Gap 7.9 mEq/L (5.0-15.0); BUN Blood Urea Nitrogen 5 mg/dL (7-18); Bicarbonate 32 mEq/L (21-32); Bilirubin Total 0.3 mg/dL (0.2-1.0); Globulin 4.5 g/dL (2.3-3.5); Glomerular Filtration Rate 104 ml/min (=/>90); Glucose Level 140 mg/dL (74-106); NT PRO-BNP 110 pg/mL (<125); Potassium 3.9 mEq/L (3.5-5.1); Protein, Total 8.2 g/dL (6.4-8.2); Sodium Level 129 mEq/L (136-145); Troponin High Sensitivity 6.7 pg/mL (<58.9)
[2023-08-13 14:50] LABS: Bilirubin Direct < 0.1 mg/dL (0-0.2); Bilirubin Indirect, Calculated ND mg/dL (0.2-0.8)
--- NOTE | 2023-08-13 15:55 | RAD REPORT ---
EXAM DESCRIPTION: CT - Head Brain Wo Cont - 08/13/2023 3:13 pm CLINICAL HISTORY: NUMBNESS COMPARISON: Head angio dated 08/24/2020; Ct Stroke Brain Wo Cont dated 08/24/2020 TECHNIQUE: Noncontrast head CT images were obtained without IV contrast. Multiplanar reformats were generated and reviewed. All CT scans are performed using dose optimization technique as appropriate and may include automated exposure control or mA/KV adjustment according to patient size. FINDINGS: Sequelae of left sub temporal craniotomy and MCA aneurysm clipping. Metallic clip results in streak artifact which limits evaluation. Region of right parietal encephalomalacia is stable. No intracranial hemorrhage, mass, or edema. Midline structures are unremarkable. Stable ventricular caliber. No hydrocephalus. Oneill-white matter differentiation elsewhere is preserved, without evidence of acute infarct. No abnor mal extra-axial fluid collections. Mastoid air cells and visualized portions of the paranasal sinuses are clear. No acute bony findings. IMPRESSION: No evidence of an acute intracranial process. Stable chronic findings as above.
--- NOTE | 2023-08-13 16:09 | ER ---
Nurse's Notes [facility] Name: Maryjane Jameson Age: 63 yrs Sex: Female : 1960 Arrival Date: 08/13/2023 Time: 13:22 Bed 18 Private MD: Diagnosis: Chest pain, unspecified;Left arm numbness Presentation: 08/12 13:31 Chief complaint: Patient states: for the past few days I've bene getting numb in my iw left arm and left leg and yesterday I was having pain in left side of my chest and today I had chest pain again. Coronavirus screen: At this time, the client does not indicate any symptoms associated with coronavirus-19. Ebola Screen: Patient negative for fever greater than or equal to 101.5 degrees Fahrenheit, and additional compatible Ebola Virus Disease symptoms Patient denies exposure to infectious person. Patient denies travel to an Ebola-affected area in the 21 days before illness onset. No symptoms or risks identified at this time. Initial Sepsis Screen: Does the patient meet any 2 criteria? No. Patient's initial sepsis screen is negative. Does the patient have a suspected source of infection? No. Patient's initial sepsis screen is negative. Risk Assessment: Do you want to hurt yourself or someone else? Patient reports no desire to harm self or others. 13:31 Method Of Arrival: Ambulatory iw 13:31 Acuity: RENETTA 3 iw 14:39 Onset of symptoms was August 09, 2023. tl4 Historical: - Allergies: 13:32 PENICILLINS; iw - Home Meds: 15:16 acetylcysteine 600 mg oral tablet,IR \T\ delayed release,biphasic four times a day tl4 [Active]; alendronate 70 mg oral tablet 1 tab every week [Active]; alprazolam 0.5 mg Oral tablet 1 tab 3 times per day [Active]; amlodipine 10 mg tablet 2 tabs daily [Active]; aspirin 325 mg Oral tablet 1 tab daily [Active]; aspirin-dipyridamole 25-200 mg Oral Capsule, ER Multiphase 12 hr 1 cap 2 times per day [Active]; atorvastatin 40 mg oral tablet 1 tab daily [Active]; benzonatate 200 mg oral capsule 1 cap 3 times per day [Active]; carvedilol 25 mg oral tablet 1 tab 2 times per day [Active]; clonidine HCl 0.3 mg Oral tablet 1 tabs 3 times per day [Active]; esomeprazole magnesium 40 mg oral capsule,delayed release (e.c.) 1 cap 2 times per day [Active]; Trelegy Ellipta 200-62.5-25 mcg inhalation Blister, With Inhalation Device 1 inhalation daily [Active]; ibuprofen 800 mg Oral tablet 1 tab 3 times per day [Active]; levalbuterol tartrate 45 mcg/actuation inhalation HFA Aerosol Inhaler 2 inhalations every 6 hours [Active]; levothyroxine 125 mcg tablet 1 tab daily [Active]; metformin 500 mg Oral tablet 1 tab daily [Active]; mirtazapine 30 mg Oral tablet 1 tab every day at bedtime [Active]; pentoxifylline 400 mg oral tablet, extended release 1 tab 3 times per day [Active]; Phenytoin 100 mg Oral 2 tabs 2 times per day [Active]; ramipril 10 mg Oral capsule 1 cap 2 times per day [Active]; - PMHx: 13:33 CVA; Seizure; 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 - Infectious Disease History:: Denies. - Social history:: Smoking status: Patient/guardian denies using tobacco, the patient reports quitting approximately 1 years ago. Screenin:28 [facility] ED Fall Risk Assessment (Adult) History of falling in the last 3 months, tl4 including since admission No falls in past 3 months (0 pts) Confusion or Disorientation No (0 pts) Intoxicated or Sedated No (0 pts) Impaired Gait No (0 pts) Mobility Assist Device Used No (0 pt) Altered Elimination No (0 pt) Score/Fall Risk Level 0 - 2 = Low Risk Oriented to surroundings, Maintained a safe environment, Educated pt \T\ family on fall prevention, incl call for assistance when getting out of bed, Assessed \T\ reinforced patient's understanding of fall precautions, Provided non-skid footwear, Hourly rounding (assess needs \T\ fall precautionary measures) done, Used ambulatory aids as needed (educated on \T\ assisted with), Used gait belt as appropriate. Abuse screen: Denies threats or abuse. Denies injuries from another. Nutritional screening: No deficits noted. Tuberculosis screening: No symptoms or risk factors identified. Assessment: 14:32 General: Appears in no apparent distress. Behavior is calm, cooperative. Pain: tl4 Complains of pain in chest. Neuro: Level of Consciousness is awake, alert, obeys commands, Oriented to person, place, time, situation, It Trainer are equal bilaterally Moves all extremities. Gait is steady, Speech is normal, Facial symmetry appears normal. Neuro: Reports numbness in left arm and left leg. Cardiovascular: Reports chest pain, Capillary refill < 3 seconds Patient's skin is warm and dry. Rhythm is sinus rhythm. Respiratory: Airway is patent Respiratory effort is even, unlabored, Respiratory pattern is regular, symmetrical, Breath sounds are clear bilaterally. GI: No signs and/or symptoms were reported involving the gastrointestinal system. : No signs and/or symptoms were reported regarding the genitourinary system. EENT: No signs and/or symptoms were reported regarding the EENT system. Derm: No signs and/or symptoms reported regarding the dermatologic system. Musculoskeletal: No signs and/or symptoms reported regarding the musculoskeletal system. 15:15 Reassessment: No changes from previously documented assessment. Patient and/or family tl4 updated on plan of care and expected duration. Pain level reassessed. Patient is alert, oriented x 3, equal unlabored respirations, skin warm/dry/pink. 16:30 Reassessment: No changes from previously documented assessment. Patient and/or family tl4 updated on plan of care and expected duration. Pain level reassessed. Patient is alert, oriented x 3, equal unlabored respirations, skin warm/dry/pink. Vital Signs: 13:31 BP 176 / 94; Pulse 92; Resp 16; Temp 97.9; Pulse Ox 93% on R/A; Weight 47.63 kg; Height iw 5 ft. 5 in. ; 14:26 BP 181 / 92; Pulse 95; Resp 14; Pulse Ox 96% ; tl4 15:30 BP 167 / 88; Pulse 76; Resp 16; Pulse Ox 95% on R/A; tl4 16:31 BP 154 / 76; Pulse 85; Resp 16; Temp 98.3(O); Pulse Ox 95% on R/A; Pain 4/10; tl4 13:31 Body Mass Index 17.47 (47.63 kg, 165.1 cm) iw 16:31 Pain Scale: Adult tl4 Vitals: 14:26 Cardiac Rhythm Assessment Regular Sinus rhythm. tl4 Dada Coma Score: 14:26 Eye Response: spontaneous(4). Motor Response: obeys commands(6). Verbal Response: tl4 oriented(5). Total: 15. ED Course: 13:30 Patient arrived in ED. iw 13:32 Triage completed. iw 13:34 Arm band placed on. iw 13:35 [facility]. jh7 13:35 Al Garrett MD is Attending Physician. jh7 14:00 Amilcar Krishna, DAT is Primary Nurse. tl4 14:03 XRAY Chest (1 view) In Process Unspecified. EDMS 14:06 EKG done, by ED staff. jg11 14:36 Patient has correct armband on for positive identification. Placed in gown. Bed in low tl4 position. Call light in reach. Side rails up X 1. Provided Education on: ED process. Client placed on continuous cardiac and pulse oximetry monitoring. NIBP monitoring applied. patient monitor on. Door closed. Noise minimized. Lights dimmed. Moved to private room. Warm blanket given. 14:36 No provider procedures requiring assistance completed. Initial lab(s) drawn, by me, tl4 sent to lab. Inserted saline lock: 22 gauge in right antecubital area, using aseptic technique. Blood collected. 14:41 Basic Metabolic Panel Sent. tl4 14:41 LFT's Sent. tl4 14:41 Magnesium Sent. tl4 14:41 NT PRO-BNP Sent. tl4 14:42 PT-INR Sent. tl4 14:42 Troponin HS Sent. tl4 15:15 CT Head Brain wo Cont In Process Unspecified. EDMS 16:33 IV discontinued, intact, bleeding controlled, No redness/swelling at site. Pressure tl4 dressing applied. Administered Medications: No medications were administered Medication: 14:36 VIS not applicable for this client. tl4 Outcome: 16:09 Discharge ordered by . jh7 16:33 Discharged to home ambulatory, tl4 16:33 Condition: stable 16:33 Discharge instructions given to patient, Instructed on discharge instructions, follow up and referral plans. Demonstrated understanding of instructions, follow-up care, 16:34 Patient left the ED. tl4 Signatures: Dispatcher [employer] Makayla Chaudhari RN RN iw Adele Vazquez FNP FNP jh7 Amilcar Krishna RN RN tl4 Cameron Cabral jg11
--- NOTE | 2023-08-13 16:09 | EDPHYS ---
Physician Documentation [facility] Name: Maryjane Jamseon Age: 63 yrs Sex: Female : 1960 Arrival Date: 08/13/2023 Time: 13:22 Bed 18 Private MD: TERESA Physician Al Garrett HPI: 08/12 13:32 This 63 yrs old Female presents to ER via Ambulatory with complaints of Numbness Of jh7 Arm, Chest Pain. 13:32 63-year-old female with a past medical history of COPD and seizures presents to the ER [facility] for numbness of the left arm and leg for the past 3 days and chest pain since yesterday. She denies any shortness of breath. Reports that she has a chronic cough and stopped smoking 1 year ago.. Historical: - Allergies: 13:32 PENICILLINS; iw - Home Meds: 15:16 acetylcysteine 600 mg oral tablet,IR \T\ delayed release,biphasic four times a day tl4 [Active]; alendronate 70 mg oral tablet 1 tab every week [Active]; alprazolam 0.5 mg Oral tablet 1 tab 3 times per day [Active]; amlodipine 10 mg tablet 2 tabs daily [Active]; aspirin 325 mg Oral tablet 1 tab daily [Active]; aspirin-dipyridamole 25-200 mg Oral Capsule, ER Multiphase 12 hr 1 cap 2 times per day [Active]; atorvastatin 40 mg oral tablet 1 tab daily [Active]; benzonatate 200 mg oral capsule 1 cap 3 times per day [Active]; carvedilol 25 mg oral tablet 1 tab 2 times per day [Active]; clonidine HCl 0.3 mg Oral tablet 1 tabs 3 times per day [Active]; esomeprazole magnesium 40 mg oral capsule,delayed release (e.c.) 1 cap 2 times per day [Active]; Trelegy Ellipta 200-62.5-25 mcg inhalation Blister, With Inhalation Device 1 inhalation daily [Active]; ibuprofen 800 mg Oral tablet 1 tab 3 times per day [Active]; levalbuterol tartrate 45 mcg/actuation inhalation HFA Aerosol Inhaler 2 inhalations every 6 hours [Active]; levothyroxine 125 mcg tablet 1 tab daily [Active]; metformin 500 mg Oral tablet 1 tab daily [Active]; mirtazapine 30 mg Oral tablet 1 tab every day at bedtime [Active]; pentoxifylline 400 mg oral tablet, extended release 1 tab 3 times per day [Active]; Phenytoin 100 mg Oral 2 tabs 2 times per day [Active]; ramipril 10 mg Oral capsule 1 cap 2 times per day [Active]; - PMHx: 13:33 CVA; Seizure; 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 - Infectious Disease History:: Denies. - Social history:: Smoking status: Patient/guardian denies using tobacco, the patient reports quitting approximately 1 years ago. ROS: 13:32 Constitutional: Negative for fever, chills, and weight loss, Eyes: Negative for injury, jh7 pain, redness, and discharge, Neck: Negative for injury, pain, and swelling, Respiratory: Negative for shortness of breath, cough, wheezing, and pleuritic chest pain, Abdomen/GI: Negative for abdominal pain, nausea, vomiting, diarrhea, and constipation, Back: Negative for injury and pain, MS/Extremity: Negative for injury and deformity, Skin: Negative for injury, rash, and discoloration, 13:32 Cardiovascular: Positive for chest pain, 13:32 Neuro: Positive for numbness, Negative for altered mental status, dizziness, gait disturbance, syncope, visual changes, 13:32 All other systems are negative, Exam: 13:32 Constitutional: This is a well developed, well nourished patient who is awake, alert, jh7 and in no acute distress. Head/Face: Normocephalic, atraumatic. Neck: Trachea midline, no thyromegaly or masses palpated, and no cervical lymphadenopathy. Supple, full range of motion without nuchal rigidity, or vertebral point tenderness. No Meningismus. Cardiovascular: Regular rate and rhythm with a normal S1 and S2. No gallops, murmurs, or rubs. Normal PMI, no JVD. No pulse deficits. Respiratory: Lungs have equal breath sounds bilaterally, clear to auscultation and percussion. No rales, rhonchi or wheezes noted. No increased work of breathing, no retractions or nasal flaring. Abdomen/GI: Soft, non-tender, with normal bowel sounds. No distension or tympany. No guarding or rebound. No evidence of tenderness throughout. Back: No spinal tenderness. No costovertebral tenderness. Full range of motion. Skin: Warm, dry with normal turgor. Normal color with no rashes, no lesions, and no evidence of cellulitis. MS/ Extremity: Pulses equal, no cyanosis. Neurovascular intact. Full, normal range of motion. Neuro: Awake and alert, GCS 15, oriented to person, place, time, and situation. Cranial nerves II-XII grossly intact. Motor strength 5/5 in all extremities. Sensory grossly intact. Cerebellar exam normal. Normal gait. 13:32 Respiratory: the patient does not display signs of respiratory distress, Respirations: normal, Breath sounds: decreased breath sounds, are scattered, Vital Signs: 13:31 BP 176 / 94; Pulse 92; Resp 16; Temp 97.9; Pulse Ox 93% on R/A; Weight 47.63 kg; Height iw 5 ft. 5 in. ; 14:26 BP 181 / 92; Pulse 95; Resp 14; Pulse Ox 96% ; tl4 15:30 BP 167 / 88; Pulse 76; Resp 16; Pulse Ox 95% on R/A; tl4 16:31 BP 154 / 76; Pulse 85; Resp 16; Temp 98.3(O); Pulse Ox 95% on R/A; Pain 4/10; tl4 13:31 Body Mass Index 17.47 (47.63 kg, 165.1 cm) iw 16:31 Pain Scale: Adult tl4 [place] Coma Score: 14:26 Eye Response: spontaneous(4). Motor Response: obeys commands(6). Verbal Response: tl4 oriented(5). Total: 15. MDM: 13:35 Patient medically screened. [facility] 16:10 Differential diagnosis: AMI, NSTEMI, stable angina, costochondritis, pneumonia, CVA, jh7 brain mass, TIA. Data reviewed: vital signs, nurses notes, lab test result(s), EKG, radiologic studies, CT scan, plain films. I considered the following discharge prescriptions or medication management in the emergency department Medications were administered in the Emergency Department. See MAR. Independent interpretation of the following test(s) in the Emergency Department EKG: See my EKG interpretation above. Care significantly affected by the following chronic conditions: Diabetes, Hypertension, Chronic Obstructive Pulmonary Disease. Scoring Tools HEART Score: History: ECG: Age: Risk Factors: Troponin: Total Score = 3. Counseling: I had a detailed discussion with the patient and/or guardian regarding the historical points, exam findings, and any diagnostic results supporting the discharge/admit diagnosis, the need for outpatient follow up, a block sawyer, a neurologist, to return to the emergency department if symptoms worsen or persist or if there are any questions or concerns that arise at home. ED course: Patient remained hemodynamically stable throughout the ER visit. Discussed all lab and imaging results. Informed her that labs are reassuring, but that she should follow-up with her block sawyer and neurologist. The numbness has been going on intermittently for the past 3 days and the patient stated that she did not have any changes in speech, vision, or weakness. Chest pain may be secondary to COPD as well. Patient was advised to return to the ER with any new concerning symptoms.. 08/12 13:44 Order name: Basic Metabolic Panel; Complete Time: 14:51 [facility] 08/12 13:44 Order name: CBC with Diff; Complete Time: 14: [facility] 08/12 13:44 Order name: LFT's; Complete Time: 14:51 [facility] 08/12 13:44 Order name: Magnesium; Complete Time: 14: [facility] 08/12 13:44 Order name: NT PRO-BNP; Complete Time: 14:51 [facility] 08/12 13:44 Order name: PT-INR; Complete Time: 14:51 [facility] 08/12 13:44 Order name: Troponin HS; Complete Time: 14:51 [facility] 08/12 13:43 Order name: XRAY Chest (1 view); Complete Time: 14:16 [facility] 08/12 14:54 Order name: CT Head Brain wo Cont; Complete Time: 16:08 [facility] 08/12 13:43 Order name: EKG; Complete Time: 13:43 [facility] 08/12 13:43 Order name: Cardiac monitoring; Complete Time: 14: [facility] 08/12 13:43 Order name: EKG - Nurse/Tech; Complete Time: 14: [facility] 08/12 13:43 Order name: IV Saline Lock; Complete Time: 14:42 [facility] 08/12 13:43 Order name: Labs collected and sent; Complete Time: 14:42 [facility] 08/12 13:43 Order name: O2 Per Protocol; Complete Time: 14: [facility] 08/12 13:43 Order name: O2 Sat Monitoring; Complete Time: 14: [facility] EC:55 Rate is 84 beats/min. Rhythm is regular. QRS [place] is Normal. Right axis deviation [facility] noted. DE interval is normal at 184 msec. QRS interval is normal at 76 msec. QT interval is normal at 368 msec. No Q waves. T waves are Normal. No ST changes noted. Clinical impression: NSR w/ Non-specific ST/T Changes. Administered Medications: No medications were administered Disposition: 17:55 Co-signature as Attending Physician, Al Garrett MD I reviewed the patient's care rt provided by the Advanced Practice Provider and agree with the diagnosis and treatment plan. Disposition Summary: 08/13/23 16:09 Discharge Ordered Notes: Location: Home [facility] Problem: new [facility] Symptoms: are unchanged [facility] Condition: Stable [facility] Diagnosis - Chest pain, unspecified [facility] - Left arm numbness [facility] Followup: [facility] - With: Private Physician - When: 2 - 3 days - Reason: Recheck today's complaints Discharge Instructions: - Discharge Summary Sheet [facility] - Nonspecific Chest Pain, Adult [facility] - Chest Wall Pain [facility] Forms: - Medication Reconciliation Form [facility] - Thank You Letter [facility] - Patient Portal Instructions [facility] - Leadership Thank You Letter [facility] Signatures: Dispatcher [employer] Makayla Chaudhari RN RN Adele Vazquez, DIRECT CARE SPECIALIST DIRECT CARE SPECIALIST [facility] Al Garrett MD MD rt Amilcar Krishna RN RN tl4 Corrections: (The following items were deleted from the chart) 13:44 13:44 BASIC METABOLIC PANEL+C.LAB.BRZ ordered. EDMS EDMS 13:44 13:44 CBC+H.LAB.BRZ ordered. EDMS EDMS 13:44 13:44 HEPATIC FUNCTION+C.LAB.BRZ ordered. EDMS EDMS 13:44 13:44 MAGNESIUM+C.LAB.BRZ ordered. EDMS EDMS 13:44 13:44 PROBNP+C.LAB.BRZ ordered. EDMS EDMS 13:44 13:44 PROTIME (+INR)+COAG.LAB.BRZ ordered. EDMS EDMS 13:44 13:44 Troponin High Sensitivity+C.LAB.BRZ ordered. EDMS EDMS 14:26 13:43 CBC+H.LAB.BRZ ordered. EDMS EDMS 14:28 13:43 BASIC METABOLIC PANEL+C.LAB.BRZ ordered. EDMS EDMS 14:28 13:43 MAGNESIUM+C.LAB.BRZ ordered. EDMS EDMS 14:28 13:43 PROBNP+C.LAB.BRZ ordered. EDMS EDMS 14:28 13:43 PROTIME (+INR)+COAG.LAB.BRZ ordered. EDMS EDMS 14:28 13:43 Troponin High Sensitivity+C.LAB.BRZ ordered. EDMS EDMS 14:54 14:54 Head Brain Wo Cont+CT.RAD.BRZ ordered. EDMS EDMS
[2023-08-13 16:52] VITALS: BP 154/76; TEMP 98.3; O2SAT 95
== END 2023-08-13 16:34 | disposition home or self-care (01) ==
LOC: ER 13:22
DX: R07.9 Chest pain, unspecified (principal); R20.0 Anesthesia of skin; J44.9 Chronic obstructive pulmonary disease, unspecified; I10 Essential (primary) hypertension; E11.9 Type 2 diabetes mellitus without complications; Z86.73 Personal history of transient ischemic attack (TIA), and cerebral infarction without residual deficits; Z88.0 Allergy status to penicillin
CPT/HCPCS: 36415; 70450; 71045; 80048; 80076; 83735; 83880; 84484; 85025; 85610; 93005; 99284